=== PATIENT | female | born 1985 | race Caucasian/White ===

== ENCOUNTER 2023-07-26 12:05 | Outpatient (OUT) | payer BC, SELFPAY ==
[2023-07-26 12:58] LABS: Estimated Average Glucose 137 mg/dL; Glycohemoglobin A1C 6.4 % (4.5-6.2)
[2023-07-26 13:05] LABS: Thyroid Stimulating Hormone 3.165 uIU/mL (0.358-3.740)
[2023-07-26 14:23] LABS: Free T4 1.84 ng/dL (0.76-1.46)
== END 2023-07-26 12:06 | disposition home or self-care (01) ==
LOC: LAB 12:10
PROVIDERS: PCP Family Medicine; Visit Provider Family Medicine
DX: Z00.00 Encounter for general adult medical examination without abnormal findings (principal); E03.9 Hypothyroidism, unspecified; E28.2 Polycystic ovarian syndrome; Z86.32 Personal history of gestational diabetes
CPT/HCPCS: 36415; 83036; 84439; 84443

== ENCOUNTER 2024-07-20 10:07 | Emergency (ER) | payer BC, SELFPAY ==
[2024-07-20] VITALS (11 sets, daily range): BP systolic 139–153; BP diastolic 85–90; PULSE 79–92; TEMP 36.9; O2SAT 97–98; BMI 44.9
--- NOTE | 2024-07-20 10:13 | ECG_ITS ---
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 Measurements Intervals [place] Rate: 88 P: 52 WA: 114 QRS: -26 QRSD: 88 T: 36 QT: 340 QTc: 386 Interpretive Statements 1100 Sinus rhythm 2210 Short WA interval 7202 Moderate left axis deviation 9150 abnormal ECG No previous ECG available for comparison Electronically Signed On 07-21-2024 5:15:29 EDT by KATLYN PIZANO M.D.
--- NOTE | 2024-07-20 10:31 | ED.GENADUL1 ---
HPI HPI - General Adult General Chief complaint: Chest Pain Stated complaint: CHEST PAIN Time Seen by Provider: 07/20/24 10:08 Source: family Mode of arrival: walk-in Limitations: no limitations History of Present Illness HPI narrative: 38-year-old female presents to the emergency department for chief complaint of chest pain. She woke up with it today about 6 AM, 4-1/2 hours ago. It is just to the left of her sternum and there was no associated injury. No unusual activity yesterday. No fever or significant cough. No back pain. She went to an urgent care center but they told her to come here. Related Data Home Medications ?Medication ?Instructions ?Recorded ?Confirmed levothyroxine 75 mcg tablet 75 mcg PO .am 07/20/24 07/20/24 naproxen 500 mg tablet 500 mg PO ONCE 07/20/24 07/20/24 Allergies Allergy/AdvReac Type Severity Reaction Status Date / Time Penicillins Allergy Rash Verified 07/20/24 10:11 Opioid HPI Opioid Management Most Recent Opioid Data: Last Pain Scale 3 07/20/24 11:13 07/20/24 Last MAR Pain Assessment 07/20/24 11:13 Review of Systems ROS Narrative A ten point review of systems is negative except as noted above. PFSH PFSH Social History Little interest or pleasure in doing things: not at all Feeling down, depressed, or hopeless: not at all Exam Narrative Exam Narrative: Nurses note and vital signs reviewed and patient is not hypoxic. General: The patient appears well and in no apparent distress. Patient is resting comfortably on cart. Skin: Warm, dry, no pallor noted. There is no rash noted. Head: Normocephalic, atraumatic Eye: Normal conjunctiva, no drainage Ears, Nose, Mouth, and Throat: oral mucosa is moist. Nares patent. Cardiovascular: Regular Rate and Rhythm Respiratory: Patient is in no distress, no accessory muscle use, lungs are clear to auscultation, no wheezing, rales or rhonchi Back: non-tender GI: Soft and nontender Musculoskeletal: The patient has no evidence of calf tenderness, no pitting edema, symmetrical pulses noted bilaterally Neurological: A&O, normal speech Psychiatric: Cooperative Constitutional Vital Signs, click to edit/add: Last Vital Signs Temp 98.4 F 07/20/24 10:13 Pulse 80 07/20/24 11:30 Resp 14 07/20/24 11:30 BP 139/90 07/20/24 10:15 Pulse Ox 98 07/20/24 10:13 O2 Del Method Room Air 07/20/24 10:13 Course Vital Signs Vital signs: Vital Signs Temperature 98.4 F 07/20/24 10:13 Pulse Rate 91 H 07/20/24 10:13 Respiratory Rate 14 07/20/24 10:13 Blood Pressure 139/90 07/20/24 10:13 Pulse Oximetry 98 07/20/24 10:13 Oxygen Delivery Method Room Air 07/20/24 10:13 Temperature 98.4 F 07/20/24 10:13 Pulse Rate 80 07/20/24 11:30 Respiratory Rate 14 07/20/24 11:30 Blood Pressure 139/90 07/20/24 10:15 Pulse Oximetry 98 07/20/24 10:13 Oxygen Delivery Method Room Air 07/20/24 10:13 Medical Decision Making MDM Narrative Medical decision making narrative: Her workup is negative. She feels better after being given IV Toradol and I suspect that this is muscular in nature. I have no clinical suspicion of a pulmonary embolism in this patient. Treatment diagnosis and follow-up were discussed with the patient Differential Diagnosis Differential Diagnosis: Chest wall pain, myocardial infarction, PE, pneumothorax Lab Data Lab results reviewed: Yes I reviewed the patient's lab results Labs: Lab Results 07/20/24 Range/Units 10:38 WBC 11.3 H (4.0-11.0) 10^3/uL RBC 4.54 (4.20-5.40) 10^6/uL Hgb 12.0 (12.0-16.0) g/dL Hct 37.2 (36.0-48.0) % MCV 81.9 (81.0-99.0) fL MCH 26.4 L (26.7-34.0) pg MCHC 32.3 (29.9-35.2) g/dL RDW 15.3 H (11.0-15.0) % Plt Count 280 (150-450) 10^3/uL MPV 11.2 (9.5-13.5) fL Neut % (Auto) 84.3 H (43.0-75.0) % Lymph % (Auto) 10.4 L (20.5-60.0) % [place] % (Auto) 4.3 (1.7-12.0) % Eos % (Auto) 0.3 L (0.9-7.0) % Baso % (Auto) 0.4 (0.2-2.0) % Neut # (Auto) 9.5 H (1.4-6.5) 10^3/uL Lymph # (Auto) 1.2 (1.2-3.8) 10^3/uL [place] # (Auto) 0.5 (0.3-0.8) 10^3/uL Eos # (Auto) 0.0 (0.0-0.7) 10^3/uL Baso # (Auto) 0.0 (0.0-0.1) 10^3/uL Abs Immat Gran (auto) 0.03 (0.00-0.03) 10^3/uL Imm/Tot Granulo (auto) 0.3 (0.0-0.5) % Sodium 138 (136-145) mmol/L Potassium 4.1 (3.5-5.1) mmol/L Chloride 102 (98-107) mmol/L Carbon Dioxide 28.4 (21.0-32.0) mmol/L Anion Gap 11.7 BUN 13.0 (7.0-18.0) mg/dL Creatinine 0.75 (0.55-1.02) mg/dL Est GFR ( Amer) >60 (>=60 mL/min/1.73m^2) Est GFR (Non-Af Amer) >60 (>=60 mL/min/1.73m^2) BUN/Creatinine Ratio 17.3 Glucose 112 H (74-106) mg/dL Calcium 9.0 (8.5-10.1) mg/dL Troponin I High Sens <4.0 L (4.0-51.3) pg/mL Imaging Data Chest x-ray: Radiologist's impression: No acute process ECG Data Attestation: I personally reviewed and interpreted this ECG as follows: (EKG on my interpretation shows normal sinus rhythm with a rate of 88 and no acute change.) Discharge Plan Discharge Chief Complaint: Chest Pain Clinical Impression: Chest pain Patient Disposition: Home, Self-Care Time of Disposition Decision: 11:46 Condition: Good Mode of Transportation: Private Vehicle Prescriptions / Home Meds: No Action levothyroxine 75 mcg tablet 75 mcg PO .am naproxen 500 mg tablet 500 mg PO ONCE Print Language: Mongolian Instructions: Chest Pain (ED) Referrals: Lisa Osei MD [Primary Care Provider] - 1 week
[2024-07-20 10:47] LABS: Basophils Percent Auto 0.4 % (0.2-2.0); Eosinophils Percent Auto 0.3 % (0.9-7.0); Hematocrit 37.2 % (36.0-48.0); Immature Granulocytes Abs Auto 0.03 10^3/uL (0.00-0.03); Immature Granulocytes Pct Auto 0.3 % (0.0-0.5); Lymphocytes Absolute Auto 1.2 10^3/uL (1.2-3.8); Lymphocytes Percent Auto 10.4 % (20.5-60.0); Mean Corpuscular HGB Conc 32.3 g/dL (29.9-35.2); Mean Corpuscular Hemoglobin 26.4 pg (26.7-34.0); Mean Corpuscular Volume 81.9 fL (81.0-99.0); Mean Platelet Volume 11.2 fL (9.5-13.5); Monocytes Absolute Auto 0.5 10^3/uL (0.3-0.8); Monocytes Percent Auto 4.3 % (1.7-12.0); Neutrophils Absolute Auto 9.5 10^3/uL (1.4-6.5); Neutrophils Percent Auto 84.3 % (43.0-75.0); Platelet Count 280 10^3/uL (150-450); Red Blood Count 4.54 10^6/uL (4.20-5.40); Red Cell Distribution Width 15.3 % (11.0-15.0); White Blood Count 11.3 10^3/uL (4.0-11.0)
[2024-07-20 11:02] LABS: Anion Gap 11.7; BUN Creatinine Ratio 17.3; Carbon Dioxide 28.4 mmol/L (21.0-32.0); Chloride 102 mmol/L (98-107); Estimated GFR (African America >60 (>=60 mL/min/1.73m^2); Estimated GFR (Non-African Ame >60 (>=60 mL/min/1.73m^2); Glucose 112 mg/dL (74-106); Potassium 4.1 mmol/L (3.5-5.1); Sodium 138 mmol/L (136-145); Troponin I High Sensitivity <4.0 pg/mL (4.0-51.3)
[2024-07-20] MEDS: KETOROLAC TROMETHAMINE 30 MG/ML VIAL IVP (11:13)
== END 2024-07-20 11:59 | disposition home or self-care (01) ==
PROVIDERS: Emergency Provider Emergency Medicine; PCP Family Medicine
DX: R07.9 Chest pain, unspecified (principal)
CPT/HCPCS: 36415; 71045; 80048; 84484; 85025; 93005; 96374; 99285; J1885

== ENCOUNTER 2025-01-24 12:47 | Outpatient (OUT) | payer BC, SELFPAY ==
--- OUTSIDE RECORDS SUMMARY | 2025-01-24 12:55 | XMS_ITS | CCD ---
Author Organization [facility] Care Team Providers Care Crepe Maker Name Role Phone ROGERIOC, DR SMITH Primary Care Unavailable JIGNESH PINEDA Admitting Unavailable EDWIN, JIGNESH Attending Unavailable VISHNU CALLAWAY Consulting Unavailable Kervin Burns Consulting Unavailable HUGH, DR HOUGH Admitting Unavailable HUGH, DR HOUGH Attending Unavailable MISC, DR SMITH Primary Care Unavailable VINCENT, DR ARMENDARIZ Consulting Unavailable HUGH, DR HOUGH Consulting Unavailable HUGH, DR HOUGH Procedure Practitioner Unavailab le HUGH, DR HOUGH Admitting Unavailable HUGH, DR HOUGH Attending Unavailable HUGH, DR HOUGH Primary Care Unavailable HUGH, DR HOUGH Consulting Unavailable HUGH, DR HOUGH Admitting Unavailable HUGH, DR HOUGH Attending Unavailable HUGH, DR HOUGH Primary Care Unavailable HUGH, DR HOUGH Consulting Unavailable ZIEBER, DR HOA Tatum Consulting Unavailable HUGH, DR HOUGH Admitting Unavailable HUGH, DR HOUGH Attending Unavailable MISC, DR SMITH Primary Care Unavailable HUGH, DR HOUGH Admitting Unavailable HUGH, DR HOUGH Attending Unavailable MISC, DR SMITH Primary Care Unavailable HUGH, DR HOUGH Admitting Unavailable HUGH, DR HOUGH Attending Unavailable MISC, DR SMITH Primary Care Unavailable HUGH, DR HOUGH Consulting Unavailable HUGH, DR HOUGH Admitting Unavailable HUGH, DR HOUGH Attending Unavailable MISC, DR SMITH Primary Care Unavailable HUGH, DR HOUGH Consulting Unavailable ZIEBER, DR HOA Tatum Consulting Unavailable HUGH, DR HOUGH Primary Care Unavailable HUGH, DR HOUGH Admitting Unavailable HUGH, DR HOUGH Attending Unavailable HUGH, DR HOUGH Admitting Unavailable HUGH, DR HOUGH Attending Unavailable HUGH, DR HOUGH Primary Care Unavailable HUGH, DR HOUGH Admitting Unavailable HUGH, DR HOUGH Attending Unavailable MISC, DR SMITH Primary Care Unavailable WEST, DR OKSANA Brewster Consulting Unavailable HUGH, DR HOUGH Consulting Unavailable HUGH, DR HOUGH Admitting Unavailable HUGH, DR HOUGH Attending Unavailable MISC, DR SMITH Primary Care Unavailable HUGH, DR HOUGH Consulting Unavailable ZIEBER, DR HOA Tatum Consulting Unavailable HUGH, DR HOUGH Admitting Unavailable HUGH, DR HOUGH Attending Unavailable MISC, DR SMITH Primary Care Unavailable HUGH, DR HOUGH Consulting Unavailable ZIEBER, DR HOA Tatum Consulting Unavailable MISC, DR SMITH Primary Care Unavailable EL, JOSE G Admitting Unavailable EL, JOSE G Attending Unavailable [place], DR OKSANA Brewster Consulting Unavailable HUGH, DR HOUGH Consulting Unavailable LAND, DR KEVON Yost Admitting Unavailable LAND, DR KEVON Yost Attending Unavailable MISC, DR SMITH Primary Care Unavailable LAND, DR KEVON Yost Consulting Unavailable HUGH, DR HOUGH Admitting Unavailable HUGH, DR HOUGH Attending Unavailable MISC, DR SMITH Primary Care Unavailable HUGH, DR HOUGH Consulting Unavailable HUGH, DR HOUGH Admitting Unavailable HUGH, DR HOUGH Attending Unavailable MISC, DR SMITH Primary Care Unavailable HUGH, DR HOUGH Consulting Unavailable HUGH, DR HOUGH Admitting Unavailable HUGH, DR HOUGH Attending Unavailable HUGH, DR HOUGH Consulting Unavailable REQUEST, DR NONE LISTED Primary Care Unavaila ble HUGH, DR HOUGH Admitting Unavailable HUGH, DR HOUGH Attending Unavailable MISC, DR SMITH Primary Care Unavailable HUGH, DR HOUGH Consulting Unavailable HUGH, DR HOUGH Admitting Unavailable HUGH, DR HOUGH Attending Unavailable MISC, DR SMITH Primary Care Unavailable HUGH, DR HOUGH Consulting Unavailable ZIEBER, DR HOA Tatum Consulting Unavailable HUGH, DR HOUGH Admitting Unavailable HUGH, DR HOUGH Attending Unavailable REQUEST, DR NONE LISTED Primary Care Unavaila ble HUGH, DR HOUGH Consulting Unavailable Allergies Allergy Classification Reported Allergen(s) Allergy Type Date of Onset Reaction(s) Facility (7 sources) Latex Drug allergy (disorder) 6 [facility] Repository (2 sources) Penicillins Drug allergy (disorder) [address] [facility] Repository (5 sources) Penicillin Drug Allergy 4 [facility] (3 sources) 12 Hour Decongestant Allergy to substance [facility] Medications Current Medications Medication Drug Class(es) Dates Sig (Normalized) Sig (Original) levothyroxine sodium 0.075 mg oral tablet (15 sources) l-Thyroxine Start: 07-23-2023 End: 05-26-2024 take 1 tablet by mouth once daily Levothyroxine (Synthroid) 75 mcg tablet Active 75 MCG PO Daily May 26, 2024 1:42pm naproxen 500 mg oral tablet (3 sources) Nonsteroidal Anti-inflammatory Drug Start: 08-13-2023 take 1 tablet by mouth twice daily as needed for pain Naproxen 500 mg tablet Active 500 MG PO Twice daily as needed for pain 29 01August 13, 2023 12:00am Completed/Discontinued Medications Medication Drug Class(es) Dates Sig (Normalized) Sig (Original) clindamycin 150 mg oral capsule (3 sources) Lincosamide Antibacterial Start: 08-13-2023 End: 11-10-2023 take 1 capsule by mouth every eight hours Clindamycin Hcl 150 mg capsule Discontinued 150 MG PO Every 8 hours 30 10August 13, 2023 12:00am November 10, 2023 10:34am clomiPHENE citrate 50 mg oral tablet (1 source) Estrogen Agonist/Antagonist Start: 08-03-2024 End: 08-04-2024 take 1 tablet by mouth once daily Clomiphene Citrate 50 mg tablet Discontinued 50 MG PO Daily August 03, 2024 12:00am August 04, 2024 8:53am glipiZIDE er 5 mg 24 hr extended release oral tablet (2 sources) Sulfonylurea Start: 04-17-2024 End: 08-04-2024 take 1 tablet by mouth once daily Glipizide 5 mg tablet extended release 24hr Discontinued 0 .ROUTE .COMPLEX April 17, 2024 1:40pm August 04, 2024 8:52am TAKE 1 TABLET BY MOUTH EVERY DAY Start: 01-18-2024 End: 04-17-2024 take 1 tablet by mouth once daily Glipizide 5 mg tablet extended release 24hr Discontinued 5 MG PO Daily January 18, 2024 12:00am April 17, 2024 1:40pm 24 hr metFORMIN hydrochloride 500 mg extended release oral tablet (8 sources) Biguanide Start: 11-10-2023 End: 01-18-2024 take 1 tablet by mouth twice daily Metformin 500 mg tablet extended release 24 hr Discontinued 500 MG PO Twice daily 180 November 10, 2023 12:00am January 18, 2024 10:06am Start: 07-23-2023 End: 07-26-2023 take 1 tablet by mouth twice daily at mealtime Metformin 500 mg tablet Discontinued 500 MG PO Twice daily with meals July 23, 2023 12:00am July 26, 2023 11:24am nitrofurantoin, macrocrystals 25 mg / nitrofurantoin, monohydrate 75 mg oral capsule (5 sources) Nitrofuran Antibacterial Start: 07-23-2023 End: 07-26-2023 take 1 capsule by mouth every twelve hours at mealtime Nitrofurantoin Monohyd/M-Cryst (Macrobid) 100 mg capsule Discontinued 1 CAP PO Every 12 hours July 23, 2023 12:00am July 26, 2023 11:24am FreeTextSi capsule with food Orally every 12 hrs; Note: Source Status: Taking; Refills: 0; Provider: Juan Francisco Jarrell phenazopyridine hydrochloride 200 mg oral tablet (5 sources) Start: 07-23-2023 End: 07-26-2023 take 1 tablet by mouth three times daily after mealtime Phenazopyridine (Pyridium) 200 mg tablet Discontinued 1 TAB PO Three times daily July 23, 2023 12:00am July 26, 2023 11:24am FreeTextSi tablet after meals Orally Three times a day; Note: Source Status: Taking; Refills: 0; Provider: Juan Francisco Jarrell Pnv #[id number] Acid-Omega3 (4 sources) Start: 07-23-2023 End: 07-26-2023 Pnv #[id number] Acid-Omega3 Discontinued CAP PO July 23, 2023 12:00am July 26, 2023 11:25am Pnv #[id number] Acid-Omega3 30 mg iron-10 mg iron-1 mg capsule (1 source) Start: 07-23-2023 End: 07-26-2023 Pnv #[id number] Acid-Omega3 30 mg iron-10 mg iron-1 mg capsule Discontinued CAP PO July 23, 2023 12:00am July 26, 2023 11:25am Problems Active Problems Problem Classification Problem Date Documented Da te Episodic/Chronic Diabetes mellitus with complications (4 sources) Hyperglycemia due to type 2 diabetes mellitus; Translations: [Type 2 diabetes mellitus with hyperglycemia] 11-10-2023 Chronic Diabetes or abnormal glucose tolerance complicating ; childbirth; or the puerperium (13 sources) Abnormal glucose complicating ; Translations: [Gestational diabetes mellitus in , unspecified control] Onset: 12-13-2020 Episodic Disorders of teeth and jaw (4 sources) Infection of tooth; Translations: [Periapical abscess without sinus] 08-13-2023 Episodic Nonspecific chest pain (2 sources) Chest pain; Translations: [Chest pain, unspecified] 08-04-2024 Episodic Other aftercare (1 source) Other photographic hand developer (current) drug therapy; Translations: [OTH CLOCK AND WATCH HANDS MOUNTER CURRENT DRUG THERAPY] Onset: 05-22-2021 Episodic Other complications of ; puerperium affecting management of mother (1 source) Obesity complicating childbirth; Translations: [OBESITY COMPLICATING CHILDBIRTH] Onset: 01-30-2021 Chronic Other complications of ; puerperium affecting management of mother (1 source) Anemia complicating childbirth; Translations: [ANEMIA COMPLICATING CHILDBIRTH] Onset: 01-30-2021 Chronic Other endocrine disorders (3 sources) Polycystic ovarian syndrome; Translations: [Polycystic ovaries] Onset: 06-19-2021 07-26-2023 Chronic Other endocrine disorders (5 sources) Polycystic ovary syndrome; Translations: [Polycystic ovarian syndrome] 07-26-2023 Chronic Other gastrointestinal disorders (3 sources) Dysphagia, unspecified; Translations: [DYSPHAGIA UNSPECIFIED] Onset: 05-20-2021 Episodic Other nutritional; endocrine; and metabolic disorders (1 source) Obesity, unspecified; Translations: [OBESITY UNSPECIFIED] Onset: 01-30-2021 Chronic Other upper respiratory infections (1 source) Acute pharyngitis, unspecified; Translations: [ACUTE PHARYNGITIS UNSPECIFIED] Onset: 05-22-2021 Episodic Thyroid disorders (14 sources) Hypothyroidism, unspecified; Translations: [Hypothyroidism] Onset: 05-22-2021 Chronic Unclassified (1 source) CONTACT W/AND (SUSP) EXPOS COVID-19; Translations: [CONTACT W/AND (SUSP) EXPOS COVID-19] Onset: 01-30-2021 Past or Other Problems Problem Classification Problem Date Documented Date Episodic/Chronic Deficiency and other anemia (1 source) Iron deficiency anemia, unspecified; Translations: [IRON DEFICIENCY ANEMIA UNSPECIFIED] Onset: 01-30-2021 Episodic Diabetes mellitus without complication (5 sources) Other abnormal glucose; Translations: [OTHER ABNORMAL GLUCOSE] Onset: 11-23-2020 Episodic Hemorrhage during ; abruptio placenta; placenta previa (4 sources) Hemorrhage in early , unspecified; Translations: [HEMORRHAGE EARLY UNS] Onset: 07-01-2020 Episodic Immunizations and screening for infectious disease (2 sources) Encounter for screening for infections with a predominantly sexual mode of transmission; Translations: [Encounter for screening for human papillomavirus (HPV)] Onset: 09-05-2020 Episodic OB-related trauma to perineum and vulva (2 sources) Second degree perineal laceration during delivery; Translations: [Other specified trauma to perineum and vulva] Onset: 01-30-2021 Episodic Other complications of ; puerperium affecting management of mother (1 source) Endocrine, nutritional and metabolic diseases complicating childbirth; Translations: [ENDOCRN NUTR MET DZ COMP CHILDBIRTH] Onset: 01-30-2021 Episodic Other complications of (4 sources) Endocrine, nutritional and metabolic diseases complicating , unspecified trimester; Translations: [ENDOCRN NUTR MET DZ COMP PG UNS TRI] Onset: 12-18-2020 Episodic Other complications of (4 sources) Endocrine, nutritional and metabolic diseases complicating , third trimester; Translations: [ENDOCRN NUTR MET DZ COMP PG 3RD TRI] Onset: 12-20-2020 Episodic Other female genital disorders (1 source) Other specified noninflammatory disorders of vagina; Translations: [OTH SPEC NONINFLAMMATORY D/O VAGINA] Onset: 09-05-2020 Episodic Other and delivery including normal (16 sources) Encounter for routine follow-up; Translations: [Single live ] Onset: 07-19-2020 Episodic Other screening for suspected conditions (not mental disorders or infectious disease) (8 sources) Encounter for screening for Streptococcus B; Translations: [Encounter for screening for malignant neoplasm of cervix] Onset: 08-29-2020 Episodic Residual codes; unclassified (1 source) 37 weeks gestation of ; Translations: [37 WEEKS GESTATION OF ] Onset: 01-30-2021 Episodic Residual codes; unclassified (1 source) 36 weeks gestation of ; Translations: [36 WEEKS GESTATION OF ] Onset: 01-15-2021 Episodic Residual codes; unclassified (1 source) 35 weeks gestation of ; Translations: [35 WEEKS GESTATION OF ] Onset: 01-16-2021 Episodic Residual codes; unclassified (1 source) 34 weeks gestation of ; Translations: [34 WEEKS GESTATION OF ] Onset: 01-13-2021 Episodic Residual codes; unclassified (1 source) 33 weeks gestation of ; Translations: [33 WEEKS GESTATION OF ] Onset: 02-20-2021 Episodic Residual codes; unclassified (1 source) 32 weeks gestation of ; Translations: [32 WEEKS GESTATION OF ] Onset: 12-18-2020 Episodic Residual codes; unclassified (1 source) 28 weeks gestation of ; Translations: [28 WEEKS GESTATION OF ] Onset: 11-20-2020 Episodic Screening and history of mental health and substance abuse codes (1 source) Personal history of nicotine dependence; Translations: [PERSONAL HISTORY OF NICOTINE DEPEND] Onset: 01-30-2021 Episodic Results Test Name Value Interpretation Reference Range Facility Basophils Auto (Bld) [#/Vol] on 07-20-2024 Basophils (Bld) [#/Vol] Automated basophil count 0.0-0.1 [facility] Basophils/100 WBC Auto (Bld) on 07-20-2024 Basophils/100 WBC (Bld) Automated basophil % 0.2-2.0 [facility] Eosinophils/100 WBC Auto (Bl d)on 07-20-2024 Eosinophils/100 WBC (Bld) Automated eosinophil % Low 0.9-7.0 [facility] Erythrocyte distribution wid th Auto (RBC) [Ratio]on 07-20-2024 Erythrocyte distribution width (RBC) [Ratio] Erythrocyte distribution width [Ratio] by Automated count High 11.0-15.0 [facility] Estimated glomerular filtrat ion rate (GFR) non- Americanon 07-20-2024 GFR/1.73 sq M.predicted among non-blacks MDRD (S/P/Bld) [Vol rate/Area] Estimated glomerular filtration rate (GFR) non- >=60 mL/min/1.73m 2 [facility] Hematocrit Auto (Bld) [Volum e fraction]on 07-20-2024 Hematocrit (Bld) [Volume fraction] Hematocrit [Volume Fraction] of Blood by Automated count 36.0-48.0 [facility] Hemoglobin [Mass/volume] in Bloodon 07-20-2024 Hemoglobin (Bld) [Mass/Vol] Hemoglobin [Mass/volume] in Blood 12.0-16.0 [facility] Laboratory - Chemistry and C hemistry - challengeon 07-20-2024 Calcium [Mass/Vol] 9.0 mg/dL 8.5-10.1 [facility] Chloride [Moles/Vol] 102 mmol/L 98-107 [facility] CO2 [Moles/Vol] 28.4 mmol/L 21.0-32.0 [facility] Creatinine [Mass/Vol] 0.75 mg/dL 0.55-1.02 [facility] GFR/1.73 sq M.predicted MDRD (S/P/Bld) [Vol rate/Area] mL/min/{1.73_m2} >=60 mL/min/1.73m 2 [facility] Glucose [Mass/Vol] 112 mg/dL High 74-106 [facility] Potassium [Moles/Vol] 4.1 mmol/L 3.5-5.1 [facility] Sodium [Moles/Vol] 138 mmol/L 136-145 [facility] Urea nitrogen [Mass/Vol] 13.0 mg/dL 7.0-18.0 [facility] Urea nitrogen/Creatinine [Mass ratio] 17.3 mg/mg [facility] Laboratory - Hematology and Cell countson 07-20-2024 Immature granulocytes/100 WBC (Bld) 0.3 % 0.0-0.5 [facility] Leukocytes [#/volume] correc rubens for nucleated erythrocytes in Blood by Automated counon 07-20-2024 WBC corrected for nucl RBC Auto (Bld) [#/Vol] Leukocytes [#/volume] corrected for nucleated erythrocytes in Blood by Automated coun High 4.0-11.0 [facility] Lymphocytes Auto (Bld) [#/Vo l]on 07-20-2024 Lymphocytes (Bld) [#/Vol] Lymphocytes [#/volume] in Blood by Automated count 1.2-3.8 [facility] Lymphocytes/100 WBC Auto (Bl d)on 07-20-2024 Lymphocytes/100 WBC (Bld) Lymphocytes/100 leukocytes in Blood by Automated count Low 20.5-60.0 [facility] MCH Auto (RBC) [Entitic mass ]on 07-20-2024 MCH (RBC) [Entitic mass] MCH [Entitic mass] by Automated count Low 26.7-34.0 [facility] MCHC Auto (RBC) [Mass/Vol]on 07-20-2024 MCHC (RBC) [Mass/Vol] MCHC [Mass/volume] by Automated count 29.9-35.2 [facility] MCV Auto (RBC) [Entitic vol] on 07-20-2024 MCV (RBC) [Entitic vol] MCV [Entitic volume] by Automated count 81.0-99.0 [facility] Monocytes Auto (Bld) [#/Vol] on 07-20-2024 Monocytes (Bld) [#/Vol] Automated blood monocyte count 0.3-0.8 [facility] Monocytes/100 WBC Auto (Bld) on 07-20-2024 Monocytes/100 WBC (Bld) Automated monocyte % 1.7-12.0 [facility] Neutrophils Auto (Bld) [#/Vo l]on 07-20-2024 Neutrophils (Bld) [#/Vol] Neutrophils [#/volume] in Blood by Automated count High 1.4-6.5 [facility] Neutrophils/100 WBC Auto (Bl d)on 07-20-2024 Neutrophils/100 WBC (Bld) Automated neutrophil % High 43.0-75.0 [facility] No Panel Informationon 07-20 Eosinophils # (Auto) 0.0 10 3/uL 0.0-0.7 [facility] Immature Granulocyte # (Auto) 0.03 10 3/uL 0.00-0.03 [facility] Troponin I High Sensitivity <4.0 pg/mL Low 4.0-51.3 [facility] Comment on above: CUT-OFF POINTS HAVE BEEN ESTABLISHED BASED ON THE FOURTHUNIVERSAL DEFINITION OF MYOCARDIAL INFARCTION. THE UPPERREFERENCE LIMIT (URL) OF TROPONIN, DEFINED THE 99THPERCENTILE OF cTnI DISTRIBUTION IN A REFERENCE POPULATION,HAS BEEN CONFIRMED THE DECISION THRESHOLD FOR MIDIAGNOSIS.99TH PERCENTILE = 51.4 PG/MLNOTE: HIGH-SENSITIVITY TROPONIN ASSAY IS NOT INTENDED TO BEUSED IN ISOLATION BUT SHOULD BE INTERPRETED IN CONJUNCTIONWITH OTHER DIAGNOSTIC AND CLINICAL INFORMATION. Platelet mean volume Auto (B ld) [Entitic vol]on 07-20-2024 Platelet mean volume (Bld) [Entitic vol] Platelet mean volume [Entitic volume] in Blood by Automated count 9.5-13.5 [facility] Platelets Auto (Bld) [#/Vol] on 07-20-2024 Platelets (Bld) [#/Vol] Platelets [#/volume] in Blood by Automated count 150-450 [facility] RBC Auto (Bld) [#/Vol]on RBC (Bld) [#/Vol] Erythrocytes [#/volu me] in Blood by Automated count 4.20-5.40 [facility] Serum or plasma anion gap de terminationon 07-20-2024 Anion gap [Moles/Vol] Serum or plasma anion gap determination [facility] Glucose mean value [Mass/vol ume] in Blood Estimated from glycated hemoglobinon 07-26-2023 Average glucose Estimated from glycated hemoglobin (Bld) [Mass/Vol] 137 mg/dL [facility] Laboratory - Chemistry and C hemistry - challengeon 07-26-2023 Free T4 [Mass/Vol] 1.84 ng/dL 0.76-1.46 [facility] TSH Qn 3.165 m[IU]/L 0.358-3.740 [facility] Laboratory - Hematology and Cell countson 07-26-2023 HbA1c (Bld) [Mass fraction] 6.4 % 4.5-6.2 [facility] Comment on above: ADA RECOMMENDED LIMI T 4.0 - 6.0ADA THERAPEUTIC TARGET < 7.0ACTION SUGGESTED> 7.0 FREE T4on 06-18-2021 Free T4 [Mass/Vol] 2.18 ng/dL Normal 0.78-2.19 [facility] Comment on above: Performed By: #### F T4 ####[facility] [id number] [address]Dr. Babak Adams GLYCOHEMOGLOBIN A1Con 2021 ADA RECOMMENDATION ADA THERAPEUTIC TARG ET 6.0 - 7.0 ACTION SUGGESTED > 7.[address] [facility] Comment on above: Performed By: #### A 1C #### [facility] [address] [address] [address] Babak Adams Glucose [Mass/Vol] 117 mg/dL Normal [facility] Comment on above: Performed By: #### A 1C #### [facility] [address] [place] [address] Dr. Babak Adams HbA1c (Bld) [Mass fraction] 5.7 % Normal <=6.[address] [facility] Comment on above: Performed By: #### A 1C #### [facility] [address] [place] [address] Dr. Babak Adams TSHon 06-18-2021 TSH 0.532 uIU/mL Normal 0.470-4.[address] [facility] Comment on above: Performed By: #### H BSANS #### [facility] [address] [place] [address] Harinilindsay Eng TSH RANGE SEE BELOW Normal [facility] Comment on above: Result Comment: <0.3 4 UIU/ml HYPERTHYROID 0.34-5.60 UIU/ml EUTHYROID >5.60 UIU/ml HYPOTHYROID Performed By: #### H BSANS #### [facility] [address] [place] [address] NECK [address] W CONon [address] W CON EXAMINATION: CT NECK ST W CON HISTORY: Pharyngitis COMPARISON: None. TECHNIQUE: CT examination of the soft tissues of the neck following the administration of intravenous contrast. Coronal and sagittal reformations were performed. Dose reduction techniques were achieved by using automated exposure control and/or adjustment of mA and/or kV according to patient size and/or use of iterative reconstruction technique. FINDINGS: Mucosa: No mass in the nasal cavity, nasopharynx, oral cavity, oropharynx, larynx, hypopharynx, or proximal trachea/esophagus. No radiopaque foreign body within the visualized aerodigestive digestive tract. Glands: Normal bilateral parotid, submandibular, and thyroid glands. Nodes: No pathologically enlarged or necrotic cervical lymph nodes. A few prominent level 2A cervical lymph nodes are present although remain subcentimeter in short axis. Vessels: Vascular structures are patent. No carotid space mass. Other: No suspicious lesion in the cervical spine or lung apices. IMPRESSION: 1. No suspicious mass or lymphadenopathy. No abnormal enhancement. 2. No radiopaque foreign body within the visualized aerodigestive digestive tract Electronically authenticated by: KERVIN BURNS Date: 2021-05-20 20:34 Normal [facility] CULTURE THROATon 05-20-2021 CULTURE THROAT Culture Observations : NORMAL RESPIRATORY RENITA. Normal [facility] Comment on above: Performed By: #### T HRTCX, SSCRN #### [facility] [address] [address] [address] Babak Adams MONOon 05-20-2021 Monocytes (Bld) [#/Vol] Negative Normal NEGATIVE [facility] Comment on above: Performed By: #### M CECIL ####[facility] [id number] [address]Dr. Babak Adams STREPT SCREENon 05-20-2021 STREP SCREEN A Negative Normal NEGATIVE [facility] Comment on above: Performed By: #### T HRTCX, SSCRN #### [facility] [address] [address] [address] Babak Adams CBC AUTO DIFFon 01-15-2021 BASO # 0.0 103/ul Normal 0.0-0.[address] [facility] Comment on above: Performed By: #### C BC ####[facility] [id number] [address]Dr. Babak Adams Basophils/100 WBC (Bld) 0.2 % Normal 0.2-2.[address] [facility] Comment on above: Performed By: #### C BC ####[facility] [address] [address]Dr. Babak Adams EO # 0.0 103/ul Normal 0.0-0.7 [facility] Comment on above: Performed By: #### C BC ####[facility] [address] [address]Dr. Babak Adams Eosinophils/100 WBC (Bld) 0.3 % Critically low 0.9-7.0 [facility] Comment on above: Performed By: #### C BC ####[facility] [address] [address]Dr. Babak Adams Erythrocyte distribution width (RBC) [Ratio] 14.5 % Normal 11.0-15.0 [facility] Comment on above: Performed By: #### C BC ####[facility] [address] [address]Dr. Babak Adams Hematocrit (Bld) [Volume fraction] 29.1 % Critically low 36.0-48.0 [facility] Comment on above: Performed By: #### C BC ####[facility] [address] [address]Dr. Babak Adams Hemoglobin (Bld) [Mass/Vol] 9.3 g/dL Critically low 12.0-16.0 [facility] Comment on above: Performed By: #### C BC ####[facility] [address] [address]Dr. Babak Adams IG # 0.10 10e3/ul Critically high 0.00-0.03 [facility] Comment on above: Performed By: #### C BC ####[facility] [address] [place] [address]Dr. Babak Adams IG % 0.8 % Critically high 0.0-0.5 [facility] Comment on above: Performed By: #### C BC ####[facility] [address] [place] [address]Dr. Babak Adams LYMPH # 1.4 103/ul Normal 1.2-3.8 [facility] Comment on above: Performed By: #### C BC ####[facility] [address]ff[address] [place] [address]Dr. Babak Bryan Lymphocytes/100 WBC (Bld) 10.8 % Critically low 20.5-60.0 [facility] Comment on above: Performed By: #### C BC ####[facility] Hbwmppdepi[address] [place] [address]Dr. Lexyrene Adams MANUAL DIFF REQ NO Normal [facility] Comment on above: Performed By: #### C BC ####[facility] [address]ub[address] [place] [address]Dr. Babak Bryan MCH (RBC) [Entitic mass] 28.1 pg Normal 26.7-34.0 [facility] Comment on above: Performed By: #### C BC ####[facility] [address] [place], [place] [address]Dr. Babak Bryan MCHC (RBC) [Mass/Vol] 32.0 g/dL Normal 29.9-35.2 [facility] Comment on above: Performed By: #### C BC ####[facility] [address] [place] [address]Dr. Lexyrene Adams MCV (RBC) [Entitic vol] 87.9 fL Normal 81.0-99.0 [facility] Comment on above: Performed By: #### C BC ####[facility] S[address] [place], [place] [address]Dr. Babak Adams MONO # 0.7 103/ul Normal 0.3-0.8 [facility] Comment on above: Performed By: #### C BC ####[facility] [address] [place] [address]Dr. Lexyrene Adams Monocytes/100 WBC (Bld) 5.5 % Normal 1.7-12.0 [facility] Comment on above: Performed By: #### C BC ####[facility] [address] [place], [place] [address]Dr. Babak Adams NEUT # 10.6 103/ul Critically high 1.4-6.5 [facility] Comment on above: Performed By: #### C BC ####[facility] [address]leszb[address] [place] [address]Dr. Babak Adams Neutrophils/100 WBC (Bld) 82.4 % Critically high 43.0-75.0 [facility] Comment on above: Performed By: #### C BC ####[facility] By[address]entx[address] [place] [address]Dr. Babak Adams Platelet mean volume (Bld) [Entitic vol] 10.8 fL Normal 9.5-13.5 [facility] Comment on above: Performed By: #### C BC ####[facility] [address] [place] [id number]. Babak Adams PLT 201 103/ul Normal 150-450 [facility] Comment on above: Performed By: #### C BC ####[facility] [address] [place] [address]Dr. Babak Adams RBC 3.31 106/ul Critically low 4.20-5.40 [facility] Comment on above: Performed By: #### C BC ####[facility] X[address]purssx[address] [place] [address]Dr. Babak Adams WBC 12.8 103/ul Critically high 4.0-11.0 [facility] Comment on above: Performed By: #### C BC ####[facility] [address] [place] [address]Dr. Babak Adams CBC AUTO DIFFon 01-14-2021 BASO # 0.0 103/ul Normal 0.0-0.1 [facility] Comment on above: Performed By: #### C BC #### [facility] [address] [place] [address] Harini Albertina Basophils/100 WBC (Bld) 0.3 % Normal 0.2-2.0 [facility] Comment on above: Performed By: #### C BC #### [facility] [address] [place] [address] Harini Albertina EO # 0.0 103/ul Normal 0.0-0.7 [facility] Comment on above: Performed By: #### C BC #### [facility] [address] [place], [place] [id number] Harini Albertina Eosinophils/100 WBC (Bld) 0.3 % Critically low 0.9-7.[address] [facility] Comment on above: Performed By: #### C BC #### [facility] [address] [place], [place] [id number] Harini Albertina Erythrocyte distribution width (RBC) [Ratio] 14.3 % Normal 11.0-15.[address] [facility] Comment on above: Performed By: #### C BC #### [facility] [address] [place], [place] [id number] Harini Albertina Hematocrit (Bld) [Volume fraction] 34.4 % Critically low 36.0-48.0 [facility] Comment on above: Performed By: #### C BC #### [facility] [address] [place] [address] Harini Albertina Hemoglobin (Bld) [Mass/Vol] 11.3 g/dL Critically low 12.0-16.0 [facility] Comment on above: Performed By: #### C BC #### [facility] [address] [place] [address] Harini Albertina IG # 0.07 10e3/ul Critically high 0.00-0.03 [facility] Comment on above: Performed By: #### C BC #### [facility] [address] [place], [place] [id number] Harini Albertina IG % 0.6 % Critically high 0.0-0.5 [facility] Comment on above: Performed By: #### C BC #### [facility] [address] [place] [address] Harini Albertina LYMPH # 1.2 103/ul Normal 1.2-3.8 [facility] Comment on above: Performed By: #### C BC #### [facility] [address] [place], [place] [id number] Harini Albertina Lymphocytes/100 WBC (Bld) 10.5 % Critically low 20.5-60.0 [facility] Comment on above: Performed By: #### C BC #### [facility] [address] [place], [place] [phone] Harini Albertina MANUAL DIFF REQ NO Normal [facility] Comment on above: Performed By: #### C BC #### [facility] [address] [place] [address] Harini Eng MCH (RBC) [Entitic mass] 28.3 pg Normal 26.7-34.[address] [facility] Comment on above: Performed By: #### C BC #### [facility] [address] [place] [address] Harini Eng MCHC (RBC) [Mass/Vol] 32.8 g/dL Normal 29.9-35.[address] [facility] Comment on above: Performed By: #### C BC #### [facility] [address] [place] [address] Harini Eng MCV (RBC) [Entitic vol] 86.0 fL Normal 81.0-99.[address] [facility] Comment on above: Performed By: #### C BC #### [facility] [address] [place] [address] Harini Eng MONO # 0.5 103/ul Normal 0.3-0.8 [facility] Comment on above: Performed By: #### C BC #### [facility] [address] [place] [address] Harini Eng Monocytes/100 WBC (Bld) 4.6 % Normal 1.7-12.0 [facility] Comment on above: Performed By: #### C BC #### [facility] [address] [place] [address] Harini Eng NEUT # 9.8 103/ul Critically high 1.4-6.5 [facility] Comment on above: Performed By: #### C BC #### [facility] [address] [place], [place] [address] Harini Eng Neutrophils/100 WBC (Bld) 83.7 % Critically high 43.0-75.[address] [facility] Comment on above: Performed By: #### C BC #### [facility] [address] [place], [place] [phone] Harinilindsay Eng Platelet mean volume (Bld) [Entitic vol] 11.2 fL Normal 9.5-13.5 [facility] Comment on above: Performed By: #### C BC #### [facility] [address], [place] [address] Harini Eng PLT 219 103/ul Normal 150-450 [facility] Comment on above: Performed By: #### C BC #### [facility] [address] [place], [place] [address] Harini Eng RBC 4.00 106/ul Critically low 4.20-5.40 [facility] Comment on above: Performed By: #### C BC #### [facility] [address] [place], [place] [address] Harini Eng WBC 11.7 103/ul Critically high 4.0-11.0 [facility] Comment on above: Performed By: #### C BC #### [facility] [address], [place] [address] Harini Eng Covid-19 PCR ([facility])on SARS-CoV-2 (COVID-19) RNA SONY+probe Ql (Unsp spec) Not detected Normal NOT DETECTED [facility] Comment on above: Result Comment: This test is not yet approved or cleared by the [place] FDA. When there are no FDA-approved or cleared tests available, and other criteria are met, FDA can make tests available under an emergency access mechanism called an Emergency Use Authorization (EUA). The EUA for this test is supported by the [place] of Health and Human Service's (HHS's) declaration that circumstances exist to justify the emergency use of in vitro diagnostics for the detection and/or diagnosis of the virus that causes COVID-19. This EUA will remain in effect (meaning this test can be used) for the duration of the COVID-19 declaration justifying emergency of IVDs, unless it is terminated or revoked by FDA (after which the test may no longer be used). When diagnostic testing is negative, the possibility of a false negative should be considered in the context of a patient's recent exposures and the presence of clinical signs and symptoms consistent with SARS-CoV-2. Performed By: #### C BC #### [facility] [address] [place] [address] Harini Albertina DRUG SCREEN RAPID (URINE)on 01-14-2021 AMP Negative Normal NEGATIVE [facility] Comment on above: Performed By: #### H BSANS #### [facility] [address] [place] [address] Harini Albertina BAR Negative Normal NEGATIVE [facility] Comment on above: Performed By: #### H BSANS #### [facility] [address] [place] [address] Harini Albertina BUP Negative Normal NEGATIVE [facility] Comment on above: Performed By: #### H BSANS #### [facility] [address] [place] [address] [facility] BZO Negative Normal NEGATIVE [facility] Comment on above: Performed By: #### H BSANS #### [facility] [address] [place] [address] Harini Albertina NORMA Negative Normal NEGATIVE [facility] Comment on above: Performed By: #### H BSANS #### [facility] [address] [place] [address] Harini Albertina CUT-OFFS SEE BELOW Normal [facility] Comment on above: Result Comment: AMP (Amphetamine): 500ng/mL, BAR (Barbituates): 200 ng/mL, BZO (Benzodiazepines): 150 ng/mL, BUP (Buprenorphine): 10 ng/mL, NORMA (Cocaine): 150 ng/mL, mAMP (Methamphetamine): 500 ng/mL, MTD (Methadone): 200 ng/mL, OPI (Opiates): 100 ng/mL, OXY (Oxycodone): 100 ng/mL, PCP (Phencyclidine): 25 ng/mL, PPX (Propoxyphene): 300 ng/mL, THC (Cannabinoids): 50 ng/mL, TCA (Trycyclic Antidepressants): 300 ng/mL Performed By: #### H BSANS #### [facility] [address] [place] [address] Harini Albertina DRUG CUT HEADER DRUG CLASS TEST SYST EM CUT-OFF CONCENTRATIONS ARE FOLLOWS: Normal [facility] Comment on above: Performed By: #### H BSANS #### [facility] [address] [place] [address] Harini Albertina mAMP Negative Normal NEGATIVE [facility] Comment on above: Performed By: #### H BSANS #### [facility] [address] [place] [address] Harini Albertina MTD Negative Normal NEGATIVE [facility] Comment on above: Performed By: #### H BSANS #### [facility] [address] [place] [address] Harini Albertina OPI Negative Normal NEGATIVE [facility] Comment on above: Performed By: #### H BSANS #### [facility] [address] [place] [address] Harini Albertina OXY Negative Normal NEGATIVE [facility] Comment on above: Performed By: #### H BSANS #### [facility] [address] [place] [address] Harini Albertina PCP Negative Normal NEGATIVE [facility] Comment on above: Performed By: #### H BSANS #### [facility] [address] [place] [address] Harini Albertina PPX Negative Normal NEGATIVE [facility] Comment on above: Performed By: #### H BSANS #### [facility] [address] [place] [address] Harini Albertina TCA Negative Normal NEGATIVE [facility] Comment on above: Performed By: #### H BSANS #### [facility] [address] [place] [address] Harini Albertina THC Negative Normal NEGATIVE [facility] Comment on above: Performed By: #### H BSANS #### [facility] [address] [place] [address] Harini Albertina UA (CLEAN/CATCH) SLEEVE BASTER/MICRO I F IND.on 01-14-2021 Bilirubin Ql (U) Negative Normal NEGATIVE [facility] Comment on above: Performed By: #### U MICRO, UACSIND ####[facility] [address] [place] [address]DrJasmyne Adams Clarity (U) CLEAR Normal CLEAR [facility] Comment on above: Performed By: #### U MICRO, UACSIND ####[facility] [address]obsw[address] [place] [address]Dr. Lexyrene Adams Color (U) LT. YELLOW Normal YELLOW [facility] Comment on above: Performed By: #### U MICRO, UACSIND ####[facility] [address] [place] [address]Dr. Lexyrene Adams Glucose Ql (U) Negative Normal NEGATIVE [facility] Comment on above: Performed By: #### U MICRO, UACSIND ####[facility] Qqqf[address]bwjz[address] [place] [address]Dr. Babak Adams Hemoglobin Ql (U) LARGE Abnormal NEGATIVE [facility] Comment on above: Performed By: #### U MICRO, UACSIND ####[facility] [address] [place] [address]Dr. Babak Adams Ketones Ql (U) Negative Normal NEGATIVE [facility] Comment on above: Performed By: #### U MICRO, UACSIND ####[facility] [address] [place], [place] [address]Dr. Lexyrene Adams LEUKOCYTES Negative Normal NEGATIVE [facility] Comment on above: Performed By: #### U MICRO, UACSIND ####[facility] Qkmms[address] [place], [place] [address]Dr. Lexyrene Adams Nitrite Ql (U) Negative Normal NEGATIVE [facility] Comment on above: Performed By: #### U MICRO, UACSIND ####[facility] [address] [place], [place] [address]Dr. Babak Adams pH (U) 6.5 [pH] Normal 5-9 [facility] Comment on above: Performed By: #### U MICRO, UACSIND ####[facility] Ax[address] [place], [place] [address]Dr. Babak Adams SPEC GRAVITY 1.010 Normal 1.005-<=1.025 [facility] Comment on above: Performed By: #### U MICRO, UACSIND ####[facility] [address] [place], [place] [address]Dr. Babak Adams UA PROTEIN Negative Normal NEGATIVE/ TRACE [facility] Comment on above: Performed By: #### U MICRO, UACSIND ####[facility] [address] [place] [address]Dr. Babak Adams UR MICRO IND INDICATED Normal [facility] Comment on above: Performed By: #### U MICRO, UACSIND ####[facility] [address] [place] [address]Dr. Babak Adams Urobilinogen Qn (U) 0.2 {Rakesh'U}/dL Normal 0.2 - 1. 0 [facility] Comment on above: Performed By: #### U MICRO, UACSIND ####[facility] [address] [place], [place] [address]Dr. Babak Adams URINE MICROSCOPIC ONLYon BACTERIA NONE SEEN Normal NONE SEEN [facility] Comment on above: Performed By: #### U MICRO, UACSIND ####[facility] I[address] [place], [place] [address]Dr. Babak Adams Bacteria identified Cx Nom (U) NOT INDICATED Normal [facility] Comment on above: Performed By: #### U MICRO, UACSIND ####[facility] [address] [place], [place] [address]Dr. Babak Adams CAST NONE SEEN Normal NONE SEEN [facility] Comment on above: Performed By: #### U MICRO, UACSIND ####[facility] [address] [place], [place] [address]Dr. Babak Adams Crystals LM Nom (Urine sed) NONE SEEN Normal NONE SEEN [facility] Comment on above: Performed By: #### U MICRO, UACSIND ####[facility] K[address]crm[address] [place], [place] [address]Dr. Babak Adams Epithelial cells LM Ql (Urine sed) FEW Abnormal NONE SEEN /RARE [facility] Comment on above: Performed By: #### U MICRO, UACSIND ####[facility] [address]qs[address] [place] [address]Dr. Babak Adams MUCOUS TRACE Abnormal NONE SEEN [facility] Comment on above: Performed By: #### U MICRO, UACSIND ####[facility] [address] [place], [place] [address]Tt. Lexyrene Adams RBC 5-10 Abnormal 0-2 [facility] Comment on above: Performed By: #### U MICRO, UACSIND ####[facility] [address] [place] [id number]. Lexyrene Adams WBC NONE SEEN Normal NONE SEEN [facility] Comment on above: Performed By: #### U MICRO, UACSIND ####[facility] Sydnsiryfd[address] [place] [id number]. Babak Adams US PREG BIOPHY W NON STRESSo n 01-10-2021 US PREG BIOPHY W NON STRESS EXAMINATION: US PREG BIOPHY W NON STRESS HISTORY: Blood glucose abnormal COMPARISON: No relevant comparison available. TECHNIQUE: Ultrasound biophysical profile was performed in the radiology department. non-reactive stress testing was performed by nursing staff in the birthing center. FINDINGS: BREATHING MOVEMENTS: 2.0 GROSS BODY MOVEMENTS: 2.0 TONE: 2.0 QUALITATIVE AMNIOTIC FLUID VOLUME: 2.0 PRESENTATION: CEPHALIC HEART RATE: 148.4 bpm H.B./min AMNIOTIC FLUID VOLUME: 16.2 cm cm GESTATIONAL AGE: 36 weeks 3 days CONCLUSION: Total biophysical profile score: 8.0 Electronically authenticated by: OKSANA DAVIES Date: 2021-01-10 09:[address] [facility] US PREG GROWTHon 01-10-2021 US PREG GROWTH EXAMINATION: US PREG GROWTH HISTORY: Endocrine, nutritional and metabolic disease complicating , childbirth and puerperium COMPARISON: No relevant comparison available. FINDINGS: Heart Rate: 148.4 bpm Amniotic Fluid Volume: 16.2 cm Number: 1.0 Position: Cephalic presentation, longitudinal lie Maximum Vertical Pocket: 5.6 cm cm 3.3 cm cm 3.6 cm cm 3.6 cm cm BIOMETRY: BPD: 9.3 cm cm; 37 weeks 4 days; 88% HC: 32.2 cmcm; 36 weeks 3 days, 21% AC: 31.2 cm cm; 35 weeks 1 days, 25% FL: 7.2 cm cm; 36 weeks 5 days; 54.2 % % EFW: 2812.3 grams, 6 lbs. 3 oz., 40% FL/AC: 23.0 FL/BPD: 77.3 HC/AC: 1.0 GESTATIONAL AGE: Age by EDC: 36 weeks 3 days JAYCEE by EDC: 02/04/2021 Age by US: 36 weeks 3 days JAYCEE by US: 02/04/2021 IMPRESSION: Normal interval growth Electronically authenticated by: OKSANA DAVIES Date: 2021-01-10 09:[address] [facility] GROUP B STREP CULTUREon 12-13 S. agalactiae Ag Ql (Unsp spec) Culture Observations: NEGATIVE FOR GROUP B STREPTOCOCCUS. Normal [facility] Comment on above: Performed By: #### G BSCX ####[facility] [address] [place], [place] [address]CnJasmyne Babak Adams US PREG BIOPHY W NON STRESSo n 01-03-2021 US PREG BIOPHY W NON STRESS EXAMINATION: US PREG BIOPHY W NON STRESS HISTORY: Blood glucose abnormal COMPARISON: No relevant comparison available. TECHNIQUE: Ultrasound biophysical profile was performed in the radiology department. non-reactive stress testing was performed by nursing staff in the birthing center. FINDINGS: BREATHING MOVEMENTS: 2.0 GROSS BODY MOVEMENTS: 2.0 TONE: 2.0 QUALITATIVE AMNIOTIC FLUID VOLUME: 2.0 PRESENTATION: Cephalic HEART RATE: 144.4 bpm H.B./min AMNIOTIC FLUID VOLUME: 18.6 cm cm, largest pocket 5.6 cm GESTATIONAL AGE: 35 weeks 3 days CONCLUSION: Total biophysical profile score: 8.0 Electronically authenticated by: OKSANA DAVIES Date: 2021-01-03 09:58 Normal [facility] US PREG BIOPHY W NON STRESSo n 12-27-2020 US PREG BIOPHY W NON STRESS EXAMINATION: US PREG BIOPHY W NON STRESS HISTORY: Blood glucose abnormal COMPARISON: Ultrasound biophysical 12/20/2020 TECHNIQUE: Ultrasound biophysical profile was performed. FINDINGS: BREATHING MOVEMENTS: 2.0 GROSS BODY MOVEMENTS: 2.0 TONE: 2.0 QUALITATIVE AMNIOTIC FLUID VOLUME: 2.0 PRESENTATION: CEPHALIC HEART RATE: 149.2 bpm bpm. AMNIOTIC FLUID VOLUME: 18.9 cm GESTATIONAL AGE: 34 weeks 3 days CONCLUSION: Total biophysical profile score 8.0. Electronically authenticated by: HOA FOFANA Date: 2020-12-27 09:[address] [facility] US PREG BIOPHY W NON STRESSo n 12-20-2020 US PREG BIOPHY W NON STRESS EXAMINATION: US PREG BIOPHY W NON STRESS HISTORY: Blood glucose abnormal COMPARISON: Ultrasound biophysical 12/13/2020 TECHNIQUE: Ultrasound biophysical profile was performed. FINDINGS: BREATHING MOVEMENTS: 2.0 GROSS BODY MOVEMENTS: 2.0 TONE: 2.0 QUALITATIVE AMNIOTIC FLUID VOLUME: 2.0 PRESENTATION: Cephalic HEART RATE: 142.1 bpm bpm. AMNIOTIC FLUID VOLUME: 17.1 cm GESTATIONAL AGE: 33 weeks 3 days CONCLUSION: Total biophysical profile score 8.0. Electronically authenticated by: HOA FOFANA Date: 2020-12-20 09:[address] [facility] TSHon 12-13-2020 TSH 1.393 uIU/mL Normal 0.470-4.[address] [facility] Comment on above: Performed By: #### T SH ####[facility] [address] TSH RANGE SEE BELOW Normal [facility] Comment on above: Result Comment: <0.3 4 UIU/ml HYPERTHYROID 0.34-5.60 UIU/ml EUTHYROID >5.60 UIU/ml HYPOTHYROID Performed By: #### T SH ####[facility] [address] [place] [address] US PREG BIOPHY W NON STRESSo n 12-13-2020 US PREG BIOPHY W NON STRESS EXAMINATION: US PREG BIOPHY W NON STRESS HISTORY: Blood glucose abnormal COMPARISON: No relevant comparison available. TECHNIQUE: Ultrasound biophysical profile was performed. FINDINGS: BREATHING MOVEMENTS: 2.0 GROSS BODY MOVEMENTS: 2.0 TONE: 2.0 QUALITATIVE AMNIOTIC FLUID VOLUME: 2.0 PRESENTATION: CEPHALIC HEART RATE: 138.5 bpm bpm. AMNIOTIC FLUID VOLUME: 18.5 cm GESTATIONAL AGE: 32 weeks 3 days CONCLUSION: Total biophysical profile score 8.0. Electronically authenticated by: HOA FOFANA Date: 2020-12-13 09:[address] [facility] US PREG GROWTHon 12-13-2020 US PREG GROWTH EXAMINATION: US PREG GROWTH HISTORY: Endocrine, nutritional and metabolic disease complicating , childbirth and puerperium COMPARISON: Ultrasound growth 11/15/2020 FINDINGS: Heart Rate: 138.5 bpm Number: 1.0 Position: CEPHALIC Amniotic Fluid Volume: 18.5 cm Maximum Vertical Pocket: 6.9 cm BIOMETRY: BPD: 8.3 cm cm; 33 weeks 4 days HC: 30.5 cmcm; 34 weeks 0 days AC: 28.7 cm cm; 32 weeks 5 days FL: 6.2 cm cm; 32 weeks 2 days EFW: 2051.7 grams; 51st percentile FL/AC: 21.7 FL/BPD: 74.7 HC/AC: 1.1 GESTATIONAL AGE: Age by EDC: 32 weeks 3 days JAYCEE by EDC: 02/04/2021 Age by US: 33 weeks, 1 day JAYCEE by US: 01/30/2021 IMPRESSION: 1. Single live intrauterine with growth detailed above. Electronically authenticated by: HOA FOFANA Date: 2020-12-13 09:13 Normal [facility] GTT 3 HR PREGon 11-23-2020 Glucose [Mass/Vol] 85 mg/dL Normal 74-106 [facility] Comment on above: Performed By: #### G TT3P ####[facility] [address] [place] [id number] Albertina Glucose [Mass/Vol] 186 mg/dL Normal [facility] Comment on above: Performed By: #### G TT3P ####[facility] [address] [place], [place] [address]Svysiu Albertina Glucose [Mass/Vol] 161 mg/dL Normal [facility] Comment on above: Performed By: #### G TT3P ####[facility] [address] [place], [place] [address]Qmqgle Albertina Glucose [Mass/Vol] 90 mg/dL Normal [facility] [facility] Comment on above: Performed By: #### G TT3P ####[facility] [address] [place], [place] [address]Xapdmq Albertina GLUCOSE - 1HRon 11-15-2020 Glucose [Mass/Vol] 195 mg/dL Critically high 74-106 [facility] Comment on above: Performed By: #### G LU1HR ####[facility] [address] [place], [place] [address]Yyeodg Karen HEMOGRAM AND PLATELon 2020 Hematocrit (Bld) [Volume fraction] 32.9 % Critically low 36.0-48.[address] [facility] Comment on above: Performed By: #### C BC #### [facility] [address], [place] [address] Harini Albertina Hemoglobin (Bld) [Mass/Vol] 10.7 g/dL Critically low 12.0-16.0 [facility] Comment on above: Performed By: #### C BC #### [facility] [address], [place] [address] Harini Eng MCH (RBC) [Entitic mass] 29.0 pg Normal 26.7-34.0 [facility] Comment on above: Performed By: #### C BC #### [facility] [address] [place] [id number] Harini Eng MCHC (RBC) [Mass/Vol] 32.5 g/dL Normal 29.9-35.2 [facility] Comment on above: Performed By: #### C BC #### [facility] [address], [place] [address] Harini Eng MCV (RBC) [Entitic vol] 89.2 fL Normal 81.0-99.0 [facility] Comment on above: Performed By: #### C BC #### [facility] [address] [id number] Harini Braunen PLT 192 103/ul Normal 150-450 [facility] Comment on above: Performed By: #### C BC #### [facility] [address], [place] [address] Harini Albertina RBC 3.69 106/ul Critically low 4.20-5.40 The [facility] Comment on above: Performed By: #### C BC #### [facility] [address] [id number] Harini Albertina WBC 11.6 103/ul Critically high 4.0-11.0 The [facility] Comment on above: Performed By: #### C BC #### [facility] [address], [place] [address] Harini Albertina US PREG GROWTHon 11-15-2020 US PREG GROWTH EXAMINATION: US PREG GROWTH HISTORY: Endocrine, nutritional and metabolic disease complicating , childbirth and puerperium COMPARISON: No relevant comparison available. FINDINGS: Heart Rate: 144.4 bpm Number: 1.0 Position: CEPHALIC Amniotic Fluid Volume: 14.8 cm Maximum Vertical Pocket: 5.3 cm BIOMETRY: BPD: 7.3 cm cm; 29 weeks 1 days HC: 26.5 cmcm; 28 weeks 6 days AC: 24.3 cm cm; 28 weeks 4 days FL: 5.3 cm cm; 28 weeks 3 days EFW: 1252.0 grams; 43rd percentile FL/AC: 22.0 FL/BPD: 73.8 HC/AC: 1.1 GESTATIONAL AGE: Age by EDC: 28 weeks 3 days JAYCEE by EDC: 02/04/2021 Age by US: 28 weeks, 5 days JAYCEE by US: 02/02/2021 IMPRESSION: 1. Single live intrauterine with growth detailed above. Electronically authenticated by: HOA FOFANA Date: 2020-11-15 10:36 Normal [facility] VIT D 1 25 DIHYDROXYon 11-04 Calcitriol(1,25 di-OH Vit D) 91.9 pg/mL Critically high 19.9-79.3 [facility] Comment on above: Performed By: #### C BC #### [facility] [address], [place] [address] Harini Eng TSHon 11-02-2020 TSH 1.386 uIU/mL Normal 0.470-4.[address] [facility] Comment on above: Performed By: #### C BC #### [facility] [address] [place], [place] [address] Harini Eng TSH RANGE SEE BELOW Normal [facility] Comment on above: Result Comment: <0.3 4 UIU/ml HYPERTHYROID 0.34-5.60 UIU/ml EUTHYROID >5.60 UIU/ml HYPOTHYROID Performed By: #### C BC #### [facility] [address] [place], [place] [id number] Harini Eng PAP ACOG PANEL 2: 30 to 65on 09-03-2020 . . Normal [facility] Comment on above: Result Comment: Perf ormed at: WB Performed By: #### C BC #### [facility] [address] [place] [address] Harini Eng Age Gdln ACOG Testing 30-[address] [facility] Comment on above: Performed By: #### C BC #### [facility] [address] [place] [address] Harini Eng DIAGNOSIS: Comment Normal [facility] Comment on above: Result Comment: NEGA TIVE FOR INTRAEPITHELIAL LESION OR MALIGNANCY. Performed at: WB Performed By: #### C BC #### [facility] [address] [place] [address] Harini Albertina HPV Aptima Negative Normal Negative [facility] Comment on above: Result Comment: This nucleic acid amplification test detects fourteen high-risk HPV types (16,18,31,33,35,39,45,51,52,56,58,59,66,68) without differentiation. Performed at: =G Performed By: #### C BC #### [facility] [address] [place] [address] Harini Albertina Methodology: Comment [facility] Comment on above: Result Comment: This liquid based ThinPrep(R) pap test was screened with the use of an image guided system. Performed at: WB Performed By: #### C BC #### [facility] [address] [place] [address] Harinilindsay Eng Note: Comment Normal [facility] Comment on above: Result Comment: The Pap smear is a screening test designed to aid in the detection of premalignant and malignant conditions of the uterine cervix. It is not a diagnostic procedure and should not be used as the sole means of detecting cervical cancer. Both false-positive and false-negative reports do occur. . Performed at: WB Performed By: #### C BC #### [facility] [address] [place] [address] Harini Eng Performed by: Comment Normal [facility] Comment on above: Result Comment: Johanna Bautista, Vibrator Operator (ASCP) Performed at: WB Performed By: #### C BC #### [facility] [address] [address] Harini Eng Specimen adequacy: Comment Normal [facility] Comment on above: Result Comment: Sati sfactory for evaluation. No endocervical component is identified. Performed at: WB Performed By: #### C BC #### [facility] [address] [address] Harini Eng CHLAMYDIA/GONOCOCCUS SONY (SW AB/URINE/PAPon 09-02-2020 Chlamydia trachomatis, SONY Negative Normal Negative [facility] Comment on above: Performed By: #### C T/NGNA ####[facility] [address] [place] [address]Harini Eng Neisseria gonorrhoeae, SONY Negative Normal Negative [facility] Comment on above: Performed By: #### C T/NGNA ####[facility] [address] [place] [address]Harini Eng VAGINITIS/VAGINOSIS DNA PROB Mahesh 08-31-2020 Anel species Negative Normal Negative [facility] Comment on above: Performed By: #### C BC #### [facility] [address] [place] [address] Harini Eng Gardnerella vaginalis Positive Abnormal Negative [facility] Comment on above: Performed By: #### C BC #### [facility] [address] [place] [address] Harini Eng Trichomonas vaginalis Negative Normal Negative [facility] Comment on above: Performed By: #### C BC #### [facility] [address] [place] [address] Harini Eng HEP B SURFACE ANTIGEN SCREEN on 07-20-2020 HBsAg Screen Negative Normal Negative [facility] Comment on above: Performed By: #### H BSANS #### [facility] [address] [place] [address] Harini Eng HEPATITIS C VIRUS AB W/ REFL EX QUANTon 07-20-2020 HCV AB 0.2 s/co ratio Normal 0.0-0.9 [facility] Comment on above: Performed By: #### H CVPCRR ####[facility] [address] [place] [address]Harini Eng Interpretation: Comment Normal [facility] Comment on above: Result Comment: Nega tive Not infected with HCV, unless recent infection is suspected or other evidence exists to indicate HCV infection. Performed By: #### H CVPCRR ####[facility] [address] [place] [address]Harini Eng HIV 1 AND 2 WITH REFLEXon HIV Screen 4th Generation wRfx Non-Reactive Normal Non Reactive [facility] Comment on above: Performed By: #### H IV12 #### [facility] [address] [place] [address] Harini Eng RPR QUANTon 07-20-2020 Rapid Plasma Reagin, Quant Non-Reactive Normal NonRea<1:[address] [facility] Comment on above: Performed By: #### C BC #### [facility] [address] [place] [address] Harini Eng RUBELLA AB IGGon 07-20-2020 Rubella Antibodies, IgG 1.89 index Normal Immune >0.[address] [facility] Comment on above: Result Comment: Non- immune <0.90 Equivocal 0.90 - 0.99 Immune >0.99 Performed By: #### C BC #### [facility] [address] [place] [address] Harini Eng CBC AUTO DIFFon 07-19-2020 BASO # 0.0 103/ul Normal 0.0-0.1 [facility] Comment on above: Performed By: #### C BC #### [facility] [address] [place] [address] Harini Eng Basophils/100 WBC (Bld) 0.3 % Normal 0.2-2.0 [facility] Comment on above: Performed By: #### C BC #### [facility] [address] [place] [address] Harini Eng EO # 0.1 103/ul Normal 0.0-0.7 [facility] Comment on above: Performed By: #### C BC #### [facility] [address] [place], [place] [address] Harini Albertina Eosinophils/100 WBC (Bld) 0.6 % Critically low 0.9-7.[address] [facility] Comment on above: Performed By: #### C BC #### [facility] [address] [place], [place] [address] Harini Albertina Erythrocyte distribution width (RBC) [Ratio] 13.0 % Normal 11.0-15.[address] [facility] Comment on above: Performed By: #### C BC #### [facility] [address] [place], [place] [address] Harini Albertina Hematocrit (Bld) [Volume fraction] 36.9 % Normal 36.0-48.[address] [facility] Comment on above: Performed By: #### C BC #### [facility] [address] [place], [place] [address] Harini Albertina Hemoglobin (Bld) [Mass/Vol] 12.0 g/dL Normal 12.0-16.[address] [facility] Comment on above: Performed By: #### C BC #### [facility] [address] [place], [place] [address] Harini Albertina IG # 0.04 10e3/ul Critically high 0.00-0.03 [facility] Comment on above: Performed By: #### C BC #### [facility] [address] [place], [place] [address] Harini Albertina IG % 0.4 % Normal 0.0-0.5 [facility] Comment on above: Performed By: #### C BC #### [facility] [address] [place] [address] Harini Albertina LYMPH # 1.4 103/ul Normal 1.2-3.8 [facility] Comment on above: Performed By: #### C BC #### [facility] [address] [place], [place] [address] Harini Albertina Lymphocytes/100 WBC (Bld) 14.6 % Critically low 20.5-60.[address] [facility] Comment on above: Performed By: #### C BC #### [facility] [address] [place], [place] [address] Harinilindsay Eng MANUAL DIFF REQ NO Normal [facility] Comment on above: Performed By: #### C BC #### [facility] [address] [place], [place] [address] Harinilindsay Eng MCH (RBC) [Entitic mass] 28.6 pg Normal 26.7-34.0 [facility] Comment on above: Performed By: #### C BC #### [facility] [address] [place], [place] [address] Harini Eng MCHC (RBC) [Mass/Vol] 32.5 g/dL Normal 29.9-35.2 [facility] Comment on above: Performed By: #### C BC #### [facility] [address] [place], [place] [address] Harinilindsay Egn MCV (RBC) [Entitic vol] 88.1 fL Normal 81.0-99.0 [facility] Comment on above: Performed By: #### C BC #### [facility] [address] [place], [place] [address] Harini Albertina MONO # 0.4 103/ul Normal 0.3-0.8 [facility] Comment on above: Performed By: #### C BC #### [facility] [address] [place], [place] [address] Harini Braunen Monocytes/100 WBC (Bld) 3.9 % Normal 1.7-12.0 [facility] Comment on above: Performed By: #### C BC #### [facility] [address] [place] [address] Harini Albertina NEUT # 7.6 103/ul Critically high 1.4-6.5 [facility] Comment on above: Performed By: #### C BC #### [facility] [address] [place], [place] [address] Harini Albertina Neutrophils/100 WBC (Bld) 80.2 % Critically high 43.0-75.0 [facility] Comment on above: Performed By: #### C BC #### [facility] [address] [place] [address] Harini Eng Platelet mean volume (Bld) [Entitic vol] 11.4 fL Normal 9.5-13.[address] [facility] Comment on above: Performed By: #### C BC #### [facility] [address] [id number] Harini Eng PLT 246 103/ul Normal 150-450 [facility] Comment on above: Performed By: #### C BC #### [facility] [address] [address] Harini Eng RBC 4.19 106/ul Critically low 4.20-5.40 [facility] Comment on above: Performed By: #### C BC #### [facility] [address] [address] Harini Eng WBC 9.4 103/ul Normal 4.0-11.[address] [facility] Comment on above: Performed By: #### C BC #### [facility] [address] [id number] Harini Eng CULTURE URINEon 07-19-2020 CULTURE URINE Culture Observations : NO GROWTH Normal [facility] Comment on above: Performed By: #### U RCX ####[facility] [address] [place] [id number] Eng GLYCOHEMOGLOBIN A1Con 2020 ADA RECOMMENDATION ADA THERAPEUTIC TARG ET 6.0 - 7.0 ACTION SUGGESTED > 7.[address] [facility] Comment on above: Performed By: #### A 1C #### [facility] [address] [id number] Harini Eng Glucose [Mass/Vol] 100 mg/dL Normal [facility] Comment on above: Performed By: #### A 1C #### [facility] [address] [place], [place] [address] Harini Eng HbA1c (Bld) [Mass fraction] 5.1 % Normal <=6.[address] [facility] Comment on above: Performed By: #### A 1C #### [facility] [address] [id number] Harini Eng ALYSON BOX TEST PT SEND OUTo n 04-09-2021 SENT TO REF LAB 07/19/2020 Normal [facility] Comment on above: Performed By: #### C BC #### [facility] [address], [place] [address] Harini Eng TYPE AND SCREENon 07-19-2020 TYPE AND SCREEN Negative Normal [facility] Comment on above: Performed By: #### T NS ####[facility] [address] [place], [place] [address]AfzsmxHarini Eng US PREG TVon 07-02-2020 US PREG TV EXAMINATION: US PREG TV HISTORY: Hemorrhagic complication of COMPARISON: No relevant comparison available. FINDINGS: GESTATIONAL SAC: Present and normal appearing. POLE: Present and normal appearing. YOLK SAC: Present. CARDIAC: Present. UTERUS: Normal size and appearance. OVARIES: Right: Contains a 3.4 cm anechoic cyst. Left: Normal. CERVIX: 4.0 cm in length and closed. CUL-DE-SAC: Normal. OTHER: None. AGE BY LMP: 9 weeks, 0 days JAYCEE BY LMP: 02/03/2021 AGE BY US CRL: 8 weeks, 5 days JAYCEE BY US CRL: 02/05/2021 IMPRESSION: 1. Single live intrauterine . Electronically authenticated by: HOA FOFANA Date: 2020-07-02 07:[address] [facility] CNNURSEon 06-17-2020 CNNURSE Nurse Visit (REIAV) KARLOS VILLEGAS ([id number]) 1985 F Date Time Provider Department 06/17/20 8:20 AM NURSE SHANNAN [facility] REJ REIAV During your visit today, we recorded the following information about you: Paula Barbara 06/17/2020 3:29 PM Signed Karlos Villegas, a 34 year old is here for early OB ultrasound. This is her 1st ultrasound. Ultrasound report indicates Karlos is 6 weeks and 5 days, JAYCEE 02/04/21, LMP 04/29/20, FHR: 132 Estimated gestational age based on dates: 7w1d Ultrasound findings are consistent with dates. Karlos is a patient of Dr. Raphael Achieved by: 5 mg letrozole/trigger/IUI G0, P 0 Labs hcg 05/28: 23, 06/04: 419.9 Blood Type: AB+ History of Ectopic:No History of Miscarriage: No History of Abdominal Surgery: No Pain:No Bleeding: Yes scant spotting no pain Plan: Pt advised to: Follow up with OB OB Provider: TBD Patients Phone number: [phone] Paula Griggs MD 06/17/2020 3:29 PM Signed TRANSVAGINAL OB ULTRASONOGRAM Single viable IUP c/w dates Ovaries - normal w/ 23 mm simple cyst on right No free fluid See imaging tab PLAN - refer to OB Tony Griggs MD Referring Provider: SELF [200] Allergies As of Date: 06/17/2020 Noted Allergy Reaction LATEX 01/18/2020 2 - Rash PENICILLINS 01/18/2020 4 - Hives Comments: At age 12, broke out in hives Date Reviewed: 06/17/2020 Reviewed by: Paula Masterson - Fully Assessed Reason for Visit: [587] Primary Visit Diagnosis:Supervision of with history of infertility, first trimester [O09.01] Prescriptions as of 06/17/2020 Sig: TURMERIC ROOT EXTRACT 500 MG * Take 2 capsules by mouth once* OVIDREL 250 MCG/0.5 ML SUBCUT* LEVOTHYROXINE 75 MCG TABLET Take 1 tablet by mouth once d* OTC PRODUCT Women's Multivitamin. Take on* COQ10 (UBIQUINOL) ORAL Take 1 tablet by mouth once d* VITAMIN D3 ORAL Take 4,000 Units by mouth onc* LETROZOLE 2.5 MG TABLET Take 2 tablets by mouth once * METFORMIN ER 500 MG TABLET,EX* Take 3 tablets by mouth daily* Patient taking differently: Take 1,500 mg by mouth daily * Problem List As Of Date: 06/17/2020 (None) Encounter Status:Closed by PAULA MASTERSON on 06/17/20 [facility] Nurse [facility] (REIBD) KARLOS VILLEGAS ([id number]) 1985 F Date Time Provider Department 06/14/20 10:00 AM NURSE SHANNAN [facility] BEMICHELINE REIBD During your visit today, we recorded the following information about you: Referring Provider: SELF [200] Allergies As of Date: 06/14/2020 Noted Allergy Reaction LATEX 01/18/2020 2 - Rash PENICILLINS 01/18/2020 4 - Hives Comments: At age 12, broke out in hives Date Reviewed: 05/15/2020 Reviewed by: Yasmine Butt) Geraldo - Fully Assessed Reason for Visit: Infertility [285] Primary Visit Diagnosis:Infertility, female [N97.9] Prescriptions as of 06/14/2020 Sig: TURMERIC ROOT EXTRACT 500 MG * Take 2 capsules by mouth once* OVIDREL 250 MCG/0.5 ML SUBCUT* LEVOTHYROXINE 75 MCG TABLET Take 1 tablet by mouth once d* OTC PRODUCT Women's Multivitamin. Take on* COQ10 (UBIQUINOL) ORAL Take 1 tablet by mouth once d* VITAMIN D3 ORAL Take 4,000 Units by mouth onc* LETROZOLE 2.5 MG TABLET Take 2 tablets by mouth once * METFORMIN ER 500 MG TABLET,EX* Take 3 tablets by mouth daily* Patient taking differently: Take 1,500 mg by mouth daily * Problem List As Of Date: 06/14/2020 (None) Encounter Status:Closed by ANIRUDH NUR RN on 06/17/20 Normal [facility] HCG, Quantitative Blon 06-04 HCG, Quantitative Bl 419.8 mU/mL High <5.0 [facility] Comment on above: Result Comment: PER TITATIVE HCG NORMAL RANGES Weeks of Gestation (Weeks Since LMP) 3 Weeks (5.8-71.2 mIU/mL) 4 Weeks (9.5-750 mIU/mL) 5 Weeks (217-7138 mIU/mL) 6 Weeks (158-14512 mIU/mL) 7 Weeks (3697-795541 mIU/mL) 8 Weeks (13557-044978 mIU/mL) 9 Weeks (88816-890963 mIU/mL) 10 Weeks (58187-342043 mIU/mL) 12 Weeks (08106-891151 mIU/mL) Referenced to 4th IS of [facility] Performed By: #### H CGQT ####[facility] [address] [place], [place] [id number] CNOVon 05-15-2020 CNOV Office Visit (KIKE) KARLOS VILLEGAS ([id number]) 1985 F Date Time Provider Department 05/15/20 10:45 AM PETROS RAINEY During your visit today, we recorded the following information about you: Pulse Blood pressure Weight Height 96/minute 127/72 124.1 kg 1.727 m Last Period 04/29/20 Sulema Raphael MD 05/16/2020 7:15 AM Signed [facility] In Vitro Fertilization Program Date: 05/15/2020 Patient Name: Karlos Villegas Consultation Requested By: PCP / RUBBER STAMP DIE INSPECTOR if different from referral source: self HISTORY OF PRESENT ILLNESS: Karlos Villegas is a 34 year old female with May 16, 2020 Pt is here for follow up. Would like to discuss about IVF. Did IUI x 1 and still waiting to get hCG level done. 03/20 Pt is here for follow up. She has been taking letrozole for a few months now with regular period. She is due to get progesterone check today and will get this done after this visit. Would like to discuss next steps. Prior note PCOS, hypothyroidism, low vit D. 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 Was told that she is not ovulating at all. TTC x 3.5 years. Both never been . had SA x 2 normal in 2019. HSG normal Family history of thyroid disease. LMP 01/01/2020. Periods are q 30-35 days last x 5 days. Saw SHANNAN in [place]. Not response to CC. Took letrozole x 2 cycles without success. She took metformin 500 mg daily in the past and felt that it helps with PCOS symptoms. However, she ran out of meds for the past 2 months. She also was told that she has hypothyroidism and this was last check 2 years ago. She still has 1 month refill and want to have refill today. PCOS and hypothyroidism was managed by her previous SHANNAN> [facility] 1.0 Obstetric History T0 L0 SAB0 TAB0 Ectopic0 Multiple0 Live Births0 Fertility Evaluations and Treatments: Eval Checklist Results Date Comments HSG Normal done by tub washer 2018 Hysteroscopy Laparoscopy OPK (Ovulation Predictor Kit) Ovarian [place] Ultrasound Semen Analysis Normal [place] [facility] and tub washer 2019 Ultrasound 2019 Other (See comments) Prior Fertility Eval Date Clomid 50mg x 4 cycles in 2018 (did not respond) Letrozole 2.5mg x 2 cycles in 2018 CONTRACEPTIVE HISTORY: MENSTRUAL HISTORY: Menarche Age: [age] year old Length of Cycle: q30-35 days Regular Days: 5 days Menstrual Flow: Moderate Menstrual Symptoms: Breast Tenderness,Mood Changes,Bloating,Crampi ng Patient's last menstrual period was 04/29/2020. PAST MEDICAL HISTORY Diagnosis Date - Hypothyroid - PCOS (polycystic ovarian syndrome) 2018 diagnosis in 2018 - Vitamin D deficiency PAST SURGICAL HISTORY Procedure Laterality Date - EXTRACTION, ERUPTED TOOTH removal of wisdom teeth FAMILY HISTORY Problem Relation Age of Onset - Thyroid Mother - Breast Cancer Mother - Cancer Father - Thyroid Brother - Osteoporosis Maternal Grandmother - No Known Problems Brother ETHNICITY: White SART GROUP: MEDICATIONS: Current Outpatient Medications on File Prior to Visit Medication Sig - turmeric root extract 500 mg cap Take 2 capsules by mouth once daily. - OVIDREL 250 mcg/0.5 mL syrg - levothyroxine (SYNTHROID) 75 mcg tablet Take 1 tablet by mouth once daily. - OTC PRODUCT Women's Multivitamin. Take one(1) tablet daily. - COQ10, UBIQUINOL, ORAL Take 1 tablet by mouth once daily. - cholecalciferol, vitamin D3, (VITAMIN D3 ORAL) Take 4,000 Units by mouth once daily. - letrozole (FEMARA) 2.5 mg tablet Take 2 tablets by mouth once daily for 5 days. Menstrual cycle day 3-7 - metFORMIN ER (GLUCOPHAGE XR) 500 mg 24 hr tablet Take 3 tablets by mouth daily with breakfast. Start with 1 tablet daily and slowly increase the dose up to 3 tablets daily. (Patient taking differently: Take 1,500 mg by mouth daily with breakfast. ) No current facility-administered medications on file prior to visit. 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 Dropped cycles: Yes 2. Hyperstimulation Syndrome: Yes 3. Ovarian [place]: Yes 4. Freezi (more content not included)... Normal [facility] CONSULT PROGon 05-15-2020 CONSULT PROG HNO ID: [id number] Author: Petros Rainey Service: ? Author Type: Physician Type: Consult Progress Note Filed: 05/16/2020 7:15 AM Note Text: [facility] In Vitro Fertilization Program Date: 05/15/2020 Patient Name: Karlos Villegas Consultation Requested By: PCP / RUBBER STAMP DIE INSPECTOR if different from referral source: self HISTORY OF PRESENT ILLNESS: Karlos Villegas is a 34 year old female with May 16, 2020 Pt is here for follow up. Would like to discuss about IVF. Did IUI x 1 and still waiting to get hCG level done. 03/20 Pt is here for follow up. She has been taking letrozole for a few months now with regular period. She is due to get progesterone check today and will get this done after this visit. Would like to discuss next steps. Prior note PCOS, hypothyroidism, low vit D. 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 Was told that she is not ovulating at all. TTC x 3.5 years. Both never been . had SA x 2 normal in 2019. HSG normal Family history of thyroid disease. LMP 01/01/2020. Periods are q 30-35 days last x 5 days. Saw SHANNAN in [place]. Not response to CC. Took letrozole x 2 cycles without success. She took metformin 500 mg daily in the past and felt that it helps with PCOS symptoms. However, she ran out of meds for the past 2 months. She also was told that she has hypothyroidism and this was last check 2 years ago. She still has 1 month refill and want to have refill today. PCOS and hypothyroidism was managed by her previous SHANNAN> [facility] 1.0 Obstetric History T0 L0 SAB0 TAB0 Ectopic0 Multiple0 Live Births0 Fertility Evaluations and Treatments: Eval Checklist Results Date Comments HSG Normal done by tub washer 2018 Hysteroscopy Laparoscopy OPK (Ovulation Predictor Kit) Ovarian [place] Saline Ultrasound Semen Analysis Normal [place] [facility] and tub washer 2019 Ultrasound 2019 Other (See comments) Prior Fertility Eval Date Clomid 50mg x 4 cycles in 2018 (did not respond) Letrozole 2.5mg x 2 cycles in 2018 CONTRACEPTIVE HISTORY: MENSTRUAL HISTORY: Menarche Age: [age] year old Length of Cycle: q30-35 days Regular Days: 5 days Menstrual Flow: Moderate Menstrual Symptoms: Breast Tenderness,Mood Changes,Bloating,Crampi ng Patient's last menstrual period was 04/29/2020. PAST MEDICAL HISTORY Diagnosis Date - Hypothyroid - PCOS (polycystic ovarian syndrome) 2018 diagnosis in 2018 - Vitamin D deficiency PAST SURGICAL HISTORY Procedure Laterality Date - EXTRACTION, ERUPTED TOOTH removal of wisdom teeth FAMILY HISTORY Problem Relation Age of Onset - Thyroid Mother - Breast Cancer Mother - Cancer Father - Thyroid Brother - Osteoporosis Maternal Grandmother - No Known Problems Brother ETHNICITY: White SART GROUP: MEDICATIONS: Current Outpatient Medications on File Prior to Visit Medication Sig - turmeric root extract 500 mg cap Take 2 capsules by mouth once daily. - OVIDREL 250 mcg/0.5 mL syrg - levothyroxine (SYNTHROID) 75 mcg tablet Take 1 tablet by mouth once daily. - OTC PRODUCT Women's Multivitamin. Take one(1) tablet daily. - COQ10, UBIQUINOL, ORAL Take 1 tablet by mouth once daily. - cholecalciferol, vitamin D3, (VITAMIN D3 ORAL) Take 4,000 Units by mouth once daily. - letrozole (FEMARA) 2.5 mg tablet Take 2 tablets by mouth once daily for 5 days. Menstrual cycle day 3-7 - metFORMIN ER (GLUCOPHAGE XR) 500 mg 24 hr tablet Take 3 tablets by mouth daily with breakfast. Start with 1 tablet daily and slowly increase the dose up to 3 tablets daily. (Patient taking differently: Take 1,500 mg by mouth daily with breakfast. ) No current facility-administered medications on file prior to visit. 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 Dropped cycles: Yes 2. Hyperstimulation Syndrome: Yes 3. Ovarian [place]: Yes 4. Freezing eggs/embryos: Yes 5. Potential for no transfer: Yes 6. Surgical procedure and complications: Yes 7. ICSI: yes 8. Number of embryos to transfer: 1 9. Elective Single Embryo Transfer candidate: Yes 10. Selective Reduction discussed: Yes 11. PGD Candidate: No (more content not included)... [facility] KAR[facility]OS [facility]ILLEGAS ([id number]) 1985 F Date Time Provider Department 05/13/20 PETROS RAINEY During your visit today, we recorded the following information about you: Sandra Franklin Pss 05/13/2020 12:18 PM Signed Pt Needs a work letter sent to her my chart regarding her appt yesterday for her iui Xochilt Chand APRN.RAHAT 05/13/2020 12:44 PM Signed Letter sent. Xochilt Chand APRN.CNP May 13, 2020 12:43 PM Allergies As of Date: 05/13/2020 Noted Allergy Reaction LATEX 01/18/2020 2 - Rash PENICILLINS 01/18/2020 4 - Hives Comments: At age 12, broke out in hives Date Reviewed: 05/12/2020 Reviewed by: Xochilt (Rahat) Howard - Fully Assessed Reason for Visit: mamadou [Other] Primary Visit Diagnosis:Treatment plan provided [Z71.9] Prescriptions as of 05/13/2020 Sig: LEVOTHYROXINE 75 MCG TABLET Take 1 tablet by mouth once d* OTC PRODUCT Women's Multivitamin. Take on* COQ10 (UBIQUINOL) ORAL Take 1 tablet by mouth once d* VITAMIN D3 ORAL Take 3,000 Units by mouth onc* LETROZOLE 2.5 MG TABLET Take 2 tablets by mouth once * METFORMIN ER 500 MG TABLET,EX* Take 3 tablets by mouth daily* Problem List As Of Date: 05/13/2020 (None) Letter Text Encounter Status:Closed by XOCHILT CHAND CNP on 05/13/20 [facility] [place]na 05-12-2020 CNOV Office Visit (REIBD) KARLOS VILLEGAS ([id number]) 1985 F Date Time Provider Department 05/12/20 9:00 AM XOCHILT CHAND (RAHAT) REIBD During your visit today, we recorded the following information about you: Xochilt Chand APRN.CNP 05/12/2020 9:48 AM Signed [facility]I SHANNAN IUI PROCEDURE NOTE Date: 05/12/2020 Primary Proceduralist: Xochilt Chand APRN.CNP Consents and Labels Consent Signed: Informed Consent obtained and on the chart Indications: Karlos Villegas, is a 34 year old female here today for intrauterine insemination. IUI # Series #1 Cycle #1. Cycle Day: CD #14 Last menstrual period: 04/29/2020 IUI IUI Date: 05/12/20 IUI #: Series #1 Cycle #1 Pre-Procedure Diagnosis: Infertility Post-Procedure Diagnosis: Infertility Cycle Meds: Letrozole 5 mg Luteal Phase Progesterone: N/A Trigger: Ovidrel (Comment: 05/10/20) Catheter Type: Curve catheter Tenaculum: No Catheter passed: Easy Complications: None Sperm Information: Source of Sperm: Partner Ejaculated: Yes Fresh/Frozen: Fresh TMC (total motile count of sperm after wash): 23.6 million [place] Protocol/Safety Checklist: Sign In Communication: Completed Time Out Performed At: 9:10 AM EST Time out: Correct Patient, Correct Procedure, Correct Site AND Site Marking Affirmation of Time-Out: N/A Sign Out Discussion: Completed Cycle reviewed, all questions answered. Pt instructed to take a test in 17 days if no menses and call with results. SIGNATURE: Xochilt Chand APRN.CNP PATIENT NAME: Karlos Villegas DATE: May 12, 2020 TIME: 9:48 AM Colin Sparks Tech 05/21/2020 9:11 AM Signed IUI Letrozole Pre: 76 m/,ml, 71% Post: 71 m/ml, 83% Insem # 23.6 million Referring Provider: SELF [200] Allergies As of Date: 05/12/2020 Noted Allergy Reaction LATEX 01/18/2020 2 - Rash PENICILLINS 01/18/2020 4 - Hives Comments: At age 12, broke out in hives Date Reviewed: 05/12/2020 Reviewed by: Xochilt (Rahat) Howard - Fully Assessed Primary Visit Diagnosis:Encounter for artificial insemination [Z31.89] Prescriptions as of 05/12/2020 Sig: LEVOTHYROXINE 75 MCG TABLET Take 1 tablet by mouth once d* OTC PRODUCT Women's Multivitamin. Take on* COQ10 (UBIQUINOL) ORAL Take 1 tablet by mouth once d* VITAMIN D3 ORAL Take 4,000 Units by mouth onc* LETROZOLE 2.5 MG TABLET Take 2 tablets by mouth once * METFORMIN ER 500 MG TABLET,EX* Take 3 tablets by mouth daily* Patient taking differently: Take 1,500 mg by mouth daily * Problem List As Of Date: 05/12/2020 (None) Encounter Status:Closed by XOCHILT CHAND CNP on 05/12/20 [facility] CNNURSEon 05-10-2020 [facility] Nurse Visit (MODESTAV) KARLOS VILLEGAS ([id number]) 1985 F Date Time Provider Department 05/10/20 7:30 AM NURSE SHANNAN [facility] REJ KIKE During your visit today, we recorded the following information about you: Xochilt Chand APRN.CNP 05/11/2020 8:52 PM Signed Karlos Villegas is here today for a midcycle scan. Lead follicle: 28 Plan: Trigger tonight for IUI on 05/12 Xochilt Chand APRN.CNP May 10, 2020 7:45 AM Please schedule the patient for the following- Location: [facility] Visit type: IUI Reason for visit/appointment notes: IUI Date: 05/12 Time (if discussed): tbd Call to patient needed: ye please Referring Provider: SELF [200] Allergies As of Date: 05/10/2020 Noted Allergy Reaction LATEX 01/18/2020 2 - Rash PENICILLINS 01/18/2020 4 - Hives Comments: At age 12, broke out in hives Date Reviewed: 03/20/2020 Reviewed by: Yasmine Butt) Geraldo - Fully Assessed Primary Visit Diagnosis:Encounter for fertility planning [Z31.89] Other Visit Diagnosis:Infertility, female [N97.9] Order(s):[] Choriogonadotropin Andrew,HumRec (OVIDREL) 250 mcg/0.5 mL syrgInject 250 mcg subcutaneously one time only for 1 dose.Disp: 1 SyringeRfl: 2 Prescriptions as of 05/10/2020 Sig: OVIDREL 250 MCG/0.5 ML SUBCUT* Inject 250 mcg subcutaneously* LEVOTHYROXINE 75 MCG TABLET Take 1 tablet by mouth once d* OTC PRODUCT Women's Multivitamin. Take on* COQ10 (UBIQUINOL) ORAL Take 1 tablet by mouth once d* VITAMIN D3 ORAL Take 3,000 Units by mouth onc* LETROZOLE 2.5 MG TABLET Take 2 tablets by mouth once * METFORMIN ER 500 MG TABLET,EX* Take 3 tablets by mouth daily* Problem List As Of Date: 05/10/2020 (None) Prescriptions ordered this encounter Disp Refills Start End OVIDREL 250 MCG/0.5 ML SUBCUTANEOUS * 1 Sy* 2 05/10/2020 05/10/2020 Route: SUBCUTANEOUS Sig: Inject 250 mcg subcutaneously one time only for 1 dose. Medications Discontinued During This Encounter Prescriptions - Choriogonadotropin Andrew,HumRec (OVIDREL) 250 mcg/0.5 mL syrg (Discontinued) Inject 250 mcg subcutaneously one time only for 1 dose. Encounter Status:Closed by SWAPNIL CANALES MD on 05/11/20 [facility] KARLOS VILLEGAS ([id number]) 1985 F Date Time Provider Department 05/09/20 PETROS RAINEY During your visit today, we recorded the following information about you: Xochilt Chand APRN.CNP 05/10/2020 11:07 AM Signed Sent to [facility] and she needed it filled today. Xochilt Chand APRN.CNP May 10, 2020 11:07 AM Allergies As of Date: 05/09/2020 Noted Allergy Reaction LATEX 01/18/2020 2 - Rash PENICILLINS 01/18/2020 4 - Hives Comments: At age 12, broke out in hives Date Reviewed: 03/20/2020 Reviewed by: Yasmine Butt) Geraldo - Fully Assessed Reason for Visit: med needs a prior auth [Other] Cmt: the phone number is [phone] is the dircct line to call Prescriptions as of 05/09/2020 Sig: X OVIDREL 250 MCG/0.5 ML SUBCUT* Inject 250 mcg subcutaneously* LEVOTHYROXINE 75 MCG TABLET Take 1 tablet by mouth once d* OTC PRODUCT Women's Multivitamin. Take on* COQ10 (UBIQUINOL) ORAL Take 1 tablet by mouth once d* VITAMIN D3 ORAL Take 3,000 Units by mouth onc* METFORMIN ER 500 MG TABLET,EX* Take 3 tablets by mouth daily* Problem List As Of Date: 05/09/2020 (None) Encounter Status:Closed by XOCHILT CHAND CNP on 05/10/20 Normal [facility] Vital Signs Date Time Vital Sign Value Performing Clinician Lyndsey wiggins 08-04-2024 08:45-0400 Body height 172.72 cm [facility] 08-04-2024 08:45-0400 Body mass index (BMI) [Ratio] 46.3 kg/m2 [facility] 08-04-2024 08:45-0400 Body weight 138.34 kg [facility] 08-04-2024 08:45-0400 Diastolic blood pressure 87 mm[Hg] [facility] 08-04-2024 08:45-0400 Heart rate 99 /min [facility] 08-04-2024 08:45-0400 Systolic blood pressure 143 mm[Hg] [facility] 01-18-2024 08:20-0400 Body height 172.72 cm [facility] 01-18-2024 08:20-0400 Body mass index (BMI) [Ratio] 44.5 kg/m2 [facility] 01-18-2024 08:20-0400 Body weight 132.95 kg [facility] 01-18-2024 08:20-0400 Diastolic blood pressure 84 mm[Hg] [facility] 01-18-2024 08:20-0400 Heart rate 82 /min [facility] 01-18-2024 08:20-0400 Respiratory rate 16 /min [facility] 01-18-2024 08:20-0400 SaO2% (BldA) [Mass fraction] 97 % [facility] 01-18-2024 08:20-0400 Systolic blood pressure 130 mm[Hg] [facility] 11-10-2023 10:24-0400 Body height 172.72 cm [facility] 11-10-2023 10:24-0400 Body mass index (BMI) [Ratio] 44.5 kg/m2 [facility] 11-10-2023 10:24-0400 Body weight 132.9 kg [facility] 11-10-2023 10:24-0400 Diastolic blood pressure 105 mm[Hg] [facility] 11-10-2023 10:24-0400 Heart rate 102 /min [facility] 11-10-2023 10:24-0400 Systolic blood pressure 134 mm[Hg] [facility] 08-13-2023 13:34-0400 Body height 172.72 cm [facility] 08-13-2023 13:34-0400 Body mass index (BMI) [Ratio] 44.5 kg/m2 [facility] 08-13-2023 13:34-0400 Body temperature 97.7 [degF] [facility] 08-13-2023 13:34-0400 Body weight 132.9 kg [facility] 08-13-2023 13:34-0400 Heart rate 88 /min [facility] 08-13-2023 13:34-0400 Respiratory rate 18 /min [facility] 08-13-2023 13:34-0400 SaO2% (BldA) [Mass fraction] 97 % [facility] 07-26-2023 11:20-0400 Body height 172.72 cm [facility] 07-26-2023 11:20-0400 Body mass index (BMI) [Ratio] 46 kg/m2 [facility] 07-26-2023 11:20-0400 Body weight 137.55 kg [facility] 07-26-2023 11:20-0400 Diastolic blood pressure 87 mm[Hg] [facility] 07-26-2023 11:20-0400 Heart rate 99 /min [facility] 07-26-2023 11:20-0400 Systolic blood pressure 132 mm[Hg] [facility] Encounters Encounter Date Encounter Type Care Provider Facility Start: 08-04-2024 End: 08-04-2024 ambulatory [facility] Work Phone: Start: 08-04-2024 End: 08-04-2024 Patient encounter procedure [facility] Work Phone: Start: 07-24-2024 Non-patient / Non-visit [facility] Work Phone: Start: 07-20-2024 [facility] Start: 01-18-2024 End: 01-18-2024 ambulatory [facility] Work Phone: Start: 01-18-2024 End: 01-18-2024 Patient encounter procedure [facility] Phys[facility] Work Phone: Start: 11-10-2023 End: 11-10-2023 ambulatory [facility] Work Phone: Start: 11-10-2023 End: 11-10-2023 Patient encounter procedure [facility] Work Phone: Start: 08-13-2023 End: 08-13-2023 ambulatory [facility] Work Phone: Start: 08-13-2023 End: 08-13-2023 Patient encounter procedure [facility] Work Phone: Start: 07-26-2023 Patient encounter status [facility] Start: 07-26-2023 End: 07-26-2023 ambulatory [facility] Work Phone: Start: 07-26-2023 End: 07-26-2023 Encounter for general adult medical examination without abnormal findings [facility] Start: 07-26-2023 End: 07-26-2023 Patient encounter procedure [facility] Work Phone: Start: 06-18-2021 End: 06-19-[address] KEVON LAND Facility:[facility] Start: 05-20-2021 End: 05-20-[address] DOCTOR CASTORENA Facility:[facility] Start: 02-07-[address] GIANLUCA REESE Facility :[facility] Start: 01-31-[address] GIANLUCA REESE Facility :[facility] Start: 01-22-2021 End: 01-22-[address] GIANLUCA REESE Facility:[facility] Start: 01-14-2021 End: 01-16-2021 Evaluation and management of inpatient DR GIANLUCA REESE Facility:[facility] Start: 01-10-2021 End: 01-10-[address] DOCTOR CASTORENA Facility:[facility] Start: 01-09-2021 End: 01-09-[address] GIANLUCA REESE Facility:[facility] Start: 01-03-2021 End: 01-03-[address] GIANLUCA REESE Facility:[facility] Start: 12-27-2020 End: 12-27-[address] GIANLUCA REESE Facility:[facility] Start: 12-20-2020 End: 12-20-[address] GIANLUCA REESE Facility:[facility] Start: 12-13-2020 End: 12-14-[address] GIANLUCA REESE Facility:[facility] Start: 12-13-2020 End: 12-14-[address] GIANLUCA REESE Facility:[facility] Start: 11-23-2020 End: 11-24-[address] GIANLUCA REESE Facility:[facility] Start: 11-15-2020 End: 11-16-[address] GIANLUCA REESE Facility:[facility] Start: 11-02-2020 End: 11-03-[address] GIANLUCA REESE Facility:[facility] Start: 08-29-2020 End: 08-29-[address] GIANLUCA REESE Facility:[facility] Start: 07-19-2020 End: 07-20-[address] GIANLUCA REESE Facility:[facility] Start: 07-01-2020 End: 07-02-[address] GIANLUCA REESE Facility:[facility] Procedures Date Procedure Procedure Detail Performing Clinician Start: 01-14-2021 Delivery of Products of Conception, External Approach DR DOCTOR CASTORENA Start: 01-14-2021 Division of Female P erineum, External Approach DR DOCTOR CASTORENA Start: 01-14-2021 Repair Perineum Musc le, Open Approach DR DOCTOR CASTORENA Start: 01-14-2021 Repair Vulva, Surgical Dressing Maker al Approach DR DOCTOR CASTORENA Plan of Treatment Date Care Activity Detail Author [facility] Payers Date Payer Category Payer Unknown [id number] 2.16.84 [id number] 1985 Unknown [id number] 2.16.84 0.1.187585.3.579.2.59 1985 Unknown [id number] 2.16.84 0.1.685749.3.579.2.59 1987 Unknown [id number] 2.16.84 0.1.556724.3.579.2.59 1987 Unknown [id number] 2.16.84 0.1.203899.3.579.2 1987 Unknown [id number] 2.16.84 0.1.562048.3.579.2.593 1987 Unknown [id number] 2.16.84 0.1.909748.3.579.2.59 1987 Unknown [id number] 2.16.84 0.1.069536.3.579.2.593 1987 Unknown [id number] 2.16.84 0.1.613685.3.579.2.593 1987 Unknown [id number] .16.84 0.1.322655.3.579.2.593 1987 Unknown [id number] 2.16.84 0.1.815982.3.579.2.593 1987 Unknown [id number] .16.84 0.1.149897.3.579.2.593 1987 Unknown [id number] .16.84 0.1.788609.3.579.2.593 1987 Unknown [id number] .16.84 0.1.908331.3.579.2.593 1987 Unknown [id number] 2.16.84 0.1.183392.3.579.2.593 1987 Unknown [id number] 2.16.84 0.1.778613.3.579.2.593 1987 Unknown [id number] .16.84 0.1.602654.3.579.2.593 1987 Unknown [id number] .16.84 0.1.987066.3.579.2.593 1987 Unknown [id number] .16.84 0.1.963001.3.579.2.593 1987 Unknown [id number] .16.84 0.1.326456.3.579.2.593 1957 Self-pay 1957 Unknown [id number] 1957 Unknown [id number] Unknown [id number] 16.84 0.1.322398.3.579.2.593 Unknown Rayne BC/BS [id number] Unknown HCAP/HFA/FAP Active [id number] Social History Date Type Detail Facility Start: 07-16-2023 Tobacco smoking stat us NHIS Ex-smoker (finding) [facility] Start: 1985 Sex Assigned At Female F [facility] Start: 08-04-2024 Sex Female (finding) [facility] Clinical Notes 05-01-2020 to 06-17-2020 Note Date & Type Note Facility 06-17-2020 Note HNO ID: [id number] Author: Tony Griggs Service: ? Author Type: Physician Type: Progress Notes Filed: 06/17/2020 3:29 PM Note Text: TRANSVAGINAL OB ULTRASONOGRAM Single viable IUP c/w dates Ovaries - normal w/ 23 mm simple cyst on right No free fluid See imaging tab PLAN - refer to OB Tony Griggs MD [facility] 06-17-2020 Note HNO ID: [id number] Author: Paula Masterson Service: ? Author Type: ? Type: Progress Notes Filed: 06/17/2020 3:29 PM Note Text: Karlos Villegas, a 34 year old is here for early OB ultrasound. This is her 1st ultrasound. Ultrasound report indicates Karlos is 6 weeks and 5 days, JAYCEE 02/04/21, LMP 04/29/20, FHR: 132 Estimated gestational age based on dates: 7w1d Ultrasound findings are consistent with dates. Karlos is a patient of Dr. Raphael Achieved by: 5 mg letrozole/trigger/IUI G0, P 0 Labs hcg 05/28: 23, 06/04: 419.9 Blood Type: AB+ History of Ectopic:No History of Miscarriage: No History of Abdominal Surgery: No Pain:No Bleeding: Yes scant spotting no pain Plan: Pt advised to: Follow up with OB OB Provider: NESSA Patients Phone number: [phone] Paula Masterson [facility] 06-05-2020 Note HNO ID: [id number] Author: Jenny Perry Service: ? Author Type: Nurse Practitioner Type: Progress Notes Filed: 06/05/2020 2:39 PM Note Text: AMBULATORY TELEHEALTH VISIT Spoke with Karlos who has given consent for a televisit. Present on the line: Karlos. Reason for call: test results HPI Component Latest Ref Rng AND Units 05/28/2020 06/04/2020 HCG Quantitative 23 hCG Quantitative, Blood <5.0 mU/mL 419.8 (H) 0 0 0 ? History of ectopic: No ? History of SAB: No ? History of pelvic/abdominal surgeries: No ? LMP 04/29, fertility medications used this cycle: letrozole 5mg, date of LH surge: 05/11, IUI done: 05/12 ? Blood type: AB, POS, rubella: Immune , varicella: had as a child + for covid 05/27, symptoms started 05/26. symptoms are resolved as of now scant spotting, no need for liner, no cramping Plan: ? offered repeat hcg level tomorrow versus 7 week scan ? patient prefers to schedule 7 week scan at [facility]. she will call if spotting changes/becomes concerning Jenny Perry APRN.CNP June 05, 2020 9:56 AM Telephone call: 10 minutes Please schedule the patient for the following- Location: [facility] Visit type: scan Reason for visit/appointment notes: scan Date: 06/17 Time (if discussed): 0820 Call to patient needed: no [facility] 06-03-2020 Note HNO ID: [id number] Author: Jenny Perry Service: ? Author Type: Nurse Practitioner Type: Progress Notes Filed: 06/03/2020 3:00 PM Note Text: Unable to reach patient by phone, sent Dole Tian message with instructions. Jenny Perry APRN.CNP June 03, 2020 3:00 PM [facility] 05-31-2020 Note HNO ID: [id number] Author: Jenny Perry Service: ? Author Type: Nurse Practitioner Type: Progress Notes Filed: 05/31/2020 5:54 PM Note Text: AMBULATORY TELEHEALTH VISIT Spoke with Karlos who has given consent for a televisit. Present on the line: Karlos. Reason for call: test results HPI Component Latest Ref Rng AND Units 05/28/2020 HCG Quantitative 23 TSH 2.331 0 0 0 ? History of ectopic: No ? History of SAB: No ? History of pelvic/abdominal surgeries: No ? LMP 04/29, fertility medications used this cycle: letrozole 5mg, date of LH surge: 05/11, IUI done: 05/12 ? Blood type: AB, POS, rubella: Immune , varicella: had as a child Plan: ? repeat hcg 06/04, she will go to [facility] this time Jenny Perry APRN.JUTE BAG CLIPPER May 31, 2020 5:52 PM Telephone call: 10 minutes Please schedule the patient for the following- Location: [facility] Visit type: televisit with Destiny Reason for visit/appointment notes: hcg test results Date: 06/05 Time (if discussed): any Call to patient needed: no [facility] 05-27-2020 Note HNO ID: [id number] Author: Jenny Perry Service: ? Author Type: Nurse Practitioner Type: Progress Notes Filed: 05/27/2020 6:44 PM Note Text: AMBULATORY TELEHEALTH VISIT Spoke with Karlos who has given consent for a televisit. Present on the line: Karlos. Reason for call: positive test. HPI 0 0 0 History of ectopic: No History of SAB: No History of pelvic/abdominal surgeries: No LMP 04/29, fertility medications used this cycle: letrozole 5mg, date of LH surge: 05/11, IUI done: 05/12 Blood type: AB, POS, rubella: Immune , varicella: had as a child lost taste and smell yesterday - tested positive for covid today, no other symptoms, feeling well. Plan: ? Advised normal symptoms of and s/s of need for follow up. ? Healthy Guide sent via [facility]. ? Labs ordered: hcg AND TSH ? patient positive for covid - reviewed calling lab and scheduling lab testing ? advised monitoring temperature due to covid AND taking tylenol as needed NIMCO Perry APRN.RAHAT May 27, 2020 6:26 PM Telephone call: 20 minutes [facility] 05-21-2020 Note HNO ID: [id number] Author: Colin Sparks (Tech) Service: ? Author Type: Director External Communications Type: Progress Notes Filed: 05/21/2020 9:11 AM Note Text: IUI Letrozole Pre: 76 m/,ml, 71% Post: 71 m/ml, 83% Insem # 23.6 million [facility] 05-16-2020 Note HNO ID: [id number] Author: Anirudh Nur RN Service: ? Author Type: ? Type: Progress Notes Filed: 05/16/2020 10:06 AM Note Text: Petros Donavontibhedhyangkava P Shannan Ivf Pool; P Shannan Scheduling Pool Hi! Please set up this pt with Berenice for IVF and also for nurse consult. Thank you, Sulema Raphael MD [facility] 05-12-2020 Note HNO ID: [id number] Author: Xochilt Lund) Howard Service: ? Author Type: Nurse Practitioner Type: Procedures Filed: 05/12/2020 9:48 AM Note Text: WHI SHANNAN IUI PROCEDURE NOTE Date: 05/12/2020 Primary Proceduralist: Xochilt Chand APRN.CNP Consents and Labels Consent Signed: Informed Consent obtained and on the chart Indications: Karlos Villegas, is a 34 year old female here today for intrauterine insemination. IUI # Series #1 Cycle #1. Cycle Day: CD #14 Last menstrual period: 04/29/2020 IUI IUI Date: 05/12/20 IUI #: Series #1 Cycle #1 Pre-Procedure Diagnosis: Infertility Post-Procedure Diagnosis: Infertility Cycle Meds: Letrozole 5 mg Luteal Phase Progesterone: N/A Trigger: Ovidrel (Comment: 05/10/20) Catheter Type: Curve catheter Tenaculum: No Catheter passed: Easy Complications: None Sperm Information: Source of Sperm: Partner Ejaculated: Yes Fresh/Frozen: Fresh TMC (total motile count of sperm after wash): 23.6 million [place] Protocol/Safety Checklist: Sign In Communication: Completed Time Out Performed At: 9:10 AM EST Time out: Correct Patient, Correct Procedure, Correct Site AND Site Marking Affirmation of Time-Out: N/A Sign Out Discussion: Completed Cycle reviewed, all questions answered. Pt instructed to take a test in 17 days if no menses and call with results. SIGNATURE: Xochilt Chand APRN.CNP PATIENT NAME: Karlos Villegas DATE: May 12, 2020 TIME: 9:48 AM [facility] 05-10-2020 Note HNO ID: [id number] Author: Xochilt (Rahat) Howard Service: ? Author Type: Nurse Practitioner Type: Progress Notes Filed: 05/11/2020 8:52 PM Note Text: Karlos Villegas is here today for a midcycle scan. Lead follicle: 28 Plan: Trigger tonight for IUI on 05/12 Xochilt Chand APRN.CNP May 10, 2020 7:45 AM Please schedule the patient for the following- Location: [facility] Visit type: IUI Reason for visit/appointment notes: IUI Date: 05/12 Time (if discussed): tbd Call to patient needed: ye please [facility] 05-09-2020 Note HNO ID: [id number] Author: Jenny Perry Service: ? Author Type: Nurse Practitioner Type: Progress Notes Filed: 05/09/2020 3:28 PM Note Text: Unable to reach patient by phone, left detailed message that rx was sent to [facility]. also sent sent [facility] message with pharmacy phone number. Jenny Perry APRN.CNP May 09, 2020 3:25 PM The following approved medication requests have been transmitted electronically. Signed Prescriptions Disp Refills Choriogonadotropin Andrew,HumRec (OVIDREL) 250 mcg/0.5 mL syrg 1 Syringe 2 Sig: Inject 250 mcg subcutaneously one time only for 1 dose. KASSIDY: No Jenny Perry APRN.CNP [facility] 05-08-2020 Note HNO ID: [id number] Author: Jenny Perry Service: ? Author Type: Nurse Practitioner Type: Progress Notes Filed: 05/08/2020 11:09 AM Note Text: Ovidrel sent to [facility]. patient notified via [facility]. The following approved medication requests have been transmitted electronically. Signed Prescriptions Disp Refills Choriogonadotropin Andrew,HumRec (OVIDREL) 250 mcg/0.5 mL syrg 1 Syringe 2 Sig: Inject 250 mcg subcutaneously one time only for 1 dose. KASSIDY: No Jenny Perry APRN.CNP [facility] 05-01-2020 Note HNO ID: [id number] Author: Jenny Perry Service: ? Author Type: Nurse Practitioner Type: Progress Notes Filed: 05/01/2020 10:14 AM Note Text: AMBULATORY TELEHEALTH VISIT Spoke with Karlos who has given consent for a televisit. Present on the line: Karlos. Reason for call: set up cycle HPI LMP 04/29 Plan is to do midcycle monitoring this cycle as she did not get positive on OPK last cycle but progesterone level confirmed ovulation Plan: ? midcycle scan scheduled Jenny Perry APRN.CNP May 01, 2020 9:56 AM Telephone call: 10 minutes Please schedule the patient for the following- Location: [facility] Visit type: monitoring Reason for visit/appointment notes: midcycle scan Date: 05/10 Time (if discussed): 0745 Call to patient needed: no [facility] Evaluation note Diagnosis Onset Date History of gestational diabetes acute Hypothyroidism, unspecified acute Polycystic ovarian syndrome acute Wellness examination acute [facility] Work Phone: Evaluation note* Diagnosis Onset Date Resolution Status Tooth infection acute [facility] Work Phone: Evaluation note* Diagnosis Onset Date Resolution Status Hypothyroidism, unspecified acute Type 2 diabetes mellitus with hyperglycemia acute [facility] Work Phone: Evaluation note* Diagnosis Onset Date Resolution Status Admit Date Chest pain acute August 04 8:43am Hypothyroidism, unspecified acute August 04, 2024 8:43am Type 2 diabetes mellitus wit h hyperglycemia acute August 04, 2024 8:43am [facility] Work Phone: Summary Purpose Family History No Family History Records FoundNo Family History Records Found Advance Directives Advance Directive Response Recorded Date/ Time Advance Directives No January 19, 2018 3:00pm Chief Complaint and Reason for Visit Chief Complaint Wellness Reason for Visit History of gestation al diabetes Hypothyroidism, unspecified Polycystic ovarian syndrome Wellness examination Chief Complaint Wellness Poss infected tooth Reason for Visit History of gestation al diabetes Hypothyroidism, unspecified Polycystic ovarian syndrome Wellness examination Chief Complaint Poss infected tooth discuss meds Reason for Visit Tooth infection Chief Complaint discuss meds talk about results Reason for Visit Hypothyroidism, unsp ecified Type 2 diabetes mellitus with hyperglycemia Chief Complaint Admit Date Amb Documentation July 24, 2024 11: 47am TB ER; chest pain August 04, 2024 8:4 3am Reason for Visit Admit Date Chest pain August 04, 2024 8:4 3am Hypothyroidism, unspecified August 04, 2024 8:43am Type 2 diabetes mellitus with hyperglyce nyla August 04, 2024 8:43am Additional Source Comments INFORMATION SOURCE (unrecogn ized section and content) DATE CREATED AUTHOR 04/30/2021 [facility] DATE CREATED AUTHOR AUTHOR'S ORGANIZ ATION 06/19/2021 [facility] Care Teams (unrecognized sec tion and content) Team Status: Active Member Role Status Dates Kevon Land MD Primary Care Provider Active Team Status: Active Member Role Status Dates Kevon Land MD Primary Care Provider Active Start: July 20, 2024 Tony Buck DO Attending Provider Active S tart: July 20, 2024 Team Status: Active Member Role Status Dates Kevon Land MD Primary Care Provider Active Start: July 24, 2024 Steph Plasencia CMA Attending Provider Active Start: July 24, 2024 Team Status: Inactive Member Role Status Dates Kevon Land MD Primary Care Provide r, Attending Provider Active Start: August 04, 2024 End: August 04, 2024 Team Status: Active Member Role Status Dates Kevon Land MD Primary Care Provider Active Team Status: Inactive Member Role Status Dates Kevon Land MD Primary Care Provide r, Attending Provider Active Start: July 26, 2023 End: July 26, 2023 Team Status: Inactive Member Role Status Larry Land MD Primary Care Provider Active Start: August 13, 2023 End: August 13, 2023 Evonne Mackay APRN Attending Provider Active S tart: August 13, 2023 End: August 13, 2023 Team Status: Inactive Member Role Status Larry Land MD Primary Care Provide r, Attending Provider Active Start: November 10, 2023 End: November 10, 2023 Team Status: Inactive Member Role Status Larry Land MD Primary Care Provide r, Attending Provider Active Start: January 18, 2024 End: January 18, 2024 Team Status: Active Member Role Status Larry Land MD Primary Care Provider Active Start: July 20, 2024 Tony Buck DO Attending Provider Active S tart: July 20, 2024 Team Status: Active Member Role Status Dates Kevon Land MD Primary Care Provider Active Start: July 24, 2024 Steph Plasencia CMA Attending Provider Active Start: July 24, 2024 Team Status: Inactive Member Role Status Dates Kevon Land MD Primary Care Provide r, Attending Provider Active Start: August 04, 2024 End: August 04, 2024 Goals (unrecognized section and content) Goals may be documented in a n alternate sectionGoals may be documented in an alternate sectionGoals may be documented in an alternate sectionGoals may be documented in an alternate sectionGoals may be documented in an alternate section FOR RECORDS PERTAINING TO PATIENTS WHO ARE OR HAVE BEEN ENROLLED IN A CHEMICAL DEPENDENCY/SUBSTANCEABUSE PROGRAM, SOME INFORMATION MAY BE OMITTED. This clinical summary was aggregated from multiple sources. Caution should be exercised in using it in the provision of clinical care. This summary normalizes information from multiple sources, and as a consequence, information in this document may materially change the coding, format and clinical context of patient data. In addition, data may be omitted in some cases. CLINICAL DECISIONS SHOULD BE BASED ON THE PRIMARY CLINICAL RECORDS. [facility] [employer] provides no warranty or guarantee of the accuracy or completeness of information in this document.
[2025-01-24 13:39] LABS: Thyroid Stimulating Hormone 2.823 uIU/mL (0.358-3.740)
== END 2025-01-24 12:48 | disposition home or self-care (01) ==
LOC: LAB 12:49
PROVIDERS: PCP Family Medicine; Visit Provider Family Medicine
DX: E11.65 Type 2 diabetes mellitus with hyperglycemia (principal); E03.9 Hypothyroidism, unspecified
CPT/HCPCS: 36415; 82043; 82570; 83036; 84439; 84443

== ENCOUNTER 2025-02-28 14:59 | Outpatient (REF) | payer BC, SELFPAY ==
--- OUTSIDE RECORDS SUMMARY | 2025-02-28 05:36 | XMS_ITS | Continuity of Care Document ---
Author Organization [facility] Address [address] [place] [address] Phone Care Team Providers Care Newspaper Writer Name Role Phone Lisa Osei MD Primary Care Provider Lisa Osei MD Attending Provider Care Teams Patient Care Team Team Status: Active Member Role/Relationship Status Dates Lisa Osei MD Primary Care Provider Active Visit Care Team Team Status: Inactive Member Role/Relationship Status Dates Lisa Osei MD Primary Care Provider Active Start: January 24, 2025 End: January 24, 2025Sofi Fuentes ProviderActiveStart: January 24, 2025 End: January 24, 2025 Patient Care Team Team Status: Inactive Member Role/Relationship Status Dates Lisa Osei MD Primary Care Provider Active Start: February 28, 2025 End: February 28, 2025Sofi Fuentes ProviderActiveStart: February 28, 2025 End: February 28, 2025 Chief Complaint and Reason for Visit Chief Complaint Admit Date Freckle Concern January 24, 2025 9 :26am Discuss lab results February 28, 2025 9:56am Reason for Visit Admit Date Allergic rhinitis January 24, 2025 9 :26am Hypothyroidism, unspecified January 9:26am Type 2 diabetes mellitus with hyperglyce nyla January 24, 2025 9:26am Hypothyroidism, unspecified February 9:56am Allergies, Adverse Reactions, Alerts Allergen Type Severity Reaction Last Updated Verified Status latex Allergy Unknown Hives February 28, 2025 10:03am Yes Active penicillin G Allergy Unknown Hives February 28, 2025 10:03am Yes Active Social History Smoking Status Status Start Date End Date Date of Observa tion Ex-smoker (finding) July 16, 2023 9:31am Observation Status Observation Response Date of Response Legal Sex Female (finding) Sex Assigned At BirthFeeMa1985 Problems Active Problems Problem Diagnosis/Recorded Date Onset Date Stat us Class 3 severe obesity with body mass index (BMI) of 45.0 to 49.9 in adult August 04, 2024 8:19am Unknown Active Type 2 diabetes mellitus wit h hyperglycemia November 10, 2023 12:24pm Unknown Active Wellness examination July 26, 2023 10:42am Unknown Active Hypothyroidism, unspecified July 23, 2023 4:00pm Un known Active Polycystic ovarian syndrome July 23, 2023 4:00pm Un known Active History of gestational diabetes July 26, 2023 10:42 am Unknown Active Tooth infection August 13, 2023 1:32pm Unknown Acti ve Musculoskeletal chest pain August 04, 2024 8:14am Unk nown Active Allergic rhinitis January 25, 2025 8:34am Unknown Active Inactive/Resolved Problems Problem Diagnosis/Recorded Date Onset Date Stat us Chest pain August 04, 2024 8:06am Unknown Reso lved Medications Medication Status Dose Units Route Directions Qty Days Refills S tart Date Stop Date End Date Reason(s) Instructions Adherence Levothyroxine (Synthroid) 75 mcg tablet Discontinued 75 MCG PO Daily 30 1April 2023 3:31pmMay 2023 9:55amFreeTextSig: TAKE 1 TABLET BY MOUTH EVERY DAY; Note: Source Status: Start; Refills: 2; Qty: 90 Tablet; Provider: Farnaz Gonzalez ( )Levothyroxine (Synthroid) 75 mcg tablet Bpngupmxizmy59SQWWVMpfec787Mqv 2023 9:55amAugust 2023 1:50pm FreeTextSig: TAKE 1 TABLET BY MOUTH EVERY DAY; Note: Source Status: Start; Refills: 2; Qty: 90 Tablet; Provider: Farnaz Gonzalez ( ) Levothyroxine (Synthroid) 75 mcg nosqqsOhebffppoeqv82IHYOIWrmqf768Fyzgjy 2023 1:49pmFebruary 2024 12:42pmGlipizide 5 mg tablet extended release 59niNhegyxspkfhz2.ROUTE.WEPMMQN688Dwtjxck 2024 12:40pmApril 2024 7:52amTAKE 1 TABLET BY MOUTH EVERY DAYLevothyroxine (Synthroid) 75 mcg tablet Dxkusjtkqzzk74RNLAPRmlon049Slxbupyv 2024 12:42pmAugust 2024 7:12am Levothyroxine (Synthroid) 75 mcg qowilvEnivgrpsamgb20HBUVCDvuie764Eyuvbv 2024 7:12amOctober 2024 1:02pmLevothyroxine 50 mcg fpaijvIscdlwpziekb33QHZ ZFNnumd051Smlxlac 2024 1:02pmNovember 2024 8:31amLevothyroxine 50 mcg hzultdTjnqcy93EWISWSmril375Carnkpkg 2024 8:31amComplies with drug therapyLevothyroxine (Synthroid) 75 mcg mfsvclIbylndkarfhc3ZXDGYNiynaLtcod 2023 11:00pmApril 2023 3:31pmFreeTextSig: TAKE 1 TABLET BY MOUTH EVERY DAY; Note: Source Status: Start; Refills: 2; Qty: 90 Tablet; Provider: Farnaz Gonzalez ( )Pnv 42-Rsef-Efhwv Xeou-Wpqnq-5 30 mg iron-10 mg iron-1 mg capsuleDiscontinuedCAPPOApril 2023 11:00pmApril 2023 10:25am Metformin 500 mg wvdmdbTxrbiurwatty830ZQZNPzxpt daily with mealsApril 2023 11:00pmApril 2023 10:24amNitrofurantoin Monohyd/M-Cryst (Macrobid) 100 mg dkcswbtAjizctesgxvf0OGTKJYqcqi 12 hoursApr2023 11:00pmApril 2023 10:24amFreeTextSi capsule with food Orally every 12 hrs; Note: Source Status: Taking; Refills: 0; Provider: Juan Francisco Hemphill JPhenazopyridine (Pyridium) 200 mg xwrupiMxwitfkpcrid8VTWUQSlhql times dailyApril 2023 11:00pmApril 2023 10:24amFreeTextSi tablet after meals Orally Three times a day; Note: Source Status: Taking; Refills: 0; Provider: Juan Francisco Hemphill JClindamycin Hcl 150 mg pwjswwlJukaxdxfmabi249IPNCXsfll 8 cfdmb8704Pix 2023 11:00pmJuly 2023 9:34amNaproxen 500 mg lukzhuZmlyny922ZKXJOtvnw daily as needed for mpnc59173Mhu 2023 11:00pmComplies with drug therapyGlipizide 5 mg tablet extended release 18eoIehapzmrmjnc4UXRIRybkz528Rboijvv 2023 11:00pmJanuary 2024 12:40pmMetformin 500 mg tablet extended release 24 geUiyklwqeldiz475NH POTwice snjcv3216Zfko 2023 11:00pmOctober 2023 9:06amClomiphene Citrate 50 mg ucdgamSjowodldwzuu00UHFABozonIbxks 2024 11:00pmApril 2024 7:53am Relevant Diagnostic Tests and/or Laboratory Data Laboratory Results Test Collection Date/Time Result Date/Time Result Interpretation Reference Range Result Comment Performing Site Urine Random Creatinine January 24, 2025 11:50am January 24, 2025 11:50am 17.14 mg/dL Below low normal 20.00-300.00 Free ThyroxineOct2024 11:57amOctober 2024 11:57am2.29 ng/dL Above high normal0.76-1.46Estimated Average GlucoseOct[facility] 2024 11:57am January 24, 2025 11:29kd053 mg/dLThyroid Stimulating Hormone 3rd GenOctober 2024 11:57amOctdeaconess hospital [facility] 2024 11:57am2.823 u[iU]/mL0.358-3.740Urine Random MicroalbuminOct2024 11:50amOctober 2024 11:50am<1.3 mg/dL<=30.0Hemoglobin M3pSsphuqq 2024 11:57amOctober 2024 11:57am6.1 %4.5-6.2ADA RECOMMENDED LIMIT 4.0 - 6.0ADA THERAPEUTIC TARGET < 7.0ACTION SUGGESTED> 7.0 Vital Signs Vital Reading Result Reference Range Collection Date/Time Height 68 [in_i] January 24, 2025 8:29gsFuklbm245.18 [facility] 8:29amHeart Rate91 /qyd13-546Ajzfvjx 2024 8:29amBP Vrnaghql548 mm[Hg]100-140[facility] 2024 8:29amBP Hfloesiyq10 mm[Hg]60-100[facility] 2024 8:29amBMI (Body Mass Index)43.6 kg/l3[facility] 2024 8:61sgBqgrbj48 [in_i]February 28, 2025 10:45frDxhlgz680.18 [facility] 2024 10:00amHeart Rate81 /eiy79-288Ymvxyago 2024 10:00amBP Ducevtfy154 mm[Hg]100-140[facility] 2024 10:00amBP Awybycygi89 mm[Hg]60-100[facility] 2024 10:00amBMI (Body Mass Index)43.6 kg/c3Knbqyjzg 2024 10:00am Advance Directives Advance Directive Response Recorded Date/ Time Advance Directives No January 19, 2018 2:00pm Insurance Providers Guarantor Franchesca Villegas Address [address] [place], [place] [address]Contact Info.Home Phone: Payer Group Member ID Coverage Type Subscriber Relationship to Subscriber Effective Date Expiration Date Juan José MADRID Id: [id number] L Smith Id: [id number] [address] [place] [address] Home Phone: Self Encounters Encounter Location(s) Arrival/Admit Date Discharge/Departure Date Discharge/Departure Disposition Provider(s) Departed Physician/ Provider Office Visit -[facility] January 24, 2025 9:26am January 24, 2025 9:58am Discharged to home care or self care (routine discharge) Lisa Osei MD Departed Physician/ Provider Office Visit -[facility] February 28, 2025 9:56am February 28, 2025 10:36am Discharged to home care or self care (routine discharge) Lisa Osei MD Recent Diagnosis Onset Date Admit Date Allergic rhinitis Unknown January 24, 2025 9:26am Hypothyroidism, unspecified Unknown Octo jamey 2024 9:26am Type 2 diabetes mellitus with hyperglycemia Unkn own January 24, 2025 9:26am Hypothyroidism, unspecified Unknown Moshe voradariusz 2024 9:56am Assessments Diagnosis Onset Date Resolution Status Admit Date Allergic rhinitis acuteOctober 2024 9:26amHypothyroidism, unspecifiedacuteOctober 2024 9:26amType 2 diabetes mellitus with hyperglycemiaacuteOctober 2024 9:26am Hypothyroidism, unspecifiedacuteNovember 2024 9:56am Plan of Treatment Author Lisa [facility]sei [facility] CenterAuthored[facility] 2024 8:35amRecommend OTC Marium rather than claritin. No signs of bacteria infection causing her sore throat. Check labs, continue levothyroxine Check labs. Continue supplements and healthy diet/exercise. Future Tests Future scheduled test information is unavailable Pending Tests Test Name Ordered Date Scheduled Date US thyroid February 28, 2025 10:30am Future Visits Future appointment information is unavailable Future Procedures Procedure Name Ordered Date Scheduled Date Triiodothyronine (T3) Free February 28, 2025 1 0:29am Free T4 (Free Thyroxine)February 28, 2025 10:29amThyroid Stim Hormone w/Rflx February 28, 2025 10:29am Future Medications Future medication information is unavailable Patient Instructions Patient instructions are unavailable
--- OUTSIDE RECORDS SUMMARY | 2025-02-28 15:05 | XMS_ITS | CCD ---
Author Organization [facility] Care Team Providers Care Director [place] [employer] Name Role Phone ROGERIOC, DR SMITH Primary Care Unavailable JIGNESH PINEDA Admitting Unavailable JIGNESH PINEDA Attending Unavailable VISHNU CALLAWAY Consulting Unavailable Kervin [...] Admitting Unavailable EL, JOSE G Attending Unavailable SOUTHWICK, DR OKSANA Brewster Consulting Unavailable HUGH, DR [...] Unavaila ble HUGH, DR HOUGH Consulting Unavailable Kevon Land MD Primary Care Provider Kevon Land MD Attending Provider Allergies Allergy ClassificationReported Allergen(s)Allergy TypeDate of OnsetReaction(s) Facility (8 sources)LatexDrug allergy (disorder)56-26-7143LcmbkFoaNorwalk [facility] (2 sources)PenicillinsDrug allergy (disorder)80-65-8847Zty [facility] Repository (6 sources)PenicillinDrug Igkynyg52-85-6382KrcxgEjvutgctmKettering Health Troy (3 sources)12 Hour DecongestantAllergy to kloimrdpm78-81-1344SbpooQfakduereKettering Health Troy Medications Current Medications MedicationDrug Class(es)DatesSig (Normalized)Sig (Original)levothyroxine sodium 0.075 mg oral tablet (20 sources)l-ThyroxineStart: 07-23-2023 End: 06-61-4082jqbz 1 tablet by mouth once dailyLevothyroxine (Synthroid) 75 mcg tablet Active 75 MCG PO Daily November 21, 2024 8:12am Complieswith drug therapynaproxen 500 mg oral tablet (4 sources)Nonsteroidal Anti-inflammatory DrugStart: 17-63-9920xwge 1 tablet by mouth twice daily as needed for painNaproxen 500 mg tablet Active 500 MG PO Twice daily as needed for pain 29 01August 13, 2023 12:00am Complies with drug therapy Completed/Discontinued Medications MedicationDrug Class(es)DatesSig (Normalized)Sig (Original)clindamycin 150 mg oral capsule (4 sources)Lincosamide AntibacterialStart: 08-13-2023 End: 50-18-3921ocjo 1 capsule by mouth every eight hoursClindamycin Hcl 150 mg capsule Discontinued 150 MG PO Every 8 hours 30 10August 13, 2023 12:00am November 10, 2023 10:34amclomiPHENE citrate 50 mg oral tablet (2 sources)Estrogen Agonist/AntagonistStart: 08-03-2024 End: 08-28-4933shpz 1 tablet by mouth once dailyClomiphene Citrate 50 mg tablet Discontinued 50 MG PO Daily August 03, 2024 12:00am August 04, 2024 8:53am glipiZIDE er 5 mg 24 hr extended release oral tablet (4 sources)SulfonylureaStart: 04-17-2024 End: 65-32-9298wrkc 1 tablet by mouth once dailyGlipizide 5 mg tablet extended release 24hr Discontinued 0 .ROUTE .COMPLEX April 17, 2024 1:40pm August 04, 2024 8:52am TAKE 1 TABLET BY MOUTH EVERY DAYStart: 01-18-2024 End: 58-96-9143mllu 1 tablet by mouth once dailyGlipizide 5 mg tablet extended release 24hr Discontinued 5 MG PO Daily January 18, 2024 12:00amApril 17, 2024 1:40pm24 hr metFORMIN hydrochloride 500 mg extended release oral tablet (10 sources)BiguanideStart: 11-10-2023 End: 04-80-7427nwoi 1 tablet by mouth twice dailyMetformin 500 mg tablet extended release 24 hr Discontinued 500 MG PO Twice daily November 10, 2023 12:00am January 18, 2024 10:06amStart: 07-23-2023 End: 22-04-8752xyyl 1 tablet by mouth twice daily at mealtimeMetformin 500 mg tablet Discontinued 500 MG PO Twice daily with meals July 23, 2023 12:00am July 26, 2023 11:24amnitrofurantoin, macrocrystals 25 mg / nitrofurantoin, monohydrate 75 mg oral capsule (6 sources)Nitrofuran AntibacterialStart: 07-23-2023 End: 31-18-7847csrs 1 capsule by mouth every twelve hours at mealtime Nitrofurantoin Monohyd/M-Cryst (Macrobid) 100 mg capsule Discontinued 1 CAP PO Every 12 hours 2023 12:00am July 26, 2023 11:24am FreeTextSi capsule with food Orally every 12 hrs; Note: Source Status: Taking; Refills: 0; Provider: Juan Francisco Del Rosarioazopyridine hydrochloride 200 mg oral tablet (6 sources)Start: 07-23-2023 End: 18-41-2299ugtq 1 tablet by mouth three times daily after mealtime Phenazopyridine (Pyridium) 200 mg tablet Discontinued 1 TAB PO Three times daily July 23, 2023 12:00am July 26, 2023 11:24am FreeTextSi tablet after meals Orally Three times a day; Note: Source Status: Taking; Refills: 0; Provider: Juan Francisco Bhandari #33-Lrnl-Qbnzn Acid-Omega3 (4 sources)Start: 07-23-2023 End: 46-31-4247Dzp #79-Rgyb-Ukftw Acid-Omega3 Discontinued CAP PO July 23, 2023 12:00am July 26, 2023 11:25amPnv #37-Iqry-Goafd Acid-Omega3 30 mg iron- 10 mg iron-1 mg capsule (1 source)Start: 07-23-2023 End: 95-57-7572Hip #02-Wsmc-Ziayp Acid-Omega3 30 mg iron-10 mg iron-1 mg capsule Discontinued CAP PO July 23, 2023 12:00am July 26, 2023 11:25amPnv 66-Lyye-Aewpa Ldug-Kwpxi-2 30 mg iron-10 mg iron-1 mg capsule (1 source)Start: 07-23-2023 End: 55-28-8263Vhs 90-Vcae-Iuxnr Peht-Bukci-2 30 mg iron-10 mg iron-1 mg capsule Discontinued CAP PO July 23, 2023 12:00am July 26, 2023 11:25am Problems Active Problems Problem ClassificationProblemDateDocumented DateEpisodic/ChronicDiabetes mellitus with complications (5 sources)Hyperglycemia due to type 2 diabetes mellitus; Translations: [Type 2 diabetes mellitus with hyperglycemia]54-88-5741OckoockEdlqykuv or abnormal glucose tolerance complicating ; childbirth; or the puerperium (14 sources)Abnormal glucose complicating ; Translations: [Gestational diabetes mellitus in ,unspecified control]Onset: 63-52-1227Remsmsio Disorders of teeth and jaw (5 sources)Infection of tooth; Translations: [Periapical abscess without sinus] 42-13-1817RjgyptsnZllakfxcmly chest pain (4 sources)Chest pain; Translations: [Chest pain, unspecified]80-61-5422Acmpcwwm Other aftercare (1 source)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; Translations: [OTH PIE TOPPER CURRENT DRUG THERAPY]Onset: 26-81-4683YnuktkgeEmrhi complications of ; puerperium affecting management of mother (1 source)Obesity complicating childbirth; Translations: [OBESITY COMPLICATING CHILDBIRTH]Onset: 76-06-2635IghhwcmHatbo complications of ; puerperium affecting management of mother (1 source)Anemia complicating childbirth; Translations: [ANEMIA COMPLICATING CHILDBIRTH]Onset: 73-31-9807JcusrvmPoyfk endocrine disorders (3 sources)Polycystic ovarian syndrome; Translations: [Polycystic ovaries]Onset: 155558-17-0649QanxbkyQaexp endocrine disorders (6 sources)Polycystic ovary syndrome; Translations: [Polycystic ovarian syndrome]08-50-6317YoftwzsHgquf gastrointestinal disorders (3 sources)Dysphagia, unspecified; Translations: [DYSPHAGIA UNSPECIFIED]Onset: 70-96-5208QzhbrmdfXohwe nutritional; endocrine; and metabolic disorders (1 source)Obesity, unspecified; Translations: [OBESITY UNSPECIFIED]Onset: 57-55-2549DgyfzijZrcfp nutritional; endocrine; and metabolic disorders (1 source)Severe obesity; Translations: [Class 3 severe obesity with body mass index (BMI) of 45.0 to 49.9 inadult]48-59-9046GtgxhaaRkyvr upper respiratory infections (1 source)Acute pharyngitis, unspecified; Translations: [ACUTE PHARYNGITIS UNSPECIFIED]Onset: 35-66-1464DoncpezmOqjzsmi disorders (15 sources)Hypothyroidism, unspecified; Translations: [Hypothyroidism]Onset: 22-28-8245DbtloywEeutjxhwfhfl (1 source)CONTACT W/AND (SUSP) EXPOS COVID-19; Translations: [CONTACT W/AND (SUSP) EXPOS COVID-19]Onset: 01-30-2021 Past or Other Problems Problem ClassificationProblemDateDocumented DateEpisodic/ChronicDeficiency and other anemia (1 source)Iron deficiency anemia, unspecified; Translations: [IRON DEFICIENCY ANEMIA UNSPECIFIED]Onset: 11-54-2977XjsfgxjhRhvcpflm mellitus without complication (5 sources)Other abnormal glucose; Translations: [OTHER ABNORMAL GLUCOSE]Onset: 37-18-8094XkepbvibOyejozfwoi during ; abruptio placenta; placenta previa (4 sources)Hemorrhage in early , unspecified; Translations: [HEMORRHAGE EARLY UNS]Onset: 48-10-6078BrbweituBsofrihcydgxq and screening for infectious disease (2 sources)Encounter for screening for infections with a predominantly sexual mode of transmission; Translations: [Encounter for screening for human papillomavirus (HPV)]Onset: 26-43-6561XjbfoomfMV-related trauma to perineum and vulva (2 sources)Second degree perineal laceration during delivery; Translations: [Other specified trauma to perineum and vulva]Onset: 48-96-0657GtqqyizpSmkyd complications of ; puerperium affecting management of mother (1 source)Endocrine, nutritional and metabolic diseases complicating childbirth; Translations: [ENDOCRN NUTR MET DZ COMP CHILDBIRTH]Onset: 64-51-3874Hxmabzlq Other complications of (4 sources)Endocrine, nutritional and metabolic diseases complicating , unspecified trimester; Translations: [ENDOCRN NUTR MET DZ COMP PG UNS TRI]Onset: 13-58-0009RsxwpxdvTokol complications of (4 sources)Endocrine, nutritional and metabolic diseases complicating , third trimester; Translations: [ENDOCRN NUTR MET DZ COMP PG 3RD TRI]Onset: 34-85-3673FpiweflyPuhjb female genital disorders (1 source)Other specified noninflammatory disorders of vagina; Translations: [OTH SPEC NONINFLAMMATORY D/O VAGINA]Onset: 57-95-2337PnvzavxpNmjvt and delivery including normal (16 sources)Encounter for routine follow-up; Translations: [Single live ]Onset: 09-38-6852LooavysqHzrfv screening for suspected conditions (not mental disorders or infectious disease) (8 sources)Encounter for screening for Streptococcus B; Translations: [Encounter for screening for malignant neoplasm of cervix]Onset: 08-29-2020 EpisodicResidual codes; unclassified (1 source)37 weeks gestation of ; Translations: [37 WEEKS GESTATION OF ]Onset: 41-63-6259SuqddyunPhvvsxdz codes; unclassified (1 source)36 weeks gestation of ; Translations: [36 WEEKS GESTATION OF ]Onset: 34-91-9615ZphtcsauSsllbmsv codes; unclassified (1 source)35 weeks gestation of ; Translations: [35 WEEKS GESTATION OF ]Onset: 07-11-8321OfioonskTyzngorz codes; unclassified (1 source)34 weeks gestation of ; Translations: [34 WEEKS GESTATION OF ]Onset: 93-44-7499GktyitmwBfvgdybo codes; unclassified (1 source)33 weeks gestation of ; Translations: [33 WEEKS GESTATION OF ]Onset: 32-15-0244GtgkoshtDveuemno codes; unclassified (1 source)32 weeks gestation of ; Translations: [32 WEEKS GESTATION OF ]Onset: 04-48-3750FzwpxhlsCwnslrbw codes; unclassified (1 source)28 weeks gestation of ; Translations: [28 WEEKS GESTATION OF ]Onset: 95-68-7470KwrhkthoQdgapvkdk and history of mental health and substance abuse codes (1 source)Personal history of nicotine dependence; Translations: [PERSONAL HISTORY OF NICOTINE DEPEND]Onset: 55-88-1539Rcvzcwln Results Test NameValueInterpretationReference RangeFacilityBasophils Auto (Bld) [#/Vol] on 94-60-4662Izdcsnxlz (Bld) [#/Vol]Automated basophil count0.0-0.1FMercy Health St. Joseph Warren HospitalBasophils/100 WBC Auto (Bld)on 37-78-2289Hidlrcnft/100 WBC (Bld)Automated basophil %0.2-2.0[facility] Eosinophils/100 WBC Auto (Bld)on 55-30-8116Spaxeyjraqn/100 WBC (Bld)Automated eosinophil %Low0.9-7.0[facility] HospitalErythrocyte distribution width Auto (RBC) [Ratio]on 89-77-5443Evdiirzzlbs distribution width (RBC) [Ratio]Erythrocyte distribution width [Ratio] by Automated vbkeuAphx80.0-15.0 [facility] HospitalEstimated glomerular filtration rate (GFR) non- Americanon 54-96-7897RWU/1.73 sq M.predicted among non-blacks MDRD (S/P/Bld) [Vol rate/Area]Estimated glomerular filtration rate (GFR) non->=60 mL/min/1.73m 2FMercy Health St. Joseph Warren HospitalHematocrit Auto (Bld) [Volume fraction]on 49-64-0608Twtgmivpxl (Bld) [Volume fraction]Hematocrit [Volume Fraction] of Blood by Automated count36.0-48.0[facility] HospitalHemoglobin [Mass/volume] in Bloodon 20-34-0510Xpcmzmkmwb (Bld) [Mass/Vol] Hemoglobin [Mass/volume] in Blood12.0-16.0[facility] Laboratory - Chemistry and Chemistry - challengeon 69-74-3195Anmuiey [Mass/Vol] 9.0 mg/dL8.5-10.1FMercy Health St. Joseph Warren HospitalChloride [Moles/Vol]102 mmol/L 98-107[facility] HospitalCO2 [Moles/Vol]28.4 mmol/L21.0-32.0 [facility] HospitalCreatinine [Mass/Vol]0.75 mg/dL0.55-1.02 [facility] HospitalGFR/1.73 sq M.predicted MDRD (S/P/Bld) [Vol rate/Area]mL/min/{1.73_m2}>=60 mL/min/1.73m 2FMercy Health St. Joseph [facility] Hospital Glucose [Mass/Vol]112 mg/uJAbvb22-292XcnuaumtdMercy Health West HospitalPotassium [Moles/Vol]4.1 mmol/L3.5-5.1FProMedica Toledo Hospitalodium [Moles/Vol] 138 mmol/R337-067IozxxkqcvMercy Health West HospitalUrea nitrogen [Mass/Vol]13.0 mg/dL7.0-18.0[facility] HospitalUrea nitrogen/Creatinine [Mass ratio]17.3 mg/mgMercy Health West HospitalLaboratory - Hematology and Cell countson 49-51-7947Jsiesxiz granulocytes/100 WBC (Bld)0.3 %0.0-0.5FMercy Health St. Joseph Warren HospitalLeukocytes [#/volume] corrected for nucleated erythrocytes in Blood by Automated counon 47-32-8633DII corrected for nucl RBC Auto (Bld) [#/Vol]Leukocytes [#/volume] corrected for nucleated erythrocytes in Blood by Automated counHigh4.0-11.0[facility] HospitalLymphocytes Auto (Bld) [#/Vol]on 71-83-6154Xhzyfxwsrdz (Bld) [#/Vol]Lymphocytes [#/volume] in Blood by Automated count1.2-3.8[facility] Lymphocytes/100 WBC Auto (Bld)on 71-32-6699Grbybbtnmqt/100 WBC (Bld) Lymphocytes/100 leukocytes in Blood by Automated wwzlgCym80.5-60.0[facility] HospitalMCH Auto (RBC) [Entitic mass]on 25-04-3040ZMB (RBC) [Entitic mass]MCH [Entitic mass] by Automated cobpqZab93.7-34.0[facility] HospitalMCHC Auto (RBC) [Mass/Vol]on 72-79-3495CBVK (RBC) [Mass/Vol]MCHC [Mass/volume] by Automated count29.9-35.2FMercy Health St. Joseph Warren HospitalMCV Auto (RBC) [Entitic vol]on 36-34-1445STT (RBC) [Entitic vol] MCV [Entitic volume] by Automated count81.0-99.0[facility] HospitalMonocytes Auto (Bld) [#/Vol]on 97-83-2103Nzjnyikgc (Bld) [#/Vol]Automated blood monocyte count0.3-0.8[facility] HospitalMonocytes/100 WBC Auto (Bld)on 22-56-0608Qdrbqxqth/100 WBC (Bld)Automated monocyte %1.7-12.0 [facility] HospitalNeutrophils Auto (Bld) [#/Vol]on 07-20-2024 Neutrophils (Bld) [#/Vol]Neutrophils [#/volume] in Blood by Automated countHigh 1.4-6.5FMercy Health St. Joseph Warren HospitalNeutrophils/100 WBC Auto (Bld)on 71-69-1131Ifcqiusywzx/100 WBC (Bld)Automated neutrophil %High43.0-75.0[facility] HospitalNo Panel Informationon 24-94-3368Bswalpxmlps # (Auto)0.0 10 3/uL0.0-0.7FMercy Health St. Joseph Warren HospitalImmature Granulocyte # (Auto)0.03 10 3/uL0.00-0.03[facility] HospitalTroponin I High Sensitivity <4.0 pg/mLLow4.0-51.3FMercy Health St. Joseph Warren HospitalComment on above:CUT-OFF POINTS HAVE BEEN ESTABLISHED BASED ON THE FOURTHUNIVERSAL DEFINITION OF MYOCARDIAL INFARCTION. THE UPPERREFERENCE LIMIT (URL) OF TROPONIN, DEFINED THE 99THPERCENTILE OF cTnI DISTRIBUTION IN A REFERENCE POPULATION,HAS BEEN CONFIRMED THE DECISION THRESHOLD FOR MIDIAGNOSIS.99TH PERCENTILE = 51.4 PG/MLNOTE: HIGH-SENSITIVITY TROPONIN ASSAY IS NOT INTENDED TO BEUSED IN ISOLATION BUT SHOULD BE INTERPRETED IN CONJUNCTIONWITH OTHER DIAGNOSTIC AND CLINICAL INFORMATION.Platelet mean volume Auto (Bld) [Entitic vol]on 07-20-2024 Platelet mean volume (Bld) [Entitic vol]Platelet mean volume [Entitic volume] in Blood by Automated count9.5-13.5FMercy Health St. Joseph Warren HospitalPlatelets Auto (Bld) [#/Vol]on 98-86-6664Ipdrxatgb (Bld) [#/Vol]Platelets [#/volume] in Blood by Automated esnxf954-517OjgnsapziMercy Health West HospitalRBC Auto (Bld) [#/Vol] on 57-26-7297LVS (Bld) [#/Vol]Erythrocytes [#/volume] in Blood by Automated count4.20-5.40[facility] Hospitalerum or plasma anion gap determinationon 70-36-2508Zibtr gap [Moles/Vol]Serum or plasma anion gap determinationMercy Health West HospitalGlucose mean value [Mass/volume] in Blood Estimated from glycated hemoglobinon 49-66-3443Lwrniez glucose Estimated from glycated hemoglobin (Bld) [Mass/Vol]137 mg/dLMercy Health West HospitalLaboratory - Chemistry and Chemistry - challengeon 00-52-5805Aztv T4 [Mass/Vol]1.84 ng/dL0.76-1.46[facility] HospitalTSH Qn3.165 m[IU]/L0.358-3.740[facility] HospitalLaboratory - Hematology and Cell countson 27-07-3032XgQ1n (Bld) [Mass fraction]6.4 %4.5-6.2FMercy Health St. Joseph Warren HospitalComment on above:ADA RECOMMENDED LIMIT 4.0 - 6.0ADA THERAPEUTIC TARGET < 7.0ACTION SUGGESTED> 7.0FREE T4on 58-90-5251Uyek T4 [Mass/Vol]2.18 ng/dLNormal0.78-2.19B[facility] Crille HospitalComment on above: Performed By: #### FT4 ####[facility] [address] [address]DrAlka ChangGLYCOHEMOGLOBIN A1Con 20-11-4302QWO RECOMMENDATIONADA THERAPEUTIC TARGET 6.0 - 7.0 ACTION SUGGESTED > 7.0NoUniversity Hospitals Elyria Medical CenterComment on above:Performed By: #### A1C #### [facility] [address] [place] [address] Dr. Babak AdamsGlucose [Mass/Vol]117 mg/dLNoUniversity Hospitals Elyria Medical CenterComment on above:Performed By: #### A1C #### [facility] [address] [place] [address] Dr. Babak AdamsHbA1c (Bld) [Mass fraction]5.7 %Normal<=6.0The [facility] Comment on above:Performed By: #### A1C #### [facility] [address] [place] [address] Dr. Babak Stewart 53-76-1834SZY9.532 uIU/mLNormal0.470-4.680The [facility] HospitalComment on above:Performed By: #### HBSANS #### [facility] [address] [place] [address] Harini BraunenTSH RANGESEE BELOWNoUniversity Hospitals Elyria Medical CenterComment on above:Result Comment: <0.34 UIU/ml HYPERTHYROID 0.34-5.60 UIU/ml EUTHYROID >5.60 UIU/ml HYPOTHYROIDPerformed By: #### HBSANS #### [facility] [address] [place] [address] CONon 50-27-0855CV NECK ST W CONEXAMINATION: CT NECK ST W CON HISTORY: Pharyngitis [...] Electronically authenticated by: KERVIN BURNS Date: 2021-05-20 20:34NormalThe Cooks HospitalCULTURE THROATon 01-30-5482OSRCQQL THROATCulture Observations: NORMAL RESPIRATORY RENITA.NormalThe Cooks HospitalComment on above:Performed By: #### THRTCCarlo SSCRN #### [facility] [address] [place] [address] Dr. Babak Crum 57-72-2233Rriqjttoz (Bld) [#/Vol]NegativeNormalNEGATIVEThe [facility] HospitalComment on above:Performed By: #### MONO ####[facility] [address] [place], [place] [address]DrJasmyne AdamsSTREPT SCREEN on 10-39-5831CSKOE SCREEN ANegativeNormalNEGATIVEThe [facility] HospitalComment on above:Performed By: #### THRTCCarlo SSCRN #### [facility] [address] [place] [address] Dr. Babak Robles AUTO DIFFon 35-83-1959EHED #0.0 103/ulNormal0.0-0.1The [facility] HospitalComment on above:Performed By: #### CBC ####[facility] [address] [place], [place] [address]DrAlka AdamsBasophils/100 WBC (Bld)0.2 %Normal0.2-2.0The [facility] HospitalComment on above:Performed By: #### CBC ####[facility] I[address]gfx[address] [place], [place] [address]DrAlka ChangEO #0.0 103/ulNormal0.0-0.7The [facility] HospitalComment on above:Performed By: #### CBC ####[facility] [address]fk[address] [place], [place] [address]Dr.Yilan ChangEosinophils/100 WBC (Bld)0.3 %Critically low0.9-7.0The [facility] HospitalComment on above:Performed By: #### CBC ####[facility] Brmgjeih[address] [place], [place] [address]Dr. Babak ChangErythrocyte distribution width (RBC) [Ratio]14.5 %Ekpjoc15.0-15.0The [facility] HospitalComment on above:Performed By: #### CBC ####[facility] [address] [place], [place] [address]Dr.Lexyrene ChangHematocrit (Bld) [Volume fraction]29.1 %Critically low36.0-48.0The [facility] HospitalComment on above:Performed By: #### CBC ####[facility] Z[address] [place], [place] [address]Dr.Babak ChangHemoglobin (Bld) [Mass/Vol]9.3 g/dL Critically low12.0-16.0The [facility] HospitalComment on above:Performed By: #### CBC ####[facility] E[address]si[address] [place], [place] [address]Dr. Lexyrene ChangIG #0.10 10e3/ulCritically high0.00-0.03The [facility] HospitalComment on above:Performed By: #### CBC ####[facility] Bakrlaizwt[address] [place], [place] [address]Dr.Babak ChangIG %0.8 %Critically high0.0-0.5The [facility] HospitalComment on above:Performed By: #### CBC ####[facility] H[address]zr[address] [place], [place] [address]Dr.Lexyrene ChangLYMPH #1.4 103/ulNormal1.2-3.8The [facility] HospitalComment on above:Performed By: #### CBC ####[facility] Hbfilluglr[address] [place], [place] [address]Dr. Babak ChangLymphocytes/100 WBC (Bld)10.8 %Critically low20.5-60.0The [facility] HospitalComment on above:Performed By: #### CBC ####[facility] [address] [address]Dr.Babak AdamsMANUAL DIFF REQ NONormalThe [facility] HospitalComment on above:Performed By: #### CBC ####[facility] [address] [address]Dr. Babak BryanH (RBC) [Entitic mass]28.1 acOergym07.7-34.0The [facility] Comment on above:Performed By: #### CBC ####[facility] [address]iaxrozl[address] [place], [place] [address]Dr.Lexyrene AdamsHC (RBC) [Mass/Vol]32.0 g/dL Ookycl58.9-35.2The [facility] HospitalComment on above:Performed By: #### CBC ####[facility] F[address]nkuab[address] [place], [place] [address]Dr. Babak AdamsV (RBC) [Entitic vol]87.9 eGJslfzx45.0-99.0[facility] Comment on above:Performed By: #### CBC ####[facility] Xfacmhcrhk[address] [place], [place] [address]Dr.Lexyrene AdamsMONO #0.7 103/ulNormal0.3-0.8 [facility] HospitalComment on above:Performed By: #### CBC ####[facility] [address]vnr[address] [place], [place] [address]Dr.Babak Adams Monocytes/100 WBC (Bld)5.5 %Normal1.7-12.0The [facility] HospitalComment on above: Performed By: #### CBC ####[facility] K[address] [place], [place] [address]Dr.Babak AdamsNEUT #10.6 103/ulCritically high1.4-6.5 [facility] HospitalComment on above:Performed By: #### CBC ####[facility] [address] [place], [place] [address]Dr.Babak Adams Neutrophils/100 WBC (Bld)82.4 %Critically high43.0-75.0[facility] Comment on above:Performed By: #### CBC ####[facility] [address] [address]Dr.Babak AdamsPlatelet mean volume (Bld) [Entitic vol]10.8 fLNormal9.5-13.5The [facility] HospitalComment on above: Performed By: #### CBC ####[facility] [address] [address]Dr.Babak YjevfIKT897 103/okIjntmy125-930Asl Cooks HospitalComment on above:Performed By: #### CBC ####[facility] [address] [address]Dr.Babak AdamsRBC3.31 106/ul Critically low4.20-5.40The [facility] HospitalComment on above:Performed By: #### CBC ####[facility] [address] [address]Dr. Babak GhsbxDTF29.8 103/ulCritically high4.0-11.0The [facility] HospitalComment on above:Performed By: #### CBC ####[facility] [address] [address]Dr.Babak AdamsSOU[facility] AUTO DIFFon 63-87-9987UPTX #0.0 103/ulNormal0.0-0.1The [facility] HospitalComment on above:Performed By: #### CBC #### [facility] [address] [address] Harini KarenBasophils/100 WBC (Bld)0.3 %Normal0.2-2.0[facility] Comment on above:Performed By: #### CBC #### [facility] [address] [address] Harini KarenEO #0.0 103/ulNormal0.0-0.7The [facility] HospitalComment on above: Performed By: #### CBC #### [facility] [address] [address] Harini KarenEosinophils/100 WBC (Bld)0.3 %Critically low0.9-7.0[facility] HospitalComment on above:Performed By: #### CBC #### [facility] [address] [place] [address] Harini KarenErythrocyte distribution width (RBC) [Ratio]14.3 %Noimmz36.0-15.0[facility] Crille HospitalComment on above:Performed By: #### CBC #### [facility] [address] [place] [address] Harini KarenHematocrit (Bld) [Volume fraction]34.4 %Critically low36.0-48.0The [facility] HospitalComment on above:Performed By: #### CBC #### [facility] [address] [place] [address] Harini KarenHemoglobin (Bld) [Mass/Vol]11.3 g/dLCritically low12.0-16.0The [facility] HospitalComment on above:Performed By: #### CBC #### [facility] [address] [place] [address] Harini KarenIG #0.07 10e3/ulCritically high0.00-0.03[facility] Crille HospitalComment on above:Performed By: #### CBC #### [facility] [address] [place] [address] Harini KarenIG %0.6 %Critically high0.0-0.5The [facility] HospitalComment on above:Performed By: #### CBC #### [facility] [address] [place] [address] Harini KarenLYMPH #1.2 103/ulNormal1.2-3.8The [facility] HospitalComment on above: Performed By: #### CBC #### [facility] [address] [place] [address] Harini KarenLymphocytes/100 WBC (Bld)10.5 %Critically low20.5-60.0[facility] HospitalComment on above:Performed By: #### CBC #### [facility] [address] [place] [address] Harini KarenMANUAL DIFF REQNONormalThe [facility] HospitalComment on above: Performed By: #### CBC #### [facility] [address] [place] [address] Harini EngH (RBC) [Entitic mass]28.3 biGwmnrn30.7-34.0[facility] Comment on above:Performed By: #### CBC #### [facility] [address] [place] [address] Har[facility] EngSYDENHAM H[facility] (RBC) [Mass/Vol]32.8 g/bAHlhvdx93.9-35.2[facility] Comment on above:Performed By: #### CBC #### [facility] [address] [place] [address] Harini EngMCV (RBC) [Entitic vol]86.0 uRDwijwx59.0-99.0[facility] Comment on above:Performed By: #### CBC #### [facility] [address] [place] [address] Harini KarenMONO #0.5 103/ulNormal0.3-0.8The [facility] HospitalComment on above: Performed By: #### CBC #### [facility] [address] [place] [address] Harini KarenMonocytes/100 WBC (Bld)4.6 %Normal1.7-12.0[facility] Comment on above:Performed By: #### CBC #### [facility] [address] [place] [address] Harini BraunenNEUT #9.8 103/ulCritically high1.4-6.5The [facility] HospitalComment on above:Performed By: #### CBC #### [facility] [address] [place] [address] Harini KarenNeutrophils/100 WBC (Bld)83.7 %Critically high43.0-75.0[facility] HospitalComment on above:Performed By: #### CBC #### [facility] [address] [place] [address] Harini KarenPlatelet mean volume (Bld) [Entitic vol]11.2 fLNormal9.5-13.5The [facility] HospitalComment on above:Performed By: #### CBC #### [facility] [address] [place] [address] Harini EngPLT219 103/nyIslptm452-576Jqh [facility] HospitalComment on above: Performed By: #### CBC #### [facility] [address] [place] [address] Harini EngRBC4.00 106/ulCritically low4.20-5.40The [facility] HospitalComment on above:Performed By: #### CBC #### [facility] [address] [place] [address] Harini EngWBC11.7 103/ulCritically high4.0-11.0The [facility] HospitalComment on above:Performed By: #### CBC #### [facility] [address] [place] [address] Harini BraunenCovid-19 PCR (CVDTB)on 65-38-5546HFDG-CoV-2 (COVID-19) RNA SONY+probe Ql (Unsp spec)Not detectedNormalNOT DETECTEDBrecksville Va / [facility] Hospital Comment on above:Result Comment: This test is not yet approved or cleared by the [place] FDA. When there are no FDA-approved or cleared tests available, and other criteria are met, FDA can make tests available under an emergency access mechanism called an Emergency Use Authorization (EUA). The EUA for this test is supported by the [place] of Health and Human Service's (HHS's) declaration that circumstances exist to justify the emergency use of in vitro diagnostics for the detection and/or diagnosis of the virus that causes COVID- 19. This EUA will remain in effect (meaning [...] of clinical signs and symptoms consistent with SARS-CoV-2.Performed By: #### CBC #### [facility] [address] [place] [address] Harini KarenDRUG SCREEN RAPID (URINE)on 75-68-9193ERWIcecwgkwMmvphwOCEGWLYXDov Bellevue HospitalComment on above:Performed By: #### HBSANS #### [facility] [address] [place] [address] Harini KarenBARNegativeNormalNEGATIVEBrecksville Va / Crille HospitalCombronson lakeview hospital on above: Performed By: #### HBSANS #### [facility] [address] [place] [address] Harini KarenBUPNegativeNormalNEGATIVEBrecksville Va / Crille HospitalCombronson lakeview hospital on above: Performed By: #### HBSANS #### [facility] [address] [place] [address] Harini KarenBZONegativeNormalNEGATIVEOhioHealth Doctors Hospital on above: Performed By: #### HBSANS #### [facility] [address] [place] [address] Harini KarenCOCNegativeNormalNEGChildren's Hospital of Columbus on above: Performed By: #### HBSANS #### [facility] [address] [place] [address] Harini KarenCUT-OFFSSEE BELOWWyandot Memorial HospitalCombronson lakeview hospital on above:Result Comment: AMP (Amphetamine): 500ng/mL, BAR (Barbituates): 200 ng/mL, BZO (Benzodiazepines): 150 ng/mL, BUP (Buprenorphine): 10 ng/mL, NORMA (Cocaine): 150 ng/mL, mAMP (Methamphetamine): 500 ng/mL, MTD (Methadone): 200 ng/mL, OPI (Opiates): 100 ng/mL, OXY (Oxycodone): 100 ng/mL, PCP (Phencyclidine): 25 ng/mL, PPX (Propoxyphene): 300 ng/mL, THC (Cannabinoids): 50 ng/mL, TCA (Trycyclic Antidepressants): 300 ng/mLPerformed By: #### HBSANS #### [facility] [address] [place] [address] Harini KarenDRUG CUT HEADERDRUG CLASS TEST SYSTEM CUT-OFF CONCENTRATIONS ARE FOLLOWS:NormalThe Cooks HospitalComment on above:Performed By: #### HBSANS #### [facility] [address] [place] [address] Harini KarenmAMPNegativeNormalNEGATIVEUniversity Hospitals Geneva [facility] Center HospitalComment on above: Performed By: #### HBSANS #### [facility] [address] [place] [address] Harini KarenMTDNegativeNormalNEGATIVEUniversity Hospitals [facility] Center HospitalComment on above: Performed By: #### HBSANS #### [facility] [address] [place] [address] Harini KarenOPINegativeNormalNEGATIVEUniversity Hospitals [facility] HospitalComment on above: Performed By: #### HBSANS #### [facility] [address] [place] [address] Harini KarenOXYNegativeNormalNEGATIVEBrecksville Va / Crille HospitalComment on above: Performed By: #### HBSANS #### [facility] [address] [place] [address] Harini KarenPCPNegativeNormalNEGATIVEUniversity Hospitals [facility] Center HospitalCrittenton Behavioral Healthment on above: Performed By: #### HBSANS #### [facility] [address] [place] [address] Harini KarenPPXNegativeNormalNEGATIVEOhioHealth Doctors Hospital on above: Performed By: #### HBSANS #### [facility] [address] [place] [address] Harini KarenTCANegativeNormalNEGATIVEUniversity Hospitals [facility] Center HospitalCrittenton Behavioral Healthment on above: Performed By: #### HBSANS #### [facility] [address] [place] [address] Harini KarenTHCNegativeNormalNEGATIVEBrecksville Va / Crille HospitalComment on above: Performed By: #### HBSANS #### [facility] [address] [place] [address] Harini KarenUA (CLEAN/CATCH) QUILT STUFFER/MICRO IF IND.on 33-59-8116Gqyqgdgli Ql (U) NegativeNormalNEGATIVEUniversity Hospitals [facility] Center HospitalComment on above:Performed By: #### HONORIO UACSIND ####[facility] [address] [place] [id number]. Yilan ChangClarity (U)CLEARNormalCLEARUniversity Hospitals Geneva Medical Center HospitalComment on above:Performed By: #### HONORIO UACSIND ####[facility] [address] [place] [id number]. Yilan ChangColor (U)LT. YELLOWNormal YELLOWUniversity Hospitals Geneva Medical Center HospitalComment on above:Performed By: #### HONORIO UACSIND ####[facility] [address] [place] [id number]. Yilan ChangGlucose Ql (U)NegativeNormalNEGATIVEUniversity Hospitals Geneva [facility] Center HospitalComment on above:Performed By: #### HONORIO UACSIND ####[facility] [address] [place] [address]Dr. Yilan ChangHemoglobin Ql (U)LARGE AbnormalNEGATIVEUniversity Hospitals Geneva Medical Center HospitalComment on above:Performed By: #### HONORIO UACSIND ####[facility] [address] [place] [id number]. Yilan ChangKetones Ql (U)NegativeNormalNEGATIVEBrecksville Va / [facility] Hospital Comment on above:Performed By: #### REX OLMEDOCSIND ####[facility] [address]cs[address] [place] [address]Dr. Yilan ChangLEUKOCYTES NegativeNormalNEGATIVEBrecksville Va / Crille HospitalComment on above:Performed By: #### HONORIO UACSIND ####[facility] [address] [place] [id number]. Yilan ChangNitrite Ql (U)NegativeNormalNEGATIVEBrecksville Va / Crille HospitalComment on above:Performed By: #### HONORIO UACSIND ####[facility] [address] [place] [address]Dr. Yilan ChangpH (U)6.5 [pH]Normal5-9The [facility] HospitalComment on above:Performed By: #### VINEET OLMEDOIND ####[facility] [address] [place] [address]Dr. Babak AdamsSPEC GRAVITY1.916Wgcdvd1.005-<=1.025The [facility] HospitalComment on above:Performed By: #### HONORIO UACSIND ####[facility] [address] [place] [address]Dr. Babak AdamsUA PROTEINNegativeNormalNEGATIVE/ TRACEThe [facility] HospitalComment on above: Performed By: #### HONORIO UACSIND ####[facility] [address] [place], [place] [address]Dr. Babak AdamsUR MICRO INDINDICATEDNoUniversity Hospitals Elyria Medical CenterComment on above:Performed By: #### HONORIO UACSIND ####[facility] [address] [place], [place] [address]Dr. Babak AdamsUrobilinogen Qn (U)0.2 {Rakesh'U}/dLNormal0.2 - 1.0The [facility] HospitalComment on above:Performed By: #### REX OLMEDOCSIND ####[facility] F[address] [place], [place] [address]Dr. Babak Humphreys MICROSCOPIC ONLYon 23-90-8332EETCEFQNEIQE SEENNormalNONE SEENBrecksville Va / Crille HospitalCombronson lakeview hospital on above:Performed By: #### HONORIO UACSIND ####[facility] [address]zpc[address] [place], [place] [address]Dr. Babak Adams Bacteria identified Cx Nom (U)NOT INDICATEDNoUniversity Hospitals Elyria Medical CenterComment on above:Performed By: #### HONORIO UACSIND ####[facility] [address] [place], [place] [address]Dr. Babak AdamsCASTNONE SEENNormalNONE SEEN The [facility] HospitalComment on above:Performed By: #### HONORIO UACSIND ####[facility] Zmcidcqicy[address] [place], [place] [address]Dr. Babak AdamsCrystals LM Nom (Urine sed)NONE SEENNormalNONE SEENThe [facility] HospitalComment on above:Performed By: #### HONORIO UACSIND ####[facility] [address] [place] [address]Dr. Babak Adams Epithelial cells LM Ql (Urine sed)FEWAbnormalNONE SEEN /RAREThe [facility] HospitalComment on above:Performed By: #### HONORIO UACSIND ####[facility] [address] [place] [address]Dr. Babak Adams MUCOUSTRACEAbnormalNONE SEENThe [facility] HospitalComment on above:Performed By: #### HONORIO UACSIND ####[facility] [address]spql[address] [place] [address]Dr. Babak AdamsOztveXJW8-26Fxlizjxp7-0Lgv [facility] Comment on above:Performed By: #### HONORIO UACSIND ####[facility] [address] [place] [address]Dr. Babak AdamsWBCNONE SEEN NormalNONE SEENThe [facility] HospitalComment on above:Performed By: #### HONORIO UACSIND ####[facility] [address] [place] [address]Dr. Babak Do PREG BIOPHY W NON STRESSon 29-70-3069GZ PREG BIOPHY W NON STRESSEXAMINATION: US PREG BIOPHY W NON STRESS HISTORY: [...] profile score: 8.0 Electronically authenticated by: OKSANA DVAIES Date: 2021-01-10 09:00[facility] HospitalUS PREG GROWTHon [id number] PREG GROWTHEXAMINATION: US PREG GROWTH HISTORY: Endocrine, nutritional and [...] Electronically authenticated by: OKSANA DAVIES Date: 2021-01-10 09:02[facility] HospitalGROUP B STREP CULTUREon 01-09-2021. agalactiae Ag Ql (Unsp spec)Culture Observations: NEGATIVE FOR GROUP B STREPTOCOCCUS.NormalThe [facility] HospitalComment on above: Performed By: #### GBSCX ####[facility] [address] [place], [place] [address]Kh. Babak AdamsUS PREG BIOPHY W NON STRESSon 78-74-4424RG PREG BIOPHY W NON STRESSEXAMINATION: US PREG BIOPHY W NON STRESS HISTORY: [...] Electronically authenticated by: OKSANA DAVIES Date: 2021-01-03 09:58NormMercy Hospital PREG BIOPHY W NON STRESSon [id number] PREG BIOPHY W NON STRESSEXAMINATION: US PREG BIOPHY W NON STRESS HISTORY: [...] Electronically authenticated by: HOA FOFANA Date: 2020-12-27 09:15NormalUniversity Hospitals [facility] PREG BIOPHY W NON STRESSon [id number] PREG BIOPHY W NON STRESSEXAMINATION: US PREG BIOPHY W NON STRESS HISTORY: [...] Electronically authenticated by: HOA FOFANA Date: 2020-12-20 09:18[facility] HospitalHo 42-00-9840SIL6.393 uIU/mLNormal0.470-4.680B[facility] Crille HospitalComment on above:Performed By: #### TSH ####[facility] [address] [place], [place] [address]Comment on above:Result Comment: <0.34 UIU/ml HYPERTHYROID 0.34-5.60 UIU/ml EUTHYROID >5.60 UIU/ml HYPOTHYROIDPerformed By: #### TSH ####[facility] [address] [place] [address] [facility] PREG BIOPHY W NON STRESSon [id number] PREG BIOPHY W NON STRESSEXAMINATION: US PREG BIOPHY W NON STRESS HISTORY: [...] Electronically authenticated by: HOA FOFANA Date: 2020-12-13 09:12[facility] HospitalUS PREG GROWTHon [id number] PREG GROWTHEXAMINATION: US PREG GROWTH HISTORY: Endocrine, nutritional and [...] Electronically authenticated by: HOA FOFANA Date: 2020-12-13 09:13[facility] HospitalGTT 3 HR PREGon 42-74-7184Npvkqls [Mass/Vol]85 mg/dLNormal 74-106B[facility] Crille HospitalComment on above:Performed By: #### GTT3P ####[facility] [address] [place], [place] [address]Bkvhxe KarenGlucose [Mass/Vol]186 mg/dLWyandot Memorial HospitalComment on above: Performed By: #### GTT3P ####[facility] [address] [place], [place] [address]Jjujts KarenGlucose [Mass/Vol]161 mg/dLNoUniversity Hospitals Elyria Medical CenterComment on above:Performed By: #### GTT3P ####[facility] [address] [place] [address]Gerken KarenGlucose [Mass/Vol]90 mg/dLNoUniversity Hospitals Elyria Medical CenterComment on above:Performed By: #### GTT3P ####[facility] [address] [place] [address]Gerken KarenGLUCOSE - 1HRon 28-79-0301Akklicq [Mass/Vol]195 mg/dLCritically qqua19-244Amz [facility] HospitalComment on above:Performed By: #### GLU1HR ####[facility] [address] [place], [place] [address]Gerken KarenHEMOGRAM AND PLATELon 26-12-4773Kghbynjqlu (Bld) [Volume fraction]32.9 % Critically low36.0-48.0[facility] Crille HospitalComment on above:Performed By: #### CBC #### [facility] [address] [place] [address] Harini KarenHemoglobin (Bld) [Mass/Vol]10.7 g/dLCritically low12.0-16.0[facility] HospitalComment on above:Performed By: #### CBC #### [facility] [address] [place] [address] Harini KarenMCH (RBC) [Entitic mass]29.0 apVqjroz69.7-34.0[facility] Comment on above:Performed By: #### CBC #### [facility] [address] [address] Harini KarenMCHC (RBC) [Mass/Vol]32.5 g/oVKzfnhb93.9-35.2[facility] Comment on above:Performed By: #### CBC #### [facility] [address] [place] [address] Harini KarenMCV (RBC) [Entitic vol]89.2 vXVmmpou25.0-99.0The [facility] Comment on above:Performed By: #### CBC #### [facility] [address] [place] [address] Harini BraunTcyyaABH567 103/lmFlfjum953-118Ofw [facility] HospitalComment on above: Performed By: #### CBC #### [facility] [address] [address] Harini BraunenRBC3.69 106/ulCritically low4.20-5.40The [facility] HospitalComment on above:Performed By: #### CBC #### [facility] [address] [address] Harini BraunenWBC11.6 103/ulCritically high4.0-11.0The [facility] HospitalComment on above:Performed By: #### CBC #### [facility] [address] [address] Harini EngUS PREG GROWTHon [id number] PREG GROWTHEXAMINATION: US PREG GROWTH HISTORY: Endocrine, nutritional and [...] Electronically authenticated by: HOA FOFANA Date: 2020-11-15 10:36[facility] HospitalVIT D 1 25 DIHYDROXYon 98-48-3584Imyprwufkh(1,25 di-[place] Vit D) 91.9 pg/mLCritically high19.9-79.3The [facility] HospitalComment on above: Performed By: #### CBC #### [facility] [address] [place] [address] Harini EasleyHon 02-89-7277CAZ1.386 uIU/mLNormal0.470-4.680[facility] Crille HospitalComment on above:Performed By: #### CBC #### [facility] [address] [place] [address] Harini KarenTSH RANGESEE BELOWNoUniversity Hospitals Elyria Medical CenterComment on above:Result Comment: <0.34 UIU/ml HYPERTHYROID 0.34-5.60 UIU/ml EUTHYROID >5.60 UIU/ml HYPOTHYROIDPerformed By: #### CBC #### [facility] [address] [place] [address] Harini KarenPAP ACOG PANEL 2: 30 to 65on 09-03-2020..NormalBrecksville Va / Crille Hospital Comment on above:Result Comment: Performed at: WBPerformed By: #### CBC #### [facility] [address] [place] [address] Harini KarenAge Gdln ACOG Kapfxgk69-29IotydaPvjWyandot Memorial HospitalComment on above:Performed By: #### CBC #### [facility] [address] [place] [address] Harini KarenDIAGNOSIS:[facility] Nelson[facility] Health CenterComment on above:Result Comment: NEGATIVE FOR INTRAEPITHELIAL LESION OR MALIGNANCY. Performed at: WBPerformed By: #### CBC #### [facility] [address] [place] [address] Harini KarenHPV AptimaNegativeNormalNegativeBrecksville Va / Crille HospitalComment on above:Result Comment: This nucleic acid amplification test detects fourteen high-risk HPV types (16,18,31,33,35,39,45,51,52,56,58,59,66,68) without differentiation. Performed at: =GPerformed By: #### CBC #### [facility] [address] [place] [address] Harini KarenMethodology:CommentSt. John of God Hospital on above: Result Comment: This liquid based ThinPrep(R) pap test was screened with the use of an image guided system. Performed at: WBPerformed By: #### CBC #### [facility] [address] [place] [address] Harini BraunenNote:CommentSt. John of God Hospital on above:Result Comment: The Pap smear is a screening test designed to aid in the detection of premalignant and malignant conditions of the uterine cervix. It is not a diagnostic procedure and should not be used as the sole means of detecting cervical cancer. Both false-positive and false-negative reports do occur. . Performed at: WBPerformed By: #### CBC #### [facility] [address] [place] [address] Harini BraunenPerformed by:CommentSt. John of God Hospital on above: Result Comment: Johanna Bautista, Rheumatology Nurse (ASCP) Performed at: WBPerformed By: #### CBC #### [facility] [address] [place] [address] Harini KarenSpecimen adequacy:CommentSt. John of God Hospital on above:Result Comment: Satisfactory for evaluation. No endocervical component is identified. Performed at: WBPerformed By: #### CBC #### [facility] [address] [place] [address] Harini BraunenCHLAMYDIA/GONOCOCCUS SONY (SWAB/URINE/PAPon 26-36-2959Ukdhoarww trachomatis, NAANegativeNormalNegativeThe [facility] HospitalCombronson lakeview hospital on above: Performed By: #### CT/NGNA ####[facility] [address] [place] [address]Gerken KarenNeisseria gonorrhoeae, NAANegativeNormal NegativeThe [facility] on above:Performed By: #### CT/NGNA ####[facility] [address] [place] [address]Gerken KarenVAGINITIS/VAGINOSIS DNA PROBEon 68-75-8859Hkxbayf speciesNegativeNormal NegativeThe [facility] HospitalComment on above:Performed By: #### CBC #### [facility] [address] [place] [address] Harini BraunenGardnerella vaginalisPositiveAbnormalNegativeBrecksville Va / [facility]ille [facility] Comment on above:Performed By: #### CBC #### [facility] [address] [place] [address] Harini KarenTrichomonas vaginalisNegativeNormalNegativeBrecksville Va / [facility] Hospital Comment on above:Performed By: #### CBC #### [facility] [address] [place] [address] Harini KarenHEP B SURFACE ANTIGEN SCREENon 91-61-3401UNjNz ScreenNegativeNormal NegativeBrecksville Va / Crille HospitalComment on above:Performed By: #### HBSANS #### [facility] [address] [place] [address] Harini KadeenHEPATITIS C VIRUS AB W/ REFLEX QUANTon 11-29-4152KHZ AB0.2 s/co ratioNormal0.0-0.9The [facility] HospitalComment on above:Performed By: #### HCVPCRR ####[facility] [address] [place], [place] [address]enInterpretation:CommentNormalThe [facility] HospitalCombronson lakeview hospital on above:Result Comment: Negative Not infected with HCV, unless recent infection is suspected or other evidence exists to indicate HCV infection.Performed By: #### HCVPCRR ####[facility] [address] [place] [address] KarenHIV 1 AND 2 WITH REFLEXon 85-55-8723MIL Screen 4th Generation wRfx Non-ReactiveNormalNon ReactiveThe [facility] HospitalComment on above:Performed By: #### HIV12 #### [facility] [address] [place] [address] Harini KarenRPR QUANTon 21-77-8396Sihyo Plasma Reagin, QuantNon-ReactiveNormal NonRea<1:1[facility] HospitalComment on above:Performed By: #### CBC #### [facility] [address] [place] [address] Harini KarenRUBELLA AB IGGon 78-89-2327Ggjtzcq Antibodies, IgG1.89 indexNormal Immune >0.99The [facility] HospitalComment on above:Result Comment: Non-immune <0.90 Equivocal 0.90 - 0.99 Immune >0.99Performed By: #### CBC #### [facility] [address] [place] [address] Harini KarenCBC AUTO DIFFon 37-68-2150GNQR #0.0 103/ulNormal0.0-0.1The [facility] HospitalComment on above:Performed By: #### CBC #### [facility] [address] [place] [address] Harini KarenBasophils/100 WBC (Bld)0.3 %Normal0.2-2.0[facility] Comment on above:Performed By: #### CBC #### [facility] [address] [place] [address] Harini KarenEO #0.1 103/ulNormal0.0-0.7The [facility] HospitalComment on above: Performed By: #### CBC #### [facility] [address] [place] [address] Harini KarenEosinophils/100 WBC (Bld)0.6 %Critically low0.9-7.0The [facility] HospitalComment on above:Performed By: #### CBC #### [facility] [address] [place] [address] Harini KarenErythrocyte distribution width (RBC) [Ratio]13.0 %Cxklvn48.0-15.0The [facility] HospitalComment on above:Performed By: #### CBC #### [facility] [address] [place] [address] Harini KarenHematocrit (Bld) [Volume fraction]36.9 %Mdfkef58.0-48.0The [facility] HospitalComment on above:Performed By: #### CBC #### [facility] [address] [place] [address] Harini KarenHemoglobin (Bld) [Mass/Vol]12.0 g/jWTaqopb54.0-16.0The [facility] HospitalComment on above:Performed By: #### CBC #### [facility] [address] [place] [address] Harini MurrietaG #0.04 10e3/ulCritically high0.00-0.03The [facility] HospitalComment on above:Performed By: #### CBC #### [facility] [address] [place] [address] Harini Gottlieb %0.4 %Normal0.0-0.5The [facility] HospitalComment on above: Performed By: #### CBC #### [facility] [address] [place] [address] Harini EngLYMPH #1.4 103/ulNormal1.2-3.8The [facility] HospitalComment on above: Performed By: #### CBC #### [facility] [address] [place] [address] Harini EngLymphocytes/100 WBC (Bld)14.6 %Critically low20.5-60.0The [facility] HospitalComment on above:Performed By: #### CBC #### [facility] [address] [place] [address] Harini EngMANUAL DIFF REQNONormalThe [facility] HospitalComment on above: Performed By: #### CBC #### [facility] [address] [place] [address] Harini KarHutchings [facility] (RBC) [Entitic mass]28.6 vzNhqypz27.7-34.0[facility] Comment on above:Performed By: #### CBC #### [facility] [address] [place] [address] Harini KarR[facility] (RBC) [Mass/Vol]32.5 g/mNSifrbn46.9-35.2[facility] Comment on above:Performed By: #### CBC #### [facility] [address] [place] [address] Harini KarsalomeV (RBC) [Entitic vol]88.1 fGRhlxwa11.0-99.0[facility] Comment on above:Performed By: #### CBC #### [facility] [address] [place] [address] Harini KarenMONO #0.4 103/ulNormal0.3-0.8The [facility] HospitalComment on above: Performed By: #### CBC #### [facility] [address] [place] [address] Harini KarenMonocytes/100 WBC (Bld)3.9 %Normal1.7-12.0[facility] Comment on above:Performed By: #### CBC #### [facility] [address] [place] [address] Harini KarenNEUT #7.6 103/ulCritically high1.4-6.5The [facility] HospitalComment on above:Performed By: #### CBC #### [facility] [address] [place] [address] Harini KarenNeutrophils/100 WBC (Bld)80.2 %Critically high43.0-75.0The [facility] HospitalComment on above:Performed By: #### CBC #### [facility] [address] [place] [address] Harini KarenPlatelet mean volume (Bld) [Entitic vol]11.4 fLNormal9.5-13.5The [facility] HospitalComment on above:Performed By: #### CBC #### [facility] [address] [place] [address] Harini YgicxJWQ197 103/cvGchhax674-120Tqx [facility] HospitalComment on above: Performed By: #### CBC #### [facility] [address] [place] [address] Harini KarenRBC4.19 106/ulCritically low4.20-5.40The [facility] HospitalComment on above:Performed By: #### CBC #### [facility] [address] [place] [address] Harini KarenWBC9.4 103/ulNormal4.0-11.0The Cooks HospitalComment on above: Performed By: #### CBC #### [facility] [address] [address] Harini KarenCULTURE URINEon 84-94-6897IVFJWIL URINECulture Observations: NO GROWTHNoUniversity Hospitals Elyria Medical CenterComment on above:Performed By: #### URCX ####[facility] [address] [address]Gerken KarenGLYCOHEMOGLOBIN A1Con 52-12-3895WNB RECOMMENDATIONADA THERAPEUTIC TARGET 6.0 - 7.0 ACTION SUGGESTED > 7.0NoUniversity Hospitals Elyria Medical CenterComment on above: Performed By: #### A1C #### [facility] [address] [place] [address] Harini KarenGlucose [Mass/Vol]100 mg/dLWyandot Memorial HospitalComment on above:Performed By: #### A1C #### [facility] [address] [place] [address] Harini MiqkjTwN4w (Bld) [Mass fraction]5.1 %Normal<=6.0[facility] Comment on above:Performed By: #### A1C #### [facility] [address] [address] Harini KarenNATERA BOX TEST PT SEND OUTon 38-54-3180RFNJ TO REF LAB07/19/2020 NormalBrecksville Va / Crille HospitalComment on above:Performed By: #### CBC #### [facility] [address] [place] [address] Harini KarenTYPE AND SCREENon 33-48-0052IMYA AND SCREENNegativeNoUniversity Hospitals Elyria Medical CenterComment on above:Performed By: #### TNS ####[facility] [address] [place], [place] [address]Gerken KarenUS PREG TVon 77-91-5596DB PREG TVEXAMINATION: US PREG TV HISTORY: Hemorrhagic complication of [...] Electronically authenticated by: HOA FOFANA Date: 2020-07-02 07:21[facility] HospitalNURSEon 30-27-4109IALMIYXYqjtb Visit (REIAV) KARLOS VILLEGAS ([id number]) 1985 F Date Time Provider Department 06/17/20 8:20 AM NURSE SHANNAN [facility] REJ REIAV During your visit today, we recorded the following information about you: Paula Masterosn 06/17/2020 3:29 PM Signed Karlos Cordova Villegas, a 34 year old is here [...] OB OB Provider: NESSA Patients Phone number: [phone] Paula Griggs MD 06/17/2020 3:29 PM Signed [...] (None) Encounter Status:Closed by PAULA MASTERSON on 06/17/20[facility] 71-19-6329TJOMJYSDelcq Visit (REIBD) KARLOS VILLEGAS ([id number]) 1985 F Date Time Provider Department 06/14/20 10:00 AM NURSE SHANNAN [facility] KIMMY REIBD During your visit today, we recorded [...] Encounter Status:Closed by ANIRUDH NUR RN on 06/17/20[facility], Quantitative Blon 88-08-9682JGO, Quantitative Bl419.8 mU/mLHigh <5.0Firelands Regional Medical CenterCombronson lake[facility] on above:Result Comment: QUANTITATIVE HCG NORMAL RANGES Weeks of Gestation (Weeks Since LMP) 3 Weeks (5.8-71.2 mIU/mL) 4 Weeks (9.5-750 mIU/mL) 5 Weeks (217-7138 mIU/mL) 6 Weeks (158-82852 mIU/mL) 7 Weeks (3697-918176 mIU/mL) 8 Weeks (08835-851106 mIU/mL) 9 Weeks (77000-657776 mIU/mL) 10 Weeks (87191-018194 mIU/mL) 12 Weeks (66621-231193 mIU/mL) Referenced to 4th IS of NIBSCPerformed By: #### HCGQT ####[facility] [address] [place], [place] [id number] 05-15-2020 CNOVOffice Visit (REIAV) KARLOS VILLEGAS ([id number]) 1985 F Date Time Provider Department 05/15/20 10:45 AM PETROS RAINEY During your visit today, we recorded the following information about you: Pulse Blood pressure Weight Height 96/minute 127/72 124.1 kg 1.727 m Last Period 04/29/20 Sulema Raphael MD 05/16/2020 7:15 AM Signed [facility] In Vitro Fertilization Program Date: 05/15/2020 Patient Name: Karlos Villegas Consultation Requested By: PCP / CASH APPLICATIONS ASSOCIATE if different from referral source: self HISTORY [...] Results Date Comments HSG Normal done by paste thinner 2018 Hysteroscopy Laparoscopy OPK (Ovulation Predictor Kit) Ovarian [place] Saline Ultrasound Semen Analysis Normal [facility] and paste thinner 2019 Ultrasound 2019 Other (See comments) Prior Fertility Eval Date Clomid 50mg x 4 cycles in 2018 (did not respond) Letrozole 2.5mg x 2 cycles in 2018 CONTRACEPTIVE HISTORY: MENSTRUAL HISTORY: Menarche Age: [age] year old Length of Cycle: q30-35 days Regular Days: 5 days Menstrual Flow: Moderate Menstrual Symptoms: Breast Tenderness,Mood Changes,Bloating,Cramping Patient's last menstrual period was 04/29/2020. 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 Dropped cycles: Yes 2. Hyperstimulation Syndrome: Yes 3. Ovarian [place]: Yes 4. Freezi (more content not included)...NormalFirelands Regional Medical CenterCONLT PROGon 89-35-5226XUBXOUY PROGHNO ID: [id number] Author: Petros Rainey Service: ? Author Type: Physician Type: Consult Progress Note Filed: 05/16/2020 7:15 AM Note Text: [facility] In Vitro Fertilization Program Date: 05/15/2020 Patient Name: Karlos Villegas Consultation Requested By: PCP / CASH APPLICATIONS ASSOCIATE if different from referral source: self HISTORY [...] Results Date Comments HSG Normal done by paste thinner 2018 Hysteroscopy Laparoscopy OPK (Ovulation Predictor Kit) Ovarian [place] Saline Ultrasound Semen Analysis Normal [facility] and paste thinner 2019 Ultrasound 2019 Other (See comments) Prior Fertility Eval Date Clomid 50mg x 4 cycles in 2018 (did not respond) Letrozole 2.5mg x 2 cycles in 2018 CONTRACEPTIVE HISTORY: MENSTRUAL HISTORY: Menarche Age: [age] year old Length of Cycle: q30-35 days Regular Days: 5 days Menstrual Flow: Moderate Menstrual Symptoms: Breast Tenderness,Mood Changes,Bloating,Cramping Patient's last menstrual period was 04/29/2020. 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 Dropped cycles: Yes 2. Hyperstimulation Syndrome: Yes 3. Ovarian [place]: Yes 4. Freezing eggs/embryos: Yes 5. Potential for no transfer: Yes 6. Surgical procedure and complications: Yes 7. ICSI: yes 8. Number of embryos to transfer: 1 9. Elective Single Embryo Transfer candidate: Yes 10. Selective Reduction discussed: Yes 11. PGD Candidate: No (more content not included)...NormalFirelands Regional Medical CenterCNPNon 62-08-5641XJRUObzwdpzss (REIBD) KARLOS VILLEGAS ([id number]) 1985 F Date Time Provider Department 05/13/20 PETROS RAINEY During your visit today, we recorded the following information about you: Sandra Franklin Pss 05/13/2020 12:18 PM Signed Pt Needs a work letter sent to her my chart regarding her appt yesterday for her iui Xochilt Chand APRN.FORMAL SERVICE WAITER 05/13/2020 12:44 PM Signed Letter sent. Xochilt Chand APRN.JARON May 13, 2020 12:43 PM Allergies As of Date: 05/13/2020 Noted Allergy Reaction LATEX 01/18/2020 2 - Rash PENICILLINS 01/18/2020 4 - Hives Comments: At age 12, broke out in hives Date Reviewed: 05/12/2020 Reviewed by: Xochilt Lund) Howard - Fully Assessed Reason for Visit: [...] 05/13/2020 (None) Letter Text Encounter Status:Closed by XCOHILT CHAND CNP on 05/13/20[facility] 46-56-1865GYXQChtezx Visit (REIBD) MCKINLEYKARLOS L ([id number]) 1985 F Date Time Provider Department 05/12/20 9:00 AM XOCHILT CHAND) REIBD During your visit today, we recorded the following information about you: Xochilt Chand APRN.CNP 05/12/2020 9:48 AM Signed I SHANNAN IUI PROCEDURE NOTE Date: 05/12/2020 Primary [...] count of sperm after wash): 23.6 million [place] Protocol/Safety Checklist: Sign In Communication: Completed Time [...] hives Date Reviewed: 05/12/2020 Reviewed by: Xochilt ([facility]) Howard - Fully Assessed Primary Visit Diagnosis:Encounter [...] Of Date: 05/12/2020 (None) Encounter Status:Closed by XOCIHLT CHAND CNP on 05/12/20[facility]MARIAMon 50-42-2802KVTYXWYGwkvn Visit (MARLONIAV) KARLOS VILLEGAS ([id number]) 1985 F Date Time Provider Department 05/10/20 7:30 AM NURSE SHANNAN [facility] [place] During your visit today, we recorded the [...] hives Date Reviewed: 03/20/2020 Reviewed by: Yasmine Chow - Fully Assessed Primary Visit Diagnosis:Encounter for [...] Encounter Status:Closed by SWAPNIL CANALES MD on 05/11/20[facility] 91-93-2852RYHXJgyoidpuz (REIBD) KARLOS VILLEGAS ([id number]) 1985 F Date Time Provider Department 05/09/20 [...] hives Date Reviewed: 03/20/2020 Reviewed by: Yasmine Chow - Fully Assessed Reason for Visit: med needs a prior auth [Other] Cmt: the phone number is [phone] is the dircct line to call Prescriptions [...] Encounter Status:Closed by XOCHILT CHAND CNP on 05/10/20[facility] Vital Signs Date TimeVital SignValuePerforming ZkitveoahGlfgwwhr81-28-2890 09:29-0400Body jyoiei645.72 cmKevon Land MD Work Phone: [phone]42[facility]10-15-2025 09:29-0400 Body mass index (BMI) [Ratio]43.6 kg/e8VcitpbKevon Land MD Work Phone: [phone]10-15-2025 09:29-0400 Body pxnahm912.18 kgKevon Land MD Work Phone: [phone]10-15-2025 09:29-0400 Diastolic blood vnfnaoiq92 mm[Hg]Kevon Land MD Work Phone: [phone]10-15-2025 09:29-0400 Heart rate91 /minKevon Land MD Work Phone: [phone]10-15-2025 09:29-0400 Systolic blood telvelkt950 mm[Hg]Kevon Land MD Work Phone: [phone]11[facility]04-25-2025 08:45-0400 Body ucqagj699.72 cmMer[facility] Hospital04-25-2025 08:45-0400Body mass index (BMI) [Ratio]46.3 kg/u7IqvevfcarMercy Health West Hospital04-25-2025 08:45-0400Body wrqipo033.34 kgMercy Health [facility] Hospital04-25-2025 08:45-0400Diastolic blood mm[Hg][facility] 08-04-2024 08:45-0400Heart rate99 /[facility] 08-04-2024 08:45-0400Systolic blood noqnzfaw227 mm[Hg][facility]10-08-2024 08:20-0400Body tdokhs146.72 cmMer[facility] Hospital10-08-2024 08:20-0400Body mass index (BMI) [Ratio]44.5 kg/d5AuzqtucrhMercy Health West Hospital10-08-2024 08:20-0400Body lksugu072.95 [facility]10-08-2024 08:20-0400Diastolic blood jyglxqxp93 mm[Hg] [facility]10-08-2024 08:20-0400Heart rate82 /[facility]10-08-2024 08:20-0400Respiratory rate16 /[facility]10-08-2024 08:20-3005VxW8% (BldA) [Mass fraction]97 % [facility]10-08-2024 08:20-0400Systolic blood pgpsgolj906 mm[Hg][facility]07-31-2024 10:24-0400Body fkgozu138.72 cm [facility]07-31-2024 10:24-0400Body mass index (BMI) [Ratio]44.5 kg/v3AymypujaaMercy Health West Hospital07-31-2024 10:24-0400Body jgdhfe512.9 kgMercy Health [facility] Hospital07-31-2024 10:24-0400Diastolic blood ncaufkhe839 mm[Hg][facility]07-31-2024 10:24-0400 Heart grdq944 /[facility]07-31-2024 10:24-0400Systolic blood mwwatzan015 mm[Hg][facility]05-03-2024 13:34-0400 Body bmsxyc482.72 cmMer[facility] Health [facility] Hospital05-03-2024 13:34-0400Body mass index (BMI) [Ratio]44.5 kg/u9NfijnfazpMercy Health West Hospital05-03-2024 13:34-0400Body hzuzddyzegu59.7 [degF][facility]05-03-2024 13:34-0400Body xhnooh467.9 kgMercy Health [facility] Hospital05-03-2024 13:34-0400Heart rate88 /[facility]05-03-2024 13:34-0400Respiratory rate18 /[facility]05-03-2024 13:34-8958BbW0% (BldA) [Mass fraction]97 %[facility] 07-26-2023 11:20-0400Body zjayuf327.72 cmMer[facility] 07-26-2023 11:20-0400Body mass index (BMI) [Ratio]46 kg/b1CjdrtazzqMercy Health West Hospital04-15-2024 11:20-0400Body ospgzl746.55 kgMercy Health West Hospital04-15-2024 11:20-0400Diastolic blood wtdexjuv34 mm[Hg][facility]04-15-2024 11:20-0400Heart rate99 /[facility]04-15-2024 11:20-0400Systolic blood fdchvods226 mm[Hg][facility] Encounters Encounter DateEncounter TypeCare ProviderFacilityStart: 01-24-2025 End: 84-37-1745zfcucovgjjMihqgr E Braun MD Work Phone: [facility] Work Phone: Start: 01-24-2025 End: 58-22-6652Aupuvpx encounter procedureKevon Land MD-[facility] Work Phone: Start: 08-04-2024 End: 59-32-3841adznqdwylbRwnuruvskGalion Community Hospital Work Phone: Start: 08-04-2024 End: 13-84-1657Hritami encounter procedureFirsthealth Physician Group-[facility] Work Phone: Start: 72-19-3321Skr-patient / Non-visitFirsthealth Physician Group-[facility] Work Phone: Start: 96-66-2785Wjh-patient / Non-visitFirsthealth Physician Group-[facility] Work Phone: Start: 01-18-2024 End: 38-38-3214ryplpojhwpRkvavrixdLima City Hospital Work Phone: Start: 01-18-2024 End: 77-31-0474Pwgusot encounter procedureFirsthealth Physician Group-[facility] Work Phone: Start: 11-10-2023 End: 63-77-0970mdnytfenjxZgaraxmjaLima City Hospital Work Phone: Start: 11-10-2023 End: 78-31-1104Iomfmdu encounter procedureFirsthealth Physician Group-[facility] Work Phone: Start: 08-13-2023 End: 88-41-6886wfchhyngpgWxnopvtrnLima City Hospital Work Phone: Start: 08-13-2023 End: 68-30-0568Vbjrexy encounter procedureFirsthealth Physician Group-[facility]h Work Phone: Start: 29-97-2195Epnlrbs encounter statusSelect Medical [facility]Health Rehabilitation Hospitaltart: 07-26-2023 End: 71-66-2770jnopdhrgjhIrljzyhfpGalion Community Hospital Work Phone: Start: 07-26-2023 End: 66-60-3225Cuwuwnpmi for general adult medical examination without abnormal findingsSelect Medical OhioHealth Rehabilitation Hospitaltart: 07-26-2023 End: 17-25-0277Wsmszea encounter procedureFirsthealth Physician Group-[facility] Work Phone: Start: 06-18-2021 End: 59-87-8846nvuczlkbqhRP KEVON LANDFacility:F6Tqbtp: 05-20-2021 End: 75-90-4403bcwrfavipjWW DOCTOR MISCFacility:O3Ptoxq: 26-81-9212fbfrgacwjaXB GIANLUCA FAZIOFacility:L6Kppuw: 89-36-2739uvfwlghvvpHL GIANLUCA FAZIOFacility:J6Xotbn: 01-22-2021 End: 08-21-8426mpjpvqnwwqZB GIANLUCA FAZIOFacility:Z5Siqyl: 01-14-2021 End: 26-46-3893Gbabynlsbx and management of inpatientDR GIANLUCA FAZIOFacility:H1 Start: 01-10-2021 End: 12-42-2271xdsuzffwdbBQ DOCTOR MISCFacility:E2Erdke: 01-09-2021 End: 45-83-4488ggvwcelegiWP GIANLUCA FAZIOFacility:P2Hmyjr: 01-03-2021 End: 32-03-9449luxyigfhefTA GIANLUCA FAZIOFacility:J5Zgajw: 12-27-2020 End: 61-58-5091ejcgmilwzjPH GIANLUCA FAZIOFacility:B3Ueqfg: 12-20-2020 End: 29-10-1878chyeervmkmTS GIANLUCA FAZIOFacility:Q4Vpncp: 12-13-2020 End: 04-82-7127afcivipftiNE GIANLUCA FAZIOFacility:S5Nowie: 12-13-2020 End: 75-21-2517vqvjsfmmvjPU GIANLUCA FAZIOFacility:W6Jtoqp: 11-23-2020 End: 16-38-7420iyrwgksyegYO GIANLUCA FAZIOFacility:A2Fbmjy: 11-15-2020 End: 82-87-0992cslslupkkfWD GIANLUCA FAZIOFacility:X5Szjhv: 11-02-2020 End: 54-05-3912pfvxncqnyeSX GIANLUCA FAZIOFacility:O1Reoih: 08-29-2020 End: 59-80-6487mcewreoybpPT GIANLUCA FAZIOFacility:W2Czxof: 07-19-2020 End: 78-05-3147fkngcvxounTG GIANLUCA FAZIOFacility:P7Wjipb: 07-01-2020 End: 27-07-1612sfzsuxdznmEX GIANLUCA FAZIOFacility:H1 Procedures DateProcedureProcedure DetailPerforming ClinicianStart: 14-00-7567Rlyiiqfl of Products of Conception, External ApproachDR DOCTOR MISCStart: 51-42-6463Vjwuyugi of Female Perineum, External ApproachDR DOCTOR MISCStart: 40-61-1535Xrzkjp Perineum Muscle, Open ApproachDR DOCTOR MISCStart: 64-31-3717Nwztuj Vulva, External ApproachDR DOCTOR MISC Plan of Treatment DateCare Activity[facility] Payers DatePayer CategoryPayerPolicy [id number] [id number] 2.0.1.998417.3.57[id number] 2.0.1.231968.3.57[id number] 2..1.152965.3.57[id number] 2.840.1.207948.3.579.2.7[id number] 2.0.1.076711.3.579.[id number] 2..1.059834.3.57[id number] 2..1.283078.3.579.[id number] 2.840.1.752284.3.579.2.19811-28-3393Jzaeoxq4184760 2.0.1.257012.3.579.2.44257-91-8351Lrczjbn9816191 2..1.117688.3.579.2.85010-92-5381Wpnscgd8925651 2.840.1.049445.3.579.2.23357-49-4940Hglckfh1910573 2..840.1.921637.3.579.2.93825-33-3801Jxsqkzt6248904 2.16.840.1.346288.3.579.2.81410-63-7782Ecmtmfd3657254 2.16.840.1.256902.3.579.2.18301-73-0528Yfupgwe5851578 2..840.1.244469.3.579.2.07122-31-2807Bbftnkj3800545 2..840.1.574941.3.579.2.68590-15-5284Tbndmez4119376 2..840.1.396959.3.579.2.26590-13-4030Zetxfms4698249 2..840.1.690186.3.579.2.40263-86-8066Rfktykh4115928 2.840.1.579440.3.579.2.86977-54-5387Uzkj-cti59-04-9925SiwrfuaOBGBY1856107 45-43-9838TdvswfhYVV995766631990Lmuwuuk5570692 2.16840.1.731768.3.579.2.593 UnknownAnthem BC/YWB8GFV0718367 n4vhj850-nba0-971j-d9ix-96sl692k88s3Sedkcak HCAP/HFA/FAP HzzbueX197700 5tcbd0v8-1814-2k5w-7sgn-z57335f4sl04 Social History DateTypeDetailFacilityStart: 49-75-9643Kkxzkis smoking status NHISEx-smoker (finding)[facility] Hospitaltart: 39-05-2270Kaa Assigned At FemaleSelect Medical OhioHealth Rehabilitation Hospitaltart: 00-79-2219BqySagzcr (finding) [facility] Clinical Notes 05-01-2020 to 06-17-2020 Note Date & MajaUzqeRwqblpqq13-68-0605 NoteHNO ID: [id number] Author: Tony Griggs Service: ? Author Type: Physician Type: Progress Notes Filed: 06/17/2020 3:29 PM Note Text: TRANSVAGINAL OB ULTRASONOGRAM Single viable IUP c/w dates Ovaries - normal w/ 23 mm simple cyst on right No free fluid See imaging tab PLAN - refer to OB [facility]Ohio [facility]03-08-2021 NoteHNO ID: [id number] Author: Paula Masterson Service: ? Author Type: [...] OB OB Provider: NESSA Patients Phone number: [phone] Paula [facility]02-24-2021 NoteHNO ID: [id number] Author: Jenny Perry Service: ? Author Type: [...] prefers to schedule 7 week scan at [place]. she will call if spotting changes/becomes concerning Jenny Perry APRN.CNP June 05, 2020 9:56 AM Telephone call: 10 minutes Please schedule the patient for the following- Location: [place] Visit type: scan Reason for visit/appointment notes: scan Date: 06/17 Time (if discussed): 0820 Call to patient needed: [facility]02-22-2021 NoteHNO ID: [id number] Author: Jenny Perry Service: ? Author Type: Nurse Practitioner Type: Progress Notes Filed: 06/03/2020 3:00 PM Note Text: Unable to reach patient by phone, sent [employer] message with instructions. Jenny Perry APRN.CNP June 03, 2020 3:00 [facility]02-19-2021 NoteHNO ID: [id number] Author: Jenny Perry Service: ? Author Type: [...] to [facility] lab this time Jenny Perry APRN.CNP May 31, 2020 5:52 PM Telephone call: 10 minutes Please schedule the patient for the following- Location: [facility] Visit type: televisit with [facility] Reason for visit/appointment notes: hcg test results Date: 06/05 Time (if discussed): any Call to patient needed: [facility]02-15-2021 NoteHNO ID: [id number] Author: Jenny Perry Service: ? Author Type: [...] follow up. ? Healthy Guide sent via [employer]. ? Labs ordered: hcg AND TSH ? patient positive for covid - reviewed calling lab and scheduling lab testing ? advised monitoring temperature due to covid AND taking tylenol as needed NIMCO Perry, CONTINUOUS PROCESS ROTARY DRUM TANNER.[facility] May 27, 2020 6:26 PM [facility] NoteHNO ID: [id number] Author: Colin Sparks (Tech) Service: ? Author Type: Fagot Heater Helper Type: Progress Notes Filed: 05/21/2020 9:11 AM Note Text: IUI Letrozole Pre: 76 m/,ml, 71% Post: 71 m/ml, 83% Insem # 23.6 millionFirelands [facility] Center02-04-2021 NoteHNO ID: [id number] Author: Anirudh Nur RN Service: ? Author Type: ? Type: Progress Notes Filed: 05/16/2020 10:06 AM Note Text: Petros Rainey P Shannan Ivf Pool; P Shannan Scheduling Pool Hi! Please set up this pt with [facility] for IVF and also for nurse consult. Thank you, Sulema Raphael [facility]01-31-2021 NoteHNO ID: [id number] Author: Xochilt Chand Service: ? Author Type: Nurse Practitioner Type: [...] count of sperm after wash): 23.6 million [facility] Protocol/Safety Checklist: Sign In Communication: Completed Time [...] Villegas DATE: May 12, 2020 TIME: 9:48 [facility]01-29-2021 NoteHNO ID: [id number] Author: Xochilt Chand Service: ? Author Type: Nurse Practitioner Type: [...] (if discussed): tbd Call to patient needed: [facility]Fire[facility]-28-[facility]21 NoteHNO ID: [id number] Author: Jenny Perry Service: ? Author Type: Nurse Practitioner Type: Progress Notes Filed: 05/09/2020 3:28 PM Note Text: Unable to reach patient by phone, left detailed message that rx was sent to [facility]. also sent sent [employer] message with pharmacy phone number. Jenny Perry APRN.CNP May 09, 2020 3:25 PM The following approved medication requests have been transmitted electronically. Signed Prescriptions Disp Refills Choriogonadotropin Andrew,HumRec (OVIDREL) 250 mcg/0.5 mL syrg 1 Syringe 2 Sig: Inject 250 mcg subcutaneously one time only for 1 dose. KASSIDY: No Jenny Perry APRN.[facility]NPFirelands [facility] Center01-27-2021 NoteHNO ID: [id number] Author: Jenny Perry Service: ? Author Type: Nurse Practitioner Type: Progress Notes Filed: 05/08/2020 11:09 AM Note Text: Ovidrel sent to [facility] patient notified via [employer]. The following approved medication requests have been transmitted electronically. Signed Prescriptions Disp Refills Choriogonadotropin Andrew,HumRec (OVIDREL) 250 mcg/0.5 mL syrg 1 Syringe 2 Sig: Inject 250 mcg subcutaneously one time only for 1 dose. KASSIDY: No Jenny Perry APRN.[facility]01-20-2021 NoteHNO ID: [id number] Author: Jenny Perry Service: ? Author Type: [...] schedule the patient for the following- Location: [place] Visit type: monitoring Reason for visit/appointment notes: midcycle scan Date: 05/10 Time (if discussed): 0745 Call to patient needed: [facility] note* Diagnosis Onset Date Resolution Status History of gestational diabetes acuteHypothyroidism, unspecifiedacutePolycystic ovarian syndromeacuteWellness examinationacute [facility] Work Phone: Evaluation note* Diagnosis Onset Date Resolution Status Tooth infection acute [facility] Work Phone: Evaluation note* Diagnosis Onset Date Resolution Status Hypothyroidism, unspecified acuteType 2 diabetes mellitus with hyperglycemiaacute [facility] Work Phone: Evaluation note* Diagnosis Onset Date Resolution Status Admit Date Chest pain acuteApril 2024 8:43amHypothyroidism, unspecifiedacuteApril 2024 8:43amType 2 diabetes mellitus with hyperglycemiaacuteApril 2024 8:43am [facility] Work Phone: Evaluation noteNo assessment information available [facility] Work Phone: Reason for referral (narrative)No reason for referral information availableLakehealth [facility] Work Phone: Summary Purpose Family History No Family History Records FoundNo Family History Records Found Advance Directives Advance Directive Response Recorded Date/ Time Advance Directives No January 19, 2018 3:00pm Chief Complaint and Reason for Visit Chief Complaint Wellness Reason for Visit History of gestation al diabetes Hypothyroidism, unspecified Polycystic ovarian syndrome Wellness examination Chief Complaint Wellness Poss infected toothReason for VisitHistory of gestational diabetes Hypothyroidism, unspecified Polycystic ovarian syndrome Wellness examination Chief Complaint Poss infected tooth discuss medsReason for VisitTooth infection Chief Complaint discuss meds talk about resultsReason for VisitHypothyroidism, unspecified Type 2 diabetes mellitus with hyperglycemia Chief Complaint Admit Date Amb Documentation July 24, 2024 11: 47am TB ER; chest pain August 04, 2024 8:4 3am Reason for Visit Admit Date Chest pain August 04, 2024 8:4 3am Hypothyroidism, unspecified August 04, 2024 8:43am Type 2 diabetes mellitus with hyperglyce nyla August 04, 2024 8:43am Chief Complaint Admit Date Freckle Concern January 24, 2025 9 :26am Additional Source Comments INFORMATION SOURCE (unrecogn ized section and content) DATE CREATED AUTHOR 04/30/2021 [facility] DATE CREATED AUTHOR AUTHOR'S ELISABET NARANJO 06/19/2021 [facility] Care Teams (unrecognized sec tion and content) Team Status: Active Member Role Status Dates Kevon Land MD Primary Care Provider Active Team Status: Inactive Member Role Status Dates Kevon Land MD Primary Care Provider Active Start: January 24, 2025 End: January 24, 2025Kevon Land MDAttmarivel ProviderActiveStart: January 24, 2025 End: January 24, 2025 Team Status: Active Member Role Status Dates Kevon Land MD Primary Care Provider Active Team Status: Active Member Role Status Dates Kevon Land MD Primary Care Provider Active Start: July 20, 2024 Tony Buck DOAttending ProviderActiveStart: July 20, 2024 Team Status: Active Member Role Status Dates Kevon Land MD Primary Care Provider Active Start: July 24, 2024 Steph Plasencia CMAAttending ProviderActiveStart: July 24, 2024 Team Status: Inactive Member Role Status Dates Kevon Land MD Primary Care Provide r, Attending Provider Active Start: August 04, 2024 End: August 04, 2024 Team Status: Inactive Member Role Status Dates Kevon Land MD Primary Care Provide r, Attending Provider Active Start: July 26, 2023 End: July 26, 2023 Team Status: Inactive Member Role Status Dates Kevon Land MD Primary Care Provider Active Start: August 13, 2023 End: August 12melanie Mackay APRNAtmarge ProviderActiveStart: August 13, 2023 End: August 13, 2023 Team Status: Inactive Member Role Status Dates Kevon Land MD Primary Care Provide r, Attending Provider Active Start: November 10, 2023 End: November 10, 2023 Team Status: Inactive Member Role Status Dates Kevon Land MD Primary Care Provide r, Attending Provider Active Start: January 18, 2024 End: January 18, 2024 Team Status: Inactive Member Role Status Dates Kevon Land MD Primary Care Provider Active Start: January 24, 2025 End: January 24, 2025Kevon Land MDAttending ProviderActiveStart: January 24, 2025 End: January 24, 2025 Goals (unrecognized section and content) Goals may [...] BE BASED ON THE PRIMARY CLINICAL RECORDS. [facility]. provides no warranty or guarantee of the accuracy or completeness of information in this document.
[2025-03-05 15:08] LABS: Age Gdln ACOG Testing Note (.); IGP, Aptima HPV, rfx 16/18,45 Note (.)
== END 2025-02-28 15:00 | disposition home or self-care (01) ==
LOC: LAB 14:59
PROVIDERS: PCP Family Medicine; Visit Provider Physician Assistant
DX: Z01.419 Encounter for gynecological examination (general) (routine) without abnormal findings (principal)
CPT/HCPCS: 87624; 88175

== ENCOUNTER 2025-03-05 12:50 | Outpatient (OUT) | payer BC, SELFPAY ==
--- OUTSIDE RECORDS SUMMARY | 2025-02-28 09:00 | XMS_ITS | Encounter Summary ---
Author Organization [facility] Address [address] [place] [address] Care Team Providers Care Security Nurse Name Role Phone Lisa Osei MD Primary Care Provider [phone] Reason for Visit * ReasonCommentsWell Women Visit Encounter Details DateTypeDepartmentCare Team (Latest Contact Info)Vnfvfcmytoe09/19/2025 9:00 AM ESTProcedure Visit [facility] [address] [place] [phone] Johanna Roland PA [address] [facility] [address] [place], [place] [id number] Well woman exam with routine gynecological exam; Family history of breast cancer; PCOS (polycystic ovarian syndrome) Social History Tobacco UseTypesPacks/DayYears UsedDateSmoking Tobacco: Never Assessed CommentsUnknownSex and Gender InformationValueDate RecordedSex Assigned at Not on fileLegal KmdBdwdsr92/15/2023 11:47 PM EDTGender IdentityNot on file Sexual OrientationNot on filedocumented as of this encounter Last Filed Vital Signs Vital SignReadingTime TakenCommentsBlood Xfmuqebf292/8402/28/2025 9:13 AM EST Pulse--Temperature--Respiratory Rate--Oxygen Saturation--Inhaled Oxygen Concentration--Reznwu123 kg (285 lb)02/28/2025 9:13 AM ESTHeight--Body Mass [...] nursing note reviewed. Exam conducted with a nursing home director present. Vitals: There is no height or [...] Plan of Treatment DateTypeDepartmentCare Team (Latest Contact Info)Oopcuqofcrd44/10/2025 9:00 AM ESTClinical Support [facility] [address] [place] [address] [place] [phone] 01/09/2026 10:00 AM EDTProcedure Visit [facility] [address] [place] [address] [place] [address] Johanna Roland PA [address] [facility] [place] [address] NameTypePriorityAssociated DiagnosesOrder SchedulePap SmearPathology and CytologyRoutine Well [...] DateEnd Date Lisa Osei MD [address] [place] [phone] PCP - GeneralFamily Vovzrrra38/19/25documented as of this encounter
--- NOTE | 2025-03-05 12:54 | US_ITS ---
The [address] [address] Patient Name: KARLOS SEN MRN: [id number] date: 1985 Sex: F Assigned Patient Location: US Current Patient Location: LAB Accession/Order Number: [id number] Exam Date: 03/05/2025 12:55 Report Date: 03/06/2025 08:29 At the request of: KEVON LAND MD Procedure: US thyroid THYROID ULTRASOUND COMPARISON: CT neck 05/20/2021 CLINICAL DATA: Hypothyroidism The right thyroid lobe measures 4.6 x 1.5 x 1.5 cm. The left lobe measures 4.6 x 1.5 x 1.0 cm. The isthmus measures 4 mm. Thyroid echotexture is heterogeneous. No nodularity was measured on the left. At the superior pole on the right, there is a small heterogeneous hypoechoic nodule measuring 6 x 4 x 5 mm (TI RADS 4). At the inferior pole, there is a nodule with hypoechoic rim , hypoechoic center by an isoechoic component having a somewhat target appearance. It measures 10 x 5 x 7 mm (TI-RADS 2). US/US thyroid IMPRESSION: SMALL RIGHT THYROID NODULES, DESCRIBED. Impression dictated by: Albertina Barbosa M.D. 03/06/2025 8:29 AM Dictation Location: [place] [address] Electronically authenticated by: [id number] Y Date: 03/06/2025 08:29
--- OUTSIDE RECORDS SUMMARY | 2025-03-05 12:54 | XMS_ITS | Clinical Summary ---
Author Organization [facility] Address [address] [place] [id number] Care Team Providers Care Knowledge Management Consultant Name Role Phone Unavailable Primary Care Provider Unavailabl e Allergies Active AllergyReactionsCriticalityNoted HdwdNcfrwpylPxbogYcqs17/08/2020 CjibbnchdvbQvbhs97/08/2020 At age 12, broke out in hives Medications MedicationSigDispense QuantityRefillsLast FilledStart DateEnd DateStatus OTC PRODUCT Women's Multivitamin. Take one(1) tablet daily.Active COQ10, UBIQUINOL, ORAL Take 1 tablet by mouth once daily.Active cholecalciferol, vitamin D3, (VITAMIN D3 ORAL) Take 4,000 Units by mouth once daily. Active letrozole (FEMARA) 2.5 mg tablet Take 2 tablets by mouth once daily for 5 days. Menstrual cycle day 3-7 10 tablet Active metFORMIN ER (GLUCOPHAGE XR) 500 mg 24 hr tablet Take 3 tablets by mouth daily with breakfast. Start with 1 tablet daily and slowly increase the dose up to 3 tablets daily. 90 tablet 111Active Additional Information Patient taking differently:1,500 mg ORAL DAILY WITH BREAKFAST,(No instructions reported), Reason: Changing Therapy/Dosage Form, Reported on 05/15/2020 levothyroxine (SYNTHROID) 75 mcg tablet Indications:Hypothyroidism, unspecified typeTake 1 tablet by mouth once daily. 90 tablet Active turmeric root extract 500 mg cap Take 2 capsules by mouth once daily.Active OVIDREL 250 mcg/0.5 mL syrg 1Active Active Problems No known active problems Family History Medical HistoryRelationCommentsThyroidBrother 1No Known ProblemsBrother 2Cancer FatherOsteoporosisMaternal GrandmotherBreast CancerMotherThyroidMotherRelation StatusCommentsBrother 1AliveBrother 2AliveFatherAliveMaternal Grandfather DeceasedMaternal GrandmotherDeceasedMotherAlivePaternal GrandfatherDeceased Paternal GrandmotherDeceased Social History Tobacco UseTypesPacks/DayYears UsedDateSmoking Tobacco: NeverSmokeless Tobacco: Never Tobacco Cessation:Counseling Given: No Alcohol UseStandard Drinks/WeekCommentsYes0 (1 standard drink = 0.6 oz pure alcohol)sociallyArea Deprivation IndexAnswerDate RecordedNational Score (1-100), lower number is lower riskNot on file03/17/2020State Score (1-10), lower number is lower riskNot on file03/17/2020Data from: https://www.neighborhoodatlas.medicine.[facility].edu/. Last address used for calculationNot on file03/17/2020CommentsNoSex and Gender Information ValueDate RecordedSex Assigned at BirthNot on fileLegal UacNlmchw61/02/2020 8:33 AM EDTGender IdentityNot on fileSexual OrientationNot on file Last Filed Vital Signs Vital SignReadingTime TakenCommentsBlood Qakmsstd453/7202 11:14 AM EST Qzfnh9448 11:14 AM ESTTemperature--Respiratory Rate--Oxygen Saturation 99%02/05/2020 8:41 AM EDTInhaled Oxygen Concentration--Ilhpdu685.1 kg (273 lb 8 oz)05/15/2020 11:14 AM DUILfhweo627.7 cm (5' 8 )05/15/2020 11:14 AM ESTBody Mass Index41.59005/15/2020 11:14 AM EST Plan of Treatment Health MaintenanceDue DateLast DoneCommentsAnxiety Dpqulzcjq24/16/2006Depression Unbpklrta53/16/2006HIV Hiapkufzj61/16/2006Hepatitis C Ltmfpgxxx94/16/2006 DTaP,Tdap,Td Vaccine (1 - Tdap)08/25/2006Hepatitis B Vaccine (1 of 3 - 19+ 3- dose series)08/25/2006HPV Vaccine (1 - 3-dose SCDM series)08/25/2014Cervical Cancer Hwgfkcocr43Covid-19 Vaccine (2024- season) 2024Influenza Vaccine (#1)2024 Insurance "
--- OUTSIDE RECORDS SUMMARY | 2025-03-05 12:54 | XMS_ITS | Encounter Summary ---
Author Organization [facility] Address [address] [facility] [place] [address] Care Team Providers Care Transplant Case Manager Name Role Phone Lisa Osei MD Primary Care Provider [phone] Encounter Details DateTypeDepartmentCare Team (Latest Contact Info)Brfpseurhpa08/19/2025Bamboo flowsheet YONY VAUGHN [address] [place] [address] [place] [address] Johanna Roland, PA [address] [place] [address] [address] [place], [id number] Social History Tobacco UseTypesPacks/DayYears UsedDateSmoking Tobacco: Never Assessed CommentsUnknownSex and Gender InformationValueDate RecordedSex Assigned at Not on fileLegal UdyZwnbzx98/15/2023 11:47 PM EDTGender IdentityNot on file Sexual OrientationNot on filedocumented as of this encounter Plan of Treatment DateTypeDepartmentCare Team (Latest Contact Info)Bzzxfvmyscb36/10/2025 9:00 AM ESTClinical Support YONY VAUGHN [address] [place] [address] [place] [address] 01/09/2026 10:00 AM EDTProcedure Visit NOMTish VAUGHN [address] [place] [address] [place] [address] Johanna Roland PA [address] [place] [address] documented as of this encounter Visit Diagnoses Not on filedocumented in this encounter Care Teams Team MemberRelationshipSpecialtyStart DateEnd Date Lisa Osei MD [facility] [place] [id number] PCP - GeneralFamily Fbrqfjwp40/19/25documented as of this encounter
--- OUTSIDE RECORDS SUMMARY | 2025-03-05 12:54 | XMS_ITS | Clinical Summary ---
Author Organization [facility] Address [address] [facility] [place] [address] Care Team Providers Care Hairspring Fabrication Supervisor Name Role Phone Lisa Osei MD Primary Care Provider [phone] Allergies Active AllergyReactionsCriticalityNoted RyyjRrigcyixDgwxgFwmpi41/19/2025 Medications MedicationSigDispense QuantityRefillsLast FilledStart DateEnd DateStatus levothyroxine (Synthroid, Levoxyl) 50 MCG tablet Take 50 mcg by mouth in the morning. Take before meals.5Active Encounters DateTypeDepartmentCare WuwgHwfighxwfpm60/19/2025 9:00 AM ESTProcedure Visit NOMTish VAUGHN [address] [place] [address] Johanna Roland PA Well woman exam with routine gynecological exam; Family history of breast cancer; PCOS (polycystic ovarian syndrome)02/28/2025amboo flowsheet NOMTish VAUGHN [address] [place] [address] Johanna Roland PA from Last 3 Months Family History Medical HistoryRelationNameCommentsBreast cancerMotherRelationNameStatusComments Mother Social History Tobacco UseTypesPacks/DayYears UsedDateSmoking Tobacco: Never Assessed CommentsUnknownSex and Gender InformationValueDate RecordedSex Assigned at Not on fileLegal EoaCuqnla02/15/2023 11:47 PM EDTGender IdentityNot on file Sexual OrientationNot on file Last Filed Vital Signs Vital SignReadingTime TakenCommentsBlood Lbvmkcqs313/8402/28/2025 9:13 AM EST Pulse--Temperature--Respiratory Rate--Oxygen Saturation--Inhaled Oxygen Concentration--Rtmohl449 kg (285 lb)02/28/2025 9:13 AM ESTHeight--Body Mass Index-- Plan of Treatment DateTypeDepartmentCare Team (Latest Contact Info)Lvcneiknizv77/10/2025 9:00 AM ESTClinical Support YONY VAUGHN [address] [place] [phone] 01/09/2026 10:00 AM EDTProcedure Visit YONY VAUGHN [address] [place] [phone] Johanna Roland PA [address] [facility] [place] [address] Insurance Care Teams Team MemberRelationshipSpecialtyStart DateEnd Date Lisa Osei MD [address] [place] [id number] PCP - GeneralFamily Xlbswgnl71/19/25
--- OUTSIDE RECORDS SUMMARY | 2025-03-05 12:54 | XMS_ITS | Clinical Summary ---
Author Organization [employer] Address [id number] [place] [address] Care Team Providers Care Bank Consultant Name Role Phone No Pcp, No Pcp Primary Care Provider Unavailabl e Allergies Active AllergyReactionsCriticalityNoted McykQocwpzbpRzisrgmpzmzOsmgEaj57/01/2021 Latex, Natural Ezdunh7208/02/2020 Medications MedicationSigDispense QuantityRefillsLast FilledStart DateEnd DateStatus levothyroxine (SYNTHROID, LEVOTHROID) 75 MCG tablet Take 75 mcg by mouth daily.Active vit calc,iron,folic ( VITAMIN ORAL) Take 1 tablet by mouth daily.Active cholecalciferol, vitamin D3, 10 mcg/drop (400 unit/drop) drops Take 4,000 Units by mouth daily.Active COQ10, UBIQUINOL, ORAL Take 1 tablet by mouth daily.Active metFORMIN XR (GLUCOPHAGE-XR) 500 mg 24 hr tablet Take 1,500 mg by mouth.01/18/2020Active aspirin 81 mg Take 81 mg by mouth daily.Active Active Problems ProblemNoted DateDiagnosed DateHypothyroid in , antepartumPregnancy resulting from assisted reproductive technology Overview (08/02/2020): IUI Obesity affecting Family History Medical HistoryRelationNameCommentsKidney cancerFatherHeart diseaseMaternal GrandmotherOsteoporosisMaternal GrandmotherThyroid diseaseMaternal Grandmother Bipolar disorderMotherBreast cancerMotherThyroid diseaseMotherRelationNameStatus CommentsFatherMaternal GrandfatherDeceasedMaternal GrandmotherMotherPaternal GrandfatherDeceasedPaternal GrandmotherDeceased Social History Tobacco UseTypesPacks/DayYears UsedDateSmoking Tobacco: FormerSmokeless Tobacco: Never Comments:stopped over 4 year s ago Alcohol UseStandard Drinks/WeekCommentsNot Currently0 (1 standard drink = 0.6 oz pure alcohol)ChildcareAnswerDate QrriwhqjCilmxjmzmVwszypd55/27/2019Employment AnswerDate UuosdktgWmcnuijqatKovlggv29/27/2019Purpose - LifeAnswerDate Recorded Purpose and direction in coseAyqhxjw28/11/2021CommentsNoSex and Gender InformationValueDate RecordedSex Assigned at BirthNot on fileLegal SexFemale 11/05/2018 10:36 AM EDTGender IdentityNot on fileSexual OrientationNot on file Last Filed Vital Signs Vital SignReadingTime TakenCommentsBlood Dojvsrtz879/8204 8:41 AM EDT Uitgy97276 8:41 AM EDTTemperature--Respiratory Rate--Oxygen Saturation-- Inhaled Oxygen Concentration--Ylwnze468.1 kg (280 lb 3.3 oz)08/02/2020 8:41 AM BDQUbrikk520.2 cm (5' 7 )07/11/2020 4:03 PM EDTBody Mass Index43.8907/11/2020 4:03 PM EDT Plan of Treatment Health MaintenanceDue DateLast DoneCommentsDepression Yowlqqigy12/16/2000Tobacco Ayfdobwvs60/16/2000Adult BMI Sormjhovu32/16/2006DTaP,Tdap and Td Vaccines (1 - Tdap)08/25/2006Pap Smear08/25/2008Influenza Pdriyno0112/11/2024 Medical Devices Not on file Insurance Care Teams Team MemberRelationshipSpecialtyStart DateEnd Date [place], [place] [address] [facility]/18
--- OUTSIDE RECORDS SUMMARY | 2025-03-05 12:57 | XMS_ITS | CCD ---
Author Organization [facility] Care Team Providers Care Aircraft Armament Mechanic Name Role Phone ROGERIOC, DR SMITH Primary [...] DR OKSANA Brewster Consulting Unavailable HUGH, DR HUOGH Consulting Unavailable HUGH, DR HOUGH Admitting Unavailable [...] Admitting Unavailable EL, JOSE G Attending Unavailable SYOSSET, DR OKSANA Brewster Consulting Unavailable HUGH, DR [...] Unavailable Kevon Land MD Primary Care Provider [phone] Kevon Land MD Attending Provider Allergies Allergy ClassificationReported Allergen(s)Allergy TypeDate of OnsetReaction(s) Facility (8 sources)LatexDrug allergy (disorder)78-00-5565[facility]rcojWlwUC [facility] (2 sources)PenicillinsDrug allergy (disorder)72-48-0832[facility] Rep[facility] (6 sources)PenicillinDrug Micerpw77-41-1187HbgtbGajigkdztGrand [facility] (3 sources)12 Hour DecongestantAllergy to gngwyplvr55-03-6016GhjutUsvphgyqmGrand [facility] Medications Current Medications MedicationDrug Class(es)DatesSig (Normalized)Sig (Original)levothyroxine sodium 0.075 mg oral tablet (20 sources)l-ThyroxineStart: 07-23-2023 End: 16-07-4043eoxa 1 tablet by mouth once dailyLevothyroxine (Synthroid) 75 mcg tablet Active 75 MCG PO Daily November 21, 2024 8:12am Complieswith drug therapynaproxen 500 mg oral tablet (4 sources)Nonsteroidal Anti-inflammatory DrugStart: 94-29-7542jxgc 1 tablet by mouth twice daily as needed for painNaproxen 500 mg tablet Active 500 MG PO Twice daily as needed for pain 29 01August 13, 2023 12:00am Complies with drug therapy Completed/Discontinued Medications MedicationDrug Class(es)DatesSig (Normalized)Sig (Original)clindamycin 150 mg oral capsule (4 sources)Lincosamide AntibacterialStart: 08-13-2023 End: 03-85-4140jkab 1 capsule by mouth every eight hoursClindamycin Hcl 150 mg capsule Discontinued 150 MG PO Every 8 hours 30 10August 13, 2023 12:00am November 10, 2023 10:34amclomiPHENE citrate 50 mg oral tablet (2 sources)Estrogen Agonist/AntagonistStart: 08-03-2024 End: 95-23-1648gsbu 1 tablet by mouth once dailyClomiphene Citrate 50 mg tablet Discontinued 50 MG PO Daily August 03, 2024 12:00am August 04, 2024 8:53am glipiZIDE er 5 mg 24 hr extended release oral tablet (4 sources)SulfonylureaStart: 04-17-2024 End: 97-39-0233dbcs 1 tablet by mouth once dailyGlipizide 5 mg tablet extended release 24hr Discontinued 0 .ROUTE .COMPLEX April 17, 2024 1:40pm August 04, 2024 8:52am TAKE 1 TABLET BY MOUTH EVERY DAYStart: 01-18-2024 End: 29-31-1761yfzv 1 tablet by mouth once dailyGlipizide 5 mg tablet extended release 24hr Discontinued 5 MG PO Daily January 18, 2024 12:00amApril 17, 2024 1:40pm24 hr metFORMIN hydrochloride 500 mg extended release oral tablet (10 sources)BiguanideStart: 11-10-2023 End: 10-33-1840whbf 1 tablet by mouth twice dailyMetformin 500 mg tablet extended release 24 hr Discontinued 500 MG PO Twice daily November 10, 2023 12:00am January 18, 2024 10:06amStart: 07-23-2023 End: 47-27-4130hepq 1 tablet by mouth twice daily at mealtimeMetformin 500 mg tablet Discontinued 500 MG PO Twice daily with meals July 23, 2023 12:00am July 26, 2023 11:24amnitrofurantoin, macrocrystals 25 mg / nitrofurantoin, monohydrate 75 mg oral capsule (6 sources)Nitrofuran AntibacterialStart: 07-23-2023 End: 62-21-3974ggzm 1 capsule by mouth every twelve hours at mealtime Nitrofurantoin Monohyd/M-Cryst (Macrobid) 100 mg capsule Discontinued 1 CAP PO Every 12 hours 2023 12:00am July 26, 2023 11:24am FreeTextSi capsule with food Orally every 12 hrs; Note: Source Status: Taking; Refills: 0; Provider: Juan Francisco Del Rosarioazopyridine hydrochloride 200 mg oral tablet (6 sources)Start: 07-23-2023 End: 67-89-0763fzem 1 tablet by mouth three times daily after mealtime Phenazopyridine (Pyridium) 200 mg tablet Discontinued 1 TAB PO Three times daily July 23, 2023 12:00am July 26, 2023 11:24am FreeTextSi tablet after meals Orally Three times a day; Note: Source Status: Taking; Refills: 0; Provider: Juan Francisco Bhandari #00-Nvhm-Otxnt Acid-Omega3 (4 sources)Start: 07-23-2023 End: 04-73-7556Qwj #13-Amjc-Pxqnd Acid-Omega3 Discontinued CAP PO July 23, 2023 12:00am July 26, 2023 11:25amPnv #16-Kbfo-Pryco Acid-Omega3 30 mg iron- 10 mg iron-1 mg capsule (1 source)Start: 07-23-2023 End: 91-34-9589Hco #13-Xxns-Srlfc Acid-Omega3 30 mg iron-10 mg iron-1 mg capsule Discontinued CAP PO July 23, 2023 12:00am July 26, 2023 11:25amPnv 87-Yrno-Ywgji Ndid-Hctzy-9 30 mg iron-10 mg iron-1 mg capsule (1 source)Start: 07-23-2023 End: 13-85-9160Emq 04-Afvr-Zvnfe Zrrn-Xieln-3 30 mg iron-10 mg iron-1 mg capsule Discontinued CAP PO July 23, 2023 12:00am July 26, 2023 11:25am Problems Active Problems Problem ClassificationProblemDateDocumented DateEpisodic/ChronicDiabetes mellitus with complications (5 sources)Hyperglycemia due to type 2 diabetes mellitus; Translations: [Type 2 diabetes mellitus with hyperglycemia]80-45-0222ObpuwrgPywmoyug or abnormal glucose tolerance complicating ; childbirth; or the puerperium (14 sources)Abnormal glucose complicating ; Translations: [Gestational diabetes mellitus in ,unspecified control]Onset: 20-08-0318Rrqzbuli Disorders of teeth and jaw (5 sources)Infection of tooth; Translations: [Periapical abscess without sinus] 89-36-6425UmieucofJzevefjjwrq chest pain (4 sources)Chest pain; Translations: [Chest pain, unspecified]18-33-2580Qgvunalz Other aftercare (1 source)Other intermodal dispatcher (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) drug therapy; Translations: [OTH PIT SUPERVISOR CURRENT DRUG THERAPY]Onset: 02-87-7377OyrxqxjiZzrqx complications of ; puerperium affecting management of mother (1 source)Obesity complicating childbirth; Translations: [OBESITY COMPLICATING CHILDBIRTH]Onset: 38-69-1030OzokrwwOofad complications of ; puerperium affecting management of mother (1 source)Anemia complicating childbirth; Translations: [ANEMIA COMPLICATING CHILDBIRTH]Onset: 66-69-4527HuoydvhLuxsr endocrine disorders (3 sources)Polycystic ovarian syndrome; Translations: [Polycystic ovaries]Onset: 349944-90-1862WnoaptkEzylx endocrine disorders (6 sources)Polycystic ovary syndrome; Translations: [Polycystic ovarian syndrome]59-94-1587VxghzrpNtcyt gastrointestinal disorders (3 sources)Dysphagia, unspecified; Translations: [DYSPHAGIA UNSPECIFIED]Onset: 64-62-9273BglkykgrEpkui nutritional; endocrine; and metabolic disorders (1 source)Obesity, unspecified; Translations: [OBESITY UNSPECIFIED]Onset: 94-06-7442PhoilgnEjaih nutritional; endocrine; and metabolic disorders (1 source)Severe obesity; Translations: [Class 3 severe obesity with body mass index (BMI) of 45.0 to 49.9 inadult]40-27-4774OzhoecuNfoxz upper respiratory infections (1 source)Acute pharyngitis, unspecified; Translations: [ACUTE PHARYNGITIS UNSPECIFIED]Onset: 39-87-5710MmvcpwosTplqngj disorders (15 sources)Hypothyroidism, unspecified; Translations: [Hypothyroidism]Onset: 42-03-9600SdmdqbvWajlewcfybnl (1 source)CONTACT W/AND (SUSP) EXPOS COVID-19; Translations: [CONTACT W/AND (SUSP) EXPOS COVID-19]Onset: 01-30-2021 Past or Other Problems Problem ClassificationProblemDateDocumented DateEpisodic/ChronicDeficiency and other anemia (1 source)Iron deficiency anemia, unspecified; Translations: [IRON DEFICIENCY ANEMIA UNSPECIFIED]Onset: 28-74-4015MmkwmslcLcircunh mellitus without complication (5 sources)Other abnormal glucose; Translations: [OTHER ABNORMAL GLUCOSE]Onset: 39-64-2791IofqyssjNhcoxmzuhf during ; abruptio placenta; placenta previa (4 sources)Hemorrhage in early , unspecified; Translations: [HEMORRHAGE EARLY UNS]Onset: 91-82-0822AjjvyzxdTtedfbbqnhnsk and screening for infectious disease (2 sources)Encounter for screening for infections with a predominantly sexual mode of transmission; Translations: [Encounter for screening for human papillomavirus (HPV)]Onset: 12-45-8490SkkekfjeDT-related trauma to perineum and vulva (2 sources)Second degree perineal laceration during delivery; Translations: [Other specified trauma to perineum and vulva]Onset: 08-36-6750VurabsnqAoxvx complications of ; puerperium affecting management of mother (1 source)Endocrine, nutritional and metabolic diseases complicating childbirth; Translations: [ENDOCRN NUTR MET DZ COMP CHILDBIRTH]Onset: 05-47-4254Tcjdmeez Other complications of (4 sources)Endocrine, nutritional and metabolic diseases complicating , unspecified trimester; Translations: [ENDOCRN NUTR MET DZ COMP PG UNS TRI]Onset: 13-15-3647FdcffnptQfbjl complications of (4 sources)Endocrine, nutritional and metabolic diseases complicating , third trimester; Translations: [ENDOCRN NUTR MET DZ COMP PG 3RD TRI]Onset: 54-83-6266IrmvivakBwuxu female genital disorders (1 source)Other specified noninflammatory disorders of vagina; Translations: [OTH SPEC NONINFLAMMATORY D/O VAGINA]Onset: 38-28-9324SygcnkieRfhms and delivery including normal (16 sources)Encounter for routine follow-up; Translations: [Single live ]Onset: 82-86-0442PgwtfbreIgkeq screening for suspected conditions (not mental disorders or infectious disease) (8 sources)Encounter for screening for Streptococcus B; Translations: [Encounter for screening for malignant neoplasm of cervix]Onset: 08-29-2020 EpisodicResidual codes; unclassified (1 source)37 weeks gestation of ; Translations: [37 WEEKS GESTATION OF ]Onset: 69-40-0106QkcrsiyoBslrnkod codes; unclassified (1 source)36 weeks gestation of ; Translations: [36 WEEKS GESTATION OF ]Onset: 17-95-8680RjefnmqtUsuyutum codes; unclassified (1 source)35 weeks gestation of ; Translations: [35 WEEKS GESTATION OF ]Onset: 78-12-1943FgbiflwjAxfywsdm codes; unclassified (1 source)34 weeks gestation of ; Translations: [34 WEEKS GESTATION OF ]Onset: 32-74-0706BiheeuclJdklogdh codes; unclassified (1 source)33 weeks gestation of ; Translations: [33 WEEKS GESTATION OF ]Onset: 67-19-4462XcekmjtgBpdjoaix codes; unclassified (1 source)32 weeks gestation of ; Translations: [32 WEEKS GESTATION OF ]Onset: 70-07-0629SfzqxvsnFenrnbwk codes; unclassified (1 source)28 weeks gestation of ; Translations: [28 WEEKS GESTATION OF ]Onset: 74-29-2564MtlbzoooZtkzrqqel and history of mental health and substance abuse codes (1 source)Personal history of nicotine dependence; Translations: [PERSONAL HISTORY OF NICOTINE DEPEND]Onset: 40-97-0608Bbjlpeqz Results Test NameValueInterpretationReference RangeFacilityBasophils Auto (Bld) [#/Vol] on 90-68-7491Mrxvqnrva (Bld) [#/Vol]Automated basophil count0.0-0.1FVeterans Health AdministrationBasophils/100 WBC Auto (Bld)on 67-59-3644Zvvwlnkme/100 WBC (Bld)Automated basophil %0.2-2.0[facility] Eosinophils/100 WBC Auto (Bld)on 13-85-8709Gtyoyivsiax/100 WBC (Bld)Automated eosinophil %Low0.9-7.0[facility] HospitalErythrocyte distribution width Auto (RBC) [Ratio]on 01-72-0779Zssoyztevzu distribution width (RBC) [Ratio]Erythrocyte distribution width [Ratio] by Automated ecjieDvck97.0-15.0 [facility] HospitalEstimated glomerular filtration rate (GFR) non- Americanon 68-94-8716MSM/1.73 sq M.predicted among non-blacks MDRD (S/P/Bld) [Vol rate/Area]Estimated glomerular filtration rate (GFR) non->=60 mL/min/1.73m 2FVeterans Health AdministrationHematocrit Auto (Bld) [Volume fraction]on 86-75-8385Lsbxitzbmj (Bld) [Volume fraction]Hematocrit [Volume Fraction] of Blood by Automated count36.0-48.0[facility] HospitalHemoglobin [Mass/volume] in Bloodon 51-84-0129Folymeifsd (Bld) [Mass/Vol] Hemoglobin [Mass/volume] in Blood12.0-16.0[facility] - Chemistry and Chemistry - challengeon 85-93-1677Tpiltjk [Mass/Vol] 9.0 mg/dL8.5-10.1FVeterans Health AdministrationChloride [Moles/Vol]102 mmol/L 98-107White HospitalCO2 [Moles/Vol]28.4 mmol/L21.0-32.0 [facility] HospitalCreatinine [Mass/Vol]0.75 mg/dL0.55-1.02 [facility] HospitalGFR/1.73 sq M.predicted MDRD (S/P/Bld) [Vol rate/Area]mL/min/{1.73_m2}>=60 mL/min/1.73m 2FVeterans Health Administration Glucose [Mass/Vol]112 mg/dKIoyl76-340DqfydqttbWhite HospitalPotassium [Moles/Vol]4.1 mmol/L3.5-5.1FCleveland Clinic Akron Generalodium [Moles/Vol] 138 mmol/G802-474JecabkhtqWhite HospitalUrea nitrogen [Mass/Vol]13.0 mg/dL7.0-18.0White HospitalUrea nitrogen/Creatinine [Mass ratio]17.3 mg/mgWhite HospitalLaboratory - Hematology and Cell countson 61-10-6071Qqetxguz granulocytes/100 WBC (Bld)0.3 %0.0-0.5FVeterans Health AdministrationLeukocytes [#/volume] corrected for nucleated erythrocytes in Blood by Automated counon 36-60-3557CTZ corrected for nucl RBC Auto (Bld) [#/Vol]Leukocytes [#/volume] corrected for nucleated erythrocytes in Blood by Automated counHigh4.0-11.0White HospitalLymphocytes Auto (Bld) [#/Vol]on 23-14-4940Ammbfrsbnxw (Bld) [#/Vol]Lymphocytes [#/volume] in Blood by Automated count1.2-3.8[facility] Lymphocytes/100 WBC Auto (Bld)on 76-56-0272Jxttldctfpx/100 WBC (Bld) Lymphocytes/100 leukocytes in Blood by Automated lstftLqm61.5-60.0White HospitalMCH Auto (RBC) [Entitic mass]on 22-68-3041XSL (RBC) [Entitic mass]MCH [Entitic mass] by Automated teivwMmr09.7-34.0White HospitalMCHC Auto (RBC) [Mass/Vol]on 59-65-7004NHYR (RBC) [Mass/Vol]MCHC [Mass/volume] by Automated count29.9-35.2FVeterans Health AdministrationMCV Auto (RBC) [Entitic vol]on 12-94-8218SQN (RBC) [Entitic vol] MCV [Entitic volume] by Automated count81.0-99.0White HospitalMonocytes Auto (Bld) [#/Vol]on 96-13-4158Xyjddcfvc (Bld) [#/Vol]Automated blood monocyte count0.3-0.8White HospitalMonocytes/100 WBC Auto (Bld)on 44-75-5395Bwzxsqmeo/100 WBC (Bld)Automated monocyte %1.7-12.0 [facility] HospitalNeutrophils Auto (Bld) [#/Vol]on 07-20-2024 Neutrophils (Bld) [#/Vol]Neutrophils [#/volume] in Blood by Automated countHigh 1.4-6.5FVeterans Health AdministrationNeutrophils/100 WBC Auto (Bld)on 02-21-2446Fbchiydwbby/100 WBC (Bld)Automated neutrophil %High43.0-75.0White HospitalNo Panel Informationon 70-06-5755Tudsezmhxmb # (Auto)0.0 10 3/uL0.0-0.7FVeterans Health AdministrationImmature Granulocyte # (Auto)0.03 10 3/uL0.00-0.03White HospitalTroponin I High Sensitivity <4.0 pg/mLLow4.0-51.3FVeterans Health AdministrationComment on above:CUT-OFF POINTS HAVE BEEN ESTABLISHED BASED [...] volume [Entitic volume] in Blood by Automated count9.5-13.5FVeterans Health AdministrationPlatelets Auto (Bld) [#/Vol]on 53-38-7583Mnoudovwn (Bld) [#/Vol]Platelets [#/volume] in Blood by Automated -574XvtqmrpmaWhite HospitalRBC Auto (Bld) [#/Vol] on 40-20-8874HVQ (Bld) [#/Vol]Erythrocytes [#/volume] in Blood by Automated count4.20-5.40[facility] Campuserum or plasma anion gap determinationon 03-37-3646Abeto gap [Moles/Vol]Serum or plasma anion gap determinationWhite HospitalGlucose mean value [Mass/volume] in Blood Estimated from glycated hemoglobinon 86-29-3554Twpvnob glucose Estimated from glycated hemoglobin (Bld) [Mass/Vol]137 mg/dLWhite HospitalLaboratory - Chemistry and Chemistry - challengeon 06-26-8711Rjam T4 [Mass/Vol]1.84 ng/dL0.76-1.46White HospitalTSH Qn3.165 m[IU]/L0.358-3.740White HospitalLaboratory - Hematology and Cell countson 05-02-7600GdH0g (Bld) [Mass fraction]6.4 %4.5-6.2FVeterans Health AdministrationComment on above:ADA RECOMMENDED LIMIT 4.0 - 6.0ADA THERAPEUTIC TARGET < 7.0ACTION SUGGESTED> 7.0FREE T4on 93-23-8280Xrnp T4 [Mass/Vol]2.18 ng/dLNormal0.78-2.19[facility] HospitalComment on above: Performed By: #### FT4 ####[facility] [address] [address]DrAlka ChangGLYCOHEMOGLOBIN A1Con 41-76-0013KXO RECOMMENDATIONADA THERAPEUTIC TARGET 6.0 - 7.0 ACTION SUGGESTED > 7.0NoHolzer Health SystemComment on above:Performed By: #### A1C #### [facility] [address] [place] [address] Dr. Babak AdamsGlucose [Mass/Vol]117 mg/dLNoHolzer Health SystemComment on above:Performed By: #### A1C #### [facility] [address] [place] [address] Dr. Babak AdamsHbA1c (Bld) [Mass fraction]5.7 %Normal<=6.0[facility] Comment on above:Performed By: #### A1C #### [facility] [address] [place] [address] Dr. Babak Stewart 94-94-4295UQW3.532 uIU/mLNormal0.470-4.680The [facility] HospitalComment on above:Performed By: #### HBSANS #### [facility] [address] [place] [address] Harini BraunenTSH RANGESEE BELOWNoHolzer Health SystemComment on above:Result Comment: <0.34 UIU/ml HYPERTHYROID 0.34-5.60 UIU/ml EUTHYROID >5.60 UIU/ml HYPOTHYROIDPerformed By: #### HBSANS #### [facility] [address] [place] [address] CONon 84-64-3520UT NECK ST W CONEXAMINATION: CT NECK ST [...] authenticated by: KERVIN BURNS Date: 2021-05-20 20:34NormalThe West Columbia HospitalCULTURE THROATon 07-18-5773TIMZIBV THROATCulture Observations: NORMAL RESPIRATORY RENITA.NormalThe [facility] Columbia HospitalComment on above:Performed By: #### THRTCCarlo SSCRN #### [facility] [address] [place] [address] Dr. Babak Crum 76-68-2773Vijqonavt (Bld) [#/Vol]NegativeNormalNEGATIVEThe [facility]as HospitalComment on above:Performed By: #### MONO ####[facility] Home[address] [place], [place] [address]DrJasmyne AdamsSTREPT SCREEN on 93-99-2702VAWCE SCREEN ANegativeNormalNEGATIVEThe [facility]as HospitalComment on above:Performed By: #### THRTCCarlo SSCRN #### [facility] [address] [place] [address] Dr. Babak Robles AUTO DIFFon 31-12-4319ZNCM #0.0 103/ulNormal0.0-0.1The [facility] HospitalComment on above:Performed By: #### CBC ####[facility] [address] [place], [place] [address]DrAlka AdamsBasophils/100 WBC (Bld)0.2 %Normal0.2-2.0The [facility] HospitalComment on above:Performed By: #### CBC ####[facility] T[address] [place], [place] [address]DrAlka ChangEO #0.0 103/ulNormal0.0-0.7The [facility] HospitalComment on above:Performed By: #### CBC ####[facility] [address] [place], [place] [address]Dr.Yilan ChangEosinophils/100 WBC (Bld)0.3 %Critically low0.9-7.0The [facility] HospitalComment on above:Performed By: #### CBC ####[facility] X[address]wojnrsp[address] [place], [place] [address]Dr. Babak ChangErythrocyte distribution width (RBC) [Ratio]14.5 %Uddorc17.0-15.0The [facility] HospitalComment on above:Performed By: #### CBC ####[facility] Lytsisgzut[address] [place], [place] [address]Dr.Lexyrene ChangHematocrit (Bld) [Volume fraction]29.1 %Critically low36.0-48.0The [facility] HospitalComment on above:Performed By: #### CBC ####[facility] Abkywqapmk[address] [place], [place] [address]Dr.Babak ChangHemoglobin (Bld) [Mass/Vol]9.3 g/dL Critically low12.0-16.0The [facility] HospitalComment on above:Performed By: #### CBC ####[facility] Kre[address] [place], [place] [address]Dr. Lexyrene ChangIG #0.10 10e3/ulCritically high0.00-0.03The [facility] HospitalComment on above:Performed By: #### CBC ####[facility] Zdpecdmspt[address] [place], [place] [address]Dr.Babak ChangIG %0.8 %Critically high0.0-0.5The [facility] HospitalComment on above:Performed By: #### CBC ####[facility] Xnowfsscpu[address] [place], [place] [address]Dr.Lexyrene ChangLYMPH #1.4 103/ulNormal1.2-3.8The [facility] HospitalComment on above:Performed By: #### CBC ####[facility] Cdcywdvzbh[address] [place], [place] [address]Dr. Babak ChangLymphocytes/100 WBC (Bld)10.8 %Critically low20.5-60.0The [facility] HospitalComment on above:Performed By: #### CBC ####[facility] [address] [place] [address]Dr.Babak AdamsMANUAL DIFF REQ NONormalThe [facility]as HospitalComment on above:Performed By: #### CBC ####[facility] [address] [place] [address]Dr. Babak BryanH (RBC) [Entitic mass]28.1 yrHqsnvc72.7-34.0[facility] Comment on above:Performed By: #### CBC ####[facility] Qwxlurybrt[address] [place], [place] [address]Dr.Lexyrene AdamsHC (RBC) [Mass/Vol]32.0 g/dL Lsrupj11.9-35.2The [facility] HospitalComment on above:Performed By: #### CBC ####[facility] Yktwwwdlkn[address] [place], [place] [address]Dr. Babak AdamsV (RBC) [Entitic vol]87.9 wONvwvwg81.0-99.0[facility] Comment on above:Performed By: #### CBC ####[facility] Uxnxhypzpr[address] [place], [place] [address]Dr.Lexyrene AdamsMONO #0.7 103/ulNormal0.3-0.8 [facility] HospitalComment on above:Performed By: #### CBC ####[facility] K[address]liibs[address] [place], [place] [address]Dr.Babak Adams Monocytes/100 WBC (Bld)5.5 %Normal1.7-12.0The [facility] HospitalComment on above: Performed By: #### CBC ####[facility] [address]dehcros[address] [place], [place] [address]Dr.Babak AdamsNEUT #10.6 103/ulCritically high1.4-6.5 The [facility] HospitalComment on above:Performed By: #### CBC ####[facility] [address]ronpceib[address] [place], [place] [address]Dr.Babak Adams Neutrophils/100 WBC (Bld)82.4 %Critically high43.0-75.0[facility] Comment on above:Performed By: #### CBC ####[facility] [address] [place] [address]Dr.Babak AdamsPlatelet mean volume (Bld) [Entitic vol]10.8 fLNormal9.5-13.5The [facility] HospitalComment on above: Performed By: #### CBC ####[facility] [address] [place] [address]Dr.Babak FazsdLYH154 103/koEuayud481-250Ugj [facility] Columbia HospitalComment on above:Performed By: #### CBC ####[facility] [address] [place] [address]Dr.Babak AdamsRBC3.31 106/ul Critically low4.20-5.40The [facility] HospitalComment on above:Performed By: #### CBC ####[facility] [address] [place] [address]Dr. Babak IdfttKJB59.8 103/ulCritically high4.0-11.0The [facility] HospitalComment on above:Performed By: #### CBC ####[facility] [address] [place] [address]Dr.Babak AdamsTHE [facility] AUTO DIFFon 70-34-9007XONB #0.0 103/ulNormal0.0-0.1The [facility] HospitalComment on above:Performed By: #### CBC #### [facility] [address] [address] Harini KarenBasophils/100 WBC (Bld)0.3 %Normal0.2-2.0[facility] Comment on above:Performed By: #### CBC #### [facility] [address] [address] Harini KarenEO #0.0 103/ulNormal0.0-0.7The [facility] HospitalComment on above: Performed By: #### CBC #### [facility] [address] [address] Harini KarenEosinophils/100 WBC (Bld)0.3 %Critically low0.9-7.0[facility] HospitalComment on above:Performed By: #### CBC #### [facility] [address] [place] [address] Harini KarenErythrocyte distribution width (RBC) [Ratio]14.3 %Xjyzgp23.0-15.0[facility] HospitalComment on above:Performed By: #### CBC #### [facility] [address] [place] [address] Harini KarenHematocrit (Bld) [Volume fraction]34.4 %Critically low36.0-48.0The [facility] HospitalComment on above:Performed By: #### CBC #### [facility] [address] [place] [address] Harini KarenHemoglobin (Bld) [Mass/Vol]11.3 g/dLCritically low12.0-16.0The [facility] HospitalComment on above:Performed By: #### CBC #### [facility] [address] [place] [address] Harini KarenIG #0.07 10e3/ulCritically high0.00-0.03[facility] HospitalComment on above:Performed By: #### CBC #### [facility] [address] [place] [address] Harini KarenIG %0.6 %Critically high0.0-0.5The [facility] HospitalComment on above:Performed By: #### CBC #### [facility] [address] [place] [address] Harini KarenLYMPH #1.2 103/ulNormal1.2-3.8The [facility] HospitalComment on above: Performed By: #### CBC #### [facility] [address] [place] [address] Harini KarenLymphocytes/100 WBC (Bld)10.5 %Critically low20.5-60.0[facility] HospitalComment on above:Performed By: #### CBC #### [facility] [address] [place] [address] Harini KarenMANUAL DIFF REQNONormalThe [facility] HospitalComment on above: Performed By: #### CBC #### [facility] [address] [place] [address] Harini EngH (RBC) [Entitic mass]28.3 bxIemjcf67.7-34.0[facility] Comment on above:Performed By: #### CBC #### [facility] [address] [place] [address] Harini EngMOHAWK [facility] (RBC) [Mass/Vol]32.8 g/fGVzautn04.9-35.2[facility] Comment on above:Performed By: #### CBC #### [facility] [address] [place] [address] Harini EngMCV (RBC) [Entitic vol]86.0 sMMlkvot76.0-99.0[facility] Comment on above:Performed By: #### CBC #### [facility] [address] [place] [address] Harini KarenMONO #0.5 103/ulNormal0.3-0.8The [facility]carawas HospitalComment on above: Performed By: #### CBC #### [facility] [address] [place] [address] Harini KarenMonocytes/100 WBC (Bld)4.6 %Normal1.7-12.0[facility] Comment on above:Performed By: #### CBC #### [facility] [address] [place] [address] Harini BraunenNEUT #9.8 103/ulCritically high1.4-6.5The [facility]awas HospitalComment on above:Performed By: #### CBC #### [facility] [address] [place] [address] Harini KarenNeutrophils/100 WBC (Bld)83.7 %Critically high43.0-75.0[facility] HospitalComment on above:Performed By: #### CBC #### [facility] [address] [place] [address] Harini KarenPlatelet mean volume (Bld) [Entitic vol]11.2 fLNormal9.5-13.5The [facility]awas HospitalComment on above:Performed By: #### CBC #### [facility] [address] [place] [address] Harini EngPLT219 103/mjPbrsqw186-484Fkh [facility] HospitalComment on above: Performed By: #### CBC #### [facility] [address] [place] [address] Harini EngRBC4.00 106/ulCritically low4.20-5.40The [facility]as HospitalComment on above:Performed By: #### CBC #### [facility] [address] [place] [address] Harini EngWBC11.7 103/ulCritically high4.0-11.0The [facility]as HospitalComment on above:Performed By: #### CBC #### [facility] [address] [place] [address] Harini BraunenCovid-19 PCR (CVDTB)on 09-59-6116KYMV-CoV-2 (COVID-19) RNA SONY+probe Ql (Unsp spec)Not detectedNormalNOT DETECTEDMiddletown Hospital Comment on above:Result Comment: This test is not yet approved or cleared by the [place] FDA. When there are no FDA-approved or cleared tests available, and other criteria are met, FDA can make tests available under an emergency access mechanism called an Emergency Use Authorization (EUA). The EUA for this test is supported by the [place] of Health and Human Service's (HHS's) declaration [...] consistent with SARS-CoV-2.Performed By: #### CBC #### [facility] [address] [place] [address] Harini KarenDRUG SCREEN RAPID (URINE)on 91-05-3597JVAIyaeebixQuonxzRDIRWRGYBgz Bellevue HospitalComment on above:Performed By: #### HBSANS #### [facility] [address] [place] [address] Harini KarenBARNegativeNormalNEGATIVEMiddletown HospitalComcorewell health reed city hospital on above: Performed By: #### HBSANS #### [facility] [address] [place] [address] Harini KarenBUPNegativeNormalNEGATIVEMiddletown HospitalComcorewell health reed city hospital on above: Performed By: #### HBSANS #### [facility] [address] [place] [address] Harini KarenBZONegativeNormalNEGATIVESelect Medical [facility]ty [facility] [place] on above: Performed By: #### HBSANS #### [facility] [address] [place] [address] Harini KarenCOCNegativeNormalNEGCleveland Clinic Medina Hospital on above: Performed By: #### HBSANS #### [facility] [address] [place] [address] Harini KarenCUT-OFFSSEE BELOWMercy Health Lorain HospitalComcorewell health reed city hospital on above:Result Comment: AMP (Amphetamine): 500ng/mL, BAR (Barbituates): 200 ng/mL, BZO (Benzodiazepines): 150 ng/mL, BUP (Buprenorphine): 10 ng/mL, NORMA (Cocaine): 150 ng/mL, mAMP (Methamphetamine): 500 ng/mL, MTD (Methadone): 200 ng/mL, OPI (Opiates): 100 ng/mL, OXY (Oxycodone): 100 ng/mL, PCP (Phencyclidine): 25 ng/mL, PPX (Propoxyphene): 300 ng/mL, THC (Cannabinoids): 50 ng/mL, TCA (Trycyclic Antidepressants): 300 ng/mLPerformed By: #### HBSANS #### [facility] [address] [place] [address] Harini KarenDRUG CUT HEADERDRUG CLASS TEST SYSTEM CUT-OFF CONCENTRATIONS ARE FOLLOWS:NormalThe West Columbia HospitalComment on above:Performed By: #### HBSANS #### [facility] [address] [place] [address] Harini KarenmAMPNegativeNormalNEGATIVEAshtabula General Hospital HospitalComment on above: Performed By: #### HBSANS #### [facility] [address] [place] [address] Harini KarenMTDNegativeNormalNEGATIVEAshtabula General Hospital HospitalComment on above: Performed By: #### HBSANS #### [facility] [address] [place] [address] Harini KarenOPINegativeNormalNEGATIVEAshtabula General Hospital HospitalComment on above: Performed By: #### HBSANS #### [facility] [address] [place] [address] Harini KarenOXYNegativeNormalNEGATIVEMiddletown HospitalComment on above: Performed By: #### HBSANS #### [facility] [address] [place] [address] Harini KarenPCPNegativeNormalNEGATIVEAshtabula General Hospital HospitalMercy Mccune-Brooks Hospitalment on above: Performed By: #### HBSANS #### [facility] [address] [place] [address] Harini KarenPPXNegativeNormalNEGATIVESelect Medical Specialty [facility] [place] on above: Performed By: #### HBSANS #### [facility] [address] [place] [address] Harini KarenTCANegativeNormalNEGATIVEAshtabula General Hospital HospitalMercy Mccune-Brooks Hospitalment on above: Performed By: #### HBSANS #### [facility] [address] [place] [address] Harini KarenTHCNegativeNormalNEGATIVEMiddletown HospitalComment on above: Performed By: #### HBSANS #### [facility] [address] [place] [address] Harini KarenUA (CLEAN/CATCH) DUCT CLEANER/MICRO IF IND.on 42-42-7708Btvsabmzi Ql (U) NegativeNormalNEGATIVEAshtabula General Hospital HospitalComment on above:Performed By: #### HONORIO UACSIND ####[facility] [address] [place] [id number]. Yilan ChangClarity (U)CLEARNormalCLEARAshtabula General Hospital HospitalComment on above:Performed By: #### HONORIO UACSIND ####[facility] [address]ts[address] [place] [id number]. Yilan ChangColor (U)LT. YELLOWNormal YELLOWAshtabula General Hospital HospitalComment on above:Performed By: #### HONORIO UACSIND ####[facility] [address]whi[address]lt[address] [place] [id number]. Yilan ChangGlucose Ql (U)NegativeNormalNEGATIVEAshtabula General Hospital HospitalComment on above:Performed By: #### HONORIO UACSIND ####[facility] [address] [place] [address]Dr. Yilan ChangHemoglobin Ql (U)LARGE AbnormalNEGATIVEAshtabula General Hospital HospitalComment on above:Performed By: #### HONORIO UACSIND ####[facility] [address]iefsunza[address] [place] [id number]. Yilan ChangKetones Ql (U)NegativeNormalNEGATIVEMiddletown Hospital Comment on above:Performed By: #### REX OLMEDOCSIND ####[facility] [address] [place] [address]Dr. Yilan ChangLEUKOCYTES NegativeNormalNEGATIVEMiddletown HospitalComment on above:Performed By: #### HONORIO UACSIND ####[facility] Prfvqjskgg[address] [place] [phone]. Yilan ChangNitrite Ql (U)NegativeNormalNEGATIVEMiddletown HospitalComment on above:Performed By: #### HONORIO UACSIND ####[facility] V[address]oxftjn[address] [place] [address]Dr. Yilan ChangpH (U)6.5 [pH]Normal5-9The [facility]as HospitalComment on above:Performed By: #### VINEET OLMEDOIND ####[facility] Cusnllgvux[address] [place] [address]Dr. Babak AdamsSPEC GRAVITY1.451Ttmftl9.005-<=1.025The [facility] HospitalComment on above:Performed By: #### HONORIO UACSIND ####[facility] Asmsbgylep[address] [place] [address]Dr. Babak AdamsUA PROTEINNegativeNormalNEGATIVE/ TRACEThe [facility]as HospitalComment on above: Performed By: #### HONORIO UACSIND ####[facility] Unjchuhib[address] [place], [place] [address]Dr. Babak AdamsUR MICRO INDINDICATEDNoHolzer Health SystemComment on above:Performed By: #### HONORIO UACSIND ####[facility] Uuygyfemtf[address] [place], [place] [address]Dr. Babak AdamsUrobilinogen Qn (U)0.2 {Rakesh'U}/dLNormal0.2 - 1.0The [facility] HospitalComment on above:Performed By: #### REX OLMEDOCSIND ####[facility] Ovfefnijkt[address] [place], [place] [address]Dr. Babak Humphreys MICROSCOPIC ONLYon 61-01-6819VZEIDREIQLMW SEENNormalNONE SEENMiddletown HospitalComcorewell health reed city hospital on above:Performed By: #### HONORIO UACSIND ####[facility] Zdkpuzmisa[address] [place], [place] [address]Dr. Babak Adams Bacteria identified Cx Nom (U)NOT INDICATEDNoHolzer Health SystemComment on above:Performed By: #### HONORIO UACSIND ####[facility] R[address]zuwb[address] [place], [place] [address]Dr. Babak AdamsCASTNONE SEENNormalNONE SEEN The [facility] HospitalComment on above:Performed By: #### HONORIO UACSIND ####[facility] Tyhydtsdys[address] [place], [place] [address]Dr. Babak AdamsCrystals LM Nom (Urine sed)NONE SEENNormalNONE SEENThe [facility] HospitalComment on above:Performed By: #### HONORIO UACSIND ####[facility] Ixgujplxcg[address] [place] [address]Dr. Babak Adams Epithelial cells LM Ql (Urine sed)FEWAbnormalNONE SEEN /RAREThe [facility] HospitalComment on above:Performed By: #### HONORIO UACSIND ####[facility] [address]qrmlnr[address] [place] [address]Dr. Babak Adams MUCOUSTRACEAbnormalNONE SEENThe [facility] HospitalComment on above:Performed By: #### HONORIO UACSIND ####[facility] [address]axshnpx[address] [place] [address]Dr. Babak AdamsYasrkIZO0-54Eopwusci4-9Ncd [facility] Comment on above:Performed By: #### HONORIO UACSIND ####[facility] Yuczdryvei[address] [place] [address]Dr. Babak AdamsWBCNONE SEEN NormalNONE SEENThe [facility] HospitalComment on above:Performed By: #### HONORIO UACSIND ####[facility] Efonavxjxr[address] [place] [address]Dr. Babak Do PREG BIOPHY W NON STRESSon [id number] PREG BIOPHY W NON STRESSEXAMINATION: US PREG [...] Electronically authenticated by: OKSANA DAVIES Date: 2021-01-10 09:00[facility] HospitalUS PREG GROWTHon 27-03-2653DA PREG GROWTHEXAMINATION: US PREG GROWTH HISTORY: Endocrine, [...] Electronically authenticated by: OKSANA DAVIES Date: 2021-01-10 09:02[facility] HospitalGROUP B STREP CULTUREon 01-09-2021. agalactiae Ag Ql (Unsp spec)Culture Observations: NEGATIVE FOR GROUP B STREPTOCOCCUS.NormalThe [facility]as HospitalComment on above: Performed By: #### GBSCX ####[facility] [address] [place], [place] [address]Mz. Babak AdamsUS PREG BIOPHY W NON STRESSon [id number] PREG BIOPHY W NON STRESSEXAMINATION: US PREG [...] Electronically authenticated by: OKSANA DAVIES Date: 2021-01-03 09:58NormD[facility] PREG BIOPHY W NON STRESSon [id number] PREG BIOPHY W NON STRESSEXAMINATION: US PREG [...] Electronically authenticated by: HOA FOFANA Date: 2020-12-27 09:15NormalMemorial Health System PREG BIOPHY W NON STRESSon 34-25-0945WJ PREG BIOPHY W NON STRESSEXAMINATION: US PREG [...] Electronically authenticated by: HOA FOFANA Date: 2020-12-20 09:18[facility] HospitalHo 77-45-5174UPI7.393 uIU/mLNormal0.470-4.680[facility] HospitalComment on above:Performed By: #### TSH ####[facility] Hdgacsgbov[address] [place], [place] [address]Comment on above:Result Comment: <0.34 UIU/ml HYPERTHYROID 0.34-5.60 UIU/ml EUTHYROID >5.60 UIU/ml HYPOTHYROIDPerformed By: #### TSH ####[facility] [address] [place] [address] [facility] PREG BIOPHY W NON STRESSon 16-15-1481WA PREG BIOPHY W NON STRESSEXAMINATION: US PREG [...] Electronically authenticated by: HOA FOFANA Date: 2020-12-13 09:12[facility] HospitalUS PREG GROWTHon [id number] PREG GROWTHEXAMINATION: US PREG GROWTH HISTORY: Endocrine, [...] Electronically authenticated by: HOA FOFANA Date: 2020-12-13 09:13[facility] HospitalGTT 3 HR PREGon 11-27-3922Oiffzhr [Mass/Vol]85 mg/dLNormal 74-106[facility] HospitalComment on above:Performed By: #### GTT3P ####[facility] [address] [place], [place] [address]Zduhyb KarenGlucose [Mass/Vol]186 mg/dLMercy Health Lorain HospitalComment on above: Performed By: #### GTT3P ####[facility] V[address]wd[address]vtkxp[address] [place], [place] [address]Kznpeo KarenGlucose [Mass/Vol]161 mg/dLNoHolzer Health SystemComment on above:Performed By: #### GTT3P ####[facility] [address]ruzs[address] [place] [address]Gerken KarenGlucose [Mass/Vol]90 mg/dLNoHolzer Health SystemComment on above:Performed By: #### GTT3P ####[facility] [address]rdh[address] [place] [address]Gerken KarenGLUCOSE - 1HRon 12-82-3016Kzwqomw [Mass/Vol]195 mg/dLCritically uypi44-516Hje [facility] HospitalComment on above:Performed By: #### GLU1HR ####[facility] [address]xjlr[address] [place], [place] [address]Gerken KarenHEMOGRAM AND PLATELon 19-93-1161Iotcrlxdnf (Bld) [Volume fraction]32.9 % Critically low36.0-48.0[facility] HospitalComment on above:Performed By: #### CBC #### [facility] [address] [address] Harini KarenHemoglobin (Bld) [Mass/Vol]10.7 g/dLCritically low12.0-16.0[facility] HospitalComment on above:Performed By: #### CBC #### [facility] [address] [address] Harini KarenMCH (RBC) [Entitic mass]29.0 iyLwovbo85.7-34.0[facility] Comment on above:Performed By: #### CBC #### [facility] [address] [address] Harini KarenMCHC (RBC) [Mass/Vol]32.5 g/aPGrtogx55.9-35.2[facility] Comment on above:Performed By: #### CBC #### [facility] [address] [address] Hraini KarenMCV (RBC) [Entitic vol]89.2 aLXaktkw93.0-99.0The [facility] Comment on above:Performed By: #### CBC #### [facility] [address] [address] Harini BraunHrompZFZ271 103/lgSvckgz887-276Ven [facility] HospitalComment on above: Performed By: #### CBC #### [facility] [address] [address] Harini BraunenRBC3.69 106/ulCritically low4.20-5.40The [facility] HospitalComment on above:Performed By: #### CBC #### [facility] [address] [address] Harini BraunenWBC11.6 103/ulCritically high4.0-11.0The [facility] HospitalComment on above:Performed By: #### CBC #### [facility] [address] [address] Harini EngUS PREG GROWTHon 06-53-3801EF PREG GROWTHEXAMINATION: US PREG GROWTH HISTORY: Endocrine, [...] Electronically authenticated by: HOA FOFANA Date: 2020-11-15 10:36[facility] HospitalVIT D 1 25 DIHYDROXYon 10-13-3211Nrblpdfplr(1,25 di-[place] Vit D) 91.9 pg/mLCritically high19.9-79.3The [facility] HospitalComment on above: Performed By: #### CBC #### [facility] [address] [place] [address] Harini EasleyHon 70-62-0316IMF2.386 uIU/mLNormal0.470-4.680[facility] HospitalComment on above:Performed By: #### CBC #### [facility] [address] [place] [address] Harini KarenTSH RANGESEE BELOWNoHolzer Health SystemComment on above:Result Comment: <0.34 UIU/ml HYPERTHYROID 0.34-5.60 UIU/ml EUTHYROID >5.60 UIU/ml HYPOTHYROIDPerformed By: #### CBC #### [facility] [address] [place] [address] Harini KarenPAP ACOG PANEL 2: 30 to 65on 09-03-2020..NormalMiddletown Hospital Comment on above:Result Comment: Performed at: WBPerformed By: #### CBC #### [facility] [address] [place] [address] Harini KarenAge Gdln ACOG Fdoibdb74-22OkqkwqFpeMercy Health Lorain HospitalComment on above:Performed By: #### CBC #### [facility] [address] [place] [address] Harini KarenDIAGNOSIS:[facility]aritan North Health CenterComment on above:Result Comment: NEGATIVE FOR INTRAEPITHELIAL LESION OR MALIGNANCY. Performed at: WBPerformed By: #### CBC #### [facility] [address] [place] [address] Harini KarenHPV AptimaNegativeNormalNegativeMiddletown HospitalComment on above:Result Comment: This nucleic acid amplification test detects fourteen high-risk HPV types (16,18,31,33,35,39,45,51,52,56,58,59,66,68) without differentiation. Performed at: =GPerformed By: #### CBC #### [facility] [address] [place] [address] Harini KarenMethodology:CommentVan Wert County Hospital on above: Result Comment: This liquid based ThinPrep(R) pap test was screened with the use of an image guided system. Performed at: WBPerformed By: #### CBC #### [facility] [address] [place] [address] Harini BraunenNote:CommentVan Wert County Hospital on above:Result Comment: The Pap smear is a screening test designed to aid in the detection of premalignant and malignant conditions of the uterine cervix. It is not a diagnostic procedure and should not be used as the sole means of detecting cervical cancer. Both false-positive and false-negative reports do occur. . Performed at: WBPerformed By: #### CBC #### [facility] [address] [place] [address] Harini BraunenPerformed by:CommentVan Wert County Hospital on above: Result Comment: Johanna Bautista, College Basketball Coach (ASCP) Performed at: WBPerformed By: #### CBC #### [facility] [address] [place] [address] Harini KarenSpecimen adequacy:CommentVan Wert County Hospital on above:Result Comment: Satisfactory for evaluation. No endocervical component is identified. Performed at: WBPerformed By: #### CBC #### [facility] [address] [place] [address] Harini BraunenCHLAMYDIA/GONOCOCCUS SONY (SWAB/URINE/PAPon 03-76-9402Qqrntlxlk trachomatis, NAANegativeNormalNegativeThe [facility] HospitalComcorewell health reed city hospital on above: Performed By: #### CT/NGNA ####[facility] [address] [place] [address]Gerken KarenNeisseria gonorrhoeae, NAANegativeNormal NegativeThe [facility] on above:Performed By: #### CT/NGNA ####[facility] [address] [place] [address]Gerken KarenVAGINITIS/VAGINOSIS DNA PROBEon 48-04-6313Xpzuaee speciesNegativeNormal NegativeThe [facility]as HospitalComment on above:Performed By: #### CBC #### [facility] [address] [place] [address] Harini BraunenGardnerella vaginalisPositiveAbnormalNegativeM[facility] Comment on above:Performed By: #### CBC #### [facility] [address] [place] [address] Harini KarenTrichomonas vaginalisNegativeNormalNegativeM[facility] Comment on above:Performed By: #### CBC #### [facility] [address] [place] [address] Harini KarenHEP B SURFACE ANTIGEN SCREENon 03-94-3994JBkWs ScreenNegativeNormal NegativeMiddletown HospitalComment on above:Performed By: #### HBSANS #### [facility] [address] [place] [address] Harini KadeenHEPATITIS C VIRUS AB W/ REFLEX QUANTon 87-09-3807OCZ AB0.2 s/co ratioNormal0.0-0.9The [facility]as HospitalComment on above:Performed By: #### HCVPCRR ####[facility] [address] [place], [place] [address]enInterpretation:CommentNormalThe [facility] HospitalComcorewell health reed city hospital on above:Result Comment: Negative Not infected with HCV, unless recent infection is suspected or other evidence exists to indicate HCV infection.Performed By: #### HCVPCRR ####[facility] [address] [place] [address] KarenHIV 1 AND 2 WITH REFLEXon 02-86-1616XKG Screen 4th Generation wRfx Non-ReactiveNormalNon ReactiveThe [facility]as HospitalComment on above:Performed By: #### HIV12 #### [facility] [address] [place] [address] Harini KarenRPR QUANTon 36-02-8792Hgyvj Plasma Reagin, QuantNon-ReactiveNormal NonRea<1:1The [facility]as HospitalComment on above:Performed By: #### CBC #### [facility] [address] [place] [address] Harini KarenRUBELLA AB IGGon 50-49-2930Yvgxygb Antibodies, IgG1.89 indexNormal Immune >0.99The [facility]as HospitalComment on above:Result Comment: Non-immune <0.90 Equivocal 0.90 - 0.99 Immune >0.99Performed By: #### CBC #### [facility] [address] [place] [address] Harini KarenCBC AUTO DIFFon 08-34-6295TAXG #0.0 103/ulNormal0.0-0.1The [facility]as HospitalComment on above:Performed By: #### CBC #### [facility] [address] [place] [address] Harini KarenBasophils/100 WBC (Bld)0.3 %Normal0.2-2.0The [facility] Comment on above:Performed By: #### CBC #### [facility] [address] [place] [address] Harini KarenEO #0.1 103/ulNormal0.0-0.7The [facility] HospitalComment on above: Performed By: #### CBC #### [facility] [address] [place] [address] Harini KarenEosinophils/100 WBC (Bld)0.6 %Critically low0.9-7.0The [facility] HospitalComment on above:Performed By: #### CBC #### [facility] [address] [place] [address] Harini KarenErythrocyte distribution width (RBC) [Ratio]13.0 %Xypyyp12.0-15.0The [facility]as HospitalComment on above:Performed By: #### CBC #### [facility] [address] [place] [address] Harini KarenHematocrit (Bld) [Volume fraction]36.9 %Kvvhhe84.0-48.0The [facility] HospitalComment on above:Performed By: #### CBC #### [facility] [address] [place] [address] Harini KarenHemoglobin (Bld) [Mass/Vol]12.0 g/xDRgfoep33.0-16.0The [facility] HospitalComment on above:Performed By: #### CBC #### [facility] [address] [place] [address] Harini MurrietaG #0.04 10e3/ulCritically high0.00-0.03The [facility] HospitalComment on above:Performed By: #### CBC #### [facility] [address] [place] [address] Harini Gottlieb %0.4 %Normal0.0-0.5The [facility] HospitalComment on above: Performed By: #### CBC #### [facility] [address] [place] [address] Harini EngLYMPH #1.4 103/ulNormal1.2-3.8The [facility] HospitalComment on above: Performed By: #### CBC #### [facility] [address] [place] [address] Harini EngLymphocytes/100 WBC (Bld)14.6 %Critically low20.5-60.0The [facility] HospitalComment on above:Performed By: #### CBC #### [facility] [address] [place] [address] Harini EngMANUAL DIFF REQNONormalThe [facility]as HospitalComment on above: Performed By: #### CBC #### [facility] [address] [place] [address] Harini KarA[facility] (RBC) [Entitic mass]28.6 ecAxkihf63.7-34.0The [facility] Comment on above:Performed By: #### CBC #### [facility] [address] [place] [address] Harini KarJohnson [facility] (RBC) [Mass/Vol]32.5 g/fIUlrwwg90.9-35.2The [facility] Comment on above:Performed By: #### CBC #### [facility] [address] [place] [address] Harini KarsalomeV (RBC) [Entitic vol]88.1 lDWwoyrk66.0-99.0The [facility] Comment on above:Performed By: #### CBC #### [facility] [address] [place] [address] Harini KarenMONO #0.4 103/ulNormal0.3-0.8The [facility] HospitalComment on above: Performed By: #### CBC #### [facility] [address] [place] [address] Harini KarenMonocytes/100 WBC (Bld)3.9 %Normal1.7-12.0The [facility] Comment on above:Performed By: #### CBC #### [facility] [address] [place] [address] Harini KarenNEUT #7.6 103/ulCritically high1.4-6.5The [facility] HospitalComment on above:Performed By: #### CBC #### [facility] [address] [place] [address] Harini KarenNeutrophils/100 WBC (Bld)80.2 %Critically high43.0-75.0The [facility] HospitalComment on above:Performed By: #### CBC #### [facility] [address] [place] [address] Harini KarenPlatelet mean volume (Bld) [Entitic vol]11.4 fLNormal9.5-13.5The [facility] HospitalComment on above:Performed By: #### CBC #### [facility] [address] [place] [address] Harini SrydiLTY838 103/azKtandx776-844Snf [facility] HospitalComment on above: Performed By: #### CBC #### [facility] [address] [place] [address] Harini KarenRBC4.19 106/ulCritically low4.20-5.40The [facility]as HospitalComment on above:Performed By: #### CBC #### [facility] Laboratory [address] [place] [address] Harini KarenWBC9.4 103/ulNormal4.0-11.0The West Columbia HospitalComment on above: Performed By: #### CBC #### [facility] [address] [address] Harini KarenCULTURE URINEon 95-39-4856JAPDLEZ URINECulture Observations: NO GROWTHNoHolzer Health SystemComment on above:Performed By: #### URCX ####[facility] [address] [address]Gerken KarenGLYCOHEMOGLOBIN A1Con 83-50-1020ZFP RECOMMENDATIONADA THERAPEUTIC TARGET 6.0 - 7.0 ACTION SUGGESTED > 7.0NoHolzer Health SystemComment on above: Performed By: #### A1C #### [facility] [address] [place] [address] Harini KarenGlucose [Mass/Vol]100 mg/dLMercy Health Lorain HospitalComment on above:Performed By: #### A1C #### [facility] [address] [place] [address] Harini QigbmQvQ7k (Bld) [Mass fraction]5.1 %Normal<=6.0[facility] Comment on above:Performed By: #### A1C #### [facility] [address] [address] Harini KarenNATERA BOX TEST PT SEND OUTon [id number] TO REF LAB07/19/2020 NormalMiddletown HospitalComment on above:Performed By: #### CBC #### [facility] [address] [place] [address] Harini KarenTYPE AND SCREENon 74-43-9916YHLC AND SCREENNegativeNoHolzer Health SystemComment on above:Performed By: #### TNS ####[facility] [address] [place], [place] [address]Gerken KarenUS PREG TVon 67-38-7804ZL PREG TVEXAMINATION: US PREG TV HISTORY: Hemorrhagic [...] Electronically authenticated by: HOA FOFANA Date: 2020-07-02 07:21[facility]SEon 26-29-1917PMGCFFXYltwv Visit (REIAV) KARLOS VILLEGAS ([id number]) 1985 F Date Time Provider Department 06/17/20 8:20 AM NURSE SHANNAN [facility] REJ REIAV During your visit today, we recorded the following information about you: Paula Masterson 06/17/2020 3:29 PM Signed Karlos Cordova Villegas, [...] OB OB Provider: NESSA Patients Phone number: [phone] Paula Griggs MD 06/17/2020 3:29 PM Signed [...] (None) Encounter Status:Closed by PAULA MASTERSON on 06/17/20[facility] 82-53-2063NBISZOGAnadb Visit (REIBD) KARLOS VILLEGAS ([id number]) 1985 F Date Time Provider Department 06/14/20 10:00 AM NURSE SHANNAN [facility] KIMMY REIBD During your visit today, we [...] Encounter Status:Closed by ANIRUDH NUR RN on 06/17/20[facility] Quantitative Blon 09-25-5676QXI, Quantitative Bl419.8 mU/mLHigh <5.0[facility] CenterComcorewell health re[facility] on above:Result Comment: QUANTITATIVE HCG NORMAL RANGES Weeks of Gestation (Weeks Since LMP) 3 Weeks (5.8-71.2 mIU/mL) 4 Weeks (9.5-750 mIU/mL) 5 Weeks (217-7138 mIU/mL) 6 Weeks (158-90807 mIU/mL) 7 Weeks (3697-417921 mIU/mL) 8 Weeks (46278-979631 mIU/mL) 9 Weeks (98489-443907 mIU/mL) 10 Weeks (25799-933994 mIU/mL) 12 Weeks (56045-414604 mIU/mL) Referenced to 4th IS of NIBSCPerformed By: #### HCGQT ####[facility] [address] [place], [place] [id number] 05-15-2020 CNOVOffice Visit (REIAV) KARLOS VILLEGAS ([id number]) 1985 F Date Time Provider Department 05/15/20 10:45 AM PETROS RAINEY During your visit today, we recorded the following information about you: Pulse Blood pressure Weight Height 96/minute 127/72 124.1 kg 1.727 m Last Period 04/29/20 Sulema Raphael MD 05/16/2020 7:15 AM Signed [facility] In Vitro Fertilization Program Date: 05/15/2020 Patient Name: Karlos Villegas Consultation Requested By: PCP / IRONER SOCK if different from referral source: self HISTORY [...] Results Date Comments HSG Normal done by piano refinisher 2018 Hysteroscopy Laparoscopy OPK (Ovulation Predictor Kit) Ovarian [place] Saline Ultrasound Semen Analysis Normal [facility] and piano refinisher 2019 Ultrasound 2019 Other (See comments) Prior [...] found for this basename: aborhd 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 Dropped cycles: Yes 2. Hyperstimulation Syndrome: Yes 3. Ovarian [place]: Yes 4. Freezi (more content not included)...NormalSouthwest General Health CenterCONLT PROGon 09-71-6133YQUIVSK PROGHNO ID: [id number] Author: Petros Rainey Service: ? Author Type: Physician Type: Consult Progress Note Filed: 05/16/2020 7:15 AM Note Text: [facility] In Vitro Fertilization Program Date: 05/15/2020 Patient Name: Karlos Villegas Consultation Requested By: PCP / IRONER SOCK if different from referral source: self HISTORY [...] Results Date Comments HSG Normal done by piano refinisher 2018 Hysteroscopy Laparoscopy OPK (Ovulation Predictor Kit) Ovarian [place] Saline Ultrasound Semen Analysis Normal [facility] piano refinisher 2019 Ultrasound 2019 Other (See comments) Prior [...] found for this basename: aborhd 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 Dropped cycles: Yes 2. Hyperstimulation Syndrome: Yes 3. Ovarian [place]: Yes 4. Freezing eggs/embryos: Yes 5. Potential for no transfer: Yes 6. Surgical procedure and complications: Yes 7. ICSI: yes 8. Number of embryos to transfer: 1 9. Elective Single Embryo Transfer candidate: Yes 10. Selective Reduction discussed: Yes 11. PGD Candidate: No (more content not included)...NormalSouthwest General Health CenterCNPNon 66-52-3320HPTIIcrtuasfr (REIBD) KARLOS VILLEGAS ([id number]) 1985 F Date Time Provider Department 05/13/20 PETROS RAINEY During your visit today, we recorded the following information about you: Sandra Franklin Pss 05/13/2020 12:18 PM Signed Pt Needs a work letter sent to her my chart regarding her appt yesterday for her iui Xochilt Chand APRN.CARPENTER MOLD 05/13/2020 12:44 PM Signed Letter sent. Xochilt Chand APRN.JAORN May 13, 2020 12:43 PM Allergies As [...] (None) Letter Text Encounter Status:Closed by XOCHILT CAHND CNP on 05/13/20[facility] 08-30-7018OIAVGzfeyc Visit (REIBD) MCKINLEYKARLOS L ([id number]) 1985 F Date Time Provider Department 05/12/20 [...] count of sperm after wash): 23.6 million Nocona Protocol/Safety Checklist: Sign In Communication: Completed Time [...] hives Date Reviewed: 05/12/2020 Reviewed by: Xochilt ([facility]) Howard - Fully Assessed Primary Visit [...] Encounter Status:Closed by XOCHILT CHAND CNP on 05/12/20[facility] BeachwoodMARIAMon 44-16-7183KWOCDMZFtdle Visit (MARLONIAV) KARLOS VILLEGAS ([id number]) 1985 F Date Time Provider Department 05/10/20 7:30 AM NURSE [facility]ANNAN [facility] During your visit today, we [...] Encounter Status:Closed by SWAPNIL CANALES MD on 05/11/20[facility] 96-89-5056BYWZAzxmsnxqj (REIBD) KARLOS VILLEGAS ([id number]) 1985 F Date Time Provider Department 05/09/20 [...] auth [Other] Cmt: the phone number is [phone] is the dircct line to call Prescriptions [...] Encounter Status:Closed by XOCHILT CHAND CNP on 05/10/20[facility] Vital Signs Date TimeVital SignValuePerforming WhgvjrmgnSbljsmyo92-73-2224 09:29-0400Body rrxpco131.72 cmKevon Land MD Work Phone: [phone]18[facility]10-15-2025 09:29-0400 Body mass index (BMI) [Ratio]43.6 kg/g9HojotuKevon Land MD Work Phone: [phone]10-15-2025 09:29-0400 Body qhexyu857.18 kgKevon Land MD Work Phone: [phone]10-15-2025 09:29-0400 Diastolic blood hdycfppo42 mm[Hg]Kevon Land MD Work Phone: [phone]10-15-2025 09:29-0400 Heart rate91 /minKevon Land MD Work Phone: [phone]10-15-2025 09:29-0400 Systolic blood lighckfi953 mm[Hg]Kevon Land MD Work Phone: [phone]76[facility]04-25-2025 08:45-0400 Body mxrogu662.72 cmWhite [facility]04-25-2025 08:45-0400Body mass index (BMI) [Ratio]46.3 kg/p2SjegorqvzWhite Hospital04-25-2025 08:45-0400Body mvjuxd651.34 kgWhite Hospital04-25-2025 08:45-0400Diastolic blood lunhwyki65 mm[Hg][facility] 08-04-2024 08:45-0400Heart rate99 /[facility] 08-04-2024 08:45-0400Systolic blood mpiqrduf677 mm[Hg][facility]10-08-2024 08:20-0400Body cemrou949.72 cmWhite [facility]10-08-2024 08:20-0400Body mass index (BMI) [Ratio]44.5 kg/b3TwomjyvtuWhite Hospital10-08-2024 08:20-0400Body .95 [facility]10-08-2024 08:20-0400Diastolic blood buwtarkg05 mm[Hg] [facility]10-08-2024 08:20-0400Heart rate82 /[facility]10-08-2024 08:20-0400Respiratory rate16 /[facility]10-08-2024 08:20-7911NvU4% (BldA) [Mass fraction]97 % [facility]10-08-2024 08:20-0400Systolic blood eglnqmwe667 mm[Hg][facility]07-31-2024 10:24-0400Body .72 cm [facility]07-31-2024 10:24-0400Body mass index (BMI) [Ratio]44.5 kg/k3WowngjxgiWhite Hospital07-31-2024 10:24-0400Body pwecqb942.9 kgWhite Hospital07-31-2024 10:24-0400Diastolic blood jdylaife274 mm[Hg][facility]07-31-2024 10:24-0400 Heart cgue656 /[facility]07-31-2024 10:24-0400Systolic blood tijypsrt958 mm[Hg][facility]05-03-2024 13:34-0400 Body fvcarh649.72 cmWhite Hospital05-03-2024 13:34-0400Body mass index (BMI) [Ratio]44.5 kg/z3NlqlfkzbgWhite Hospital05-03-2024 13:34-0400Body eyemvyydhok89.7 [degF][facility]05-03-2024 13:34-0400Body .9 kgWhite Hospital05-03-2024 13:34-0400Heart rate88 /[facility]05-03-2024 13:34-0400Respiratory rate18 /[facility]05-03-2024 13:34-5103VcT3% (BldA) [Mass fraction]97 %[facility] 07-26-2023 11:20-0400Body .72 cmWhite [facility] 07-26-2023 11:20-0400Body mass index (BMI) [Ratio]46 kg/s2QxzyhkmwtWhite Hospital04-15-2024 11:20-0400Body ifqsjv046.55 kgWhite Hospital04-15-2024 11:20-0400Diastolic blood toncbbsk42 mm[Hg][facility]04-15-2024 11:20-0400Heart rate99 /[facility]04-15-2024 11:20-0400Systolic blood vcksvokp778 mm[Hg][facility] Encounters Encounter DateEncounter TypeCare ProviderFacilityStart: 01-24-2025 End: 44-93-9959zzxricmtzrZrmknb E Braun MD Work Phone: [facility] Work Phone: Start: 01-24-2025 End: 13-83-8291Dugzntw encounter procedureKevon Land MD-[facility] Work Phone: Start: 08-04-2024 End: 17-88-7707yrcgjetwipNytdympsiMercy Health [facility] Work Phone: Start: 08-04-2024 End: 13-47-2930Fyyhxfo encounter procedureFormerly [facility] Work Phone: Start: 53-64-8994Dmc-patient / Non-visitFormerly [facility] Work Phone: Start: 44-57-5872Mvs-patient / Non-visitFormerly [facility] Work Phone: Start: 01-18-2024 End: 47-19-4241xbkuekblfuRytivihukTriHealth Work Phone: Start: 01-18-2024 End: 37-13-7129Zfvrtul encounter procedureFormerly [facility] Work Phone: Start: 11-10-2023 End: 14-49-4874amnvaivdmsDpfdqvxerTriHealth Work Phone: Start: 11-10-2023 End: 48-64-0373Clfkngc encounter procedureFormerly [facility] Work Phone: Start: 08-13-2023 End: 17-59-0127momhzrrpwaPgmgzuwlbTriHealth Work Phone: Start: 08-13-2023 End: 73-75-2275Sqwfkfs encounter procedureFormerly [facility] Jonh Work Phone: Start: 23-33-2653Esncnlu encounter statusSumma Health Akron Campustart: 07-26-2023 End: 05-40-2542ugzhfxzozfQubttigrqMercy Health – [facility] Hospital Work Phone: Start: 07-26-2023 End: 07-15-0674Rafzkskgp for general adult medical examination without abnormal findingsSumma Health Akron Campustart: 07-26-2023 End: 22-45-9597Yafssnx encounter procedureFormerly [facility] Work Phone: Start: 06-18-2021 End: 32-82-9867rjukjwinvhNP KEVON LANDFacility:M4Yarkd: 05-20-2021 End: 70-89-8975vxorxqfitpFO DOCTOR MISCFacility:A9Brdgl: 56-29-0244bnbfozwqorGN GIANLUCA FAZIOFacility:U7Ysdvj: 96-60-5200nngediuqknQJ GIANLUCA FAZIOFacility:D8Qaffx: 01-22-2021 End: 14-90-0954furfpywufbCJ GIANLUCA FAZIOFacility:O6Jtjtf: 01-14-2021 End: 03-03-8364Oxrayublbp and management of inpatientDR GIANLUCA FAZIOFacility:H1 Start: 01-10-2021 End: 93-60-4651qaravutufdBF DOCTOR MISCFacility:W7Tnoeu: 01-09-2021 End: 99-21-8493fgkvbedgrmUD GIANLUCA FAZIOFacility:T0Oyliy: 01-03-2021 End: 86-48-1034xcturwnmqkPS GIANLUCA FAZIOFacility:P1Kfudx: 12-27-2020 End: 46-32-7314izqkhstlgjCY GIANLUCA FAZIOFacility:W6Ndowu: 12-20-2020 End: 35-15-8844ozwvszlkrvPM GIANLUCA FAZIOFacility:G8Uptnj: 12-13-2020 End: 24-23-2759ddeswlgpsxPM GIANLUCA FAZIOFacility:N6Wdnnz: 12-13-2020 End: 41-59-8297kjnjgcdvxmPJ GIANLUCA FAZIOFacility:E8Nqjxb: 11-23-2020 End: 32-87-7819azfbhpxswhGU GIANLUCA FAZIOFacility:M8Plzdq: 11-15-2020 End: 79-45-4312pjnwvtqskpRI GIANLUCA FAZIOFacility:T1Jubhs: 11-02-2020 End: 85-23-3462okzpagktgvGP GIANLUCA FAZIOFacility:V1Sdqze: 08-29-2020 End: 54-23-4753kwglygvkicMN GIANLUCA FAZIOFacility:Q5Hzphk: 07-19-2020 End: 39-87-8511mepjljlqyaET GIANLUCA FAZIOFacility:P2Ojrjh: 07-01-2020 End: 52-51-6575ufqzpasesuBU GIANLUCA FAZIOFacility:H1 Procedures DateProcedureProcedure DetailPerforming ClinicianStart: 48-22-3803Tldcfilo of Products of Conception, External ApproachDR DOCTOR MISCStart: 29-22-6048Maboavnp of Female Perineum, External ApproachDR DOCTOR MISCStart: 78-74-7811Yaowbj Perineum Muscle, Open ApproachDR DOCTOR MISCStart: 64-16-3275Umiszs Vulva, External ApproachDR DOCTOR MISC Plan of Treatment Date[facility] Payers DatePayer CategoryPayerPolicy [id number] [id number] 2.0.1.185699.3.57[id number] 2.0.1.541869.3.57[id number] 2..1.170344.3.57[id number] 2.840.1.880445.3.57[id number] 2.0.1.749501.3.57[id number] 2..1.327778.3.579.2.00513-49-9214Gscjzsj3657324 2..1.400092.3.579.2.57177-53-3292Zebzmxg3306245 2.840.1.259462.3.579.2.23740-64-8004Ambdonh4899148 2.0.1.980751.3.579.2.57001-51-3905Jigxleb7079563 2..1.495364.3.579.2.16645-96-2644Spgexal9900661 2.840.1.756660.3.579.2.29250-99-7234Pcpbbfw6988713 2..840.1.188053.3.579.2.18110-75-7050Psczcom7054195 2.16.840.1.051790.3.579.2.59918-51-4600Ndvneip0611260 2.16.840.1.681699.3.579.2.67722-74-5962Iuepybs6282243 2..840.1.138915.3.579.2.59221-83-1192Cdbokkp4212877 2..840.1.843033.3.579.2.61546-30-8265Zygobzt1922304 2..840.1.499821.3.579.2.31464-76-7199Rhchqut1922664 2..840.1.312376.3.579.2.56491-85-5998Xsoelac8262146 2.840.1.550186.3.579.2.42142-91-2142Ufop-noc76-03-9905WhqojdbDKWXZ3160284 17-39-4006IwxqmjxDQI010166087123Lgljrob5346292 2.16840.1.555293.3.579.2.593 UnknownAnthem BC/AVB6LVP8187839 y0bkw351-sql4-341d-f0gi-83xk196m33h1Vecblkj HCAP/HFA/FAP DsliylO522038 1qjqx4j8-1758-2m8x-8atf-j74855q8li53 Social History DateTypeDetailFacilityStart: 40-54-6579Rmlpdvl smoking status NHISEx-smoker (finding)[facility] Campustart: 72-08-2180Pqp Assigned At FemaleSumma Health Akron Campustart: 74-92-7739LtlMjchxx (finding) [facility] Clinical Notes 05-01-2020 to 06-17-2020 Note Date & TwsgOxnuSvwiezvx74-90-9568 NoteHNO ID: [id number] Author: Tony Griggs Service: ? Author Type: Physician Type: Progress Notes Filed: 06/17/2020 3:29 PM Note Text: TRANSVAGINAL OB ULTRASONOGRAM Single viable IUP c/w dates Ovaries - normal w/ 23 mm simple cyst on right No free fluid See imaging tab PLAN - refer to OB [facility]Reg[facility]-2021 NoteHNO ID: [id number] Author: Paula Masterson Service: ? Author Type: [...] OB OB Provider: NESSA Patients Phone number: [phone] Paula [facility]02-24-2021 NoteHNO ID: [id number] Author: Jenny Perry Service: ? Author Type: [...] prefers to schedule 7 week scan at [place]. she will call if spotting changes/becomes concerning Jenny Perry APRN.CNP June 05, 2020 9:56 AM Telephone call: 10 minutes Please schedule the patient for the following- Location: [place] Visit type: scan Reason for visit/appointment notes: scan Date: 06/17 Time (if discussed): 0820 Call to patient needed: [facility]02-22-2021 NoteHNO ID: [id number] Author: Jenny Perry Service: ? Author Type: Nurse Practitioner Type: Progress Notes Filed: 06/03/2020 3:00 PM Note Text: Unable to reach patient by phone, sent [employer] message with instructions. Jenny Perry APRN.CNP June 03, 2020 3:00 [facility]02-19-2021 NoteHNO ID: [id number] Author: Jenny Perry Service: ? Author Type: [...] (if discussed): any Call to patient needed: [facility]02-15-2021 NoteHNO ID: [id number] Author: Jenny Perry Service: ? Author Type: [...] follow up. ? Healthy Guide sent via [employer]. ? Labs ordered: hcg AND TSH ? patient positive for covid - reviewed calling lab and scheduling lab testing ? advised monitoring temperature due to covid AND taking tylenol as needed NIMCO Perry, BITE BLOCK MAKER.[facility] May 27, 2020 6:26 PM Telephone call: 20 minutesSouth[facility]02-09-2021 NoteHNO ID: [id number] Author: Colin Sparks (Tech) Service: ? Author Type: Culinary Assistant Type: Progress Notes Filed: 05/21/2020 9:11 AM Note Text: IUI Letrozole Pre: 76 m/,ml, 71% Post: 71 m/ml, 83% Insem # 23.6 millionSouthwest General Health Center02-04-2021 NoteHNO ID: [id number] Author: Anirudh Nur RN Service: ? Author Type: ? Type: Progress Notes Filed: 05/16/2020 10:06 AM Note Text: Petros Rainey P Shannan Ivf Pool; P Shannan Scheduling Pool Hi! Please set up this pt with Berenice for IVF and also for nurse consult. Thank you, Sulema Raphael [facility]01-31-2021 NoteHNO ID: [id number] Author: Xochilt Chand Service: ? Author Type: [...] count of sperm after wash): 23.6 million Nocona Protocol/Safety Checklist: Sign In Communication: Completed Time [...] Villegas DATE: May 12, 2020 TIME: 9:48 [facility]01-29-2021 NoteHNO ID: [id number] Author: Xochilt Chand Service: ? Author Type: [...] discussed): tbd Call to patient needed: jacobo cruzSouthwest General Health Center01-28-2021 NoteHNO ID: [id number] Author: Jenny Perry Service: ? Author Type: Nurse Practitioner Type: Progress Notes Filed: 05/09/2020 3:28 PM Note Text: Unable to reach patient by phone, left detailed message that rx was sent to [facility]. also sent sent [employer] message with pharmacy phone number. Jenny Perry APRN.CNP May 09, 2020 3:25 PM The following approved medication requests have been transmitted electronically. Signed Prescriptions Disp Refills Choriogonadotropin Andrew,HumRec (OVIDREL) 250 mcg/0.5 mL syrg 1 Syringe 2 Sig: Inject 250 mcg subcutaneously one time only for 1 dose. KASSIDY: No Jenny Perry APRN.CNPSouthwest General Health Center01-27-2021 NoteHNO ID: [id number] Author: Jenny Perry Service: ? Author Type: Nurse Practitioner Type: Progress Notes Filed: 05/08/2020 11:09 AM Note Text: Ovidrel sent to [facility] patient notified via [employer]. The following approved medication requests have been transmitted electronically. Signed Prescriptions Disp Refills Choriogonadotropin Andrew,HumRec (OVIDREL) 250 mcg/0.5 mL syrg 1 Syringe 2 Sig: Inject 250 mcg subcutaneously one time only for 1 dose. KASSIDY: No Jenny Perry APRN.[facility]01-20-2021 NoteHNO ID: [id number] Author: Jenny Perry Service: ? Author Type: [...] schedule the patient for the following- Location: [place] Visit type: monitoring Reason for visit/appointment notes: midcycle scan Date: 05/10 Time (if discussed): 0745 Call to patient needed: [facility] note* Diagnosis Onset Date Resolution Status History of gestational diabetes acuteHypothyroidism, unspecifiedacutePolycystic ovarian syndromeacuteWellness examinationacute [facility] Work Phone: Evaluation note* Diagnosis Onset Date Resolution Status Tooth infection acute [facility] Work Phone: Evaluation note* Diagnosis Onset Date Resolution Status Hypothyroidism, unspecified acuteType 2 diabetes mellitus with hyperglycemiaacute [facility] Work Phone: Evaluation note* Diagnosis Onset Date Resolution Status Admit Date Chest pain acuteApril 2024 8:43amHypothyroidism, unspecifiedacuteApril 2024 8:43amType 2 diabetes mellitus with hyperglycemiaacuteApril 2024 8:43am [facility] Work Phone: Evaluation noteNo assessment information available [facility] Work Phone: Reason for referral (narrative)No reason for referral information availableCrystal Clinic Orth[facility] Work Phone: Summary Purpose Family History [...] section and content) DATE CREATED AUTHOR 04/30/2021 [facility] DATE CREATED AUTHOR AUTHOR'S ELISABET NARANJO 06/19/2021 [facility] Care Teams (unrecognized sec tion and [...] BE BASED ON THE PRIMARY CLINICAL RECORDS. [facility] [employer] [facility]. provides no warranty or guarantee of the accuracy or completeness of information in this document.
== END 2025-03-05 12:51 | disposition home or self-care (01) ==
LOC: US 12:51
PROVIDERS: PCP Family Medicine; Visit Provider Family Medicine
DX: E03.9 Hypothyroidism, unspecified (principal); E04.2 Nontoxic multinodular goiter
CPT/HCPCS: 76536

== ENCOUNTER 2025-03-07 12:45 | Outpatient (OUT) | payer BC, SELFPAY ==
--- OUTSIDE RECORDS SUMMARY | 2025-02-28 09:00 | XMS_ITS | Encounter Summary ---
Author Organization [facility] Address [address] [place] [address] Care Team Providers Care Card Grader Name Role Phone Lisa Osei MD Primary Care Provider [phone] Reason for Visit * ReasonCommentsWell Women Visit Encounter Details DateTypeDepartmentCare Team (Latest Contact Info)Gixqshryfhk34/19/2025 9:00 AM ESTProcedure Visit [facility] [address] [place] [phone] Johanna Roland PA [address] [place], [place] [id number] Well woman exam with routine gynecological exam; Family history of breast cancer; PCOS (polycystic ovarian syndrome) Social History Tobacco UseTypesPacks/DayYears UsedDateSmoking Tobacco: Never Assessed CommentsUnknownSex and Gender InformationValueDate RecordedSex Assigned at Not on fileLegal GkgHtfppf19/15/2023 11:47 PM EDTGender IdentityNot on file Sexual OrientationNot on filedocumented as of this encounter Last Filed Vital Signs Vital SignReadingTime TakenCommentsBlood [place]944/8402/28/2025 9:13 AM EST Pulse--Temperature--Respiratory Rate--Oxygen Saturation--Inhaled Oxygen Concentration--Kqygxb271 kg (285 lb)02/28/2025 9:13 AM ESTHeight--Body Mass Index--documented in this encounter Progress Notes * VISHNU Butcher - 02/28/2025 9:00 AM EST Reason for Appointment: Patient ID: Franchesca Villegas is a 39 y.o. female who presents for Well Women Visit Patient presents today for Annual Exam. MEDICATIONS Current Outpatient Medications Medication Instructions levothyroxine (SYNTHROID, LEVOXYL) 50 mcg, Daily before breakfast ALLERGIES Allergies Allergen Reactions Latex Hives PROBLEMS Active Ambulatory Problems Diagnosis Date Noted No Active Ambulatory Problems Resolved Ambulatory Problems Diagnosis Date Noted No Resolved Ambulatory Problems Past Medical History: Diagnosis Date History of gestational diabetes PCOS (polycystic ovarian syndrome) Thyroid disease HISTORY PAST MEDICAL HISTORY SOCIAL HISTORY Past Medical History: Diagnosis Date History of gestational diabetes PCOS (polycystic ovarian syndrome) Thyroid disease Social History Tobacco Use Smoking status: Not on file Smokeless tobacco: Not on file Substance Use Topics Alcohol use: Not on file Drug use: Not on file FAMILY HISTORY Family History Problem Relation Name Age of Onset Breast cancer Mother SURGICAL HISTORY History reviewed. No pertinent surgical history. REVIEW OF SYSTEMS Review of Systems: Review of Systems All other systems reviewed and are negative. OBJECTIVE Objective: Physical Exam Constitutional: Appearance: Normal appearance. She is well-developed. Genitourinary: Vulva normal. Right Adnexa: not tender and no mass present. Left Adnexa: not tender and no mass present. No cervical discharge. Breasts: Breasts are soft. Right: Normal. Left: Normal. HENT: Head: Normocephalic. Nose: Nose normal. Mouth/Throat: Mouth: Mucous membranes are moist. Cardiovascular: Rate and Rhythm: Normal rate and regular rhythm. Pulmonary: Effort: Pulmonary effort is normal. Breath sounds: Normal breath sounds. Abdominal: General: Bowel sounds are normal. There is no distension. Palpations: Abdomen is soft. Tenderness: There is no abdominal tenderness. There is no guarding or rebound. Musculoskeletal: General: No swelling. Normal range of motion. Cervical back: Normal range of motion. Right lower leg: No edema. Left lower leg: No edema. Neurological: General: No focal deficit present. Mental Status: She is alert and oriented to person, place, and time. Skin: General: Skin is warm and dry. Psychiatric: Mood and Affect: Mood normal. Behavior: Behavior normal. Vitals and nursing note reviewed. Exam conducted with a car hopper present. Vitals: There is no height or weight on file to calculate BMI. BP: 120/84 Patient's last menstrual period was 02/22/2025. Assessment/Plan ICD-10-CM 1. Well woman exam with routine gynecological exam Z01.419 Pap Smear HPV DNA probe, amplified 2. Family history of breast cancer Z80.3 3. PCOS (polycystic ovarian syndrome) E28.2 Assessment/Plan Annual Exam: Patient presents today for an annual exam. Patient states she is doing well and has no complaints. Pap was obtained without difficulty. Patient is interested in the [employer] due to mother having terminal bone cancer. Dx with cancer since 2019 and her father from cancer as well. And would like to be proactive. Pt was advised to schedule on her way out. PVU Patient is having issues w/her heavy periods. And patient is no longer desiring to have any more children and her has a vasectomy. Pt was advised of an Ablation and patient is interested in the procedure. Pt will schedule a pre op visit/EMBX. Orders Placed This Encounter Procedures HPV DNA probe, amplified Follow Up: Patient is to return in one year for annual unless needed otherwise. Documented by Jaclyn West MA on behalf of: VISHNU Butcher documented in this encounter Plan of Treatment DateTypeDepartmentCare Team (Latest Contact Info)Lcqszwjpxzb86/10/2025 9:00 AM ESTClinical Support [facility] [address] [place] [address] [place] [phone] 01/09/2026 10:00 AM EDTProcedure Visit [facility] [address] [place] [address] [place] [phone] Johanna Roland PA [address] [place] [address] NameTypePriorityAssociated DiagnosesOrder SchedulePap SmearPathology and CytologyRoutine Well woman exam with routine gynecological exam Ordered: 02/28/2025HPV DNA probe, amplifiedMicrobiologyRoutine Well woman exam with routine gynecological exam Ordered: 02/28/2025documented as of this encounter Visit Diagnoses Diagnosis Well woman exam with routine gynecological exam Routine gynecological examination Family history of breast cancer Family history of malignant neoplasm of breast PCOS (polycystic ovarian syndrome) Polycystic ovaries documented in this encounter Care Teams Team MemberRelationshipSpecialtyStart DateEnd Date Lisa Osei MD [address] [place] [phone] PCP - GeneralFamily Uibsjwuq01/19/25documented as of this encounter
--- OUTSIDE RECORDS SUMMARY | 2025-03-06 08:11 | XMS_ITS | Continuity of Care Document ---
Author Organization [facility] Address [address] [place] [address] Phone Care Team Providers Care Employment Programs Analyst Name Role Phone Lisa Osei MD Primary [...] January 24, 2025 End: January 24, 2025 Visit Care Team Team Status: Inactive Member Role/Relationship Status Dates Lisa Osei MD Primary Care Provider Active Start: February 28, 2025 End: February 28, 2025Sofi Fuentes ProviderActiveStart: February 28, 2025 End: February 28, 2025 Patient Care Team Team Status: Active Member Role/Relationship Status Dates Lisa Osei MD Primary Care Provider Active Start: March 06, 2025 Sofi Fuentes ProviderActiveStart: March 06, 2025 Chief Complaint and Reason for Visit Chief Complaint Admit Date Freckle Concern January 24, 2025 9 :26am Discuss lab results February 28, 2025 9:56am Referral Order March 06, 2025 1:07pm Reason for Visit Admit Date Allergic rhinitis January 24, 2025 9 :26am Hypothyroidism, unspecified January 9:26am Type 2 diabetes mellitus with hyperglyce nyla January 24, 2025 9:26am Hypothyroidism, unspecified February 9:56am Reason for Referral Type Reason(s) Provider Provider Contact Information Kelsey santos Address Start Date Thyroid nodule E04.1 - Nontoxic single thyroid dnmqxoZ09.1 - Nontoxic single thyroid nodule Susi Carlson Phone: [phone] [facility] [address]Cdjfsueu 2024 Allergies, Adverse Reactions, Alerts Allergen Type Severity [...] Legal Sex Female (finding) Sex Assigned At BirthFemaleMay 1985 Problems Active Problems Problem Diagnosis/Recorded Date Onset Date Stat us Class 3 severe obesity with body mass index (BMI) of 45.0 to 49.9 in adult August 04, 2024 8:19am Unknown Active Type 2 diabetes mellitus wit h hyperglycemia November 10, 2023 12:24pm Unknown Active Thyroid nodule March 06, 2025 1:08pm Unknown Active Wellness examination July 26, 2023 [...] Gonzalez ( )Levothyroxine (Synthroid) 75 mcg tablet Hqefzkkbnqbr05JJWGMBlokg585Krv 2023 9:55amAugust 2023 1:50pm FreeTextSig: TAKE 1 TABLET BY MOUTH EVERY DAY; Note: Source Status: Start; Refills: 2; Qty: 90 Tablet; Provider: Farnaz Gonzalez ( ) Levothyroxine (Synthroid) 75 mcg ovzugiRzbotdsgwbdq31MXJZAVaaeq974Yohqda 2023 1:49pmFebruary 2024 12:42pmGlipizide 5 mg tablet extended release 18wfYvzxjhkdqxnk2.ROUTE.JXMGAWM859Bkqjqof 2024 12:40pmApril 2024 7:52amTAKE 1 TABLET BY MOUTH EVERY DAYLevothyroxine (Synthroid) 75 mcg tablet Vafdqdvcmxko75XQXLHEagug804Tylguoyi 2024 12:42pmAugust 2024 7:12am Levothyroxine (Synthroid) 75 mcg xbhalsGwgqwxuooglb45OZHTVOyzto677Ixkdjl 2024 7:12amOctober 2024 1:02pmLevothyroxine 50 mcg vpekzhToupnusbgfse50SMV XBKphoq927Fxjenjp 2024 1:02pmNovember 2024 8:31amLevothyroxine 50 mcg cqxnxkDzfddg85RWOOUEmidb106Kjqwtdxp 2024 8:31amComplies with drug therapyLevothyroxine (Synthroid) 75 mcg eoybonUvntbvcmduwe8TMFPJDoiffKlszg 2023 11:00pmApril 2023 3:31pmFreeTextSig: TAKE 1 TABLET BY MOUTH EVERY DAY; Note: Source Status: Start; Refills: 2; Qty: 90 Tablet; Provider: Farnza Goznalez ( )Pnv 66-Ybjz-Lvvog Yrxk-Afcch-0 30 mg iron-10 mg iron-1 mg capsuleDiscontinuedCAPPOApril 2023 11:00pmApril 2023 10:25am Metformin 500 mg ihaiutRqlxjylaovqq667XOSETuotn daily with mealsApril 2023 11:00pmApril 2023 10:24amNitrofurantoin Monohyd/M-Cryst (Macrobid) 100 mg fmxrcvgAbasezkxkrdn7MLMMMQlnyy 12 hoursApril 2023 11:00pmApril 2023 10:24amFreeTextSi capsule with food Orally every 12 hrs; Note: Source Status: Taking; Refills: 0; Provider: Juan Francisco Hemphill JPhenazopyridine (Pyridium) 200 mg azcblvUssbjulehkfh0FOGTIZbrqm times dailyApril 2023 11:00pmApril 2023 10:24amFreeTextSi tablet after meals Orally Three times a day; Note: Source Status: Taking; Refills: 0; Provider: Juan Francisco Hemphill JClindamycin Hcl 150 mg snmlpdpGfnzauwjdfpe530DYDHYsepr 8 obhoq8463Pvy 2023 11:00pmJuly 2023 9:34amNaproxen 500 mg pwyiixMeelpl061ZSPZAeddd daily as needed for kklv79078Hia2023 11:00pmComplies with drug therapyGlipizide 5 mg tablet extended release 61csTrbypwcbolxo1HEICAcqud031Swwrjbz 2023 11:00pmJanuary 2024 12:40pmMetformin 500 mg tablet extended release 24 gaXiqsuysevukx636HH POTwice mjirm4821Fzyn 2023 11:00pmOctober 2023 9:06amClomiphene Citrate 50 mg xsauodUdwwfztxosjr54OIRZOmanlMejqi 2024 11:00pmApril 2024 7:53am Relevant Diagnostic Tests and/or Laboratory Data Laboratory Results Test Collection Date/Time Result Date/Time Result Interpretation Reference Range Result Comment Performing Site Urine Random Creatinine January 24, 2025 11:50am January 24, 2025 11:50am 17.14 mg/dL Below low normal 20.00-300.00 Free ThyroxineOctober 2024 11:57amOctober 2024 11:57am2.29 ng/dL Above high normal0.76-1.46Estimated Average GlucoseOctmeadowview regional medical center 2024 11:57am January 24, 2025 11:12we926 mg/dLThyroid Stimulating Hormone 3rd GenOct2024 11:57amOct2024 11:57am2.823 u[iU]/mL0.358-3.740Reference Lab Test Patient AgeNovember 2024 8:57amNovember 2024 8:57amNote. TESTS RESULT FLAG UNITS REF RANGE LAB Clinician Provided Cytology Information Source.............Cervix;Endocervix No. of containers..01 ThinPrep VialAge Ceceo LU Maddie... 30-65 FLAG LEGEND: L-Low Normal,H-High Normal,LL-Alert Low,HH-Alert High <-Panic Low,>-Panic High,A- Abnormal,AA-Critical Abnormal Performed a t:01 =G [facility] [place] [address] Debbie Patel MD, Avcfz Random MicroalbuminOct2024 11:50amOct2024 11:50am<1.3 mg/dL<=30.0Hemoglobin X9eZabznyy 2024 11:57amOct2024 11:57am6.1 %4.5-6.2ADA RECOMMENDED LIMIT 4.0 - 6.0ADA THERAPEUTIC TARGET < 7.0ACTION SUGGESTED> 7.0HPV High Risk Other Comment February 28, 2025 8:57amNovember 2024 8:57amNoteAbnormal (applies to non-numeric results).TESTS RESULT FLAG UNITS REF RANGE LAB DIAGNOSIS: [A] 02 EPITHELIAL CELL ABNORMALITY. ATYPICAL SQUAMOUS CELLS OF UNDETERMINED SIGNIFICANCE (ASC-US).Specimen adequacy: 02 Satisfactory for evaluation. Endocervical and/or squamous metaplastic cells (endocervical component) are present.Performed by: 02 Rosalio Sullivan, County Judge ([facility])Electronically si... Claritza Varghese MD, Pathologist. 02Pathologist ICD10: 02 R87.610Note: Note 02 The Pap smear is a screening test designed to aid in the detection of premalignant and malignant conditions of the uterine cervix. It is not a diagnostic procedure and should not be used as the sole means of detecting cervical cancer. Both false-positive and false-negative reports do occur.Test Methodology: Note 02 This liquid based ThinPrep(R) pap test was interpreted using the iLogon(R) Insyde Software(TM) Cervical Algorithm whole slide imaging system.HPV Genotype Reflex Note 02 Criteria not met, HPV Genotype not performed. FLAG LEGEND: L-LowNormal,H-High Normal,LL-Alert Low,HH-Alert High <-Panic Low,>-Panic High,A-Abnormal,AA-Critical Abnormal Performed at:[address] [address] Debbie Patel MD, EYT Genotype SourceAnson Community Hospital2024 8:57am February 28, 2025 8:57amNegativeNegativeThis nucleic acid amplification test detects fourteen high-risk HPV types (16,18,31,33,35,39,45,51,5 2,56,58,59,66,68)without differentiation.Performed at: =G - [facility] [address] [id number] Director: Debbie Patel MD, Phone: [phone] at: - [facility] [id number] Director: Debbie Patel MD, Phone: [phone] Vital Signs Vital Reading Result Reference Range Collection Date/Time Height 68 [in_i] January 24, 2025 8:11fmMbwbok871.18 [facility] 2024 8:29amHeart Rate91 /tte26-141Nlexkio 2024 8:29amBP Orwqfcvh082 mm[Hg]100-140Janmeadowview regional medical center 2024 8:29amBP Utkcjntjp21 mm[Hg]60-100[facility] 2024 8:29amBMI (Body Mass Index)43.6 kg/p0Eozwaxc 2024 8:73ibJhsnuo54 [in_i]February 28, 2025 10:17kbBjawrb901.18 kgAnson Community Hospital2024 10:00amHeart Rate81 /mfy00-158GcmcjjcxFebruary 28, 2025 10:00amBP Rliwvpgn543 mm[Hg]100-140February 28, 2025 10:00amBP Idyeejhyp68 mm[Hg]60-100February 28, 2025 10:00amBMI (Body Mass Index)43.6 kg/d4QzsgypeyFebruary 28, 2025 10:00am Advance Directives Advance Directive Response Recorded Date/ Time Advance Directives No January 19, 2018 2:00pm Insurance Providers Guarantor Franchesca Villeags Address [address] [place], [place] [address]Contact Info.Home Phone: Payer Group Member ID Coverage Type Subscriber Relationship to Subscriber Effective Date Expiration Date Juan José MADRID Id: [id number] L Villegas Id: [id number] [address] [place] [address] Home Phone: seld Encounters Encounter Location(s) Arrival/Admit Date Discharge/Departure Date Discharge/Departure Disposition Provider(s) Departed Physician/ Provider Office Visit -[facility] January 24, 2025 9:26am January 24, 2025 9:58am Discharged to home care or self care (routine discharge) Lisa Osei MD Departed Physician/ Provider Office Visit -[facility] February 28, 2025 9:56am February 28, 2025 10:36am Discharged to home care or self care (routine discharge) Lisa Osei MD Non-patient / Non-visit -[facility] 2024 1:07pm Lisa Osei MD Recent Diagnosis Onset Date Admit Date Allergic rhinitis Unknown January 24, 2025 9:26am Hypothyroidism, unspecified Unknown Octo jamey 2024 9:26am Type 2 diabetes mellitus with hyperglycemia Unkn own January 24, 2025 9:26am Hypothyroidism, unspecified Unknown Moshe er 2024 9:56am Assessments Diagnosis Onset Date Resolution Status Admit Date Allergic rhinitis acuteOctober 2024 9:26amHypothyroidism, unspecifiedacuteOctober 2024 9:26amType 2 diabetes mellitus with hyperglycemiaacuteOctober 2024 9:26am Hypothyroidism, unspecifiedacuteNovember 2024 9:56am Plan of Treatment Author Lisa Osei [facility] 2024 8:35amRecommend OTC Marium rather than claritin. No signs of bacteria infection causing her sore throat. Check labs, continue levothyroxine Check labs. Continue supplements and healthy diet/exercise. Author Lisa Osei [facility] 2024 8:37amRecheck labs and include US. Continue 50mcg qod until test results have returned. May need eval at endocrinology if further symptoms or abnormalities. Future Tests Future scheduled test information is [...] unavailable Patient Instructions Patient instructions are unavailable Hospital Discharge Instructions Ambulatory Orders* Referral to ENT Location: None Selected
--- OUTSIDE RECORDS SUMMARY | 2025-03-07 12:48 | XMS_ITS | Clinical Summary ---
Author Organization [facility] Address [address] [place] [address] Care Team Providers Care Contract Programmer Name Role Phone Unavailable Primary Care Provider Unavailabl e Allergies Active AllergyReactionsCriticalityNoted HaqaSpfewlygKwglkCrir13/08/2020 HoyhqehxwszNpqnq56/08/2020 At age 12, broke out in hives [...] number is lower riskNot on file03/17/2020Data from: https://www.neighborhoodatlas.medicine.[facility].edu/. Last address used for calculationNot on file03/17/2020CommentsNoSex and Gender Information ValueDate RecordedSex Assigned at BirthNot on fileLegal OuuIzhtyo63/02/2020 8:33 AM EDTGender IdentityNot on fileSexual OrientationNot on file Last Filed Vital Signs Vital SignReadingTime TakenCommentsBlood Xvypwczq361/7202 11:14 AM EST Pemor5546 11:14 AM ESTTemperature--Respiratory Rate--Oxygen Saturation 99%02/05/2020 8:41 AM EDTInhaled Oxygen Concentration--Bczepw270.1 kg (273 lb 8 oz)05/15/2020 11:14 AM TPMBrqxhn700.7 cm (5' 8 )05/15/2020 11:14 AM ESTBody Mass Index41.59005/15/2020 11:14 AM EST Plan of Treatment Health MaintenanceDue DateLast DoneCommentsAnxiety Gvbrrhpwt18/16/2006Depression Tudsjufsu98/16/2006HIV Honanpixt71/16/2006Hepatitis C Qqugdatli91/16/2006 DTaP,Tdap,Td Vaccine (1 - Tdap)08/25/2006Hepatitis B Vaccine (1 of 3 - 19+ 3- dose series)08/25/2006HPV Vaccine (1 - 3-dose SCDM series)08/25/2014Cervical Cancer Mtoefilbr22Covid-19 Vaccine (2024- season) 2024Influenza Vaccine (#1)2024 Insurance
--- OUTSIDE RECORDS SUMMARY | 2025-03-07 12:48 | XMS_ITS | Encounter Summary ---
Author Organization [facility] Address [address] [place] [address] Care Team Providers Care Press Helper Name Role Phone Lisa Osei MD Primary Care Provider [phone] Encounter Details DateTypeDepartmentCare Team (Latest Contact Info)Cynhhdhipij87/25/2025Telephone [facility] [address] [place] [address] iBlly Sotelo, [address] [facility] [address] Mary [place], [facility] Social History Tobacco UseTypesPacks/DayYears UsedDateSmoking Tobacco: Never Assessed CommentsUnknownSex and Gender InformationValueDate RecordedSex Assigned at Not on fileLegal OwiAvyzvn94/15/2023 11:47 PM EDTGender IdentityNot on file Sexual OrientationNot on filedocumented as of this encounter Miscellaneous Notes * Telephone Encounter - Veronica Arteaga LPN - 03/06/2025 1:51 PM EST Hi, this is De Leon, I am calling from Dr Osei Office. I just wanted you guys to be aware of a mutual patient. Franchesca Villegas, birthday 89, her recent lab results. Um, if you do not have those, just give us a call back. Can send them to you. Our phone number [phone]. Thank you, bye. Called and advised we did have her pap results and patient was made aware of our recommendations. documented in this encounter Plan of Treatment DateTypeDepartmentCare Team (Latest Contact Info)Zravfebdnqu98/10/2025 9:00 AM ESTClinical Support [facility] [address] [place] [address] [place] [phone] 01/09/2026 10:00 AM EDTProcedure Visit [facility] [address] [facility] [place] [address] Johanna Roland PA [address] [facility] [address] [place], [place] [phone] documented as of this encounter Visit Diagnoses Not on filedocumented in this encounter Care Teams Team MemberRelationshipSpecialtyStart DateEnd Date Lisa Osei MD [address] [facility] [place] [address] PCP - GeneralFamily Lidyqfmg26/19/25documented as of this encounter
--- OUTSIDE RECORDS SUMMARY | 2025-03-07 12:48 | XMS_ITS | Clinical Summary ---
Author Organization [facility] Address [address] [facility] [place] [address] Care Team Providers Care Orange Picker Machine Operator Name Role Phone Lisa Osei MD Primary Care Provider [phone] Allergies Active AllergyReactionsCriticalityNoted NngnBpahpfbsYuwzjMmtnp86/19/2025 Medications MedicationSigDispense QuantityRefillsLast FilledStart DateEnd DateStatus levothyroxine (Synthroid, Levoxyl) 50 MCG tablet Take 50 mcg by mouth in the morning. Take before meals.5Active metroNIDAZOLE (Flagyl) 500 MG tablet Indications:BV (bacterial vaginosis)Take 1 tablet (500 mg) by mouth in the morning and 1 tablet (500 mg) before bedtime. Do all this for 7 days. Do not drink alcohol while taking this medication. 14 tablet 5Active Encounters DateTypeDepartmentCare OhieGftofhplsmr07/25/2025Telephone [facility] [address] [place] [address] [place] [address] Johanna Roland PA 03/06/2025Telephone [facility] [address] [place], [place] [address] [phone] Blily Sotelo DO 02/28/2025 9:00 AM [place] [address] Johanna Roland PA Well woman exam with routine gynecological exam; Family history of breast cancer; PCOS (polycystic ovarian syndrome)02/28/2025linisync Result Encounter [facility] External Department Unsolicited Johanna Roland PA 02/28/2025amboo flowsheet [facility] [address] [place] [address] [place] [address] Johanna Roland PA from Last 3 Months Family History Medical HistoryRelationNameCommentsBreast cancerMotherRelationNameStatusComments Mother Social History Tobacco UseTypesPacks/DayYears UsedDateSmoking Tobacco: Never Assessed CommentsUnknownSex and Gender InformationValueDate RecordedSex Assigned at Not on fileLegal RmeFvocgm30/15/2023 11:47 PM EDTGender IdentityNot on file Sexual OrientationNot on file Last Filed Vital Signs Vital SignReadingTime TakenCommentsBlood Uztwusrv566/8402/28/2025 9:13 AM EST Pulse--Temperature--Respiratory Rate--Oxygen Saturation--Inhaled Oxygen Concentration--Uwlxou163 kg (285 lb)02/28/2025 9:13 AM ESTHeight--Body Mass Index-- Plan of Treatment DateTypeDepartmentCare Team (Latest Contact Info)Mhqkcrysbyv58/10/2025 9:00 AM ESTClinical Support [facility] [address] [place] [address] [place] [address] 01/09/2026 10:00 AM EDTProcedure Visit [facility] [address] [place] [address] [place] [address] Johanna Roland PA [address] [place] [address] Procedures Procedure NamePriorityDate/TimeAssociated DiagnosisCommentsIGP,APTIMA HPV,AGE SKNUUayjxbp41/19/2025 8:57 AM EST from Last 3 Months Results * (ABNORMAL) IGP,APTIMA HPV,AGE GDLN (02/28/2025 8:57 AM EST)ComponentValueRef RangeTest MethodAnalysis TimePerformed AtPathologist SignatureAGE GDLN ACOG TESTINGNote.TBHComment: ?? TESTS ? RESULT ??FLAG ??UNITS ?REF RANGE ??LAB ?? Clinician Provided Cytology Information ?? Source.............Cervix;Endocervix ?? No. of containers..01 ThinPrep Vial Age Algo ACOG Maddie... ??30-65 ? 01 ?FLAG LEGEND: ?L-Low Normal,H-High Normal,LL-Alert Low,HH-Alert High <-Panic Low,>-Panic High,A-Abnormal,AA-Critical Abnormal Performed at: 01 =G ?[facility] ?? [address] [place] ??[address] ?? Debbie Patel MD, IGP, APTIMA HPV, RFX 16/18,45Note(A).TBHComment: ?? TESTS ? RESULT ??FLAG ??UNITS ?REF RANGE ??LAB DIAGNOSIS: ? [A] ?02 ?? EPITHELIAL CELL ABNORMALITY. ?? ATYPICAL SQUAMOUS CELLS OF UNDETERMINED SIGNIFICANCE (ASC-US). Specimen adequacy: ?02 ?? Satisfactory for evaluation. ??Endocervical and/or squamous metaplastic ?? cells (endocervical component) are present. Performed by: ? 02 ?? Rosalio Sullivan, Plush Weaver (ASCP) Electronically si... ?02 ?? Claritza Varghese MD, Pathologist . ? 02 Pathologist ICD10: ?02 ?? R87.610 Note: ? Note ?02 ?? The Pap smear is a screening test designed to aid in the ?? detection of premalignant and malignant conditions of the ?? uterine cervix. ??It is not a diagnostic procedure and ?? should not be used as the sole means of detecting cervical ?? cancer. ??Both false-positive and false-negative reports do ?? occur. Test Methodology: ? Note ?02 ?? This liquid based ThinPrep(R) pap test was interpreted ?? using the eIQnetworks(R) Genius(TM) Cervical Algorithm whole ?? slide imaging system. HPV Genotype Reflex ?? Note ?02 ?? Criteria not met, HPV Genotype not performed. ?FLAG LEGEND: ?L-Low Normal,H-High Normal,LL-Alert Low,HH-Alert High <-Panic Low,>-Panic High,A-Abnormal,AA-Critical Abnormal Performed at: 02 WB [facility] ?? [address] [place], [place] ??[address] ?? Debbie Patel MD, HPV APTIMANegativeNegativeTBHComment: This nucleic acid amplification test detects fourteen high- risk HPV types (16,18,31,33,35,39,45,51,52,56,58,59,66,68) without differentiation. Performed at: ??=G - [facility] [address] [place] [address] ??[id number] Cold Working Inspector: Debbie Patel MD, Phone: ??[phone] Performed at: ??WB - [facility] ??[id number] Cold Working Inspector: Debbie Patel MD, Phone: ??[phone] Specimen (Source)Anatomical Location / LateralityCollection Method / Volume Collection TimeReceived Time02/28/2025 8:57 AM EST02/28/2025 3:29 PM EST Narrative [facility] - 03/05/2025 3:08 PM EST BRUSH-SPATULA CERVIX ENDOCERVIX Authorizing ProviderResult TypeResult StatusAmy Luan ULRICH BLOOD ORDERABLES Final ResultPerforming OrganizationAddressCity/State/ZIP CodePhone Number [facility] from Last 3 Months Insurance Care Teams Team MemberRelationshipSpecialtyStart DateEnd Date Lisa Osei MD [address] [place] [phone] PCP - GeneralFamily Sajdtpwo65/19/25
--- OUTSIDE RECORDS SUMMARY | 2025-03-07 12:48 | XMS_ITS | Clinical Summary ---
Author Organization [employer] Address [facility] [address] [place] [address] Care Team Providers Care Content Publisher Name Role Phone No Pcp, No Pcp Primary Care Provider Unavailabl e Allergies Active AllergyReactionsCriticalityNoted XqfjZaipovweDzyjdoatfrgWsapCul77/01/2021 Latex, Natural Vaoyos5208/02/2020 Medications MedicationSigDispense QuantityRefillsLast FilledStart DateEnd DateStatus levothyroxine [...] standard drink = 0.6 oz pure alcohol)ChildcareAnswerDate UtjwfkleIwootidtuNfhzzws44/27/2019Employment AnswerDate OzhucyzlYnxikrnmbgMmfvich84/27/2019Purpose - LifeAnswerDate Recorded Purpose and direction in onrnLzlcuvl89/11/2021CommentsNoSex and Gender InformationValueDate RecordedSex Assigned at BirthNot on fileLegal SexFemale 11/05/2018 10:36 AM EDTGender IdentityNot on fileSexual OrientationNot on file Last Filed Vital Signs Vital SignReadingTime TakenCommentsBlood Zavtddeq422/8204 8:41 AM EDT Yihvi40917 8:41 AM EDTTemperature--Respiratory Rate--Oxygen Saturation-- Inhaled Oxygen Concentration--Luniuq195.1 kg (280 lb 3.3 oz)08/02/2020 8:41 AM VBQHkinea812.2 cm (5' 7 )07/11/2020 4:03 PM EDTBody Mass Index43.8907/11/2020 4:03 PM EDT Plan of Treatment Health MaintenanceDue DateLast DoneCommentsDepression Pnkebjvgw52/16/2000Tobacco Zkodupsjl12/16/2000Adult BMI Dznnazasq68/16/2006DTaP,Tdap and Td Vaccines (1 - Tdap)08/25/2006Pap Smear08/25/2008Influenza Vsujuyj0412/11/2024 Medical Devices Not on file Insurance Care Teams Team MemberRelationshipSpecialtyStart DateEnd Date No Pcp, [place] [address] [facility]/05/18
--- OUTSIDE RECORDS SUMMARY | 2025-03-07 12:48 | XMS_ITS | Encounter Summary ---
Author Organization [facility] Address [address] [facility] [place] [address] Care Team Providers Care Media Theorist And Author Of Name Role Phone Lisa Osei MD Primary Care Provider [phone] Encounter Details DateTypeDepartmentCare Team (Latest Contact Info)Ndtrkjxtsoa23/25/2025Telephone [facility] [address] [facility] [place] [address] Johanna Roland PA [address] [facility] [address] [place], [facility] Social History Tobacco UseTypesPacks/DayYears UsedDateSmoking Tobacco: Never Assessed CommentsUnknownSex and Gender InformationValueDate RecordedSex Assigned at Not on fileLegal QwuJtprvs82/15/2023 11:47 PM EDTGender IdentityNot on file Sexual OrientationNot on filedocumented as of this encounter Miscellaneous Notes * Telephone Encounter - Veronica Arteaga LPN - 03/06/2025 3:13 PM EST Patient was called to advise of pap results and when speaking with patient she states that she did have some discomfort and pain after but not uncommon as have always had some. But she did start to notice some discharge like mucous. Patient was advised normally you can have some discharge but more of a pink tint to this from the irritation. Patient was advised we can send a script in for her and if this does not improve to contact the office. PVU documented in this encounter Plan of Treatment DateTypeDepartmentCare Team (Latest Contact Info)Zjmodcxmuwj93/10/2025 9:00 AM ESTClinical Support [facility] [address] [facility] [place] [phone] 01/09/2026 10:00 AM EDTProcedure Visit [facility] [address] [facility] [place] [phone] Johanna Roland PA [address] [facility] [address] [place], [place] [address] documented as of this encounter Visit Diagnoses Diagnosis BV (bacterial vaginosis) Unspecified vaginitis and vulvovaginitis documented in this encounter Care Teams Team MemberRelationshipSpecialtyStart DateEnd Date Lisa Osei MD [address] [facility] [place] [address] PCP - GeneralFamily Zyoocnap91/19/25documented as of this encounter
--- OUTSIDE RECORDS SUMMARY | 2025-03-07 12:48 | XMS_ITS | Encounter Summary ---
Author Organization [facility] Address [address] [facility] [place] [address] Care Team Providers Care Plate Molder Name Role Phone Lisa Osei MD Primary Care Provider [phone] Encounter Details DateTypeDepartmentCare Team (Latest Contact Info)Vyvqbisebqg48/19/2025linisync Result Encounter [facility] External Department Unsolicited Johanna Roland PA [address] [facility] [address] [place], [place] [id number] Social History Tobacco UseTypesPacks/DayYears UsedDateSmoking Tobacco: Never Assessed CommentsUnknownSex and Gender InformationValueDate RecordedSex Assigned at Not on fileLegal AzuBjqyqo95/15/2023 11:47 PM EDTGender IdentityNot on file Sexual OrientationNot on filedocumented as of this encounter Plan of Treatment DateTypeDepartveterans affairs medical centerCare Team (Latest Contact Info)Czvaudyaccv76/10/2025 9:00 AM ESTClinical Support NOMTish VAUGHN [address] [place] [address] [place] [address] 01/09/2026 10:00 AM EDTProcedure Visit [facility] Mey VAUGHN [address] [place] [address] Johanna Roland PA [address] [place], [place] [id number] documented as of this encounter Procedures Procedure NamePriorityDate/TimeAssociated DiagnosisCommentsIGP,APTIMA HPV,AGE QJEYXwkyqzh83/19/2025 8:57 AM EST documented in this encounter Results * (ABNORMAL) IGP,APTIMA HPV,AGE GDLN (02/28/2025 [...] at: 01 =G ?[facility] [place] ?? [address] [place] ??[phone] ?? Debbie Patel MD, IGP, APTIMA HPV, RFX 16/18,45Note(A).TBHComment: ?? TESTS ? RESULT ??FLAG ??UNITS ?REF RANGE ??LAB DIAGNOSIS: ? [A] ?02 ?? EPITHELIAL CELL ABNORMALITY. ?? ATYPICAL SQUAMOUS CELLS OF UNDETERMINED SIGNIFICANCE (ASC-US). Specimen adequacy: ?02 ?? Satisfactory for evaluation. ??Endocervical and/or squamous metaplastic ?? cells (endocervical component) are present. Performed by: ? 02 ?? Rosalio Sullivan [employer] Yard Crane Operator (ASCP) Electronically si... ?02 ?? Claritza Varghese [...] pap test was interpreted ?? using the Ala-Septic(R) [employer] Systems(TM) Cervical Algorithm whole ?? slide imaging system. HPV Genotype Reflex ?? Note ?02 ?? Criteria not met, HPV Genotype not performed. ?FLAG LEGEND: ?L-Low Normal,H-High Normal,LL-Alert Low,HH-Alert High <-Panic Low,>-Panic High,A-Abnormal,AA-Critical Abnormal Performed at: 02 WB ?[facility] ?? [address] [place], [place] ??[phone] ?? Debbie Patel MD, HPV APTIMANegativeNegativeTBHComment: This nucleic acid amplification test detects fourteen high- risk HPV types (16,18,31,33,35,39,45,51,52,56,58,59,66,68) without differentiation. Performed at: ??=G - [facility] [address] ??[id number] [employer] Superintendent: Debbie Patel MD, Phone: ??[phone] Performed at: ??WB - [facility] [address] ??[id number] [employer] Superintendent: Debbie Patel MD, Phone: ??[phone] Specimen (Source)Anatomical Location / LateralityCollection Method / Volume Collection TimeReceived Time02/28/2025 8:57 AM EST02/28/2025 3:29 PM EST Narrative [facility] - 03/05/2025 3:08 PM EST BRUSH-SPATULA CERVIX ENDOCERVIX Authorizing ProviderResult TypeResult StatusAmy [facility] BLOOD ORDERABLES Final ResultPerforming OrganizationAddressCity/State/ZIP CodePhone Number [facility] documented in this encounter Visit Diagnoses Not on filedocumented in this encounter Care Teams Team MemberRelationshipSpecialtyStart DateEnd Date Lisa Osei MD [address] [place] [phone] PCP - GeneralFamily Usxrteau46/19/25documented as of this encounter
--- OUTSIDE RECORDS SUMMARY | 2025-03-07 12:48 | XMS_ITS | Encounter Summary ---
Author Organization [facility] Address [address] [facility] [place] [address] Care Team Providers Care Surgical Supplies Sterilizer Name Role Phone Lisa Osei MD Primary Care Provider [phone] Encounter Details DateTypeDepartmentCare Team (Latest Contact Info)Ahorbfujwzv88/19/2025Bamboo flowsheet YONY VAUGHN [address] [place] [address] [place] [address] Johanna Roland, PA [address] [place] [address] Dr [place], [facility] Social History Tobacco UseTypesPacks/DayYears UsedDateSmoking Tobacco: Never Assessed CommentsUnknownSex and Gender InformationValueDate RecordedSex Assigned at Not on fileLegal RoyRexmfw03/15/2023 11:47 PM EDTGender IdentityNot on file Sexual OrientationNot on filedocumented as of this encounter Plan of Treatment DateTypeDepartmentCare Team (Latest Contact Info)Idftuzvvbyr87/10/2025 9:00 AM ESTClinical Support YONY VAUGHN [address] [place] [address] [place] [address] 01/09/2026 10:00 AM EDTProcedure Visit NOMTish VAUGHN [address] [place] [address] [place] [address] Johanna Roland PA [address] [facility] [place] [address] documented as of this encounter Visit Diagnoses Not on filedocumented in this encounter Care Teams Team MemberRelationshipSpecialtyStart DateEnd Date Lisa Osei MD [facility] [place] [phone] PCP - GeneralFamily Rlyleegk15/19/25documented as of this encounter
--- OUTSIDE RECORDS SUMMARY | 2025-03-07 12:49 | XMS_ITS | CCD ---
Author Organization [facility] Care Team Providers Care Dock Boss Name Role Phone ROGERIOC, DR SMITH Primary [...] Admitting Unavailable EL, JOSE G Attending Unavailable TROY, DR OKSANA [employer] Unavailable HUGH, DR [...] TypeDate of OnsetReaction(s) Facility (8 sources)LatexDrug allergy (disorder)36-72-2738KxshhLptSum[facility] Rep[facility] (2 sources)PenicillinsDrug allergy (disorder)40-09-7964Dqj [facility] Repository (6 sources)PenicillinDrug Vowfpuh82-84-3978ZkhklUumxswradCorey Hospital (3 sources)12 Hour DecongestantAllergy to uoiokryjb89-46-9767SallsRardxoamwCorey Hospital Medications Current Medications MedicationDrug Class(es)DatesSig (Normalized)Sig (Original)levothyroxine sodium 0.075 mg oral tablet (20 sources)l-ThyroxineStart: 07-23-2023 End: 34-73-7079dxog 1 tablet by mouth once dailyLevothyroxine (Synthroid) 75 mcg tablet Active 75 MCG PO Daily November 21, 2024 8:12am Complieswith drug therapynaproxen 500 mg oral tablet (4 sources)Nonsteroidal Anti-inflammatory DrugStart: 94-76-7961mpcs 1 tablet by mouth twice daily as needed for painNaproxen 500 mg tablet Active 500 MG PO Twice daily as needed for pain 29 01August 13, 2023 12:00am Complies with drug therapy Completed/Discontinued Medications MedicationDrug Class(es)DatesSig (Normalized)Sig (Original)clindamycin 150 mg oral capsule (4 sources)Lincosamide AntibacterialStart: 08-13-2023 End: 47-73-8543ptqo 1 capsule by mouth every eight hoursClindamycin Hcl 150 mg capsule Discontinued 150 MG PO Every 8 hours 30 10August 13, 2023 12:00am November 10, 2023 10:34amclomiPHENE citrate 50 mg oral tablet (2 sources)Estrogen Agonist/AntagonistStart: 08-03-2024 End: 59-29-6938xokg 1 tablet by mouth once dailyClomiphene Citrate 50 mg tablet Discontinued 50 MG PO Daily August 03, 2024 12:00am August 04, 2024 8:53am glipiZIDE er 5 mg 24 hr extended release oral tablet (4 sources)SulfonylureaStart: 04-17-2024 End: 80-86-6234pyua 1 tablet by mouth once dailyGlipizide 5 mg tablet extended release 24hr Discontinued 0 .ROUTE .COMPLEX April 17, 2024 1:40pm August 04, 2024 8:52am TAKE 1 TABLET BY MOUTH EVERY DAYStart: 01-18-2024 End: 02-41-7306soxr 1 tablet by mouth once dailyGlipizide 5 mg tablet extended release 24hr Discontinued 5 MG PO Daily January 18, 2024 12:00amApril 17, 2024 1:40pm24 hr metFORMIN hydrochloride 500 mg extended release oral tablet (10 sources)BiguanideStart: 11-10-2023 End: 92-80-7788lksm 1 tablet by mouth twice dailyMetformin 500 mg tablet extended release 24 hr Discontinued 500 MG PO Twice daily November 10, 2023 12:00am January 18, 2024 10:06amStart: 07-23-2023 End: 80-96-2690plzp 1 tablet by mouth twice daily at mealtimeMetformin 500 mg tablet Discontinued 500 MG PO Twice daily with meals July 23, 2023 12:00am July 26, 2023 11:24amnitrofurantoin, macrocrystals 25 mg / nitrofurantoin, monohydrate 75 mg oral capsule (6 sources)Nitrofuran AntibacterialStart: 07-23-2023 End: 07-60-0958mffa 1 capsule by mouth every twelve hours at mealtime Nitrofurantoin Monohyd/M-Cryst (Macrobid) 100 mg capsule Discontinued 1 CAP PO Every 12 hours 2023 12:00am July 26, 2023 11:24am FreeTextSi capsule with food Orally every 12 hrs; Note: Source Status: Taking; Refills: 0; Provider: Juan Francisco Del Rosarioazopyridine hydrochloride 200 mg oral tablet (6 sources)Start: 07-23-2023 End: 07-72-6030kzrb 1 tablet by mouth three times daily after mealtime Phenazopyridine (Pyridium) 200 mg tablet Discontinued 1 TAB PO Three times daily July 23, 2023 12:00am July 26, 2023 11:24am FreeTextSi tablet after meals Orally Three times a day; Note: Source Status: Taking; Refills: 0; Provider: Juan Francisco Bhandari #08-Wgxg-Mmbvb Acid-Omega3 (4 sources)Start: 07-23-2023 End: 91-84-4767Ljx #43-Djey-Wwdbt Acid-Omega3 Discontinued CAP PO July 23, 2023 12:00am July 26, 2023 11:25amPnv #12-Ybpx-Kasfr Acid-Omega3 30 mg iron- 10 mg iron-1 mg capsule (1 source)Start: 07-23-2023 End: 06-91-2601Pqx #18-Bcpk-Lgfdc Acid-Omega3 30 mg iron-10 mg iron-1 mg capsule Discontinued CAP PO July 23, 2023 12:00am July 26, 2023 11:25amPnv 97-Ylor-Axxuf Qcvx-Bihyd-1 30 mg iron-10 mg iron-1 mg capsule (1 source)Start: 07-23-2023 End: 61-34-3199Ctq 80-Tfjx-Uvijl Tcqq-Sfeme-9 30 mg iron-10 mg iron-1 mg capsule Discontinued CAP PO July 23, 2023 12:00am July 26, 2023 11:25am Problems Active Problems Problem ClassificationProblemDateDocumented DateEpisodic/ChronicDiabetes mellitus with complications (5 sources)Hyperglycemia due to type 2 diabetes mellitus; Translations: [Type 2 diabetes mellitus with hyperglycemia]91-81-1723IhbyaeqIgocekpe or abnormal glucose tolerance complicating ; childbirth; or the puerperium (14 sources)Abnormal glucose complicating ; Translations: [Gestational diabetes mellitus in ,unspecified control]Onset: 07-60-4716Ebwwqaxd Disorders of teeth and jaw (5 sources)Infection of tooth; Translations: [Periapical abscess without sinus] 89-56-3948JdfbjbdqCfmggpnktea chest pain (4 sources)Chest pain; Translations: [Chest pain, unspecified]65-59-4016Lwwiikck Other aftercare (1 source)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; Translations: [OTH HEAT TREATER HEAD CURRENT DRUG THERAPY]Onset: 07-76-3414OpsbkitsKsugf complications of ; puerperium affecting management of mother (1 source)Obesity complicating childbirth; Translations: [OBESITY COMPLICATING CHILDBIRTH]Onset: 43-63-7095ThyyugrBnqqd complications of ; puerperium affecting management of mother (1 source)Anemia complicating childbirth; Translations: [ANEMIA COMPLICATING CHILDBIRTH]Onset: 91-71-4029ZxavfetFzpqm endocrine disorders (3 sources)Polycystic ovarian syndrome; Translations: [Polycystic ovaries]Onset: 682558-29-8246GwovvhoQsewg endocrine disorders (6 sources)Polycystic ovary syndrome; Translations: [Polycystic ovarian syndrome]33-26-5655XguefqyAbrnz gastrointestinal disorders (3 sources)Dysphagia, unspecified; Translations: [DYSPHAGIA UNSPECIFIED]Onset: 59-37-8180IaptyvvdDqjmx nutritional; endocrine; and metabolic disorders (1 source)Obesity, unspecified; Translations: [OBESITY UNSPECIFIED]Onset: 21-54-3395CozhzxiGpews nutritional; endocrine; and metabolic disorders (1 source)Severe obesity; Translations: [Class 3 severe obesity with body mass index (BMI) of 45.0 to 49.9 inadult]81-72-4672NvuficgDmddl upper respiratory infections (1 source)Acute pharyngitis, unspecified; Translations: [ACUTE PHARYNGITIS UNSPECIFIED]Onset: 32-77-2768KaqtypzeMfteeka disorders (15 sources)Hypothyroidism, unspecified; Translations: [Hypothyroidism]Onset: 49-71-1374QbyddnfYzsaaclxnaky (1 source)CONTACT W/AND (SUSP) EXPOS COVID-19; Translations: [CONTACT W/AND (SUSP) EXPOS COVID-19]Onset: 01-30-2021 Past or Other Problems Problem ClassificationProblemDateDocumented DateEpisodic/ChronicDeficiency and other anemia (1 source)Iron deficiency anemia, unspecified; Translations: [IRON DEFICIENCY ANEMIA UNSPECIFIED]Onset: 17-85-9655PovjymzvDdrdnxws mellitus without complication (5 sources)Other abnormal glucose; Translations: [OTHER ABNORMAL GLUCOSE]Onset: 76-88-0739ZtbawpidIzokbdrkml during ; abruptio placenta; placenta previa (4 sources)Hemorrhage in early , unspecified; Translations: [HEMORRHAGE EARLY UNS]Onset: 40-79-9757ZuboycxvMqxnmnmhuscly and screening for infectious disease (2 sources)Encounter for screening for infections with a predominantly sexual mode of transmission; Translations: [Encounter for screening for human papillomavirus (HPV)]Onset: 11-03-3964DaqpcoxdLS-related trauma to perineum and vulva (2 sources)Second degree perineal laceration during delivery; Translations: [Other specified trauma to perineum and vulva]Onset: 39-61-1655VkaninawWkjjb complications of ; puerperium affecting management of mother (1 source)Endocrine, nutritional and metabolic diseases complicating childbirth; Translations: [ENDOCRN NUTR MET DZ COMP CHILDBIRTH]Onset: 98-63-2670Jmkroyvb Other complications of (4 sources)Endocrine, nutritional and metabolic diseases complicating , unspecified trimester; Translations: [ENDOCRN NUTR MET DZ COMP PG UNS TRI]Onset: 31-26-3633BklrrppjXewof complications of (4 sources)Endocrine, nutritional and metabolic diseases complicating , third trimester; Translations: [ENDOCRN NUTR MET DZ COMP PG 3RD TRI]Onset: 03-62-0665MjwcbjnmWoenp female genital disorders (1 source)Other specified noninflammatory disorders of vagina; Translations: [OTH SPEC NONINFLAMMATORY D/O VAGINA]Onset: 10-43-9368LkuiftxePrsgh and delivery including normal (16 sources)Encounter for routine follow-up; Translations: [Single live ]Onset: 38-80-3481EyydqrihSyrcr screening for suspected conditions (not mental disorders or infectious disease) (8 sources)Encounter for screening for Streptococcus B; Translations: [Encounter for screening for malignant neoplasm of cervix]Onset: 08-29-2020 EpisodicResidual codes; unclassified (1 source)37 weeks gestation of ; Translations: [37 WEEKS GESTATION OF ]Onset: 27-06-2813ZqdrntphJgarfzgy codes; unclassified (1 source)36 weeks gestation of ; Translations: [36 WEEKS GESTATION OF ]Onset: 60-95-6519PjikonkfRnfvjdio codes; unclassified (1 source)35 weeks gestation of ; Translations: [35 WEEKS GESTATION OF ]Onset: 84-37-3394SrhrdxqqPjdghzig codes; unclassified (1 source)34 weeks gestation of ; Translations: [34 WEEKS GESTATION OF ]Onset: 16-90-3547RgemvaavQkagdftb codes; unclassified (1 source)33 weeks gestation of ; Translations: [33 WEEKS GESTATION OF ]Onset: 96-42-4049VntfszzxNvvoaqit codes; unclassified (1 source)32 weeks gestation of ; Translations: [32 WEEKS GESTATION OF ]Onset: 97-86-0015VvysiakzFdvclsxr codes; unclassified (1 source)28 weeks gestation of ; Translations: [28 WEEKS GESTATION OF ]Onset: 09-79-5430NrroqdpeVxvjvjtaj and history of mental health and substance abuse codes (1 source)Personal history of nicotine dependence; Translations: [PERSONAL HISTORY OF NICOTINE DEPEND]Onset: 94-79-3812Hmoobdvq Results Test NameValueInterpretationReference RangeFacilityBasophils Auto (Bld) [#/Vol] on 20-53-3556Gegceijac (Bld) [#/Vol]Automated basophil count0.0-0.1FBlanchard Valley Health System Blanchard Valley HospitalBasophils/100 WBC Auto (Bld)on 11-91-2682Bxtrjvior/100 WBC (Bld)Automated basophil %0.2-2.0[facility] Eosinophils/100 WBC Auto (Bld)on 41-06-5183Aajeimsilrq/100 WBC (Bld)Automated eosinophil %Low0.9-7.0[facility] CenterErythrocyte distribution width Auto (RBC) [Ratio]on 60-16-1899Ktmfduhdiqj distribution width (RBC) [Ratio]Erythrocyte distribution width [Ratio] by Automated brgsrKvlb55.0-15.0 [facility] CenterEstimated glomerular filtration rate (GFR) non- Americanon 31-96-7887DZA/1.73 sq M.predicted among non-blacks MDRD (S/P/Bld) [Vol rate/Area]Estimated glomerular filtration rate (GFR) non->=60 mL/min/1.73m 2FBlanchard Valley Health System Blanchard Valley HospitalHematocrit Auto (Bld) [Volume fraction]on 48-57-0008Axjspwpyur (Bld) [Volume fraction]Hematocrit [Volume Fraction] of Blood by Automated count36.0-48.0[facility] CenterHemoglobin [Mass/volume] in Bloodon 23-84-4148Timcvsvmkz (Bld) [Mass/Vol] Hemoglobin [Mass/volume] in Blood12.0-16.0[facility] Laboratory - Chemistry and Chemistry - challengeon 20-75-9064Dyichum [Mass/Vol] 9.0 mg/dL8.5-10.1FBlanchard Valley Health System Blanchard Valley HospitalChloride [Moles/Vol]102 mmol/L 98-107[facility] CenterCO2 [Moles/Vol]28.4 mmol/L21.0-32.0 [facility] CenterCreatinine [Mass/Vol]0.75 mg/dL0.55-1.02 [facility] CenterGFR/1.73 sq M.predicted MDRD (S/P/Bld) [Vol rate/Area]mL/min/{1.73_m2}>=60 mL/min/1.73m 2FBlanchard Valley Health System [facility] Glucose [Mass/Vol]112 mg/vXWdlc28-570UtvsbzyikMetrohealth Main Campus Medical CenterPotassium [Moles/Vol]4.1 mmol/L3.5-5.1FOhioHealth Grove City Methodist Hospitalodium [Moles/Vol] 138 mmol/H309-406JrmwlvltwMetrohealth Main Campus Medical CenterUrea nitrogen [Mass/Vol]13.0 mg/dL7.0-18.0[facility] CenterUrea nitrogen/Creatinine [Mass ratio]17.3 mg/mgMetrohealth Main Campus Medical CenterLaboratory - Hematology and Cell countson 83-62-4392Jvytpofw granulocytes/100 WBC (Bld)0.3 %0.0-0.5FBlanchard Valley Health System Blanchard Valley HospitalLeukocytes [#/volume] corrected for nucleated erythrocytes in Blood by Automated counon 98-37-6294BON corrected for nucl RBC Auto (Bld) [#/Vol]Leukocytes [#/volume] corrected for nucleated erythrocytes in Blood by Automated counHigh4.0-11.0[facility] CenterLymphocytes Auto (Bld) [#/Vol]on 53-91-2680Fsbqlkgfqpd (Bld) [#/Vol]Lymphocytes [#/volume] in Blood by Automated count1.2-3.8[facility] Lymphocytes/100 WBC Auto (Bld)on 91-37-2421Nlpecjhriwn/100 WBC (Bld) Lymphocytes/100 leukocytes in Blood by Automated giwihAcs70.5-60.0[facility] CenterMCH Auto (RBC) [Entitic mass]on 09-29-7600QRS (RBC) [Entitic mass]MCH [Entitic mass] by Automated wtcyqRaj45.7-34.0[facility] Medical CenterMCHC Auto (RBC) [Mass/Vol]on 72-14-0526ASDM (RBC) [Mass/Vol]MCHC [Mass/volume] by Automated count29.9-35.2FBlanchard Valley Health System Blanchard Valley HospitalMCV Auto (RBC) [Entitic vol]on 40-01-1605HUT (RBC) [Entitic vol] MCV [Entitic volume] by Automated count81.0-99.0[facility] CenterMonocytes Auto (Bld) [#/Vol]on 57-98-0720Dhzwpqmtm (Bld) [#/Vol]Automated blood monocyte count0.3-0.8[facility] CenterMonocytes/100 WBC Auto (Bld)on 72-58-8354Ilkbwdkmo/100 WBC (Bld)Automated monocyte %1.7-12.0 [facility] CenterNeutrophils Auto (Bld) [#/Vol]on 07-20-2024 Neutrophils (Bld) [#/Vol]Neutrophils [#/volume] in Blood by Automated countHigh 1.4-6.5FBlanchard Valley Health System Blanchard Valley HospitalNeutrophils/100 WBC Auto (Bld)on 82-11-3382Diqttcuuhom/100 WBC (Bld)Automated neutrophil %High43.0-75.0[facility] CenterNo Panel Informationon 99-24-5749Bnxhtjxckfc # (Auto)0.0 10 3/uL0.0-0.7FBlanchard Valley Health System Blanchard Valley HospitalImmature Granulocyte # (Auto)0.03 10 3/uL0.00-0.03[facility] CenterTroponin I High Sensitivity <4.0 pg/mLLow4.0-51.3FBlanchard Valley Health System Blanchard Valley HospitalComment on above:CUT-OFF POINTS HAVE BEEN ESTABLISHED [...] volume [Entitic volume] in Blood by Automated count9.5-13.5FBlanchard Valley Health System Blanchard Valley HospitalPlatelets Auto (Bld) [#/Vol]on 65-21-3869Tvorhrklj (Bld) [#/Vol]Platelets [#/volume] in Blood by Automated urdij199-049DybbgbqwlMetrohealth Main Campus Medical CenterRBC Auto (Bld) [#/Vol] on 24-80-3859BYY (Bld) [#/Vol]Erythrocytes [#/volume] in Blood by Automated count4.20-5.40[facility] Hospitalerum or plasma anion gap determinationon 73-79-7691Mdvgo gap [Moles/Vol]Serum or plasma anion gap determinationMetrohealth Main Campus Medical CenterGlucose mean value [Mass/volume] in Blood Estimated from glycated hemoglobinon 62-10-6452Jrnowlz glucose Estimated from glycated hemoglobin (Bld) [Mass/Vol]137 mg/dLMetrohealth Main Campus Medical CenterLaboratory - Chemistry and Chemistry - challengeon 03-57-2097Bhfa T4 [Mass/Vol]1.84 ng/dL0.76-1.46[facility] CenterTSH Qn3.165 m[IU]/L0.358-3.740[facility] CenterLaboratory - Hematology and Cell countson 70-50-9947GcX6s (Bld) [Mass fraction]6.4 %4.5-6.2FBlanchard Valley Health System Blanchard Valley HospitalComment on above:ADA RECOMMENDED LIMIT 4.0 - 6.0ADA THERAPEUTIC TARGET < 7.0ACTION SUGGESTED> 7.0FREE T4on 05-88-5673Btum T4 [Mass/Vol]2.18 ng/dLNormal0.78-2.19[facility] Hospital - YoungstownComment on above: Performed By: #### FT4 ####[facility] [address] [address]DrAlka ChangGLYCOHEMOGLOBIN A1Con 63-33-0015SFG RECOMMENDATIONADA THERAPEUTIC TARGET 6.0 - 7.0 ACTION SUGGESTED > 7.0NoMercy Health St. Vincent Medical CenterComment on above:Performed By: #### A1C #### [facility] Laboratory [address] [place] [address] Dr. Babak AdamsGlucose [Mass/Vol]117 mg/dLNoMercy Health St. Vincent Medical CenterComment on above:Performed By: #### A1C #### [facility] [address] [place] [address] Dr. Babka AdamsHbA1c (Bld) [Mass fraction]5.7 %Normal<=6.0The [facility] Comment on above:Performed By: #### A1C #### [facility] [address] [place] [address] Dr. Babak Stewart 58-31-2191NWV8.532 uIU/mLNormal0.470-4.680The [facility] CenterComment on above:Performed By: #### HBSANS #### [facility] [address] [place] [address] Harini BraunenTSH RANGESEE BELOWNoMercy Health St. Vincent Medical CenterComment on above:Result Comment: <0.34 UIU/ml HYPERTHYROID 0.34-5.60 UIU/ml EUTHYROID >5.60 UIU/ml HYPOTHYROIDPerformed By: #### HBSANS #### [facility] [address] [place] [address] CONon 58-49-5299VJ NECK ST W CONEXAMINATION: CT NECK ST [...] authenticated by: KERVIN BURNS Date: 2021-05-20 20:34NormalThe Ferdinand HospitalCULTURE THROATon 53-25-3058GMDBLLV THROATCulture Observations: NORMAL RESPIRATORY RENITA.NormalThe Ferdinand HospitalComment on above:Performed By: #### THRTCCarlo SSCRN #### [facility] [address] [place] [address] Dr. Babak Crum 84-74-7364Wscqypxjg (Bld) [#/Vol]NegativeNormalNEGATIVEThe [facility] CenterComment on above:Performed By: #### MONO ####[facility] Reqthxdseg[address] [place], [place] [address]DrJasmyne AdamsSTREPT SCREEN on 61-74-6685OJQVO SCREEN ANegativeNormalNEGATIVEThe [facility] CenterComment on above:Performed By: #### THRTCCarlo SSCRN #### [facility] [address] [place] [address] Dr. Babak Robles AUTO DIFFon 31-81-2861LNNB #0.0 103/ulNormal0.0-0.1The [facility] Medical CenterComment on above:Performed By: #### CBC ####[facility] Lwkvianiqz[address] [place], [place] [address]DrAlka AdamsBasophils/100 WBC (Bld)0.2 %Normal0.2-2.0The [facility] Medical CenterComment on above:Performed By: #### CBC ####[facility] Edgjwxiteg[address] [place], [place] [address]DrAlka ChangEO #0.0 103/ulNormal0.0-0.7The [facility] CenterComment on above:Performed By: #### CBC ####[facility] Kgbtbvsnzt[address] [place], [place] [address]Dr.Yilan ChangEosinophils/100 WBC (Bld)0.3 %Critically low0.9-7.0The [facility] CenterComment on above:Performed By: #### CBC ####[facility] [address]aim[address] [place], [place] [address]Dr. Babak ChangErythrocyte distribution width (RBC) [Ratio]14.5 %Txppdj07.0-15.0The [facility] CenterComment on above:Performed By: #### CBC ####[facility] Arjjmiedhd[address] [place], [place] [address]Dr.Lexyrene ChangHematocrit (Bld) [Volume fraction]29.1 %Critically low36.0-48.0The [facility] CenterComment on above:Performed By: #### CBC ####[facility] Uohzrilram[address] [place], [place] [address]Dr.Babak ChangHemoglobin (Bld) [Mass/Vol]9.3 g/dL Critically low12.0-16.0The [facility] CenterComment on above:Performed By: #### CBC ####[facility] Olyxoxwsib[address] [place], [place] [address]Dr. Lexyrene ChangIG #0.10 10e3/ulCritically high0.00-0.03The [facility] CenterComment on above:Performed By: #### CBC ####[facility] Tuuvzkryvh[address] [place], [place] [address]Dr.Babak ChangIG %0.8 %Critically high0.0-0.5The [facility] CenterComment on above:Performed By: #### CBC ####[facility] Mbrabbufhh[address] [place], [place] [address]Dr.Lexyrene ChangLYMPH #1.4 103/ulNormal1.2-3.8The [facility] CenterComment on above:Performed By: #### CBC ####[facility] Lcgvziygyi[address] [place], [place] [address]Dr. Babak ChangLymphocytes/100 WBC (Bld)10.8 %Critically low20.5-60.0The [facility] CenterComment on above:Performed By: #### CBC ####[facility] [address] [address]Dr.Babak AdamsMANUAL DIFF REQ NONormalThe [facility] CenterComment on above:Performed By: #### CBC ####[facility] [address] [address]Dr. Babak BryanH (RBC) [Entitic mass]28.1 bzRqbhmq24.7-34.0The [facility] Comment on above:Performed By: #### CBC ####[facility] Kmzvtlmxwr[address] [place], [place] [address]Dr.Lexyrene AdamsHC (RBC) [Mass/Vol]32.0 g/dL Sznzet43.9-35.2The [facility] CenterComment on above:Performed By: #### CBC ####[facility] N[address]xdjfnfc[address] [place], [place] [address]Dr. Babak AdamsV (RBC) [Entitic vol]87.9 vGNvszha44.0-99.0[facility] Comment on above:Performed By: #### CBC ####[facility] [address] [place], [place] [address]Dr.Lexyrene AdamsMONO #0.7 103/ulNormal0.3-0.8 [facility] YoungstownComment on above:Performed By: #### CBC ####[facility] Z[address]deianvt[address] [place], [place] [address]Dr.Babak Adams Monocytes/100 WBC (Bld)5.5 %Normal1.7-12.0The [facility] CenterComment on above: Performed By: #### CBC ####[facility] [address]ps[address] [place], [place] [address]Dr.Babak AdamsNEUT #10.6 103/ulCritically high1.4-6.5 The [facility] CenterComment on above:Performed By: #### CBC ####[facility] O[address] [place], [place] [address]Dr.Babak Adams Neutrophils/100 WBC (Bld)82.4 %Critically high43.0-75.0[facility] Comment on above:Performed By: #### CBC ####[facility] [address] [address]Dr.Babak AdamsPlatelet mean volume (Bld) [Entitic vol]10.8 fLNormal9.5-13.5The [facility] CenterComment on above: Performed By: #### CBC ####[facility] [address] [address]Dr.Babak BqwyvMXA643 103/cvAqpxly333-230Hfm Ferdinand HospitalComment on above:Performed By: #### CBC ####[facility] [address] [address]Dr.Babak AdamsRBC3.31 106/ul Critically low4.20-5.40The [facility] CenterComment on above:Performed By: #### CBC ####[facility] [address] [address]Dr. Babak JgthiIBZ70.8 103/ulCritically high4.0-11.0The [facility] CenterComment on above:Performed By: #### CBC ####[facility] [address] [address]Dr.Babak AdamsSAINT ELIZABETH EDGEWOOD AUTO DIFFon 12-41-0214IFQE #0.0 103/ulNormal0.0-0.1The [facility] CenterComment on above:Performed By: #### CBC #### [facility] Laboratory [address] [address] Harini KarenBasophils/100 WBC (Bld)0.3 %Normal0.2-2.0The [facility] Comment on above:Performed By: #### CBC #### [facility] Laboratory [address] [address] Harini KarenEO #0.0 103/ulNormal0.0-0.7The [facility] CenterComment on above: Performed By: #### CBC #### [facility] Laboratory [address] [address] Harini KarenEosinophils/100 WBC (Bld)0.3 %Critically low0.9-7.0[facility] YoungstownComment on above:Performed By: #### CBC #### [facility] [address] [place] [address] Harini KarenErythrocyte distribution width (RBC) [Ratio]14.3 %Bppbxa30.0-15.0[facility] - YoungstownComment on above:Performed By: #### CBC #### [facility] [address] [place] [address] Harini KarenHematocrit (Bld) [Volume fraction]34.4 %Critically low36.0-48.0The [facility] Medical CenterComment on above:Performed By: #### CBC #### [facility] [address] [place] [address] Harini KarenHemoglobin (Bld) [Mass/Vol]11.3 g/dLCritically low12.0-16.0The [facility] CenterComment on above:Performed By: #### CBC #### [facility] [address] [place] [address] Harini KarenIG #0.07 10e3/ulCritically high0.00-0.03[facility] - YoungstownComment on above:Performed By: #### CBC #### [facility] [address] [place] [address] Harini KarenIG %0.6 %Critically high0.0-0.5The [facility] Medical CenterComment on above:Performed By: #### CBC #### [facility] [address] [place] [address] Harini KarenLYMPH #1.2 103/ulNormal1.2-3.8The [facility] Medical CenterComment on above: Performed By: #### CBC #### [facility] [address] [place] [address] Harini KarenLymphocytes/100 WBC (Bld)10.5 %Critically low20.5-60.0[facility] - YoungstownComment on above:Performed By: #### CBC #### [facility] [address] [place] [address] Harini KarenMANUAL DIFF REQNONormalThe [facility] Medical CenterComment on above: Performed By: #### CBC #### [facility] [address] [place] [address] Harini EngH (RBC) [Entitic mass]28.3 zhDghafz48.7-34.0[facility] Comment on above:Performed By: #### CBC #### [facility] [address] [place] [address] Harini EngROCKLAND [facility] (RBC) [Mass/Vol]32.8 g/uTWgnivm86.9-35.2[facility] Comment on above:Performed By: #### CBC #### [facility] [address] [place] [address] Harini EngMCV (RBC) [Entitic vol]86.0 bFPokbkz44.0-99.0[facility] Comment on above:Performed By: #### CBC #### [facility] [address] [place] [address] Harini KarenMONO #0.5 103/ulNormal0.3-0.8The [facility] CenterComment on above: Performed By: #### CBC #### [facility] [address] [place] [address] Harini KarenMonocytes/100 WBC (Bld)4.6 %Normal1.7-12.0[facility] Comment on above:Performed By: #### CBC #### [facility] [address] [place] [address] Harini BraunenNEUT #9.8 103/ulCritically high1.4-6.5The [facility] CenterComment on above:Performed By: #### CBC #### [facility] [address] [place] [address] Harini KarenNeutrophils/100 WBC (Bld)83.7 %Critically high43.0-75.0[facility] - YoungstownComment on above:Performed By: #### CBC #### [facility] [address] [place] [address] Harini KarenPlatelet mean volume (Bld) [Entitic vol]11.2 fLNormal9.5-13.5The [facility] Medical CenterComment on above:Performed By: #### CBC #### [facility] [address] [place] [address] Harini EngPLT219 103/ltIdvmck303-907Nkz [facility] CenterComment on above: Performed By: #### CBC #### [facility] [address] [place] [address] Harini EngRBC4.00 106/ulCritically low4.20-5.40The [facility] CenterComment on above:Performed By: #### CBC #### [facility] [address] [place] [address] Harini EngWBC11.7 103/ulCritically high4.0-11.0The [facility] CenterComment on above:Performed By: #### CBC #### [facility] [address] [place] [address] Harini BraunenCovid-19 PCR (CVDTB)on 05-94-0102STIB-CoV-2 (COVID-19) RNA SONY+probe Ql (Unsp spec)Not detectedNormalNOT DETECTEDSelect Medical Specialty Hospital [facility] [place] Comment on above:Result Comment: This test is not yet approved or cleared by the [place] FDA. When there are no FDA-approved or cleared tests available, and other criteria are met, FDA can make tests available under an emergency access mechanism called an Emergency Use Authorization (EUA). The EUA for this test is supported by the [place] of Health and Human Service's (HHS's) declaration [...] consistent with SARS-CoV-2.Performed By: #### CBC #### [facility] [address] [place] [address] Harini KarenDRUG SCREEN RAPID (URINE)on 68-79-6792CWLKkoejokhCzezqqNWDEIGKUEca Bellevue HospitalComment on above:Performed By: #### HBSANS #### [facility] [address] [place] [address] Harini KarenBARNegativeNormalNEGATIVESelect Medical Specialty Hospital - YoungstownComharbor oaks hospital on above: Performed By: #### HBSANS #### [facility] [address] [place] [address] Harini KarenBUPNegativeNormalNEGATIVESelect Medical Specialty Hospital - YoungstownComharbor oaks hospital on above: Performed By: #### HBSANS #### [facility] [address] [place] [address] Harini KarenBZONegativeNormalNEGATIVESub[facility] on above: Performed By: #### HBSANS #### [facility] [address] [place] [address] Harini KarenCOCNegativeNormalNEGAdena Health System on above: Performed By: #### HBSANS #### [facility] [address] [place] [address] Harini KarenCUT-OFFSSEE BELOWMercy Health [facility] Regional Medical CenterComharbor oaks hospital on above:Result Comment: AMP (Amphetamine): 500ng/mL, BAR (Barbituates): 200 ng/mL, BZO (Benzodiazepines): 150 ng/mL, BUP (Buprenorphine): 10 ng/mL, NORMA (Cocaine): 150 ng/mL, mAMP (Methamphetamine): 500 ng/mL, MTD (Methadone): 200 ng/mL, OPI (Opiates): 100 ng/mL, OXY (Oxycodone): 100 ng/mL, PCP (Phencyclidine): 25 ng/mL, PPX (Propoxyphene): 300 ng/mL, THC (Cannabinoids): 50 ng/mL, TCA (Trycyclic Antidepressants): 300 ng/mLPerformed By: #### HBSANS #### [facility] [address] [place] [address] Harini KarenDRUG CUT HEADERDRUG CLASS TEST SYSTEM CUT-OFF CONCENTRATIONS ARE FOLLOWS:NormalThe Ferdinand HospitalComment on above:Performed By: #### HBSANS #### [facility] [address] [place] [address] Harini KarenmAMPNegativeNormalNEGATIVEMetrohealth [facility] Medical Center HospitalComment on above: Performed By: #### HBSANS #### [facility] [address] [place] [address] Harini KarenMTDNegativeNormalNEGATIVEMetrohealth [facility] Center HospitalComment on above: Performed By: #### HBSANS #### [facility] [address] [place] [address] Harini KarenOPINegativeNormalNEGATIVEMetrohealth [facility] Center HospitalComment on above: Performed By: #### HBSANS #### [facility] [address] [place] [address] Harini KarenOXYNegativeNormalNEGATIVESelect Medical Specialty Hospital - YoungstownComment on above: Performed By: #### HBSANS #### [facility] [address] [place] [address] Harini KarenPCPNegativeNormalNEGATIVEMetrohealth Cleveland [facility] Center HospitalSt. Louis Children'S Hospitalment on above: Performed By: #### HBSANS #### [facility] [address] [place] [address] Harini KarenPPXNegativeNormalNEGATIVESuburban [facility] on above: Performed By: #### HBSANS #### [facility] [address] [place] [address] Harini KarenTCANegativeNormalNEGATIVEMetrohealth [facility] Center HospitalSt. Louis Children'S Hospitalment on above: Performed By: #### HBSANS #### [facility] [address] [place] [address] Harini KarenTHCNegativeNormalNEGATIVESelect Medical Specialty Hospital - YoungstownComment on above: Performed By: #### HBSANS #### [facility] [address] [place] [address] Harini KarenUA (CLEAN/CATCH) VP CLINICAL RESEARCH/MICRO IF IND.on 73-06-1010Jsgyibdwi Ql (U) NegativeNormalNEGATIVEMetrohealth Cleveland Heights Medical Center HospitalComment on above:Performed By: #### HONORIO UACSIND ####[facility] [address] [place] [id number]. Yilan ChangClarity (U)CLEARNormalCLEARMetrohealth Cleveland Heights Medical Center HospitalComment on above:Performed By: #### HONORIO UACSIND ####[facility] [address] [place] [address]Dr. Yilan ChangColor (U)LT. YELLOWNormal YELLOWMetrohealth Cleveland Heights Medical Center HospitalComment on above:Performed By: #### HONORIO UACSIND ####[facility] [address]sp[address] [place] [address]Dr. Yilan ChangGlucose Ql (U)NegativeNormalNEGATIVEMetrohealth Cleveland Heights Medical Center HospitalComment on above:Performed By: #### HONORIO UACSIND ####[facility] [address] [place] [address]Dr. Yilan ChangHemoglobin Ql (U)LARGE AbnormalNEGATIVEMetrohealth Cleveland Heights Medical Center HospitalComment on above:Performed By: #### HONORIO UACSIND ####[facility] [address] [place] [address]Dr. Yilan ChangKetones Ql (U)NegativeNormalNEGATIVESelect Medical Specialty [facility] [place] Comment on above:Performed By: #### REX OLMEDOCSIND ####[facility] [address] [place] [address]Dr. Yilan ChangLEUKOCYTES NegativeNormalNEGATIVESelect Medical Specialty Hospital - YoungstownComment on above:Performed By: #### HONORIO UACSIND ####[facility] [address] [place] [address]Dr. Yilan ChangNitrite Ql (U)NegativeNormalNEGATIVESelect Medical Specialty Hospital - YoungstownComment on above:Performed By: #### HONORIO UACSIND ####[facility] [address] [place] [address]Dr. Yilan ChangpH (U)6.5 [pH]Normal5-9The [facility] Medical CenterComment on above:Performed By: #### VINEET OLMEDOIND ####[facility] [address] [place] [address]Dr. Babak AdamsSPEC GRAVITY1.630Yeazyr9.005-<=1.025The [facility] CenterComment on above:Performed By: #### HONORIO UACSIND ####[facility] [address]prepb[address] [place] [address]Dr. Babak AdamsUA PROTEINNegativeNormalNEGATIVE/ TRACEThe [facility] CenterComment on above: Performed By: #### HONORIO UACSIND ####[facility] [address] [place], [place] [address]Dr. Babak AdamsUR MICRO INDINDICATEDNoMercy Health St. Vincent Medical CenterComment on above:Performed By: #### HONORIO UACSIND ####[facility] Knwq[address]ilnf[address] [place], [place] [address]Dr. Babak AdamsUrobilinogen Qn (U)0.2 {Rakesh'U}/dLNormal0.2 - 1.0The [facility] CenterComment on above:Performed By: #### REX OLMEDOCSIND ####[facility] Lbyuededux[address] [place], [place] [address]Dr. Babak Humphreys MICROSCOPIC ONLYon 55-95-1599QWFSZARCSMZY SEENNormalNONE SEENSelect Medical Specialty Hospital - YoungstownComharbor oaks hospital on above:Performed By: #### HONORIO UACSIND ####[facility] T[address] [place], [place] [address]Dr. Babak Adams Bacteria identified Cx Nom (U)NOT INDICATEDNoMercy Health St. Vincent Medical CenterComment on above:Performed By: #### HONORIO UACSIND ####[facility] [address] [place], [place] [address]Dr. Babak AdamsCASTNONE SEENNormalNONE SEEN The [facility] CenterComment on above:Performed By: #### HONORIO UACSIND ####[facility] [address] [place], [place] [address]Dr. Babak AdamsCrystals LM Nom (Urine sed)NONE SEENNormalNONE SEENThe [facility] CenterComment on above:Performed By: #### HONORIO UACSIND ####[facility] [address]hb[address] [place] [address]Dr. Babak Adams Epithelial cells LM Ql (Urine sed)FEWAbnormalNONE SEEN /RAREThe [facility] CenterComment on above:Performed By: #### HONORIO UACSIND ####[facility] [address] [place] [address]Dr. Babak Adams MUCOUSTRACEAbnormalNONE SEENThe [facility] CenterComment on above:Performed By: #### HONORIO UACSIND ####[facility] [address] [place] [address]Dr. Babak AdamsSmpmzRUW0-04Akqzajlm0-6Kbr [facility] Comment on above:Performed By: #### HONORIO UACSIND ####[facility] [address]ifxmx[address] [place] [address]Dr. Babak AdamsWBCNONE SEEN NormalNONE SEENThe [facility] CenterComment on above:Performed By: #### HONORIO UACSIND ####[facility] [address] [place] [address]Dr. Babak Do PREG BIOPHY W NON STRESSon [id number] PREG BIOPHY W NON STRESSEXAMINATION: US PREG [...] by: OKSANA DAVIES Date: 2021-01-10 09:00[facility] CenterUS PREG GROWTHon [id number] PREG GROWTHEXAMINATION: US PREG GROWTH HISTORY: Endocrine, [...] Normal interval growth Electronically authenticated by: OKSANA DAVISE Date: 2021-01-10 09:02[facility] CenterGROUP B STREP CULTUREon 01-09-2021. agalactiae Ag Ql (Unsp spec)Culture Observations: NEGATIVE FOR GROUP B STREPTOCOCCUS.NormalThe [facility] CenterComment on above: Performed By: #### GBSCX ####[facility] [address] [place], [place] [address]Jn. Babak AdamsUS PREG BIOPHY W NON STRESSon [id number] PREG BIOPHY W NON STRESSEXAMINATION: US PREG [...] profile score: 8.0 Electronically authenticated by: OKSANA DAIVES Date: 2021-01-03 09:58NormZanesville City Hospital PREG BIOPHY W NON STRESSon 81-47-7632JH PREG BIOPHY W NON STRESSEXAMINATION: US PREG [...] Electronically authenticated by: HOA FOFANA Date: 2020-12-27 09:15NormalOhio [facility] Hospital PREG BIOPHY W NON STRESSon 31-83-7412OV PREG BIOPHY W NON STRESSEXAMINATION: US PREG [...] Electronically authenticated by: HOA FOFANA Date: 2020-12-20 09:18[facility] CenterHo 91-11-0877VCY2.393 uIU/mLNormal0.470-4.680[facility] Hospital - YoungstownComment on above:Performed By: #### TSH ####[facility] [address] [place], [place] [address]Comment on above:Result Comment: <0.34 UIU/ml HYPERTHYROID 0.34-5.60 UIU/ml EUTHYROID >5.60 UIU/ml HYPOTHYROIDPerformed By: #### TSH ####[facility] [address] [place] [address] KadeUNM [facility] PREG BIOPHY W NON STRESSon 68-49-5157JH PREG BIOPHY W NON STRESSEXAMINATION: US PREG [...] by: HOA FOFANA Date: 2020-12-13 09:12[facility] CenterUS PREG GROWTHon [id number] PREG GROWTHEXAMINATION: US PREG GROWTH HISTORY: Endocrine, [...] by: HOA FOFANA Date: 2020-12-13 09:13[facility] Medical CenterGTT 3 HR PREGon 95-75-2331Ftdiaek [Mass/Vol]85 mg/dLNormal 74-106[facility] - YoungstownComment on above:Performed By: #### GTT3P ####[facility] [address] [place], [place] [address]Qmessc KarenGlucose [Mass/Vol]186 mg/dLMercy Health Springfield Regional Medical CenterComment on above: Performed By: #### GTT3P ####[facility] [address] [place], [place] [address]Jiwhbg KarenGlucose [Mass/Vol]161 mg/dLNoMercy Health St. Vincent Medical CenterComment on above:Performed By: #### GTT3P ####[facility] [address] [place] [address]Gerken KarenGlucose [Mass/Vol]90 mg/dLNoMercy Health St. Vincent Medical CenterComment on above:Performed By: #### GTT3P ####[facility] [address] [place] [address]Gerken KarenGLUCOSE - 1HRon 43-47-3500Lpfeqoc [Mass/Vol]195 mg/dLCritically bwzl44-085Edv [facility] CenterComment on above:Performed By: #### GLU1HR ####[facility] [address] [place], [place] [address]Gerken KarenHEMOGRAM AND PLATELon 67-10-2667Zqbhdkzrcu (Bld) [Volume fraction]32.9 % Critically low36.0-48.0[facility] - YoungstownComment on above:Performed By: #### CBC #### [facility] [address] [place] [address] Harini KarenHemoglobin (Bld) [Mass/Vol]10.7 g/dLCritically low12.0-16.0[facility] YoungstownComment on above:Performed By: #### CBC #### [facility] [address] [address] Harini KarenMCH (RBC) [Entitic mass]29.0 ypSlinfw40.7-34.0[facility] Comment on above:Performed By: #### CBC #### [facility] [address] [address] Harini KarenMCHC (RBC) [Mass/Vol]32.5 g/mVBqrjfy69.9-35.2[facility] Comment on above:Performed By: #### CBC #### [facility] [address] [address] Harini KarenMCV (RBC) [Entitic vol]89.2 aMWtntkf18.0-99.0The [facility] Comment on above:Performed By: #### CBC #### [facility] [address] [address] Harini BraunDpbqiQBM850 103/scIxtvlw295-494Nbn [facility] CenterComment on above: Performed By: #### CBC #### [facility] [address] [address] Harini BraunenRBC3.69 106/ulCritically low4.20-5.40The [facility] CenterComment on above:Performed By: #### CBC #### [facility] [address] [address] Harini BraunenWBC11.6 103/ulCritically high4.0-11.0The [facility] CenterComment on above:Performed By: #### CBC #### [facility] [address] [address] Harini EngUS PREG GROWTHon 51-76-9312TA PREG GROWTHEXAMINATION: US PREG GROWTH HISTORY: Endocrine, [...] by: HOA FOFANA Date: 2020-11-15 10:36[facility] Medical CenterVIT D 1 25 DIHYDROXYon 25-01-0523Oadygygnuc(1,25 di-OH Vit D) 91.9 pg/mLCritically high19.9-79.3The [facility] CenterComment on above: Performed By: #### CBC #### [facility] [address] [place] [address] Harini EasleyHon 95-47-5684EOA7.386 uIU/mLNormal0.470-4.680[facility] - YoungstownComment on above:Performed By: #### CBC #### [facility] [address] [place] [address] Harini KarenTSH RANGESEE BELOWNoMercy Health St. Vincent Medical CenterComment on above:Result Comment: <0.34 UIU/ml HYPERTHYROID 0.34-5.60 UIU/ml EUTHYROID >5.60 UIU/ml HYPOTHYROIDPerformed By: #### CBC #### [facility] [address] [place] [address] Harini KarenPAP ACOG PANEL 2: 30 to 65on 09-03-2020..NormalSelect Medical Specialty Hospital - [place] Comment on above:Result Comment: Performed at: WBPerformed By: #### CBC #### [facility] [address] [place] [address] Harini KarenAge Gdln ACOG Hqwqvgl51-34AisbstRmqMercy Health Springfield Regional Medical CenterComment on above:Performed By: #### CBC #### [facility] [address] [place] [address] Harini KarenDIAGNOSIS:Martins Ferry HospitalComment on above:Result Comment: NEGATIVE FOR INTRAEPITHELIAL LESION OR MALIGNANCY. Performed at: WBPerformed By: #### CBC #### [facility] [address] [place] [address] Harini KarenHPV AptimaNegativeNormalNegativeSelect Medical Specialty Hospital - YoungstownComment on above:Result Comment: This nucleic acid amplification test detects fourteen high-risk HPV types (16,18,31,33,35,39,45,51,52,56,58,59,66,68) without differentiation. Performed at: =GPerformed By: #### CBC #### [facility] [address] [place] [address] Harini KarenMethodology:CommentKettering Memorial Hospital on above: Result Comment: This liquid based ThinPrep(R) pap test was screened with the use of an image guided system. Performed at: WBPerformed By: #### CBC #### [facility] [address] [place] [address] Harini BraunenNote:CommentKettering Memorial Hospital on above:Result Comment: The Pap smear is a screening test designed to aid in the detection of premalignant and malignant conditions of the uterine cervix. It is not a diagnostic procedure and should not be used as the sole means of detecting cervical cancer. Both false-positive and false-negative reports do occur. . Performed at: WBPerformed By: #### CBC #### [facility] [address] [place] [address] Harini BraunenPerformed by:CommentKettering Memorial Hospital on above: Result Comment: Johanna Bautista, Public Services Librarian (ASCP) Performed at: WBPerformed By: #### CBC #### [facility] [address] [place] [address] Harini KarenSpecimen adequacy:CommentKettering Memorial Hospital on above:Result Comment: Satisfactory for evaluation. No endocervical component is identified. Performed at: WBPerformed By: #### CBC #### [facility] [address] [place] [address] Harini BraunenCHLAMYDIA/GONOCOCCUS SONY (SWAB/URINE/PAPon 57-69-6336Luiabkaps trachomatis, NAANegativeNormalNegativeThe [facility] CenterComharbor oaks hospital on above: Performed By: #### CT/NGNA ####[facility] [address] [place] [address]Gerken KarenNeisseria gonorrhoeae, NAANegativeNormal NegativeThe [facility] on above:Performed By: #### CT/NGNA ####[facility] [address] [place] [address]Gerken KarenVAGINITIS/VAGINOSIS DNA PROBEon 68-58-3740Mxvdiyd speciesNegativeNormal NegativeThe [facility] CenterComment on above:Performed By: #### CBC #### [facility] [address] [place] [address] Harini BraunenGardnerella vaginalisPositiveAbnormalNegativeSelect Medical [facility] [place] Comment on above:Performed By: #### CBC #### [facility] [address] [place] [address] Harini KarenTrichomonas vaginalisNegativeNormalNegativeSelect Medical Specialty Hospital - [place] Comment on above:Performed By: #### CBC #### [facility] [address] [place] [address] Harini KarenHEP B SURFACE ANTIGEN SCREENon 78-47-7688FQcHr ScreenNegativeNormal NegativeSelect Medical Specialty Hospital - YoungstownComment on above:Performed By: #### HBSANS #### [facility] [address] [place] [address] Harini KadeenHEPATITIS C VIRUS AB W/ REFLEX QUANTon 32-52-1669HFQ AB0.2 s/co ratioNormal0.0-0.9The [facility] CenterComment on above:Performed By: #### HCVPCRR ####[facility] [address] [place], [place] [address]enInterpretation:CommentNormalThe [facility] CenterComharbor oaks hospital on above:Result Comment: Negative Not infected with HCV, unless recent infection is suspected or other evidence exists to indicate HCV infection.Performed By: #### HCVPCRR ####[facility] [address] [place] [address] KarenHIV 1 AND 2 WITH REFLEXon 78-91-5516XQP Screen 4th Generation wRfx Non-ReactiveNormalNon ReactiveThe [facility] CenterComment on above:Performed By: #### HIV12 #### [facility] [address] [place] [address] Harini KarenRPR QUANTon 07-87-5136Qhcws Plasma Reagin, QuantNon-ReactiveNormal NonRea<1:1The [facility] CenterComment on above:Performed By: #### CBC #### [facility] [address] [place] [address] Harini KarenRUBELLA AB IGGon 47-43-6357Ygsmbnf Antibodies, IgG1.89 indexNormal Immune >0.99The [facility] CenterComment on above:Result Comment: Non-immune <0.90 Equivocal 0.90 - 0.99 Immune >0.99Performed By: #### CBC #### [facility] [address] [place] [address] Harini KarenCBC AUTO DIFFon 60-30-8079TNCG #0.0 103/ulNormal0.0-0.1The [facility] CenterComment on above:Performed By: #### CBC #### [facility] [address] [place] [address] Harini KarenBasophils/100 WBC (Bld)0.3 %Normal0.2-2.0The [facility] Comment on above:Performed By: #### CBC #### [facility] [address] [place] [address] Harini KarenEO #0.1 103/ulNormal0.0-0.7The [facility] CenterComment on above: Performed By: #### CBC #### [facility] [address] [place] [address] Harini KarenEosinophils/100 WBC (Bld)0.6 %Critically low0.9-7.0The [facility] CenterComment on above:Performed By: #### CBC #### [facility] [address] [place] [address] Harini KarenErythrocyte distribution width (RBC) [Ratio]13.0 %Njbxww61.0-15.0The [facility] CenterComment on above:Performed By: #### CBC #### [facility] [address] [place] [address] Harini KarenHematocrit (Bld) [Volume fraction]36.9 %Rppsix26.0-48.0The [facility] CenterComment on above:Performed By: #### CBC #### [facility] [address] [place] [address] Harini KarenHemoglobin (Bld) [Mass/Vol]12.0 g/rXNcclxn00.0-16.0The [facility] CenterComment on above:Performed By: #### CBC #### [facility] [address] [place] [address] Harini MurrietaG #0.04 10e3/ulCritically high0.00-0.03The [facility] CenterComment on above:Performed By: #### CBC #### [facility] [address] [place] [address] Harini Gottlieb %0.4 %Normal0.0-0.5The [facility] CenterComment on above: Performed By: #### CBC #### [facility] [address] [place] [address] Harini EngLYMPH #1.4 103/ulNormal1.2-3.8The [facility] CenterComment on above: Performed By: #### CBC #### [facility] [address] [place] [address] Harini EngLymphocytes/100 WBC (Bld)14.6 %Critically low20.5-60.0The [facility] CenterComment on above:Performed By: #### CBC #### [facility] [address] [place] [address] Harini EngMANUAL DIFF REQNONormalThe [facility] CenterComment on above: Performed By: #### CBC #### [facility] [address] [place] [address] Harini KarC[facility] (RBC) [Entitic mass]28.6 ipUvbxax50.7-34.0The [facility] Comment on above:Performed By: #### CBC #### [facility] [address] [place] [address] Harini KarW[facility] (RBC) [Mass/Vol]32.5 g/gROrxdns91.9-35.2The [facility] Comment on above:Performed By: #### CBC #### [facility] [address] [place] [address] Harini KarsalomeV (RBC) [Entitic vol]88.1 kGOodnla42.0-99.0The [facility] Comment on above:Performed By: #### CBC #### [facility] [address] [place] [address] Harini KarenMONO #0.4 103/ulNormal0.3-0.8The [facility] CenterComment on above: Performed By: #### CBC #### [facility] [address] [place] [address] Harini KarenMonocytes/100 WBC (Bld)3.9 %Normal1.7-12.0The [facility] Comment on above:Performed By: #### CBC #### [facility] [address] [place] [address] Harini KarenNEUT #7.6 103/ulCritically high1.4-6.5The [facility] CenterComment on above:Performed By: #### CBC #### [facility] [address] [place] [address] Harini KarenNeutrophils/100 WBC (Bld)80.2 %Critically high43.0-75.0The [facility] CenterComment on above:Performed By: #### CBC #### [facility] [address] [place] [address] Harini KarenPlatelet mean volume (Bld) [Entitic vol]11.4 fLNormal9.5-13.5The [facility] CenterComment on above:Performed By: #### CBC #### [facility] [address] [place] [address] Harini PlfzmQWA085 103/gwPcpmrw091-534Oom [facility] CenterComment on above: Performed By: #### CBC #### [facility] [address] [place] [address] Harini KarenRBC4.19 106/ulCritically low4.20-5.40The [facility] CenterComment on above:Performed By: #### CBC #### [facility] [address] [place] [address] Harini KarenWBC9.4 103/ulNormal4.0-11.0The Ferdinand HospitalComment on above: Performed By: #### CBC #### [facility] [address] [address] Harini KarenCULTURE URINEon 95-22-5140HBPZZZA URINECulture Observations: NO GROWTHNoMercy Health St. Vincent Medical CenterComment on above:Performed By: #### URCX ####[facility] [address] [address]Gerken KarenGLYCOHEMOGLOBIN A1Con 06-64-2141GOH RECOMMENDATIONADA THERAPEUTIC TARGET 6.0 - 7.0 ACTION SUGGESTED > 7.0NoMercy Health St. Vincent Medical CenterComment on above: Performed By: #### A1C #### [facility] [address] [place] [address] Harini KarenGlucose [Mass/Vol]100 mg/dLMercy Health Springfield Regional Medical CenterComment on above:Performed By: #### A1C #### [facility] [address] [place] [address] Harini TkdyoVyD6p (Bld) [Mass fraction]5.1 %Normal<=6.0[facility] Comment on above:Performed By: #### A1C #### [facility] [address] [address] Harini KarenNATERA BOX TEST PT SEND OUTon 17-77-2599GXHF TO REF LAB07/19/2020 NormalSelect Medical Specialty Hospital - YoungstownComment on above:Performed By: #### CBC #### [facility] [address] [place] [address] Harini KarenTYPE AND SCREENon 13-52-7393EDAW AND SCREENNegativeNoMercy Health St. Vincent Medical CenterComment on above:Performed By: #### TNS ####[facility] [address] [place], [place] [address]Gerken KarenUS PREG TVon 67-35-2327HK PREG TVEXAMINATION: US PREG TV HISTORY: Hemorrhagic [...] Electronically authenticated by: HOA FOFANA Date: 2020-07-02 07:21[facility] SouthNURSEon 15-11-8634KRYYVHSDwyby Visit (REIAV) KARLOS VILLEGAS ([id number]) 1985 F Date Time Provider Department 06/17/20 8:20 AM NURSE SHANNAN [facility] REJ REIAV During your visit today, we [...] OB OB Provider: NESSA Patients Phone number: [phone] Paula Griggs MD 06/17/2020 3:29 PM Signed [...] (None) Encounter Status:Closed by PAULA MASTERSON on 06/17/20[facility] 17-94-7126ULOGUSHKssvy Visit (REIBD) KARLOS VILLEGAS ([id number]) 1985 F Date Time Provider Department 06/14/20 10:00 AM NURSE SHANNAN [facility] KIMMY REIBD During your visit today, we [...] Encounter Status:Closed by ANIRUDH NUR RN on 06/17/20[facility], Quantitative Blon 89-38-4342BDC, Quantitative Bl419.8 mU/mLHigh <5.0[facility]Com[facility] on above:Result Comment: QUANTITATIVE HCG NORMAL RANGES Weeks of Gestation (Weeks Since LMP) 3 Weeks (5.8-71.2 mIU/mL) 4 Weeks (9.5-750 mIU/mL) 5 Weeks (217-7138 mIU/mL) 6 Weeks (158-64305 mIU/mL) 7 Weeks (3697-771228 mIU/mL) 8 Weeks (48934-279039 mIU/mL) 9 Weeks (94031-698548 mIU/mL) 10 Weeks (05083-403478 mIU/mL) 12 Weeks (14772-189288 mIU/mL) Referenced to 4th IS of NIBSCPerformed By: #### HCGQT ####[facility] [address] [place], [place] [phone] 05-15-2020 CNOVOffice Visit (REIAV) KARLOS VILLEGAS ([id number]) 1985 F Date Time Provider Department 05/15/20 10:45 AM PETROS RAINEY During your visit today, we recorded the following information about you: Pulse Blood pressure Weight Height 96/minute 127/72 124.1 kg 1.727 m Last Period 04/29/20 Sulema Raphael MD 05/16/2020 7:15 AM Signed [facility] In Vitro Fertilization Program Date: 05/15/2020 Patient Name: Karlso Villegas Consultation Requested By: PCP / BAND LOG MILL AND CARRIAGE OPERATOR if different from referral source: self HISTORY [...] Results Date Comments HSG Normal done by geomagnetist 2018 Hysteroscopy Laparoscopy OPK (Ovulation Predictor Kit) Ovarian Gay Saline Ultrasound Semen Analysis Normal [facility] and geomagnetist 2019 Ultrasound 2019 Other (See comments) Prior [...] found for this basename: aborhd 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 Dropped cycles: Yes 2. Hyperstimulation Syndrome: Yes 3. Ovarian Gay: Yes 4. Freezi (more content not included)...NormalGerman HospitalCONLT PROGon 67-09-9756WIIXVSI PROGHNO ID: [id number] Author: Petros Rainey Service: ? Author Type: Physician Type: Consult Progress Note Filed: 05/16/2020 7:15 AM Note Text: [facility] In Vitro Fertilization Program Date: 05/15/2020 Patient Name: Karlos Villegas Consultation Requested By: PCP / BAND LOG MILL AND CARRIAGE OPERATOR if different from referral source: self HISTORY [...] Results Date Comments HSG Normal done by geomagnetist 2018 Hysteroscopy Laparoscopy OPK (Ovulation Predictor Kit) Ovarian Gay Saline Ultrasound Semen Analysis Normal [facility] geom[facility]ist 2019 Ultrasound 2019 Other (See comments) Prior [...] found for this basename: aborhd 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 Dropped cycles: Yes 2. Hyperstimulation Syndrome: Yes 3. Ovarian Gay: Yes 4. Freezing eggs/embryos: Yes 5. Potential for no transfer: Yes 6. Surgical procedure and complications: Yes 7. ICSI: yes 8. Number of embryos to transfer: 1 9. Elective Single Embryo Transfer candidate: Yes 10. Selective Reduction discussed: Yes 11. PGD Candidate: No (more content not included)...NormalGerman HospitalCNPNon 18-08-2074JPERBwcvmmoyq (REIBD) KARLOS VILLEGAS ([id number]) 1985 F Date Time Provider Department 05/13/20 PETROS RAINEY During your visit today, we recorded the following information about you: Sandra Franklin Pss 05/13/2020 12:18 PM Signed Pt Needs a work letter sent to her my chart regarding her appt yesterday for her iui Xochilt Chand APRN.CUSTOM DECORATING CONSULTANT 05/13/2020 12:44 PM Signed Letter sent. Xochilt [...] Encounter Status:Closed by XOCHILT CHAND CNP on 05/13/20[facility] 63-05-0192KELYDhpevc Visit (REIBD) MCKINLEYKARLOS L ([id number]) 1985 F Date Time Provider Department 05/12/20 [...] count of sperm after wash): 23.6 million [place] Protocol/Safety Checklist: Sign In Communication: Completed Time [...] hives Date Reviewed: 05/12/2020 Reviewed by: Xochilt ([facility]) [place] - Fully Assessed Primary Visit [...] Encounter Status:Closed by XOCHILT CHAND CNP on 05/12/20[facility]MARIAMon 60-09-0785PPQHOLEDhydb Visit (MARLONIAV) KARLOS VILLEGAS ([id number]) 1985 F Date Time Provider Department 05/10/20 7:30 AM NURSE SHANNAN [facility] [place] During your visit today, we [...] Encounter Status:Closed by SWAPNIL CANALES MD on 05/11/20[facility] 14-53-7674MIYKJdefcgneu (REIBD) KARLOS VILLEGAS ([id number]) 1985 F Date Time Provider Department 05/09/20 [...] auth [Other] Cmt: the phone number is [phone] is the dircct line to call Prescriptions [...] Encounter Status:Closed by XOCHILT CHAND CNP on 05/10/20[facility] Vital Signs Date TimeVital SignValuePerforming GleqlgkrvWayxtguo03-78-3270 09:29-0400Body ednbhz137.72 cmKevon Land MD Work Phone: [phone]22[facility]10-15-2025 09:29-0400 Body mass index (BMI) [Ratio]43.6 kg/w8ZxppalKevon Land MD Work Phone: [phone]10-15-2025 09:29-0400 Body .18 kgKevon Land MD Work Phone: [phone]10-15-2025 09:29-0400 Diastolic blood qihbxamz24 mm[Hg]Kevon Land MD Work Phone: [phone]10-15-2025 09:29-0400 Heart rate91 /minKevon Land MD Work Phone: [phone]10-15-2025 09:29-0400 Systolic blood mm[Hg]Kevon Land MD Work Phone: [phone]06[facility]04-25-2025 08:45-0400 Body bupddk549.72 cmMet[facility] Center04-25-2025 08:45-0400Body mass index (BMI) [Ratio]46.3 kg/w9JjpbhabwwMet[facility]04-25-2025 08:45-0400Body .34 kgMet[facility]04-25-2025 08:45-0400Diastolic blood gbysrquc57 mm[Hg][facility] 08-04-2024 08:45-0400Heart rate99 /[facility] 08-04-2024 08:45-0400Systolic blood hboseofg415 mm[Hg][facility]10-08-2024 08:20-0400Body tyihzv526.72 cmMet[facility]10-08-2024 08:20-0400Body mass index (BMI) [Ratio]44.5 kg/m9VjbuknxmxMet[facility]health [facility] Center10-08-2024 08:20-0400Body stoctx776.95 [facility]10-08-2024 08:20-0400Diastolic blood tewsyotn53 mm[Hg] [facility]10-08-2024 08:20-0400Heart rate82 /[facility]10-08-2024 08:20-0400Respiratory rate16 /[facility]10-08-2024 08:20-6235GvK5% (BldA) [Mass fraction]97 % [facility]10-08-2024 08:20-0400Systolic blood kakngvft524 mm[Hg][facility]07-31-2024 10:24-0400Body eegrqg104.72 cm [facility]07-31-2024 10:24-0400Body mass index (BMI) [Ratio]44.5 kg/f9VnnyrlsixMetrohealth [facility] Campus Medical Center07-31-2024 10:24-0400Body mauzdo286.9 kgMet[facility]07-31-2024 10:24-0400Diastolic blood nhpztaqg026 mm[Hg][facility]07-31-2024 10:24-0400 Heart dwbq298 /[facility]07-31-2024 10:24-0400Systolic blood rdvxouju668 mm[Hg][facility]05-03-2024 13:34-0400 Body asclih018.72 cmMet[facility]05-03-2024 13:34-0400Body mass index (BMI) [Ratio]44.5 kg/m2GijkekhxiMet[facility]health [facility] Campus [facility] Center05-03-2024 13:34-0400Body .7 [degF][facility]05-03-2024 13:34-0400Body .9 kgMet[facility]05-03-2024 13:34-0400Heart rate88 /[facility]05-03-2024 13:34-0400Respiratory rate18 /[facility]05-03-2024 13:34-7407GoB9% (BldA) [Mass fraction]97 %[facility] 07-26-2023 11:20-0400Body .72 cmMet[facility] 07-26-2023 11:20-0400Body mass index (BMI) [Ratio]46 kg/n9IgzjbmiamMet[facility]health Main Campus Medical Center04-15-2024 11:20-0400Body ogzqhu748.55 kgMet[facility]health [facility] Center04-15-2024 11:20-0400Diastolic blood nzlioaxm93 mm[Hg][facility]04-15-2024 11:20-0400Heart rate99 /[facility]04-15-2024 11:20-0400Systolic blood zzjcysjh933 mm[Hg][facility] Encounters Encounter DateEncounter TypeCare ProviderFacilityStart: 01-24-2025 End: 78-84-0211errnshikboKjfzch E Braun MD Work Phone: [facility] Work Phone: Start: 01-24-2025 End: 98-99-0725Ljoyyas encounter procedureKevon Land MD-[facility] Work Phone: Start: 08-04-2024 End: 39-56-2445yfdfvzcnthGowjzmpjqL[facility]Health [facility] Work Phone: Start: 08-04-2024 End: 37-42-4614Ofnbxts [facility]At[facility] Work Phone: Start: 43-59-2664Guh-patient / Non-visitAt[facility] Work Phone: Start: 29-04-7022Idi-patient / Non-visitAt[facility] Work Phone: Start: 01-18-2024 End: 31-67-3319cwioarwzypBclmxctvkMemorial Hospital Work Phone: Start: 01-18-2024 End: 65-24-0299Tilfoya encounter procedureAt[facility] Work Phone: Start: 11-10-2023 End: 01-25-3536rnfoiwvbxaErlknnyjmMemorial Hospital Work Phone: Start: 11-10-2023 End: 43-75-8682Ahccayi encounter procedureAt[facility] Work Phone: Start: 08-13-2023 End: 24-52-4306xnubsncrpkJauqtyodtMemorial Hospital Work Phone: Start: 08-13-2023 End: 09-30-9265Wukakmm encounter procedureAt[facility] Health [facility] Jonh Work Phone: Start: 34-43-9458Iaiymsu encounter statusAvita Health System Ontario Hospitaltart: 07-26-2023 End: 50-23-7712kolncleeajVzafwqkiyLakeHealth TriPoint Medical Center Work Phone: Start: 07-26-2023 End: 06-63-1707Ujtwvydkz for general adult medical examination without abnormal findingsAvita Health System Ontario Hospitaltart: 07-26-2023 End: 48-38-4225Xvmovvd encounter procedureAt[facility] Health [facility] Work Phone: Start: 06-18-2021 End: 28-37-5184iadfpywmbmIH KEVON LANDFacility:U2Kitml: 05-20-2021 End: 99-76-4518vbkqpvnbfpWB DOCTOR MISCFacility:X0Gwrdi: 48-43-5360rirolffdbsTC GIANLUCA FAZIOFacility:R1Jnlpu: 27-22-6822fpqmloliooRW GIANLUCA FAZIOFacility:F1Nyrad: 01-22-2021 End: 94-54-2463czzxrtycslWO GIANLUCA FAZIOFacility:J4Yvkss: 01-14-2021 End: 66-41-9330Fvccpfsvbd and management of inpatientDR GIANLUCA FAZIOFacility:H1 Start: 01-10-2021 End: 36-89-1453vepzbddzngBO DOCTOR MISCFacility:Q9Fwxfy: 01-09-2021 End: 29-84-1869pwdwxpooolWL GIANLUCA FAZIOFacility:D3Ptiyk: 01-03-2021 End: 41-46-0572fqjbwomklgNE GIANLUCA FAZIOFacility:D7Wahrk: 12-27-2020 End: 72-28-0364mueedxrzwqIK GIANLUCA FAZIOFacility:A2Plswo: 12-20-2020 End: 19-58-4306kwvrbudvpkDG GIANLUCA FAZIOFacility:E6Fwqpb: 12-13-2020 End: 66-14-4688dkymmenjvaWI GIANLUCA FAZIOFacility:U6Fpusp: 12-13-2020 End: 15-00-7662qxbpxflmoeUU GIANLUCA FAZIOFacility:K1Ltabg: 11-23-2020 End: 93-68-8617qvmomtxgyfNL GIANLUCA FAZIOFacility:C9Knsxc: 11-15-2020 End: 50-96-3612mnsnujafocOB GIANLUCA FAZIOFacility:O6Yfzdm: 11-02-2020 End: 12-19-1134czuziksodnEV GIANLUCA FAZIOFacility:D2Faxrh: 08-29-2020 End: 73-78-0555ywkolhpiyfWE GIANLUCA FAZIOFacility:B3Wrskb: 07-19-2020 End: 12-74-5331ywzkmemtyaWS GIANLUCA FAZIOFacility:R9Bopee: 07-01-2020 End: 40-27-3166yriinfbnznSQ GIANLUCA FAZIOFacility:H1 Procedures DateProcedureProcedure DetailPerforming ClinicianStart: 97-11-5961Dypwdefs of Products of Conception, External ApproachDR DOCTOR MISCStart: 37-98-6856Icrkrfqv of Female Perineum, External ApproachDR DOCTOR MISCStart: 66-40-2367Ivcdei Perineum Muscle, Open ApproachDR DOCTOR MISCStart: 72-41-1999Evtlhh Vulva, External ApproachDR DOCTOR MISC Plan of Treatment Date[facility] Payers DatePayer CategoryPayerPolicy [id number] [id number] 2.0.1.529673.3.57[id number] 2.0.1.077945.3.579.2.4[id number] 2..1.479292.3.57[id number] 2.840.1.539067.3.579.2.95303-63-5157Hlpjdrc7644321 2.0.1.470875.3.579.2.54947-05-3300Ofadqmj3905616 2..1.591086.3.579.2.64678-05-5540Jiozouv6834698 2..1.502886.3.579.2.55163-41-7169Oafvmro6029945 2.840.1.024682.3.579.2.51380-94-6602Vgminlf4187375 2.0.1.643208.3.579.2.16970-64-6557Xznklja6905747 2..1.385993.3.579.2.22044-79-3748Wewdwgb8421533 2.840.1.773662.3.579.2.89106-53-4215Fqcfixl2805401 2..840.1.064069.3.579.2.48960-34-9276Leblnyv5556067 2.16.840.1.004608.3.579.2.19737-53-5246Jcffafd9339985 2.16.840.1.341702.3.579.2.88318-14-1198Xbcvinc2285418 2..840.1.915446.3.579.2.47271-80-8312Gcrpyym3036889 2..840.1.986040.3.579.2.40772-93-8157Rliujnu9002269 2..840.1.572056.3.579.2.47717-00-6758Gvgfxhz1623519 2..840.1.333459.3.579.2.19061-02-1082Dbqmvgq6567529 2.840.1.935879.3.579.2.82818-86-2617Zixh-qjo07-79-3868KvudbvbJYGZR0890744 60-60-8642IiqtvdlSBQ062404618638Kuvudwh1103976 2.16840.1.766760.3.579.2.593 UnknownAnthem BC/[id number] o4dhp024-nzx7-115j-c4qv-80oh818d78q3Vzyxkcm HCAP/HFA/FAP [id number] 4cdej6s6-1639-2r3h-4hpe-x28016a3ge45 Social History DateTypeDetailFacilityStart: 49-16-0331Vlfqrwy smoking status NHISEx-smoker (finding)[facility] Hospital[facility]: 64-64-5810Png Assigned At FemaleAvita Health System Ontario Hospitaltart: 85-35-4012IhdGtloor (finding) [facility] Clinical Notes 05-01-2020 to 06-17-2020 Note Date & YqviFtmgXkjeiydu37-34-5924 NoteHNO ID: [id number] Author: Tony Griggs Service: ? Author Type: Physician Type: Progress Notes Filed: 06/17/2020 3:29 PM Note Text: TRANSVAGINAL OB ULTRASONOGRAM Single viable IUP c/w dates Ovaries - normal w/ 23 mm simple cyst on right No free fluid See imaging tab PLAN - refer to OB Tony GriggsMagruder [facility]03-08-2021 NoteHNO ID: [id number] Author: Paula Masterson Service: ? Author Type: ? Type: Progress Notes Filed: 06/17/2020 3:29 PM Note Text: Karlos Villegas, a 34 year old is here for early OB ultrasound. This is her 1st ultrasound. Ultrasound report indicates Karlos is 6 weeks and 5 days, AJYCEE 02/04/21, LMP 04/29/20, FHR: 132 Estimated gestational [...] OB OB Provider: NESSA Patients Phone number: [phone] Paula [facility]02-24-2021 NoteHNO ID: [id number] Author: Jenny Perry Service: ? Author Type: [...] prefers to schedule 7 week scan at [facility]. she will call if spotting changes/becomes concerning Jenny Perry APRN.CNP June 05, 2020 9:56 AM Telephone call: 10 minutes Please schedule the patient for the following- Location: [facility] Visit type: scan Reason for visit/appointment notes: scan Date: 06/17 Time (if discussed): 0820 Call to patient needed: [facility]02-22-2021 NoteHNO ID: [id number] Author: Jenny Perry Service: ? Author Type: Nurse Practitioner Type: Progress Notes Filed: 06/03/2020 3:00 PM Note Text: Unable to reach patient by phone, sent GuestShots message with instructions. Jenny Perry APRN.CNP June 03, 2020 3:00 [facility]02-19-2021 NoteHNO ID: [id number] Author: Jenny Perry Service: ? Author Type: [...] (if discussed): any Call to patient needed: [facility]02-15-2021 NoteHNO ID: [id number] Author: Jenny Perry Service: ? Author Type: [...] follow up. ? Healthy Guide sent via GuestShots. ? Labs ordered: hcg AND TSH ? patient positive for covid - reviewed calling lab and scheduling lab testing ? advised monitoring temperature due to covid AND taking tylenol as needed NIMCO Perry, COLLECTIVE BARGAINING SPECIALIST.[facility] May 27, 2020 6:26 PM [facility]NO ID: [id number] Author: Colin Sparks (Tech) Service: ? Author Type: Senior Sales Operations Manager Type: Progress Notes Filed: 05/21/2020 9:11 AM Note Text: IUI Letrozole Pre: 76 m/,ml, 71% Post: 71 m/ml, 83% Insem [facility].6 [facility] NoteHNO ID: [id number] Author: Anirudh Nur RN Service: ? Author Type: ? Type: Progress Notes Filed: 05/16/2020 10:06 AM Note Text: Petros Rainey P Shann[facility] Ivf Pool; P Shannan Scheduling Pool Hi! Please set up this pt with [facility] for IVF and also for nurse consult. Thank you, Sulema Raphael [facility]01-31-2021 NoteHNO ID: [id number] Author: Xochilt Chand Service: ? Author Type: [...] count of sperm after wash): 23.6 million [place] Protocol/Safety Checklist: Sign In Communication: Completed Time [...] Villegas DATE: May 12, 2020 TIME: 9:48 [facility]01-29-2021 NoteHNO ID: [id number] Author: Xochilt Chand Service: ? Author Type: [...] discussed): tbd Call to patient needed[facility] NoteHNO ID: [id number] Author: Jenny Perry Service: ? Author Type: Nurse Practitioner Type: Progress Notes Filed: 05/09/2020 3:28 PM Note Text: Unable to reach patient by phone, left detailed message that rx was sent to [facility]. also sent sent GuestShots message with pharmacy phone number. Jenny Perry APRN.CNP May 09, 2020 3:25 PM The following approved medication requests have been transmitted electronically. Signed Prescriptions Disp Refills Choriogonadotropin Andrew,HumRec (OVIDREL) 250 mcg/0.5 mL syrg 1 Syringe 2 Sig: Inject 250 mcg subcutaneously one time only for 1 dose. KASSIDY: No [facility] NoteHNO ID: [id number] Author: Jenny Perry Service: ? Author Type: Nurse Practitioner Type: Progress Notes Filed: 05/08/2020 11:09 AM Note Text: [facility]rel [facility] to [facility] patient notified via [employer]hart. The following approved medication requests have been transmitted electronically. Signed Prescriptions Disp Refills Choriogonadotropin Andrew,HumRec (OVIDREL) 250 mcg/0.5 mL syrg 1 Syringe 2 Sig: Inject 250 mcg subcutaneously one time only for 1 dose. KASSIDY: No Jenny Perry APRN.[facility]01-20-2021 NoteHNO ID: [id number] Author: Jenny Perry Service: ? Author Type: [...] schedule the patient for the following- Location: [place] Visit type: monitoring Reason for visit/appointment notes: midcycle scan Date: 05/10 Time (if discussed): 0745 Call to patient needed: [facility] note* Diagnosis Onset Date Resolution Status History of gestational diabetes acuteHypothyroidism, unspecifiedacutePolycystic ovarian syndromeacuteWellness examinationacute [facility] Work Phone: Evaluation note* Diagnosis Onset Date Resolution Status Tooth infection acute [facility] Work Phone: Evaluation note* Diagnosis Onset Date Resolution Status Hypothyroidism, unspecified acuteType 2 diabetes mellitus with hyperglycemiaacute [facility] Work Phone: Evaluation note* Diagnosis Onset Date Resolution Status Admit Date Chest pain acuteApril 2024 8:43amHypothyroidism, unspecifiedacuteApril 2024 8:43amType 2 diabetes mellitus with hyperglycemiaacuteApril 2024 8:43am [facility] Work Phone: Evaluation noteNo assessment information available [facility] Work Phone: Reason for referral (narrative)No reason for referral information availableGlen[facility] Work Phone: Summary Purpose Family History No [...] section and content) DATE CREATED AUTHOR 04/30/2021 [facility] DATE CREATED AUTHOR AUTHOR'S ELISABET NARANJO 06/19/2021 [facility] Care Teams (unrecognized sec tion [...] BE BASED ON THE PRIMARY CLINICAL RECORDS. [facility]. provides no warranty or guarantee of the accuracy or completeness of information in this document.
[2025-03-07 14:06] LABS: Free T3 2.49 pg/mL (2.18-3.98); Thyroid Stimulating Hormone 6.469 uIU/mL (0.358-3.740)
== END 2025-03-07 12:46 | disposition home or self-care (01) ==
LOC: LAB 12:45
PROVIDERS: PCP Family Medicine; Visit Provider Family Medicine
DX: E03.9 Hypothyroidism, unspecified (principal)
CPT/HCPCS: 36415; 84439; 84443; 84481